=== PATIENT | female | born 1970 | race Caucasian/White ===

== ENCOUNTER 2016-07-28 08:27 | Emergency (ER) | payer OTHER ==
[2016-07-28 08:41] VITALS: BP 152/90; PULSE 92; TEMP 98.4; BMI 54.1
--- NOTE | 2016-07-28 09:49 | PDOC ---
History of Present Illness - General Chief Complaint: Rash Stated Complaint: RT WRIST INFECTION Time Seen by Provider: 07/28/16 09:31 History Source: Patient Exam Limitations: No Limitations - History of Present Illness Initial Comments: 07/28/16 09:49 46 yr female with c/o right inner wrist tatoo being infected. Pt states she had the tatoo placed and it started to become red, inflamed and pus drainage. Pt applied neosporin and it improved. Pt noted yesterday it felt warm to touch. no fever or chills. 07/28/16 10:04 Past History - Past Medical History Allergies/Adverse Reactions: Allergies Allergy/AdvReac Type Severity Reaction Status Date / Time Penicillins Allergy Severe Rash Verified 07/28/16 08:41 Home Medications: Ambulatory Orders Mupirocin Ointment [Bactroban] 1 applic TP BID #1 tube 07/28/16 Sulfamethoxazole/Trimethoprim [Bactrim Ds Tablet] 1 each PO BID #14 tablet 07/28 Asthma: Yes Cardiac Disorders: No Other medical history: obesity - Surgical History Abdominal Surgery: Yes (TUBAL LIGATION) Cholecystectomy: Yes Orthopedic Surgery: Yes (L. Knee & rt. knee, b/l carpal tunnel surgery ) - Family Disease History Family Disease History: Heart Disease: Mother - Immunization History Immunization Up to Date: Yes - Psycho/Social/Smoking Cessation Hx Anxiety: No Suicidal Ideation: No Smoking Status: Yes Smoking History: Current every day smoker Years of Tobacco Use: 10 Have you smoked in the past 12 months: Yes Number of Cigarettes Smoked Daily: 20 Information on smoking cessation initiated: No 'Breaking Loose' booklet given: 05/25/14 Hx Alcohol Use: No Drug/Substance Use Hx: No Substance Use Type: None Hx Substance Use Treatment: No Review of Systems - Review of Systems Able to Perform ROS?: Yes Is the patient limited [place] proficient: No Constitutional: No: Symptoms Reported HEENTM: No: Symptoms Reported Respiratory: No: Symptoms reported Cardiac (ROS): No: Symptoms Reported ABD/GI: No: Symptoms Reported : No: Symptoms Reported Musculoskeletal: No: Symptoms Reported Integumentary: Yes: See HPI *Physical Exam - Vital Signs Last Vital Signs Temp Pulse Resp BP Pulse Ox 98.4 F 92 H 18 152/90 95 07/28/16 08:37 07/28/16 08:37 07/28/16 08:37 07/28/16 08:37 07/28/16 08:37 - Physical Exam General Appearance: Yes: Nourished, Appropriately Dressed, Obese HEENT: positive: EOMI, AUGUST Integumentary: positive: Normal Color, Dry, Warm, Other (right inner wrist with multicolored tatoo with scabbed center, no drainage ) Neurologic: positive: Normal Response, Motor Strength 5/5 Medical Decision Making - Medical Decision Making 07/28/16 10:07 cc: tatoo to inner right wrist infected no streaking up arm, warm to touch dry scabbed area on the tatoo no active drainage will place on bactrim to cover for MRSA *DC/Admit/Observation/Transfer Diagnosis at time of Disposition: Wound infection - Discharge Dispostion Disposition: HOME Condition at time of disposition: Good - Prescriptions Prescriptions: Sulfamethoxazole/Trimethoprim [Bactrim Ds Tablet] 1 each PO BID #14 tablet Mupirocin Ointment [Bactroban] 1 applic TP BID #1 tube - Patient Instructions Additional Instructions: take bactrim as directed apply topical bactroban ointment twice a day for 10 days also apply A&D ointment in between applying the bactroban follow with your doctor if no improvement
== END 2016-07-28 10:12 | disposition home or self-care (01) ==
LOC: JERFT 08:27
DX: L08.89 Other specified local infections of the skin and subcutaneous tissue (principal); J45.909 Unspecified asthma, uncomplicated; F17.210 Nicotine dependence, cigarettes, uncomplicated; E66.01 Morbid (severe) obesity due to excess calories; Z68.43 Body mass index [BMI] 50.0-59.9, adult
CPT/HCPCS: 99281-25

== ENCOUNTER 2016-08-24 02:31 | Emergency (ER) | payer OTHER ==
[2016-08-24] MEDS ORDERED: ALBUTEROL SO4 2.5/IPRATROPIUM 0.5 INH SOL 3 ML VIAL.NEB. NEB ONE ×2 (02:54→02:55)
--- NOTE | 2016-08-24 02:54 | PDOC ---
History of Present Illness - General Stated Complaint: ASTHMA Time Seen by Provider: 08/24/16 02:53 History Source: Patient Exam Limitations: No Limitations - History of Present Illness Initial Comments: 08/24/16 03:46 46-year-old female with a history of asthma presents to the emergency department complaining of nonproductive cough and slight wheezing 2 days without chest pain, headache, dizziness, nausea/vomiting, fever/chills, back pains, abdominal discomfort. Patient states she took 1 albuterol treatment 5 hours ago with minimal relief. Patient says she is able to walk up and down a flight of stairs without being short of breath and can speak in full sentences without difficulties. No history of intubations. Timing/Duration: reports: this evening Severity: reports: mild Possible Cause: No: smoke exposure Associated Symptoms: reports: cough, wheezing. denies: chest pain/soreness Past History - Past Medical History Allergies/Adverse Reactions: Allergies Allergy/AdvReac Type Severity Reaction Status Date / Time Penicillins Allergy Severe Rash Verified 08/24/16 02:58 Home Medications: Ambulatory Orders NK [No Known Home Medication] 08/24/16 Asthma: Yes Cardiac Disorders: No - Surgical History Abdominal Surgery: Yes (TUBAL LIGATION) Cholecystectomy: Yes Orthopedic Surgery: Yes (L. Knee & rt. knee, b/l carpal tunnel surgery ) - Family Disease History Family Disease History: Heart Disease: Mother - Immunization History Immunization Up to Date: Yes - Psycho/Social/Smoking Cessation Hx Anxiety: No Suicidal Ideation: No Smoking Status: Yes Smoking History: Current every day smoker Years of Tobacco Use: 10 Have you smoked in the past 12 months: Yes Number of Cigarettes Smoked Daily: 20 'Breaking Loose' booklet given: 05/25/14 Hx Alcohol Use: No Drug/Substance Use Hx: No Substance Use Type: None Hx Substance Use Treatment: No Review of Systems - Review of Systems Able to Perform ROS?: Yes Comments:: 08/24/16 03:47 CONSTITUTIONAL: Absent: fever, chills, diaphoresis, generalized weakness, malaise, loss of appetite HEENT: Absent: rhinorrhea, nasal congestion, throat pain, throat swelling, difficulty swallowing, mouth swelling, ear pain, eye pain, visual Changes CARDIOVASCULAR: Absent: chest pain, loss of consciousness, palpitations, irregular heart rate, peripheral edema RESPIRATORY: + cough Absent:shortness of breath, dyspnea with exertion, orthopnea, wheezing, stridor , hemoptysis GASTROINTESTINAL: Absent: abdominal pain, abdominal distension, nausea, vomiting, diarrhea, constipation, melena, hematochezia GENITOURINARY: Absent: dysuria, frequency, urgency, hesitancy, hematuria, flank pain, genital pain MUSCULOSKELETAL: Absent: myalgia, arthralgia, joint swelling SKIN: Absent: rash, itching, pallor HEMATOLOGIC/IMMUNOLOGIC: Absent: easy bleeding, easy bruising, lymphadenopathy, frequent infections ENDOCRINE: Absent: unexplained weight gain, unexplained weight loss, heat intolerance, cold intolerance NEUROLOGIC: Absent: headache, focal weakness or paresthesias, dizziness, unsteady gait, seizure, mental status changes, bladder or bowel incontinence PSYCHIATRIC: Absent: anxiety, depression, suicidal or homicidal ideation, hallucinations. Is the patient limited [place] proficient: No *Physical Exam - Physical Exam Comments: 08/24/16 03:48 GENERAL: Well developed, well nourished. Awake and alert. No acute distress. HEENT: Normocephalic, atraumatic. PERRLA, EOMI. No conjunctival pallor. Sclera are non- icteric. Moist mucous membranes. Oropharynx is clear. NECK: Supple. Full ROM. No JVD. Carotid pulses 2+ and symmetric, without bruits. No thyromegaly. No lymphadenopathy. CARDIOVASCULAR: Regular rate and rhythm. No murmurs, rubs, or gallops. Distal pulses are 2+ and symmetric. PULMONARY: +scatted wheezes to lower b/l lungs No evidence of respiratory distress. No wheezing, rales or rhonchi. ABDOMINAL: Soft. Non-tender. Non-distended. No rebound or guarding. No organomegaly. Normoactive bowel sounds. MUSCULOSKELETAL Normal range of motion at all joints. No bony deformities or tenderness. No CVA tenderness. EXTREMITIES: No cyanosis. No clubbing. No edema. No calf tenderness. SKIN: Warm and dry. Normal capillary refill. No rashes. No jaundice. NEUROLOGICAL: Alert, awake, appropriate. Cranial nerves 2-12 intact. No deficits to light touch and temperature in face, upper extremities and lower extremities. No motor deficits in the in face, upper extremities and lower extremities. Normoreflexic in the upper and lower extremities. Normal speech. Toes are down- going bilaterally. Gait is normal without ataxia. PSYCHIATRIC: Cooperative. Good eye contact. Appropriate mood and affect. Progress Note - Progress Note Progress Note: 0355hrs: Pt says feels 100% better and wishes to be d/c *DC/Admit/Observation/Transfer Diagnosis at time of Disposition: Asthma Qualifiers: Asthma severity: mild intermittent Asthma complication type: uncomplicated Qualified Code(s): J45.20 - Mild intermittent asthma, uncomplicated - Discharge Dispostion Disposition: HOME Condition at time of disposition: Stable Admit: No - Referrals Referrals: Elton Hair MD [Primary Care Provider] - - Patient Instructions Printed Discharge Instructions: Asthma -- Adult Additional Instructions: Rest Follow up with your physician Return to the ER for severe/persistent/ worsening symptoms Take your steroids as prescribed
[2016-08-24] MEDS ORDERED: predniSONE 20 MG TABLET (UD) PO ONE (02:58)
[2016-08-24 03:01] VITALS: BP 153/90; PULSE 88; TEMP 98.3; BMI 51.5
[2016-08-24] MEDS ORDERED: predniSONE 20 MG TABLET (UD) ONE (03:07)
== END 2016-08-24 04:11 | disposition home or self-care (01) ==
LOC: JER 02:31
PROC: 3E0F7GC Introduction of Other Therapeutic Substance into Respiratory Tract, Via Natural or Artificial Opening (ICD-10-PCS; principal; 2016-08-24)
DX: J45.20 Mild intermittent asthma, uncomplicated (principal); F17.210 Nicotine dependence, cigarettes, uncomplicated
CPT/HCPCS: 94640; 99281-25

== ENCOUNTER 2016-08-28 19:20 | Inpatient (IN) | payer OTHER ==
[2016-08-28] MEDS ORDERED: ALBUTEROL SO4 2.5/IPRATROPIUM 0.5 INH SOL 3 ML VIAL.NEB. NEB ONE ×4 (19:28→20:31)
[2016-08-28] MEDS ORDERED: methylPREDNISolone NA SUCC 125 MG/2 ML VIAL IVPB ONE (20:10)
[2016-08-28] MEDS ORDERED: MAGNESIUM SULF 50% (8.12 MEQ/2 ML-1 GM VIAL) IVPB ONE (20:10)
[2016-08-28] MEDS ORDERED: methylPREDNISolone NA SUCC 125 MG/2 ML VIAL ONE (20:11)
[2016-08-28] MEDS ORDERED: MAGNESIUM SULF 50% (8.12 MEQ/2 ML-1 GM VIAL) ONE (20:12)
--- NOTE | 2016-08-28 20:13 | PDOC ---
History of Present Illness - General History Source: Patient Exam Limitations: No Limitations - History of Present Illness Initial Comments: 08/28/16 20:24 The patient is a 46 year old female with significant past medical history of asthma, no hospitalization or intubations, on albuterol nebulizer prn, does not have a MDI who presents to the ED for worsening asthma exacerbation. Patient was seen here in the ED on 08/24 for cold like symptoms, chest congestion, cough and SOB, where she was treated for asthma exacerbation and discharge with prednisone. However, there was an error in prescription that was sent with the prednisone for appropriate therapeutic dosage. She returns for worsening asthma exacerbation. States using her albuterol nebulizer treatment once today with no improvement and felt as if she needed more treatments. Patient does not have a rescue inhaler. Patient admits she has not been seen by her PMD in quite some time. The patient denies fever, chills, diaphoresis, chest pain, and palpitations. The patient denies abdominal pain, nausea, vomiting, and diarrhea. Allergies: penicillin Social History: Current smoker (recently cut down from ppd to half ppd). No alcohol or drug use reported. Past Surgical History: tubal ligation, cholecystectomy, L. Knee & rt. knee, b/ l carpal tunnel surgery PCP: Dr. Elton Hair <Vaishali Campbell - Last Filed: 08/29/16 01:46> <Rex Berger - Last Filed: 08/29/16 01:51> - General Chief Complaint: Asthma Stated Complaint: ASTHMA Past History <Vaishali Campbell - Last Filed: 08/29/16 01:46> - Past Medical History Asthma: Yes Cardiac Disorders: No - Surgical History Abdominal Surgery: Yes (TUBAL LIGATION) Cholecystectomy: Yes Orthopedic Surgery: Yes (L. Knee & rt. knee, b/l carpal tunnel surgery ) - Family Disease History Family Disease History: Heart Disease: Mother - Immunization History Immunization Up to Date: Yes - Psycho/Social/Smoking Cessation Hx Anxiety: No Suicidal Ideation: No Smoking Status: Yes Smoking History: Current every day smoker Years of Tobacco Use: 10 Have you smoked in the past 12 months: Yes Number of Cigarettes Smoked Daily: 20 Information on smoking cessation initiated: No 'Breaking Loose' booklet given: 05/25/14 Hx Alcohol Use: No Drug/Substance Use Hx: No Substance Use Type: None Hx Substance Use Treatment: No <Rex Berger - Last Filed: 08/29/16 01:51> - Past Medical History Allergies/Adverse Reactions: Allergies Allergy/AdvReac Type Severity Reaction Status Date / Time Penicillins Allergy Severe Rash Verified 08/28/16 19:26 Home Medications: Ambulatory Orders Albuterol Sulfate Inhaler - [Ventolin HFA Inhaler -] 2 inh PO Q6H #1 inh Review of Systems - Review of Systems Able to Perform ROS?: Yes Comments:: 08/28/16 20:24 GENERAL/CONSTITUTIONAL: No fever or chills. No weakness. HEAD, EYES, EARS, NOSE AND THROAT: No change in vision. No ear pain or discharge. No sore throat. CARDIOVASCULAR: +SOB No chest pain. RESPIRATORY: +cough, chest congestion No wheezing, or hemoptysis. GASTROINTESTINAL: No nausea, vomiting, diarrhea or constipation. GENITOURINARY: No dysuria, frequency, or change in urination. MUSCULOSKELETAL: No joint or muscle swelling or pain. No neck or back pain. SKIN: No rash NEUROLOGIC: No headache, vertigo, loss of consciousness, or change in strength/ sensation. ENDOCRINE: No increased thirst. No abnormal weight change. HEMATOLOGIC/LYMPHATIC: No anemia, easy bleeding, or history of blood clots. ALLERGIC/IMMUNOLOGIC: No hives or skin allergy. <Vaishali Campbell - Last Filed: 08/29/16 01:46> *Physical Exam - Vital Signs Last Vital Signs Temp Pulse Resp BP Pulse Ox 97.9 F 99 H 22 138/00 91 L 08/28/16 19:30 08/28/16 19:30 08/28/16 19:30 08/28/16 19:30 08/28/16 19:30 - Physical Exam Comments: 08/28/16 20:28 GENERAL: Awake, alert, and fully oriented, in no acute distress HEAD: No signs of trauma EYES: PERRLA, EOMI, sclera anicteric, conjunctiva clear ENT: Auricles normal inspection, hearing grossly normal, nares patent, oropharynx clear without exudates. Dry mucosa. Mild clinical dehydration. NECK: Normal ROM, supple, no lymphadenopathy, JVD, or masses LUNGS: Breath sounds equal. Diffuse wheezing with prolonged expiratory phase. No rales, rhonchi and no crackles HEART: Regular rate and rhythm, normal S1 and S2, no murmurs, rubs or gallops ABDOMEN: Obese body habitus. Soft, nontender, normoactive bowel sounds. No guarding, no rebound. No masses EXTREMITIES: Normal range of motion, no edema. No clubbing or cyanosis. No cords, erythema, or tenderness NEUROLOGICAL: Cranial nerves II through XII grossly intact. Normal speech, normal gait SKIN: Warm, Dry, normal turgor, no rashes or lesions noted. <Vaishali Campbell - Last Filed: 08/29/16 01:46> - Vital Signs Last Vital Signs Temp Pulse Resp BP Pulse Ox 97.9 F 99 H 22 138/00 91 L 08/28/16 19:30 08/28/16 19:30 08/28/16 19:30 08/28/16 19:30 08/28/16 19:30 <Rex Berger - Last Filed: 08/29/16 01:51> ED Treatment Course - LABORATORY CBC & Chemistry Diagram: 08/28/16 20:45 08/28/16 20:45 - Medications Given in the ED: ED Medications Discontinued Medications Generic Name Dose Route Start Last Admin Trade Name Freq PRN Reason Stop Dose Admin Albuterol/Ipratropium 2 amp 08/28/16 19:32 08/28/16 19:32 Duoneb - NEB 08/28/16 19:33 2 amp NOW ONE Administration <ShannanVaishali - Last Filed: 08/29/16 01:46> - LABORATORY CBC & Chemistry Diagram: 08/28/16 20:45 08/28/16 20:45 - Medications Given in the ED: ED Medications Discontinued Medications Generic Name Dose Route Start Last Admin Trade Name Freq PRN Reason Stop Dose Admin Albuterol/Ipratropium 2 amp 08/28/16 19:32 08/28/16 19:32 Duoneb - NEB 08/28/16 19:33 2 amp NOW ONE Administration <Rex Berger - Last Filed: 08/29/16 01:51> Medical Decision Making - Medical Decision Making 08/28/16 23:[address] Elton Hair (via answering service) at 23:45 Awaiting call back 08/29/16 00:11 Second call placed to Dr. Hair (via answering service) at 24:11 Awaiting call back 08/29/16 00:14 Patient's case discussed with Dr. Hair at 24:14 08/29/16 00:[address] Finn Giang covering for Dr. Jayla Rubi (via answering service) at 24:29 Awaiting call back 08/29/16 01:14 Second call placed to Dr. Giang (via answering service) at 1:14 Awaiting call back 08/29/16 01:46 Third call placed to Dr. Giang (via answering service) at 1:46 and patient's case was discussed. <Vaishali Campbell - Last Filed: 08/29/16 01:46> - Medical Decision Making 08/28/16 22:00 46yo F with ongoing asthma exacerbation. She has been undertreated with prednisone at subtherapeutic dose and has no MDI albuterol inhaler. She will be given albuterol/ipratropium, magnesium sulfate, solumedrol; Will likely observe. 08/29/16 01:50 She is not responding well to treatments; she is an excellent candidate for observation. Endorsed to Dr. Giang. <Rex Berger - Last Filed: 08/29/16 01:51> *DC/Admit/Observation/Transfer - Attestations Scribe Attestion: 08/28/16 20:25 Documentation prepared by Vaishali Campbell, acting as director global medical affairs for Rex Berger MD, MD <Vaishali Campbell - Last Filed: 08/29/16 01:46> - Discharge Dispostion Admit: No Decision to Admit order Date/Time: 08/29/16 01:49 I, Dr. Rex Berger MD, attest that this document has been prepared under my direction and personally reviewed by me in its entirety. I further attest, that it accurately reflects all work, treatment, procedures and medical decision -making performed by me. - Attestations Physician Attestion: 08/29/16 01:49 I, Dr. Rex Berger MD, attest that this document has been prepared under my direction and personally reviewed by me in its entirety. I further attest, that it accurately reflects all work, treatment, procedures and medical decision -making performed by me. <Rex Berger - Last Filed: 08/29/16 01:51> Diagnosis at time of Disposition: Asthma attack, Wheezing - Discharge Dispostion Condition at time of disposition: Guarded - Referrals Referrals: Elton Hair MD [Primary Care Provider] -
[2016-08-28] MEDS ORDERED: ALBUTEROL SO4 0.083% IH SOL 2.5 MG/3 ML VIAL.NEB. NEB ONE (20:31)
[2016-08-28 20:58] LABS: EOSINOPHIL 5.3 % (0-4.5); MCH 29.4 pg (25.7-33.7); MCHC 32.7 g/dl (32.0-36.0); MEAN CELL VOLUME 89.9 fl (80-96); MEAN PLT VOLUME 7.8 fl (7.5-11.1); NEUTROPHILS 66.3 % (42.8-82.8); PLATELET COUNT 316 K/MM3 (134-434); RDW 14.8 % (11.6-15.6); WHITE BLOOD COUNT 11.9 K/mm3 (4.0-10.0)
[2016-08-28 21:32] LABS: MAGNESIUM 2.1 mg/dL (1.8-2.4)
[2016-08-28 21:46] LABS: ALBUMIN 3.4 g/dl (3.4-5.0); ANION GAP 8 (8-16); BILIRUBIN,TOTAL 0.3 mg/dL (0.2-1.0); CALCIUM 8.6 mg/dL (8.5-10.1); CO2 26 mmol/L (21-32); COCKROFT - GAULT 220.3115; CREATININE 0.7 mg/dL (0.55-1.02); GLUCOSE,RANDOM 143 mg/dL (74-106); SGOT/AST 15 U/L (15-37); SGPT/ALT 27 U/L (12-78); TOT PROT 6.9 g/dl (6.4-8.2)
[2016-08-28 21:49] LABS: ALK PHOS 94 U/L (45-117); TROPONIN I < 0.02 ng/ml (0.00-0.05)
[2016-08-29] MEDS ORDERED: ALBUTEROL SO4 0.083% IH SOL 2.5 MG/3 ML VIAL.NEB. NEB ONE (00:11)
[2016-08-29 04:50] VITALS: BMI 53.8
[2016-08-29] MEDS ORDERED: ALBUTEROL SO4 2.5/IPRATROPIUM 0.5 INH SOL 3 ML VIAL.NEB. NEB ONE (05:16)
--- NOTE | 2016-08-29 05:27 | HOSP ---
Subjective - Review of Symptoms General: No: Chills, Fatigue HEENT: No: Head Aches, Visual Changes Pulmonary: Yes: Dyspnea, Cough (productive of thick sputum), Pleuritic Chest Pain Cardiovascular: Yes: Chest Pain. No: Palpitations, Light Headedness Gastrointestinal: No: Nausea, Vomiting, Abdominal Pain Genitourinary: No: Dysuria, Frequency Musculoskeletal: Yes: No Symptoms Neurological: No: Weakness, Change in speech Physical Examination Vital Signs: Vital Signs Temperature 98.3 F 08/29/16 02:42 Pulse Rate 90 08/29/16 02:42 Respiratory Rate 26 H 08/29/16 02:42 Blood Pressure 137/85 08/29/16 02:42 O2 Sat by Pulse Oximetry (%) 95 08/29/16 02:42 on 3lpm Constitutional: Yes: Well Nourished, No Distress, Calm Eyes: Yes: Conjunctiva Clear, EOM Intact, PERRL HENT: Yes: Atraumatic, Normocephalic. No: Thrush Neck: Yes: Supple, Trachea Midline Cardiovascular: Yes: Regular Rate and Rhythm, S1, S2. No: Murmur Respiratory: Yes: Regular, CTA Bilaterally, On Nasal O2. No: Accessory Muscle Use, Rales, Rhonchi Gastrointestinal: Yes: Normal Bowel Sounds, Abdomen, Obese Musculoskeletal: Yes: WNL Extremities: Yes: WNL Edema: No Peripheral Pulses WNL: Yes Integumentary: Yes: WNL Neurological: Yes: Alert, Oriented ...Motor Strength: WNL Psychiatric: Yes: Alert, Oriented Hospitalist Encounter Assessment: Called by nurses for c/o shortness of breath. Pt presented to ED with difficulty breathing since this afternoon after attending an outdoor sporting event all day. She did not have her rescue inhaler with her. Shortness of breath is worse with exertion and feels like her chest is tight and her throat is tightening as well while sitting. Also c/o mid-substernal radiating under left breast pressure-like chest pain and is worse with exertion, lasting about an hour. Had a previous episode of similar chest pain in the ED. EKG in the ED is NSR without acute ischemic changes, Trop <0.02. PE; chest pain is ttp in left upper/mid and lower chest under breast. Outcome: Duonebs ordered. Stat EKG, stat trop. heart score 2, low suspicion for ACS Naproxen for pain relief Primary Physician Notified: Jayla Rubi Recommendations/Interventions: Consider costochondritis in differential due to chest tenderness. Stat EKG is NSR, vent rate 91bpm, Qtc 469 without acute ischemic changes. f/o chest xray official read and troponin Visit type - Emergency Visit Emergency Visit: No - New Patient This patient is new to me today: Yes Date on this admission: 08/29/16 - Critical Care Critical Care patient: No
[2016-08-29] MEDS ORDERED: NAPROXEN 375 MG TABLET (FP) PO ONE (05:33)
--- NOTE | 2016-08-29 07:34 | HP ---
Admitting History and Physical - Primary Care Physician PCP: Elton Hair - Admission Chief Complaint: aae History Source: Medical Record - Smoking History Smoking history: Current every day smoker Have you smoked in the past 12 months: Yes Aproximately how many cigarettes per day: 20 - Alcohol/Substance Use Hx Alcohol Use: No Home Medications - Allergies Allergies/Adverse Reactions: Allergies Allergy/AdvReac Type Severity Reaction Status Date / Time Penicillins Allergy Severe Rash Verified 08/28/16 19:26 - Home Medications Home Medications: Ambulatory Orders Albuterol Sulfate Inhaler - [Ventolin HFA Inhaler -] 2 inh PO Q6H #1 inh Review of Systems - Review of Systems Constitutional: denies: Chills, Fever Cardiovascular: denies: Chest Pain Respiratory: reports: SOB Gastrointestinal: denies: Abdominal Pain Physical Examination Vital Signs: Vital Signs Temperature 98.2 F 08/29/16 04:45 Pulse Rate 91 H 08/29/16 04:45 Respiratory Rate 22 08/29/16 04:45 Blood Pressure 153/87 08/29/16 04:45 O2 Sat by Pulse Oximetry (%) 96 08/29/16 02:42 Constitutional: Yes: Calm HENT: Yes: WNL Neck: Yes: WNL Cardiovascular: Yes: WNL Respiratory: Yes: Wheezes Gastrointestinal: Yes: WNL Edema: No Imaging - Results Chest X-ray: Report Reviewed Problem List - Problems (1) Asthma attack Code(s): J45.901 - UNSPECIFIED ASTHMA WITH (ACUTE) EXACERBATION (2) Chest pain Code(s): R07.9 - CHEST PAIN, UNSPECIFIED Qualifiers: Chest pain type: precordial pain Qualified Code(s): R07.2 - Precordial pain (3) Leukocytosis Code(s): D72.829 - ELEVATED WHITE BLOOD CELL COUNT, UNSPECIFIED Assessment/Plan (1) Asthma attack Code(s): J45.901 - UNSPECIFIED ASTHMA WITH (ACUTE) EXACERBATION pulm iv steroids duoneb (2) Chest pain Code(s): R07.9 - CHEST PAIN, UNSPECIFIED appreciate resident note trop neg -> f/u cardio (3) Leukocytosis Code(s): D72.829 - ELEVATED WHITE BLOOD CELL COUNT, UNSPECIFIED no fever 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
--- NOTE | 2016-08-29 09:51 | CON.CARD ---
Consult Consult Specialty:: Cardiology Referred by:: Dr Rubi Reason for Consultation:: chest pain - History of Present Illness Chief Complaint: sob, wheezing, chest pain. History of Present Illness: 46 year old woman history of asthma, obesity, rotator cuff surgery, bilat knee arthroscopies, abnormal stress test 2012 with normal coronaries cath by patient report who was admitted after one day of SOB adn wheezing. Recent asthma exacerbation treated and released. She is also anxious about her 's surgery today. She had several episodes of chest pain, pressure like last night without ECG changes or associated symptoms. - History Source History Provided By: Patient, Medical Record Limitations to Obtaining History: No Limitations - Alcohol/Substance Use Hx Alcohol Use: No - Smoking History Smoking history: Current every day smoker Have you smoked in the past 12 months: Yes Aproximately how many cigarettes per day: 20 Home Medications - Allergies Allergies/Adverse Reactions: Allergies Allergy/AdvReac Type Severity Reaction Status Date / Time Penicillins Allergy Severe Rash Verified 08/28/16 19:26 - Home Medications Home Medications: Ambulatory Orders Albuterol Sulfate Inhaler - [Ventolin HFA Inhaler -] 2 inh PO Q6H #1 inh Family Disease History - Family Disease History Family History: Denies Review of Systems - Review of Systems Respiratory: reports: Cough, Wheezing Psychiatric: reports: Anxiety Vital Signs: Vital Signs Temperature 98.2 F 08/29/16 04:45 Pulse Rate 91 H 08/29/16 04:45 Respiratory Rate 22 08/29/16 04:45 Blood Pressure 153/87 08/29/16 04:45 O2 Sat by Pulse Oximetry (%) 96 08/29/16 02:42 Constitutional: Yes: No Distress, Obese Eyes: Yes: WNL HENT: Yes: WNL Neck: Yes: WNL Respiratory: Yes: Wheezes Gastrointestinal: Yes: WNL, Normal Bowel Sounds Cardiovascular: Yes: Regular Rate and Rhythm JVD: No Carotid Bruit: No PMI: Non-Displaced Heart Sounds: Yes: S1, S2 Extremities: Yes: WNL Edema: LLE: Trace, RLE: Trace Peripheral Pulses WNL: Yes - Other Data Labs, Other Data: Troponin, BNP 08/29/16 05:30 Troponin I < 0.02 Troponin, BNP 08/29/16 05:30 Troponin I < 0.02 Normal ECG x 2. Prior Cardiac Procedures: Cardiac Catheterization (normal cors 2012 [facility]) Ejection Fraction %: LVEF > or = 40 % Imaging - Results X-ray: Report Reviewed (MEENU) EKG: Report Reviewed (normal ECG) Problem List - Problems (1) Chest pain Assessment/Plan: No evidence of ACS. Given the paucity of risk factors, normal coronaries catheterization in the past and normal ECG would defer ischemia workup at this time. No need for inpatient cardiac testing. 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 Will see as needed. Code(s): R07.9 - CHEST PAIN, UNSPECIFIED Qualifiers: Chest pain type: precordial pain Qualified Code(s): R07.2 - Precordial pain
--- NOTE | 2016-08-29 09:53 | EKG ---
Test Reason : Blood Pressure : / mmHG Vent. Rate : 091 BPM Atrial Rate : 091 BPM P-R Int : 152 ms QRS Dur : 092 ms QT Int : 382 ms P-R-T Axes : 051 071 021 degrees QTc Int : 469 ms NORMAL SINUS RHYTHM NONSPECIFIC ST ABNORMALITY WHEN COMPARED WITH ECG OF 29-AUG-2016 03:16, NO SIGNIFICANT CHANGE WAS FOUND Confirmed by LOVE MENDES MD ([id number]) on 08/29/2016 9:53:06 AM Referred By: Confirmed By:LOVE MENDES MD
--- NOTE | 2016-08-29 09:55 | EKG ---
Test Reason : Blood Pressure : / mmHG Vent. Rate : 093 BPM Atrial Rate : 093 BPM P-R Int : 150 ms QRS Dur : 092 ms QT Int : 384 ms P-R-T Axes : 045 058 023 degrees QTc Int : 477 ms NORMAL SINUS RHYTHM NONSPECIFIC ST ABNORMALITY Confirmed by LOVE MENDES MD ([id number]) on 08/29/2016 9:54:38 AM Referred By: Confirmed By:LOVE MENDES MD
[2016-08-29] MEDS: HEPARIN NA (PORCINE) 5,000 UNITS/ML 1ML VIAL SQ SCH ×2 (10:09→22:48)
[2016-08-29] MEDS: methylPREDNISolone NA SUCC 125 MG/2 ML VIAL IVPB SCH ×3 (10:09→21:04)
[2016-08-29] MEDS: ALBUTEROL SO4 2.5/IPRATROPIUM 0.5 INH SOL 3 ML VIAL.NEB. NEB PRN ×3 (13:02→23:25)
--- NOTE | 2016-08-29 14:13 | PN ---
Progress Note (short form) - Note Progress Note: ID consult dictated 46 year old female with PMH asthma, multiple orthopaedic surgeries developed a cold last week, seen in ED 08/24 for asthma exacerbation- she smokes , no MDI at home, has a nebulizer machine no history of respiratory failure or intubations asthma has been "good " this past year +seasonal allergies was seen in ED on 08/24 and given prednisone, no MDI- prednisone was dosed incorrectly and she was given 5 10 mg tablets and she took one daily without improvement now feels better with nebs and steroids no fevers or chills cxray negative +uri symptoms penicillin allergy- hives and SOB suspect asthma exacerbation triggered by URI/allergies continue nebs steroids no need for antibiotics at this time pen allergy please call back if needed Problem List - Problems (1) Asthma exacerbation Code(s): J45.901 - UNSPECIFIED ASTHMA WITH (ACUTE) EXACERBATION Qualifiers: Asthma severity: mild intermittent Qualified Code(s): J45.21 - Mild intermittent asthma with (acute) exacerbation (2) Penicillin allergy Code(s): Z88.0 - ALLERGY STATUS TO PENICILLIN
--- NOTE | 2016-08-29 15:22 | PN ---
Progress Note (short form) - Note Progress Note: PULMONARY CONSULTATION DICTATED 07/29/16 IMP ACUTE ASTHMA EXACERBATION URI MORBID OBESITY SMOKER PLAN IV STEROIDS INHALED BRONCHODILATORS O2 MONITOR PEAK FLOW PFTS OUT PATIENT SMOKING CESSATION COUNSELED JHONNY WASSERMAN Problem List - Problems (1) Asthma attack Code(s): J45.901 - UNSPECIFIED ASTHMA WITH (ACUTE) EXACERBATION (2) Wheezing Code(s): R06.2 - WHEEZING (3) Asthma exacerbation Code(s): J45.901 - UNSPECIFIED ASTHMA WITH (ACUTE) EXACERBATION Qualifiers: Asthma severity: mild intermittent Qualified Code(s): J45.21 - Mild intermittent asthma with (acute) exacerbation (4) Morbid (severe) obesity due to excess calories Code(s): E66.01 - MORBID (SEVERE) OBESITY DUE TO EXCESS CALORIES (5) Smoker Code(s): F17.200 - NICOTINE DEPENDENCE, UNSPECIFIED, UNCOMPLICATED
--- NOTE | 2016-08-29 15:54 | CONS ---
DATE OF CONSULTATION: DATE OF DICTATION: 08/29/2016 INFECTIOUS DISEASE CONSULTATION REQUESTING PHYSICIAN: Jayla Rubi M.D. CONSULTING PHYSICIAN: Chaitanya Angel M.D. HISTORY OF PRESENT ILLNESS: This is a 46-year-old woman. She has a history of asthma which started about 15 to 20 years ago as an adult. She has no history of prior intubation or respiratory failure. She actually reports her asthma has been quite quiescent for the last year and she has been using her inhaler very intermittently; in fact, she currently does not have an inhaler. She does note she has seasonal allergies, and last week her daughter got sick, who is 14, with a cough syndrome, and she felt ill as well, and her asthma started acting up. She started wheezing. She came to the emergency room on the with URI symptoms and some cough, and she was treated for an asthma exacerbation. She was discharged on prednisone. Unfortunately, the prednisone prescription was written in error. She was only given 5 tablets of 10 mg, so she took 1 tablet daily. She was not given the minidose inhaler, but she had been using her nebulizer. She did not seek followup with her PMD since the ER admission, and she returned to the emergency room on the with continued complaints of wheezing and shortness of breath. She reports having a cough that was sometimes productive of yellow sputum. There is no blood. She has had no fevers or chills. She has no chest pain or palpitations. She had no abdominal pain, nausea, vomiting, diarrhea. She reports feeling much improved since her admission. She is allergic to PENICILLIN which causes her to have hives and become short of breath. PAST MEDICAL HISTORY: Notable for asthma. SURGICAL HISTORY: Notable for tubal ligation, cholecystectomy. She has had both bilateral total knee replacements, bilateral carpal tunnel syndrome, and she has had 2 rotator cuff repairs on her left shoulder and 1 on her right. FAMILY HISTORY: Notable for heart disease in her mother. SOCIAL HISTORY: She is . She has 3 children: 20, 16, and 14. She still smokes about 20 cigarettes a day but is interested in stopping. REVIEW OF SYSTEMS: She reports feeling much better with less chest cough. No sore throat. No nausea, vomiting, diarrhea, or dysuria. PHYSICAL EXAMINATION: General: She is awake and alert. A very pleasant lady in no acute distress. Vital signs: Temperature 98.6, pulse 92, blood pressure 158/80, respiratory rate 22, saturating 96% on room air, she weighs 313 pounds on our scale . HEENT: Normocephalic. Eyes are anicteric. She has no thrush. She has enlarged tonsils which she knows she has. But there are no exudates or erythema. Neck: Supple. Lungs: Very few scattered wheezes, otherwise clear. Heart: Regular rate and rhythm. Abdomen: Soft, nontender. Extremities: Without edema. She healed total knee replacement scars on both her knees . LABORATORY: White count is 11.9, hemoglobin 14.2, platelets 316. BUN and creatinine are 11 and 0.7. LFTs are normal. Chest x-ray reveals no infiltrate. SUMMARY: This is a 46-year-old woman with an asthma exacerbation, I suspect triggered by URI or allergies. I would continue the nebulizers and steroids and taper as appropriate. I see no need for antibiotics at this time. Please call back if needed. CHAITANYA ANGEL M.D. [id number]
[2016-08-29] MEDS: NICOTINE 14 MG/24 HOURS TOPICAL PATCH TD SCH (16:09)
[2016-08-29] MEDS: AZITHROMYCIN 250 MG TABLET (FP) PO SCH (16:10)
--- NOTE | 2016-08-29 16:21 | CONS ---
DATE OF CONSULTATION: 08/29/2016 PULMONARY CONSULTATION REFERRING PHYSICIAN: Elton Hair M.D. 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 History of tobacco use, currently still smoking. Admitted to [facility] with complaint of a few day history of increasing shortness of breath, cough, chest congestion. Patient apparently went to [facility] ER on August 24 for URI symptoms; at the time, she was treated with an asthma exacerbation and discharged home on prednisone. Initially he was doing better until , a couple days prior to this admission, when she started to have increasing shortness of breath, cough productive of yellowish sputum. Denied any hemoptysis, denied any complaints of nausea, vomiting, or diaphoresis. Denied any fevers or chills. Did complain of some mild chest discomfort. PAST MEDICAL HISTORY: The patient denies any history of DVT or PE in the past . There is no occupational exposures. Past medical history again includes chronic asthma. PAST SURGICAL HISTORY: Tubal ligation, cholecystectomy, right and left knee surgery, and bilateral carpal tunnel surgery. SOCIAL HISTORY: History of tobacco use. No occupational exposure. REVIEW OF SYSTEMS: Positive cough. Positive chest congestion. Positive sputum. No chest pain or chest tightness. No nausea. No vomiting. No diaphoresis. No fevers/chills. CURRENT MEDICATIONS: Include Solu-Medrol, heparin, DuoNeb. PHYSICAL EXAMINATION: General: The patient is an obese female, awake, alert, in no acute distress. Vital signs: She is currently afebrile. Blood pressure is 158/80, respiratory rate 22, and O2 saturation is 95% on 3 L. HEENT: Head is normocephalic, atraumatic. Neck: Supple. Heart: Regular. S1, S2. Chest: Bilateral wheezes throughout. Abdomen: Soft. Bowel sounds positive. Extremities: No cyanosis, edema. LABORATORY: WBC 11.9, hemoglobin 14.2, hematocrit 43.3, platelet count of 316, 000. Electrolytes essentially within normal limits. Chest x-ray, no infiltrates, no effusions. IMPRESSION: 1. Acute asthma exacerbation, may be upper respiratory infection. 2. Morbid obesity. PLAN: IV steroids, inhaled bronchodilators, antibiotic therapy, sputum for C&S , monitor peak flow, PFTs as outpatient. Also smoking cessation, will start Nicoderm patch. BRIA WASSERMAN M.D. [id number] MTDD
[2016-08-29] MEDS: BUDESONIDE/FORMETEROL FUMARATE 160/4.5 mcg INHALER IH SCH (22:48)
[2016-08-30] MEDS: methylPREDNISolone NA SUCC 125 MG/2 ML VIAL IVPB SCH ×4 (03:32→21:33)
[2016-08-30] MEDS: ALBUTEROL SO4 2.5/IPRATROPIUM 0.5 INH SOL 3 ML VIAL.NEB. NEB PRN ×2 (04:15→09:58)
[2016-08-30 07:37] LABS: BASOPHIL 0.2 % (0-2.0); MCH 30.3 pg (25.7-33.7); MCHC 33.2 g/dl (32.0-36.0); MEAN CELL VOLUME 91.2 fl (80-96); NEUTROPHILS 87.8 % (42.8-82.8); PLATELET COUNT 301 K/MM3 (134-434); WHITE BLOOD COUNT 18.7 K/mm3 (4.0-10.0)
[2016-08-30 08:03] LABS: ALBUMIN 3.6 g/dl (3.4-5.0); ANION GAP 10 (8-16); CALCIUM 8.8 mg/dL (8.5-10.1); CO2 25 mmol/L (21-32); GLUCOSE,RANDOM 206 mg/dL (74-106)
[2016-08-30 08:10] LABS: ALK PHOS 99 U/L (45-117); BILIRUBIN,TOTAL 0.2 mg/dL (0.2-1.0); COCKROFT - GAULT 230.3755; CREATININE 0.7 mg/dL (0.55-1.02); SGOT/AST 5 U/L (15-37); SGPT/ALT 22 U/L (12-78); TOT PROT 7.1 g/dl (6.4-8.2); TROPONIN I < 0.02 ng/ml (0.00-0.05)
[2016-08-30] MEDS: NICOTINE 14 MG/24 HOURS TOPICAL PATCH TD SCH (09:28)
[2016-08-30] MEDS: AZITHROMYCIN 250 MG TABLET (FP) PO SCH (09:29)
[2016-08-30] MEDS: HEPARIN NA (PORCINE) 5,000 UNITS/ML 1ML VIAL SQ SCH ×2 (09:29→21:33)
[2016-08-30] MEDS: BUDESONIDE/FORMETEROL FUMARATE 160/4.5 mcg INHALER IH SCH ×2 (09:30→21:33)
--- NOTE | 2016-08-30 10:35 | PN ---
Progress Note, Physician - Current Medication List Current Medications: Active Medications Albuterol/Ipratropium (Duoneb -) 1 amp NEB Q4H PRN PRN Reason: SHORTNESS OF BREATH Last Admin: 08/30/16 09:58 Dose: 1 amp Azithromycin (Zithromax -) 500 mg PO DAILY [facility] Last Admin: 08/30/16 09:29 Dose: 500 mg Budesonide/Formoterol Fumarate (Symbicort 160/4.5mcg -) 2 puff IH BID [facility] Last Admin: 08/30/16 09:30 Dose: 2 inh Heparin Sodium (Porcine) (Heparin -) 5,000 unit SQ BID [facility] Last Admin: 08/30/16 09:29 Dose: 5,000 unit Methylprednisolone Sodium Succinate (Solu-Medrol -) 60 mg IVPB Q6H-IV [facility] Last Admin: 08/30/16 09:29 Dose: 60 mg Nicotine (Nicoderm Patch -) 14 mg TD DAILY [facility] Last Admin: 08/30/16 09:28 Dose: 14 mg - Objective Vital Signs: Vital Signs Temperature 98.5 F 08/30/16 06:00 Pulse Rate 87 08/30/16 09:57 Respiratory Rate 20 08/30/16 06:00 Blood Pressure 121/63 08/30/16 06:00 O2 Sat by Pulse Oximetry (%) 95 08/30/16 09:57 Constitutional: Yes: Calm Neck: Yes: WNL Cardiovascular: Yes: WNL Respiratory: Yes: Wheezes Gastrointestinal: Yes: WNL Edema: No Labs: CBC, BMP 08/30/16 06:45 08/30/16 06:45 Problem List - Problems (1) Asthma attack Code(s): J45.901 - UNSPECIFIED ASTHMA WITH (ACUTE) EXACERBATION (2) Chest pain Code(s): R07.9 - CHEST PAIN, UNSPECIFIED Qualifiers: Chest pain type: precordial pain Qualified Code(s): R07.2 - Precordial pain (3) Leukocytosis Code(s): D72.829 - ELEVATED WHITE BLOOD CELL COUNT, UNSPECIFIED Assessment/Plan (1) Asthma attack Code(s): J45.901 - UNSPECIFIED ASTHMA WITH (ACUTE) EXACERBATION pulm on case iv steroids duoneb (2) Chest pain Code(s): R07.9 - CHEST PAIN, UNSPECIFIED appreciate resident note no acs cardio note appreciated (3) Leukocytosis Code(s): D72.829 - ELEVATED WHITE BLOOD CELL COUNT, UNSPECIFIED no fever id on case no 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
--- NOTE | 2016-08-30 11:41 | PN ---
Progress Note, Physician History of Present Illness: PULMONARY ALERT,FEELING BETTER,LESS CONGESTED,LESS DYSPNEIC - Current Medication List Current Medications: Active Medications Albuterol/Ipratropium (Duoneb -) 1 amp NEB Q4H PRN PRN Reason: SHORTNESS OF BREATH Last Admin: 08/30/16 09:58 Dose: 1 amp Azithromycin (Zithromax -) 500 mg PO DAILY [facility] Last Admin: 08/30/16 09:29 Dose: 500 mg Budesonide/Formoterol Fumarate (Symbicort 160/4.5mcg -) 2 puff IH BID [facility] Last Admin: 08/30/16 09:30 Dose: 2 inh Heparin Sodium (Porcine) (Heparin -) 5,000 unit SQ BID [facility] Last Admin: 08/30/16 09:29 Dose: 5,000 unit Methylprednisolone Sodium Succinate (Solu-Medrol -) 60 mg IVPB Q6H-IV [facility] Last Admin: 08/30/16 09:29 Dose: 60 mg Nicotine (Nicoderm Patch -) 14 mg TD DAILY [facility] Last Admin: 08/30/16 09:28 Dose: 14 mg - Objective Vital Signs: Vital Signs Temperature 98.5 F 08/30/16 06:00 Pulse Rate 87 08/30/16 09:57 Respiratory Rate 20 08/30/16 06:00 Blood Pressure 121/63 08/30/16 06:00 O2 Sat by Pulse Oximetry (%) 95 08/30/16 09:57 Constitutional: Yes: Calm, Obese Eyes: Yes: WNL HENT: Yes: WNL Neck: Yes: WNL Cardiovascular: Yes: Regular Rate and Rhythm, S1, S2 Respiratory: Yes: Wheezes (BILATERAL WHEEZES) Gastrointestinal: Yes: Normal Bowel Sounds, Soft Extremities: Yes: WNL Edema: No Labs: CBC, BMP 08/30/16 06:45 08/30/16 06:45 Problem List - Problems (1) Asthma attack Code(s): J45.901 - UNSPECIFIED ASTHMA WITH (ACUTE) EXACERBATION (2) Wheezing Code(s): R06.2 - WHEEZING (3) Asthma exacerbation Code(s): J45.901 - UNSPECIFIED ASTHMA WITH (ACUTE) EXACERBATION Qualifiers: Asthma severity: mild intermittent Qualified Code(s): J45.21 - Mild intermittent asthma with (acute) exacerbation (4) Morbid (severe) obesity due to excess calories Code(s): E66.01 - MORBID (SEVERE) OBESITY DUE TO EXCESS CALORIES (5) Smoker Code(s): F17.200 - NICOTINE DEPENDENCE, UNSPECIFIED, UNCOMPLICATED Assessment/Plan IMP ACUTE ASTHMA EXACERBATION URI MORBID OBESITY SMOKER PLAN IV STEROIDS SAME DOSE INHALED BRONCHODILATORS ADD SPIRIVA O2 MONITOR PEAK FLOW PFTS OUT PATIENT SMOKING CESSATION COUNSELED JHONNY WASSERMAN Problem List - Problems (1) Asthma attack Code(s): J45.901 - UNSPECIFIED ASTHMA WITH (ACUTE) EXACERBATION (2) Wheezing Code(s): R06.2 - WHEEZING (3) Asthma exacerbation Code(s): J45.901 - UNSPECIFIED ASTHMA WITH (ACUTE) EXACERBATION Qualifiers: Asthma severity: mild intermittent Qualified Code(s): J45.21 - Mild intermittent asthma with (acute) exacerbation (4) Morbid (severe) obesity due to excess calories Code(s): E66.01 - MORBID (SEVERE) OBESITY DUE TO EXCESS CALORIES (5) Smoker Code(s): F17.200 - NICOTINE DEPENDENCE, UNSPECIFIED, UNCOMPLICATED
[2016-08-30] MEDS: ALBUTEROL SO4 0.5 % INH SOLN 2.5 MG/0.5 ML VIAL.NEB. NEB PRN ×2 (14:17→19:35)
[2016-08-30] MEDS: IBUPROFEN 400 MG TABLET (FP) PO PRN ×2 (14:31→22:57)
[2016-08-30] MEDS: TIOTROPIUM BROMIDE 18 MCG/INH (DEVICE W/ 5 CAPSULES) IH SCH (14:33)
[2016-08-30] MEDS ORDERED: PT OWN MED DRAWER 7, Y5N ONE ×2 (14:48→21:27)
[2016-08-30] MEDS ORDERED: INFLUENZA VACCINE 45 MCG/0.5 ML (MDV 16-17) IM ONE (17:15)
[2016-08-30] MEDS: RANITIDINE HCL 150 MG/10 ML UNIT-DOSE CUP PO SCH (21:33)
[2016-08-31] MEDS: methylPREDNISolone NA SUCC 125 MG/2 ML VIAL IVPB SCH ×3 (03:52→18:56)
[2016-08-31] MEDS: ALBUTEROL SO4 0.5 % INH SOLN 2.5 MG/0.5 ML VIAL.NEB. NEB PRN ×4 (04:40→22:35)
[2016-08-31 08:07] LABS: MCH 30.6 pg (25.7-33.7); MCHC 33.3 g/dl (32.0-36.0); MEAN CELL VOLUME 91.7 fl (80-96); MEAN PLT VOLUME 8.3 fl (7.5-11.1); PLATELET COUNT 279 K/MM3 (134-434); RDW 14.9 % (11.6-15.6); WHITE BLOOD COUNT 16.9 K/mm3 (4.0-10.0)
[2016-08-31 08:34] LABS: ALBUMIN 3.3 g/dl (3.4-5.0); ALK PHOS 116 U/L (45-117); ANION GAP 12 (8-16); BILIRUBIN,TOTAL 0.4 mg/dL (0.2-1.0); CALCIUM 8.7 mg/dL (8.5-10.1); CO2 25 mmol/L (21-32); COCKROFT - GAULT 201.5775; CREATININE 0.8 mg/dL (0.55-1.02); GLUCOSE,RANDOM 264 mg/dL (74-106); SGOT/AST 8 U/L (15-37); SGPT/ALT 21 U/L (12-78); TOT PROT 6.8 g/dl (6.4-8.2)
[2016-08-31] MEDS ORDERED: PT OWN MED DRAWER 7, Y5N ONE ×5 (08:57→22:11)
[2016-08-31] MEDS: HEPARIN NA (PORCINE) 5,000 UNITS/ML 1ML VIAL SQ SCH ×2 (09:12→22:07)
[2016-08-31] MEDS: AZITHROMYCIN 250 MG TABLET (FP) PO SCH (09:12)
[2016-08-31] MEDS: RANITIDINE HCL 150 MG/10 ML UNIT-DOSE CUP PO SCH ×2 (09:12→22:07)
[2016-08-31] MEDS: TIOTROPIUM BROMIDE 18 MCG/INH (DEVICE W/ 5 CAPSULES) IH SCH (09:13)
[2016-08-31] MEDS: NICOTINE 14 MG/24 HOURS TOPICAL PATCH TD SCH (09:15)
[2016-08-31] MEDS: BUDESONIDE/FORMETEROL FUMARATE 160/4.5 mcg INHALER IH SCH ×2 (10:27→22:10)
--- NOTE | 2016-08-31 12:01 | PN ---
Progress Note, Physician History of Present Illness: PULMONARY ALERT,FEELING BETTER,LESS DYSPNEIC,LESS WHEEZING - Current Medication List Current Medications: Active Medications Albuterol Sulfate (Ventolin 0.5% -) 1 amp NEB Q4H PRN PRN Reason: SHORT OF BREATH/WHEEZING Last Admin: 08/31/16 09:25 Dose: 1 amp Azithromycin (Zithromax -) 500 mg PO DAILY [facility] Last Admin: 08/31/16 09:12 Dose: 500 mg Budesonide/Formoterol Fumarate (Symbicort 160/4.5mcg -) 2 puff IH BID [facility] Last Admin: 08/31/16 10:27 Dose: 1 inh Heparin Sodium (Porcine) (Heparin -) 5,000 unit SQ BID [facility] Last Admin: 08/31/16 09:12 Dose: 5,000 unit Ibuprofen (Motrin -) 400 mg PO Q6H PRN PRN Reason: PAIN Last Admin: 08/30/16 22:57 Dose: 400 mg Methylprednisolone Sodium Succinate (Solu-Medrol -) 60 mg IVPB Q6H-IV [facility] Last Admin: 08/31/16 09:11 Dose: 60 mg Nicotine (Nicoderm Patch -) 14 mg TD DAILY [facility] Last Admin: 08/31/16 09:15 Dose: 14 mg Ranitidine HCl (Zantac Oral Solution -) 150 mg PO BID [facility] Last Admin: 08/31/16 09:12 Dose: 150 mg Tiotropium [place] (Spiriva -) 1 puff IH DAILY [facility] Last Admin: 08/31/16 09:13 Dose: 1 cap - Objective Vital Signs: Vital Signs Temperature 98.1 F 08/31/16 10:10 Pulse Rate 79 08/31/16 09:06 Respiratory Rate 24 08/31/16 09:06 Blood Pressure 152/88 08/31/16 09:06 O2 Sat by Pulse Oximetry (%) 95 08/30/16 21:00 Constitutional: Yes: Calm, Obese Eyes: Yes: WNL HENT: Yes: WNL Neck: Yes: WNL Cardiovascular: Yes: Regular Rate and Rhythm, S1, S2 Respiratory: Yes: Wheezes (LESS WHEEZING BILATERALLY) Gastrointestinal: Yes: Normal Bowel Sounds, Soft Extremities: Yes: WNL Edema: No Labs: CBC, BMP 08/31/16 06:10 08/31/16 06:10 Problem List - Problems (1) Asthma attack Code(s): J45.901 - UNSPECIFIED ASTHMA WITH (ACUTE) EXACERBATION (2) Wheezing Code(s): R06.2 - WHEEZING (3) Asthma exacerbation Code(s): J45.901 - UNSPECIFIED ASTHMA WITH (ACUTE) EXACERBATION Qualifiers: Asthma severity: mild intermittent Qualified Code(s): J45.21 - Mild intermittent asthma with (acute) exacerbation (4) Morbid (severe) obesity due to excess calories Code(s): E66.01 - MORBID (SEVERE) OBESITY DUE TO EXCESS CALORIES (5) Smoker Code(s): F17.200 - NICOTINE DEPENDENCE, UNSPECIFIED, UNCOMPLICATED Assessment/Plan IMP ACUTE ASTHMA EXACERBATION URI MORBID OBESITY SMOKER PLAN STEROID TAPER INHALED BRONCHODILATORS ADD SPIRIVA O2 MONITOR PEAK FLOW PFTS OUT PATIENT SMOKING CESSATION COUNSELED JHONNY WASSERMAN Problem List - Problems (1) Asthma attack Code(s): J45.901 - UNSPECIFIED ASTHMA WITH (ACUTE) EXACERBATION (2) Wheezing Code(s): R06.2 - WHEEZING (3) Asthma exacerbation Code(s): J45.901 - UNSPECIFIED ASTHMA WITH (ACUTE) EXACERBATION Qualifiers: Asthma severity: mild intermittent Qualified Code(s): J45.21 - Mild intermittent asthma with (acute) exacerbation (4) Morbid (severe) obesity due to excess calories Code(s): E66.01 - MORBID (SEVERE) OBESITY DUE TO EXCESS CALORIES (5) Smoker Code(s): F17.200 - NICOTINE DEPENDENCE, UNSPECIFIED, UNCOMPLICATED
[2016-08-31] MEDS: IBUPROFEN 400 MG TABLET (FP) PO PRN (13:49)
--- NOTE | 2016-08-31 14:42 | PN ---
Progress Note, Physician Chief Complaint: HAD D/W FAMILY & PATIENT FEELS BETTER AMBULATING WITH NO DISTRESS JUST A LITTLE DYSPNEA - Current Medication List Current Medications: Active Medications Albuterol Sulfate (Ventolin 0.5% -) 1 amp NEB Q4H PRN PRN Reason: SHORT OF BREATH/WHEEZING Last Admin: 08/31/16 09:25 Dose: 1 amp Azithromycin (Zithromax -) 500 mg PO DAILY [facility] Last Admin: 08/31/16 09:12 Dose: 500 mg Budesonide/Formoterol Fumarate (Symbicort 160/4.5mcg -) 2 puff IH BID [facility] Last Admin: 08/31/16 10:27 Dose: 1 inh Heparin Sodium (Porcine) (Heparin -) 5,000 unit SQ BID [facility] Last Admin: 08/31/16 09:12 Dose: 5,000 unit Ibuprofen (Motrin -) 400 mg PO Q6H PRN PRN Reason: PAIN Last Admin: 08/31/16 13:49 Dose: 400 mg Methylprednisolone Sodium Succinate (Solu-Medrol -) 60 mg IVPB Q8H-IV [facility] Nicotine (Nicoderm Patch -) 14 mg TD DAILY [facility] Last Admin: 08/31/16 09:15 Dose: 14 mg Ranitidine HCl (Zantac Oral Solution -) 150 mg PO BID [facility] Last Admin: 08/31/16 09:12 Dose: 150 mg Tiotropium [place] (Spiriva -) 1 puff IH DAILY [facility] Last Admin: 08/31/16 09:13 Dose: 1 cap - Objective Vital Signs: Vital Signs Temperature 98.3 F 08/31/16 13:45 Pulse Rate 71 08/31/16 13:45 Respiratory Rate 24 08/31/16 13:45 Blood Pressure 147/103 08/31/16 13:45 O2 Sat by Pulse Oximetry (%) 94 L 08/31/16 11:00 Constitutional: Yes: Calm Neck: Yes: WNL Cardiovascular: Yes: WNL Respiratory: Yes: Rhonchi, Wheezes Gastrointestinal: Yes: WNL Edema: No Labs: CBC, BMP 08/31/16 06:10 08/31/16 06:10 Problem List - Problems (1) Asthma attack Code(s): J45.901 - UNSPECIFIED ASTHMA WITH (ACUTE) EXACERBATION (2) Chest pain Code(s): R07.9 - CHEST PAIN, UNSPECIFIED Qualifiers: Chest pain type: precordial pain Qualified Code(s): R07.2 - Precordial pain (3) Leukocytosis Code(s): D72.829 - ELEVATED WHITE BLOOD CELL COUNT, UNSPECIFIED Assessment/Plan (1) Asthma attack Code(s): J45.901 - UNSPECIFIED ASTHMA WITH (ACUTE) EXACERBATION pulm on case iv steroids -> tapering duoneb (2) Chest pain Code(s): R07.9 - CHEST PAIN, UNSPECIFIED appreciate resident note no acs cardio note appreciated (3) Leukocytosis Code(s): D72.829 - ELEVATED WHITE BLOOD CELL COUNT, UNSPECIFIED id on case 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
[2016-08-31] MEDS: amLODIPine BESYLATE 5 MG TABLET (FP) PO SCH (17:35)
[2016-09-01] MEDS: methylPREDNISolone NA SUCC 125 MG/2 ML VIAL IVPB SCH ×3 (01:29→17:01)
[2016-09-01] MEDS: ALBUTEROL SO4 0.5 % INH SOLN 2.5 MG/0.5 ML VIAL.NEB. NEB PRN ×3 (03:53→14:36)
[2016-09-01 07:44] LABS: MCH 29.9 pg (25.7-33.7); MCHC 32.6 g/dl (32.0-36.0); MEAN CELL VOLUME 91.9 fl (80-96); MEAN PLT VOLUME 8.2 fl (7.5-11.1); PLATELET COUNT 264 K/MM3 (134-434); RDW 14.9 % (11.6-15.6); WHITE BLOOD COUNT 14.3 K/mm3 (4.0-10.0)
[2016-09-01 08:21] LABS: ALBUMIN 3.4 g/dl (3.4-5.0); ALK PHOS 94 U/L (45-117); ANION GAP 12 (8-16); BILIRUBIN,TOTAL 0.5 mg/dL (0.2-1.0); CALCIUM 8.7 mg/dL (8.5-10.1); CO2 25 mmol/L (21-32); COCKROFT - GAULT 230.3755; CREATININE 0.7 mg/dL (0.55-1.02); GLUCOSE,RANDOM 146 mg/dL (74-106); SGOT/AST 39 U/L (15-37); SGPT/ALT 45 U/L (12-78); TOT PROT 6.6 g/dl (6.4-8.2)
[2016-09-01 09:01] LABS: THYROID STIMULATING HORMONE 0.18 uIU/ml (0.358-3.74)
[2016-09-01] MEDS: BUDESONIDE/FORMETEROL FUMARATE 160/4.5 mcg INHALER IH SCH ×2 (09:22→21:51)
[2016-09-01] MEDS: TIOTROPIUM BROMIDE 18 MCG/INH (DEVICE W/ 5 CAPSULES) IH SCH (09:22)
[2016-09-01] MEDS: HEPARIN NA (PORCINE) 5,000 UNITS/ML 1ML VIAL SQ SCH ×2 (09:23→21:51)
[2016-09-01] MEDS: amLODIPine BESYLATE 5 MG TABLET (FP) PO SCH (09:23)
[2016-09-01] MEDS: RANITIDINE HCL 150 MG/10 ML UNIT-DOSE CUP PO SCH ×2 (09:23→21:51)
[2016-09-01] MEDS: NICOTINE 14 MG/24 HOURS TOPICAL PATCH TD SCH (09:24)
[2016-09-01] MEDS: AZITHROMYCIN 250 MG TABLET (FP) PO SCH (09:32)
[2016-09-01 10:11] LABS: PLATELET ESTIMATE ADEQUATE (NORMAL)
--- NOTE | 2016-09-01 10:56 | PN ---
Progress Note, Physician Chief Complaint: complaing of SOB on exertion when she walks to bathroom on iv steroids - Current Medication List Current Medications: Active Medications Albuterol Sulfate (Ventolin 0.5% -) 1 amp NEB Q4H PRN PRN Reason: SHORT OF BREATH/WHEEZING Last Admin: 09/01/16 03:53 Dose: 1 amp Amlodipine Besylate (Norvasc -) 5 mg PO DAILY [facility] Last Admin: 09/01/16 09:23 Dose: 5 mg Azithromycin (Zithromax -) 500 mg PO DAILY [facility] Last Admin: 09/01/16 09:32 Dose: 500 mg Budesonide/Formoterol Fumarate (Symbicort 160/4.5mcg -) 2 puff IH BID [facility] Last Admin: 09/01/16 09:22 Dose: 2 inh Heparin Sodium (Porcine) (Heparin -) 5,000 unit SQ BID [facility] Last Admin: 09/01/16 09:23 Dose: 5,000 unit Ibuprofen (Motrin -) 400 mg PO Q6H PRN PRN Reason: PAIN Last Admin: 08/31/16 13:49 Dose: 400 mg Methylprednisolone Sodium Succinate (Solu-Medrol -) 60 mg IVPB Q8H-IV [facility] Last Admin: 09/01/16 09:25 Dose: 60 mg Nicotine (Nicoderm Patch -) 14 mg TD DAILY [facility] Last Admin: 09/01/16 09:24 Dose: 14 mg Ranitidine HCl (Zantac Oral Solution -) 150 mg PO BID [facility] Last Admin: 09/01/16 09:23 Dose: 150 mg Tiotropium [place] (Spiriva -) 1 puff IH DAILY [facility] Last Admin: 09/01/16 09:22 Dose: 1 cap - Objective Vital Signs: Vital Signs Temperature 97.9 F 09/01/16 10:00 Pulse Rate 81 09/01/16 10:00 Respiratory Rate 20 09/01/16 10:00 Blood Pressure 131/79 09/01/16 10:00 O2 Sat by Pulse Oximetry (%) 94 L 08/31/16 20:45 Constitutional: Yes: Obese Neck: Yes: Trachea Midline Cardiovascular: Yes: Regular Rate and Rhythm, S1, S2 Respiratory: Yes: CTA Bilaterally, Diminished (at bases no wheezing), On Nasal O2 Gastrointestinal: Yes: Soft, Abdomen, Obese Neurological: Yes: Alert, Oriented Labs: CBC, BMP 09/01/16 06:00 09/01/16 06:00 Problem List - Problems (1) Asthma attack Assessment/Plan: dyspnea on exertion iv steroids azithromax on oxygen so check pre and post oxygen as patient was not on oxguen at home Code(s): J45.901 - UNSPECIFIED ASTHMA WITH (ACUTE) EXACERBATION (2) Leukocytosis Assessment/Plan: sec to steroids Code(s): D72.829 - ELEVATED WHITE BLOOD CELL COUNT, UNSPECIFIED (3) Smoker Assessment/Plan: nicotine patch Code(s): F17.200 - NICOTINE DEPENDENCE, UNSPECIFIED, UNCOMPLICATED (4) Hyperglycemia Assessment/Plan: hga1c is 6.7 diabetes will need oral medication Code(s): R73.9 - HYPERGLYCEMIA, UNSPECIFIED
[2016-09-01] MEDS: IBUPROFEN 400 MG TABLET (FP) PO PRN (12:01)
--- NOTE | 2016-09-01 12:45 | PN ---
Progress Note (short form) - Note Progress Note: PULMONARY States breathing is about the same as yesterday. Still with wheezing, chest tightness, cough productive of thick white sputum. No fevers or chills. Last Vital Signs Temp Pulse Resp BP Pulse Ox 97.9 F 79 20 131/79 96 09/01/16 10:00 09/01/16 11:00 09/01/16 10:00 09/01/16 10:00 09/01/16 11:00 Gen: NAD at rest Heart: RRR Lung: distant breath sounds, scattered wheezes Abd: soft, nontender Ext: trace edema CBC, BMP 09/01/16 06:00 09/01/16 06:00 Active Medications Albuterol Sulfate (Ventolin 0.5% -) 1 amp NEB Q4H PRN PRN Reason: SHORT OF BREATH/WHEEZING Last Admin: 09/01/16 10:30 Dose: 1 amp Amlodipine Besylate (Norvasc -) 5 mg PO DAILY [facility] Last Admin: 09/01/16 09:23 Dose: 5 mg Azithromycin (Zithromax -) 500 mg PO DAILY [facility] Last Admin: 09/01/16 09:32 Dose: 500 mg Budesonide/Formoterol Fumarate (Symbicort 160/4.5mcg -) 2 puff IH BID [facility] Last Admin: 09/01/16 09:22 Dose: 2 inh Heparin Sodium (Porcine) (Heparin -) 5,000 unit SQ BID [facility] Last Admin: 09/01/16 09:23 Dose: 5,000 unit Ibuprofen (Motrin -) 400 mg PO Q6H PRN PRN Reason: PAIN Last Admin: 09/01/16 12:01 Dose: 400 mg Metformin HCl (Glucophage -) 500 mg PO BID@0700,1630 [facility] Methylprednisolone Sodium Succinate (Solu-Medrol -) 60 mg IVPB Q8H-IV [facility] Last Admin: 09/01/16 09:25 Dose: 60 mg Nicotine (Nicoderm Patch -) 14 mg TD DAILY [facility] Last Admin: 09/01/16 09:24 Dose: 14 mg Ranitidine HCl (Zantac Oral Solution -) 150 mg PO BID [facility] Last Admin: 09/01/16 09:23 Dose: 150 mg Tiotropium [place] (Spiriva -) 1 puff IH DAILY [facility] Last Admin: 09/01/16 09:22 Dose: 1 cap A/P Acute Asthma Exacerbation URI Morbid Obesity HTN DM Smoker - continue medrol at current dose - inhaled bronchodilators standing and PRN - daily peak flows, best PF 550 when well - glucose control while on systemic steroids - O2 as needed - DVT prophylaxis
[2016-09-01] MEDS: metFORMIN HCL 500 MG TABLET (FP) PO SCH (16:51)
[2016-09-01] MEDS: ALBUTEROL SO4 0.083% IH SOL 2.5 MG/3 ML VIAL.NEB. NEB SCH (18:00)
[2016-09-02] MEDS: ALBUTEROL SO4 0.083% IH SOL 2.5 MG/3 ML VIAL.NEB. NEB SCH ×4 (00:01→17:45)
[2016-09-02] MEDS: methylPREDNISolone NA SUCC 125 MG/2 ML VIAL IVPB SCH ×3 (01:49→17:32)
[2016-09-02] MEDS: metFORMIN HCL 500 MG TABLET (FP) PO SCH (06:53)
[2016-09-02 08:16] LABS: MCH 29.9 pg (25.7-33.7); MCHC 32.6 g/dl (32.0-36.0); MEAN CELL VOLUME 91.5 fl (80-96); MEAN PLT VOLUME 8.1 fl (7.5-11.1); PLATELET COUNT 273 K/MM3 (134-434); RDW 15.2 % (11.6-15.6); WHITE BLOOD COUNT 18.3 K/mm3 (4.0-10.0)
[2016-09-02] MEDS ORDERED: PT OWN MED DRAWER 7, Y5N ONE ×3 (09:31→23:51)
[2016-09-02] MEDS: NICOTINE 14 MG/24 HOURS TOPICAL PATCH TD SCH (09:36)
[2016-09-02] MEDS: HEPARIN NA (PORCINE) 5,000 UNITS/ML 1ML VIAL SQ SCH ×2 (09:36→23:00)
[2016-09-02] MEDS: amLODIPine BESYLATE 5 MG TABLET (FP) PO SCH (09:39)
[2016-09-02] MEDS: TIOTROPIUM BROMIDE 18 MCG/INH (DEVICE W/ 5 CAPSULES) IH SCH (09:40)
[2016-09-02] MEDS: BUDESONIDE/FORMETEROL FUMARATE 160/4.5 mcg INHALER IH SCH ×2 (09:40→22:00)
[2016-09-02] MEDS: AZITHROMYCIN 250 MG TABLET (FP) PO SCH (09:41)
[2016-09-02] MEDS: RANITIDINE HCL 150 MG/10 ML UNIT-DOSE CUP PO SCH ×2 (09:41→23:00)
--- NOTE | 2016-09-02 10:20 | PN ---
Progress Note, Physician Chief Complaint: breathing better less dyspenic on exertion today but nausea with metformin elevated BP started on norvasc - Current Medication List Current Medications: Active Medications Albuterol Sulfate (Ventolin 0.5% -) 1 amp NEB Q4H PRN PRN Reason: SHORT OF BREATH/WHEEZING Last Admin: 09/01/16 14:36 Dose: 1 amp Albuterol Sulfate (Ventolin 0.083% Nebulizer Soln -) 1 amp NEB QIDR [facility] Last Admin: 09/02/16 07:02 Dose: Not Given Amlodipine Besylate (Norvasc -) 5 mg PO DAILY [facility] Last Admin: 09/02/16 09:39 Dose: 5 mg Azithromycin (Zithromax -) 500 mg PO DAILY [facility] Last Admin: 09/02/16 09:41 Dose: 500 mg Budesonide/Formoterol Fumarate (Symbicort 160/4.5mcg -) 2 puff IH BID [facility] Last Admin: 09/02/16 09:40 Dose: 2 inh Heparin Sodium (Porcine) (Heparin -) 5,000 unit SQ BID [facility] Last Admin: 09/02/16 09:36 Dose: 5,000 unit Ibuprofen (Motrin -) 400 mg PO Q6H PRN PRN Reason: PAIN Last Admin: 09/01/16 12:01 Dose: 400 mg Metformin HCl (Glucophage -) 500 mg PO BID@0700,1630 [facility] Last Admin: 09/02/16 06:53 Dose: 500 mg Methylprednisolone Sodium Succinate (Solu-Medrol -) 60 mg IVPB Q8H-IV [facility] Last Admin: 09/02/16 09:39 Dose: 60 mg Nicotine (Nicoderm Patch -) 14 mg TD DAILY [facility] Last Admin: 09/02/16 09:36 Dose: 14 mg Ranitidine HCl (Zantac Oral Solution -) 150 mg PO BID [facility] Last Admin: 09/02/16 09:41 Dose: 150 mg Tiotropium [place] (Spiriva -) 1 puff IH DAILY [facility] Last Admin: 09/02/16 09:40 Dose: 1 cap - Objective Vital Signs: Vital Signs Temperature 98.2 F 09/02/16 09:53 Pulse Rate 72 09/02/16 09:53 Respiratory Rate 22 09/02/16 09:53 Blood Pressure 128/90 09/02/16 09:53 O2 Sat by Pulse Oximetry (%) 96 09/01/16 21:00 Constitutional: Yes: Obese Neck: Yes: Trachea Midline Cardiovascular: Yes: Regular Rate and Rhythm, S1, S2 Respiratory: Yes: CTA Bilaterally, Diminished (at bases no wheezing) Gastrointestinal: Yes: Normal Bowel Sounds, Soft, Abdomen, Obese Neurological: Yes: Alert, Oriented Labs: CBC, BMP 09/02/16 06:58 09/01/16 06:00 Problem List - Problems (1) Asthma attack Assessment/Plan: dyspnea on exertion improved has loose cough iv steroids will taper to bid today if ok with pulm azithromax on oxygen so check pre and post oxygen as patient was not on oxguen at home Code(s): J45.901 - UNSPECIFIED ASTHMA WITH (ACUTE) EXACERBATION (2) Leukocytosis Assessment/Plan: sec to steroids Code(s): D72.829 - ELEVATED WHITE BLOOD CELL COUNT, UNSPECIFIED (3) Smoker Assessment/Plan: nicotine patch Code(s): F17.200 - NICOTINE DEPENDENCE, UNSPECIFIED, UNCOMPLICATED (4) Hyperglycemia Assessment/Plan: hga1c is 6.7 diabetes will need oral medication- metfromin not suiting patient will change to amaryl Code(s): R73.9 - HYPERGLYCEMIA, UNSPECIFIED (5) HTN (hypertension) Assessment/Plan: norvas Code(s): I10 - ESSENTIAL (PRIMARY) HYPERTENSION
--- NOTE | 2016-09-02 11:53 | PN ---
Progress Note (short form) - Note Progress Note: PULMONARY States breathing is slightly better than yesterday. Still some wheezing, chest tightness, cough productive of thick white sputum. No fevers or chills. Peak flow this AM 400. Last Vital Signs Temp Pulse Resp BP Pulse Ox 98.2 F 72 22 128/90 96 09/02/16 09:53 09/02/16 09:53 09/02/16 09:53 09/02/16 09:53 09/01/16 21:00 Gen: NAD at rest Heart: RRR Lung: better air entry, no wheezes appreciated Abd: soft, nontender Ext: trace edema CBC, BMP 09/02/16 06:58 09/01/16 06:00 Active Medications Albuterol Sulfate (Ventolin 0.5% -) 1 amp NEB Q4H PRN PRN Reason: SHORT OF BREATH/WHEEZING Last Admin: 09/01/16 14:36 Dose: 1 amp Albuterol Sulfate (Ventolin 0.083% Nebulizer Soln -) 1 amp NEB QIDR [facility] Last Admin: 09/02/16 07:02 Dose: Not Given Amlodipine Besylate (Norvasc -) 5 mg PO DAILY [facility] Last Admin: 09/02/16 09:39 Dose: 5 mg Azithromycin (Zithromax -) 500 mg PO DAILY [facility] Last Admin: 09/02/16 09:41 Dose: 500 mg Budesonide/Formoterol Fumarate (Symbicort 160/4.5mcg -) 2 puff IH BID [facility] Last Admin: 09/02/16 09:40 Dose: 2 inh Glimepiride (Amaryl -) 1 mg PO DAILY@0700 [facility] Heparin Sodium (Porcine) (Heparin -) 5,000 unit SQ BID [facility] Last Admin: 09/02/16 09:36 Dose: 5,000 unit Ibuprofen (Motrin -) 400 mg PO Q6H PRN PRN Reason: PAIN Last Admin: 09/01/16 12:01 Dose: 400 mg Methylprednisolone Sodium Succinate (Solu-Medrol -) 60 mg IVPB Q8H-IV [facility] Last Admin: 09/02/16 09:39 Dose: 60 mg Nicotine (Nicoderm Patch -) 14 mg TD DAILY [facility] Last Admin: 09/02/16 09:36 Dose: 14 mg Ranitidine HCl (Zantac Oral Solution -) 150 mg PO BID [facility] Last Admin: 09/02/16 09:41 Dose: 150 mg Tiotropium [place] (Spiriva -) 1 puff IH DAILY [facility] Last Admin: 09/02/16 09:40 Dose: 1 cap A/P Acute Asthma Exacerbation URI Morbid Obesity HTN DM Smoker - will decrease medrol to 40mg q12h - inhaled bronchodilators standing and PRN - daily peak flows, best PF 550 when well - glucose control while on systemic steroids - O2 as needed - DVT prophylaxis
[2016-09-03] MEDS: methylPREDNISolone NA SUCC 125 MG/2 ML VIAL IVPB SCH (02:12)
[2016-09-03] MEDS ORDERED: PT OWN MED DRAWER 7, Y5N ONE ×3 (05:47→11:01)
[2016-09-03] MEDS ORDERED: GLIMEPIRIDE 1 MG TABLET (FP) PO SCH (07:00)
[2016-09-03] MEDS: ALBUTEROL SO4 0.083% IH SOL 2.5 MG/3 ML VIAL.NEB. NEB SCH ×5 (07:30→23:41)
--- NOTE | 2016-09-03 09:21 | PN ---
Progress Note, Physician History of Present Illness: FEELS BETTER STILL WITH SOB ON EXERTION - Current Medication List Current Medications: Active Medications Albuterol Sulfate (Ventolin 0.5% -) 1 amp NEB Q4H PRN PRN Reason: SHORT OF BREATH/WHEEZING Last Admin: 09/01/16 14:36 Dose: 1 amp Albuterol Sulfate (Ventolin 0.083% Nebulizer Soln -) 1 amp NEB QIDR [facility] Last Admin: 09/03/16 07:30 Dose: 1 amp Amlodipine Besylate (Norvasc -) 5 mg PO DAILY [facility] Last Admin: 09/02/16 09:39 Dose: 5 mg Azithromycin (Zithromax -) 500 mg PO DAILY [facility] Last Admin: 09/02/16 09:41 Dose: 500 mg Budesonide/Formoterol Fumarate (Symbicort 160/4.5mcg -) 2 puff IH BID [facility] Last Admin: 09/02/16 22:00 Dose: 1 inh Glimepiride (Amaryl -) 1 mg PO DAILY@0700 [facility] Heparin Sodium (Porcine) (Heparin -) 5,000 unit SQ BID [facility] Last Admin: 09/02/16 23:00 Dose: 5,000 unit Methylprednisolone Sodium Succinate (Solu-Medrol -) 40 mg IVPB BID [facility] Nicotine (Nicoderm Patch -) 14 mg TD DAILY [facility] Last Admin: 09/02/16 09:36 Dose: 14 mg Ranitidine HCl (Zantac Oral Solution -) 150 mg PO BID [facility] Last Admin: 09/02/16 23:00 Dose: 150 mg Tiotropium [place] (Spiriva -) 1 puff IH DAILY [facility] Last Admin: 09/02/16 09:40 Dose: 1 cap - Objective Vital Signs: Vital Signs Temperature 98.5 F 09/03/16 06:00 Pulse Rate 69 09/03/16 06:00 Respiratory Rate 20 09/03/16 06:00 Blood Pressure 157/94 09/03/16 06:00 O2 Sat by Pulse Oximetry (%) 97 09/02/16 21:00 Cardiovascular: Yes: Murmur, S1, S2 Respiratory: Yes: Diminished, Rhonchi Gastrointestinal: Yes: Normal Bowel Sounds, Soft Edema: No Labs: CBC, BMP 09/02/16 06:58 09/01/16 06:00 Problem List - Problems (1) Asthma exacerbation Assessment/Plan: IV STEROIDS--TAPER NEBS IV ABX PULM ON CASE Code(s): J45.901 - UNSPECIFIED ASTHMA WITH (ACUTE) EXACERBATION Qualifiers: Asthma severity: mild intermittent Qualified Code(s): J45.21 - Mild intermittent asthma with (acute) exacerbation (2) HTN (hypertension) Assessment/Plan: ECHO SAME MEDS Code(s): I10 - ESSENTIAL (PRIMARY) HYPERTENSION (3) Morbid (severe) obesity due to excess calories Code(s): E66.01 - MORBID (SEVERE) OBESITY DUE TO EXCESS CALORIES (4) Diabetes Assessment/Plan: A1C 6.7 MONITOR Code(s): E11.9 - TYPE 2 DIABETES MELLITUS WITHOUT COMPLICATIONS
[2016-09-03] MEDS: HEPARIN NA (PORCINE) 5,000 UNITS/ML 1ML VIAL SQ SCH ×2 (09:32→21:28)
[2016-09-03] MEDS: GLIMEPIRIDE 1 MG TABLET (FP) PO SCH (09:32)
[2016-09-03] MEDS: BUDESONIDE/FORMETEROL FUMARATE 160/4.5 mcg INHALER IH SCH ×2 (09:33→21:28)
[2016-09-03] MEDS: amLODIPine BESYLATE 5 MG TABLET (FP) PO SCH (09:33)
[2016-09-03] MEDS: TIOTROPIUM BROMIDE 18 MCG/INH (DEVICE W/ 5 CAPSULES) IH SCH (09:33)
[2016-09-03] MEDS: NICOTINE 14 MG/24 HOURS TOPICAL PATCH TD SCH (09:33)
[2016-09-03] MEDS: RANITIDINE HCL 150 MG/10 ML UNIT-DOSE CUP PO SCH ×2 (09:34→21:28)
[2016-09-03] MEDS: AZITHROMYCIN 250 MG TABLET (FP) PO SCH (09:34)
[2016-09-03] MEDS: ALBUTEROL SO4 0.5 % INH SOLN 2.5 MG/0.5 ML VIAL.NEB. NEB PRN (09:57)
[2016-09-03] MEDS: methylPREDNISolone NA SUCC 40 MG/1 ML VIAL IVPB SCH ×2 (10:00→21:28)
--- NOTE | 2016-09-03 15:29 | PN ---
Progress Note, Physician History of Present Illness: pulmonary alert,+castillo,less wheezing - Current Medication List Current Medications: Active Medications Albuterol Sulfate (Ventolin 0.5% -) 1 amp NEB Q4H PRN PRN Reason: SHORT OF BREATH/WHEEZING Last Admin: 09/03/16 09:57 Dose: 1 amp Albuterol Sulfate (Ventolin 0.083% Nebulizer Soln -) 1 amp NEB QIDR [facility] Last Admin: 09/03/16 13:00 Dose: Not Given Amlodipine Besylate (Norvasc -) 5 mg PO DAILY [facility] Last Admin: 09/03/16 09:33 Dose: 5 mg Azithromycin (Zithromax -) 500 mg PO DAILY [facility] Last Admin: 09/03/16 09:34 Dose: 500 mg Budesonide/Formoterol Fumarate (Symbicort 160/4.5mcg -) 2 puff IH BID [facility] Last Admin: 09/03/16 09:33 Dose: 2 inh Glimepiride (Amaryl -) 1 mg PO DAILY@0700 [facility] Last Admin: 09/03/16 09:32 Dose: 1 mg Heparin Sodium (Porcine) (Heparin -) 5,000 unit SQ BID [facility] Last Admin: 09/03/16 09:32 Dose: 5,000 unit Methylprednisolone Sodium Succinate (Solu-Medrol -) 40 mg IVPB BID [facility] Nicotine (Nicoderm Patch -) 14 mg TD DAILY [facility] Last Admin: 09/03/16 09:33 Dose: 14 mg Ranitidine HCl (Zantac Oral Solution -) 150 mg PO BID [facility] Last Admin: 09/03/16 09:34 Dose: 150 mg Tiotropium [place] (Spiriva -) 1 puff IH DAILY [facility] Last Admin: 09/03/16 09:33 Dose: 1 cap - Objective Vital Signs: Vital Signs Temperature 98.4 F 09/03/16 10:00 Pulse Rate 77 09/03/16 10:00 Respiratory Rate 20 09/03/16 10:00 Blood Pressure 122/80 09/03/16 10:00 O2 Sat by Pulse Oximetry (%) 90 L 09/03/16 09:50 Constitutional: Yes: Well Nourished, Calm, Obese Eyes: Yes: Occular Prosthesis HENT: Yes: WNL Neck: Yes: WNL Cardiovascular: Yes: Regular Rate and Rhythm, S1, S2 Respiratory: Yes: Wheezes (few wheezes) Gastrointestinal: Yes: Normal Bowel Sounds, Soft Extremities: Yes: WNL Edema: No Labs: CBC, BMP 09/02/16 06:58 09/01/16 06:00 Problem List - Problems (1) Asthma attack Code(s): J45.901 - UNSPECIFIED ASTHMA WITH (ACUTE) EXACERBATION (2) Wheezing Code(s): R06.2 - WHEEZING (3) Asthma exacerbation Code(s): J45.901 - UNSPECIFIED ASTHMA WITH (ACUTE) EXACERBATION Qualifiers: Asthma severity: mild intermittent Qualified Code(s): J45.21 - Mild intermittent asthma with (acute) exacerbation (4) Morbid (severe) obesity due to excess calories Code(s): E66.01 - MORBID (SEVERE) OBESITY DUE TO EXCESS CALORIES (5) Smoker Code(s): F17.200 - NICOTINE DEPENDENCE, UNSPECIFIED, UNCOMPLICATED Assessment/Plan IMP ACUTE ASTHMA EXACERBATION improving URI MORBID OBESITY SMOKER PLAN CONTINUESTEROID TAPER INHALED BRONCHODILATORS SPIRIVA O2 MONITOR PEAK FLOW PFTS OUT PATIENT GLYCEMIC CONTROL SMOKING CESSATION COUNSELED JHONNY WASSERMAN Problem List - Problems (1) Asthma attack Code(s): J45.901 - UNSPECIFIED ASTHMA WITH (ACUTE) EXACERBATION (2) Wheezing Code(s): R06.2 - WHEEZING (3) Asthma exacerbation Code(s): J45.901 - UNSPECIFIED ASTHMA WITH (ACUTE) EXACERBATION Qualifiers: Asthma severity: mild intermittent Qualified Code(s): J45.21 - Mild intermittent asthma with (acute) exacerbation (4) Morbid (severe) obesity due to excess calories Code(s): E66.01 - MORBID (SEVERE) OBESITY DUE TO EXCESS CALORIES (5) Smoker Code(s): F17.200 - NICOTINE DEPENDENCE, UNSPECIFIED, UNCOMPLICATED
--- NOTE | 2016-09-04 01:37 | CONSULT ---
Consult Consult Specialty:: endocrine Referred by:: Reason for Consultation:: abnormal thyroid function - History of Present Illness Chief Complaint: dyspnea,heat intolerant and juan c gain History of Present Illness: 46 year old female with significant past medical history of asthma, no hospitalization or intubations, on albuterol nebulizer prn, does not have a MDI who presents to the ED for worsening asthma exacerbation. Patient was seen here in the ED on 08/24 for cold like symptoms, chest congestion, cough and SOB, where she was treated for asthma exacerbation and discharge with prednisone. has felt weakness,cough,congestion and urti symptoms worsening has tremors at times,heat intolerant and weight gain - History Source History Provided By: Patient - Alcohol/Substance Use Hx Alcohol Use: No - Smoking History Smoking history: Current every day smoker Have you smoked in the past 12 months: Yes Aproximately how many cigarettes per day: 20 Home Medications - Allergies Allergies/Adverse Reactions: Allergies Allergy/AdvReac Type Severity Reaction Status Date / Time Penicillins Allergy Severe Rash Verified 08/28/16 19:26 - Home Medications Home Medications: Ambulatory Orders Albuterol Sulfate Inhaler - [Ventolin HFA Inhaler -] 2 inh PO Q6H #1 inh Review of Systems - Review of Systems Constitutional: reports: Malaise, Night Sweats, Weakness HENT: reports: No Symptoms Neck: reports: No Symptoms Cardiovascular: reports: Shortness of Breath Respiratory: reports: SOB, SOB on Exertion Gastrointestinal: reports: No Symptoms Genitourinary: reports: No Symptoms Breasts: reports: No Symptoms Reported Musculoskeletal: reports: No Symptoms, Muscle Weakness Integumentary: reports: No Symptoms Neurological: reports: No Symptoms Endocrine: reports: Unexplained Weight Gain Physical Exam Vital Signs: Vital Signs Temperature 97.6 F 09/03/16 22:00 Pulse Rate 77 09/03/16 22:00 Respiratory Rate 20 09/03/16 22:00 Blood Pressure 123/80 09/03/16 22:00 O2 Sat by Pulse Oximetry (%) 97 09/03/16 21:00 Constitutional: Yes: Anxious Eyes: Yes: EOM Intact HENT: Yes: Normocephalic Neck: Yes: Trachea Midline Cardiovascular: Yes: Regular Rate and Rhythm Respiratory: Yes: Rhonchi, SOB, Tachypnea, Wheezes Gastrointestinal: Yes: Normal Bowel Sounds ...Rectal Exam: Yes: Deferred Renal/: Yes: WNL Breast(s): Yes: WNL Musculoskeletal: Yes: WNL, Muscle Weakness Extremities: Yes: WNL Integumentary: Yes: WNL Neurological: Yes: Alert, Oriented Labs: CBC, BMP 09/02/16 06:58 09/01/16 06:00 Problem List - Problems (1) Diabetes Code(s): E11.9 - TYPE 2 DIABETES MELLITUS WITHOUT COMPLICATIONS (2) HTN (hypertension) Code(s): I10 - ESSENTIAL (PRIMARY) HYPERTENSION (3) Hyperglycemia Code(s): R73.9 - HYPERGLYCEMIA, UNSPECIFIED (4) Morbid (severe) obesity due to excess calories Code(s): E66.01 - MORBID (SEVERE) OBESITY DUE TO EXCESS CALORIES (5) Thyroiditis, autoimmune Code(s): E06.3 - AUTOIMMUNE THYROIDITIS Assessment/Plan Current Active Problems Asthma attack (Acute) Chest pain (Acute) Diabetes (Acute) HTN (hypertension) (Acute) Hyperglycemia (Acute) Leukocytosis (Acute) Morbid (severe) obesity due to excess calories (Acute) Penicillin allergy (Acute) Smoker (Acute) Wheezing (Acute) thyroiditis carol Laboratory Results - last 24 hr 09/03/16 09/03/16 12:12 17:25 POC Glucometer 148 226 Laboratory Tests 09/01/16 09/01/16 06:00 06:00 Sodium 137 Potassium 4.6 Chloride 100 Carbon Dioxide 25 Anion Gap 12 BUN 16 Creatinine 0.7 Creat Clearance w eGFR > 60 Hemoglobin A1c % 6.7 H TSH 0.18 L plan: diet consult for nutrition diabetic diet chk tsh free t4 t3toal outpatient thyroid sonogram needed metformin xr 500mg daily
[2016-09-04] MEDS ORDERED: PT OWN MED DRAWER 7, Y5N ONE ×3 (06:25→21:25)
[2016-09-04] MEDS: ALBUTEROL SO4 0.083% IH SOL 2.5 MG/3 ML VIAL.NEB. NEB SCH ×4 (06:41→23:35)
[2016-09-04] MEDS: GLIMEPIRIDE 1 MG TABLET (FP) PO SCH (06:57)
[2016-09-04 07:55] LABS: THYROID STIMULATING HORMONE 0.48 uIU/ml (0.358-3.74)
--- NOTE | 2016-09-04 07:57 | PN ---
Progress Note, Physician History of Present Illness: C/O CHEST PAIN THIS AM - Current Medication List Current Medications: Active Medications Albuterol Sulfate (Ventolin 0.5% -) 1 amp NEB Q4H PRN PRN Reason: SHORT OF BREATH/WHEEZING Last Admin: 09/03/16 09:57 Dose: 1 amp Albuterol Sulfate (Ventolin 0.083% Nebulizer Soln -) 1 amp NEB QIDR [facility] Last Admin: 09/04/16 06:41 Dose: 1 amp Amlodipine Besylate (Norvasc -) 5 mg PO DAILY [facility] Last Admin: 09/03/16 09:33 Dose: 5 mg Azithromycin (Zithromax -) 500 mg PO DAILY [facility] Last Admin: 09/03/16 09:34 Dose: 500 mg Budesonide/Formoterol Fumarate (Symbicort 160/4.5mcg -) 2 puff IH BID [facility] Last Admin: 09/03/16 21:28 Dose: 1 inh Glimepiride (Amaryl -) 1 mg PO DAILY@0700 [facility] Last Admin: 09/04/16 06:57 Dose: 1 mg Heparin Sodium (Porcine) (Heparin -) 5,000 unit SQ BID [facility] Last Admin: 09/03/16 21:28 Dose: 5,000 unit Metformin HCl (Glucophage Xr -) 500 mg PO DAILY@0700 [facility] Last Admin: 09/04/16 06:57 Dose: Not Given Methylprednisolone Sodium Succinate (Solu-Medrol -) 40 mg IVPB BID [facility] Last Admin: 09/03/16 21:28 Dose: 40 mg Nicotine (Nicoderm Patch -) 14 mg TD DAILY [facility] Last Admin: 09/03/16 09:33 Dose: 14 mg Ranitidine HCl (Zantac Oral Solution -) 150 mg PO BID [facility] Last Admin: 09/03/16 21:28 Dose: 150 mg Tiotropium [place] (Spiriva -) 1 puff IH DAILY [facility] Last Admin: 09/03/16 09:33 Dose: 1 cap - Objective Vital Signs: Vital Signs Temperature 98.5 F 09/04/16 06:00 Pulse Rate 65 09/04/16 06:00 Respiratory Rate 20 09/04/16 06:00 Blood Pressure 136/74 09/04/16 06:00 O2 Sat by Pulse Oximetry (%) 97 09/03/16 21:00 Cardiovascular: Yes: Regular Rate and Rhythm Respiratory: Yes: Regular, CTA Bilaterally Gastrointestinal: Yes: Normal Bowel Sounds, Soft, Distention, Tenderness Labs: CBC, BMP 09/02/16 06:58 09/01/16 06:00 Problem List - Problems (1) Asthma exacerbation Assessment/Plan: IV STEROIDS--TAPER NEBS IV ABX PULM ON CASE Code(s): J45.901 - UNSPECIFIED ASTHMA WITH (ACUTE) EXACERBATION Qualifiers: Asthma severity: mild intermittent Qualified Code(s): J45.21 - Mild intermittent asthma with (acute) exacerbation (2) HTN (hypertension) Assessment/Plan: ECHO SAME MEDS Code(s): I10 - ESSENTIAL (PRIMARY) HYPERTENSION (3) Morbid (severe) obesity due to excess calories Code(s): E66.01 - MORBID (SEVERE) OBESITY DUE TO EXCESS CALORIES (4) Diabetes Assessment/Plan: A1C 6.7 MONITOR Code(s): E11.9 - TYPE 2 DIABETES MELLITUS WITHOUT COMPLICATIONS (5) Chest pain Assessment/Plan: CE AND EKG STAT CARDIOLOGY FOLLOW UP PPI Code(s): R07.9 - CHEST PAIN, UNSPECIFIED Qualifiers: Chest pain type: intercostal pain Qualified Code(s): R07.82 - Intercostal pain (6) Abdominal pain Assessment/Plan: CT SCAN GI NPO IVF PPI Code(s): R10.9 - UNSPECIFIED ABDOMINAL PAIN Qualifiers: Abdominal location: generalized Qualified Code(s): R10.84 - Generalized abdominal pain
[2016-09-04 08:33] LABS: MCH 29.9 pg (25.7-33.7); MCHC 32.7 g/dl (32.0-36.0); MEAN CELL VOLUME 91.5 fl (80-96); MEAN PLT VOLUME 8.2 fl (7.5-11.1); PLATELET COUNT 285 K/MM3 (134-434); RDW 15.2 % (11.6-15.6); WHITE BLOOD COUNT 20.8 K/mm3 (4.0-10.0)
[2016-09-04 08:39] LABS: TROPONIN I < 0.02 ng/ml (0.00-0.05)
[2016-09-04] MEDS ORDERED: MAG HYDROX/AL HYDROX/SIMETH 30 ML UNIT-DOSE CUP PO ONE (08:45)
[2016-09-04 08:47] LABS: TROPONIN I < 0.02 ng/ml (0.00-0.05)
--- NOTE | 2016-09-04 08:55 | CONSULT ---
Consult Consult Specialty:: Cardiology Referred by:: Dr. Rubi Reason for Consultation:: Seen in [place] for chest pain - History of Present Illness History of Present Illness: Askd to see in followup. Patient had several bouts of severe chest pain described as burning sternal pain which improved with burping. She has history of reflux and a gastric ulcer on NSAIDs in the past and her symptoms are similar. Also some reproducible chest pain in same location. Currently comfortable. She had prior cardiac cath reportedly negative. and a negative stress test in the past. - History Source History Provided By: Patient Limitations to Obtaining History: No Limitations - Past Medical History Pulmonary: Yes: Asthma - Alcohol/Substance Use Hx Alcohol Use: No - Smoking History Smoking history: Current every day smoker Have you smoked in the past 12 months: Yes Aproximately how many cigarettes per day: 20 Home Medications - Allergies Allergies/Adverse Reactions: Allergies Allergy/AdvReac Type Severity Reaction Status Date / Time Penicillins Allergy Severe Rash Verified 08/28/16 19:26 - Home Medications Home Medications: Ambulatory Orders Albuterol Sulfate Inhaler - [Ventolin HFA Inhaler -] 2 inh PO Q6H #1 inh Physical Exam Vital Signs: Vital Signs Temperature 98.5 F 09/04/16 06:00 Pulse Rate 65 09/04/16 06:00 Respiratory Rate 20 09/04/16 06:00 Blood Pressure 136/74 09/04/16 06:00 O2 Sat by Pulse Oximetry (%) 97 09/03/16 21:00
--- NOTE | 2016-09-04 09:03 | PN ---
Progress Note, Physician Chief Complaint: chest pain earlier today and last night History of Present Illness: Asked to see in followup. Patient had several bouts of severe chest pain described as burning sternal pain which improved with burping. She has history of reflux and a gastric ulcer on NSAIDs in the past and her symptoms are similar. Also some reproducible chest pain in same location. Currently comfortable. She had prior cardiac cath reportedly negative. and a negative stress test in the past. She is admitted with asthma exacerbation. - Current Medication List Current Medications: Active Medications Albuterol Sulfate (Ventolin 0.5% -) 1 amp NEB Q4H PRN PRN Reason: SHORT OF BREATH/WHEEZING Last Admin: 09/03/16 09:57 Dose: 1 amp Albuterol Sulfate (Ventolin 0.083% Nebulizer Soln -) 1 amp NEB QIDR [facility] Last Admin: 09/04/16 06:41 Dose: 1 amp Amlodipine Besylate (Norvasc -) 5 mg PO DAILY [facility] Last Admin: 09/03/16 09:33 Dose: 5 mg Azithromycin (Zithromax -) 500 mg PO DAILY [facility] Last Admin: 09/03/16 09:34 Dose: 500 mg Budesonide/Formoterol Fumarate (Symbicort 160/4.5mcg -) 2 puff IH BID [facility] Last Admin: 09/03/16 21:28 Dose: 1 inh Glimepiride (Amaryl -) 1 mg PO DAILY@0700 [facility] Last Admin: 09/04/16 06:57 Dose: 1 mg Heparin Sodium (Porcine) (Heparin -) 5,000 unit SQ BID [facility] Last Admin: 09/03/16 21:28 Dose: 5,000 unit Pantoprazole Sodium (Protonix 40mg Ivpb (Pre-Docked)) 100 mls @ 200 mls/hr IVPB BID [facility] Potassium Chloride/Dextrose/Sod Cl (D5-1/2ns+20 Meq Kcl -) 1,000 mls @ 42 mls/ hr IV ASDIR [facility] Metformin HCl (Glucophage Xr -) 500 mg PO DAILY@0700 [facility] Last Admin: 09/04/16 06:57 Dose: Not Given Methylprednisolone Sodium Succinate (Solu-Medrol -) 40 mg IVPB BID [facility] Last Admin: 09/03/16 21:28 Dose: 40 mg Nicotine (Nicoderm Patch -) 14 mg TD DAILY [facility] Last Admin: 09/03/16 09:33 Dose: 14 mg Ranitidine HCl (Zantac Oral Solution -) 150 mg PO BID [facility] Last Admin: 09/03/16 21:28 Dose: 150 mg Tiotropium [place] (Spiriva -) 1 puff IH DAILY [facility] Last Admin: 09/03/16 09:33 Dose: 1 cap - Objective Vital Signs: Vital Signs Temperature 98.5 F 09/04/16 06:00 Pulse Rate 65 09/04/16 06:00 Respiratory Rate 20 09/04/16 06:00 Blood Pressure 136/74 09/04/16 06:00 O2 Sat by Pulse Oximetry (%) 97 09/03/16 21:00 Constitutional: Yes: Well Nourished, Obese. No: No Distress, Calm, Anxious, Ashen, Cachectic, Diaphoresis, Mild Distress, Moderate Distress, Severe Distress , Pallor, Poor Hygeine, Thin, Other HENT: Yes: WNL Neck: Yes: WNL Cardiovascular: Yes: WNL, Regular Rate and Rhythm, Other (Reproducible chest pain) Respiratory: Yes: Regular, CTA Bilaterally Gastrointestinal: Yes: Normal Bowel Sounds Edema: No Peripheral Pulses WNL: Yes Labs: CBC, BMP 09/04/16 06:40 - ....Imaging EKG: Image Reviewed (09/[address] changes) Problem List - Problems (1) Chest pain Assessment/Plan: Atypical and non-cardiac chest pain. Has long history of similar symptoms and ho gastric ulcer in the past. Her ECG and cardiac enzymes are normal. Continue PPI therapy. Also can use analgesic therapy for reproducible pain. Code(s): R07.9 - CHEST PAIN, UNSPECIFIED Qualifiers: Chest pain type: intercostal pain Qualified Code(s): R07.82 - Intercostal pain
[2016-09-04 09:05] LABS: ALBUMIN 3.2 g/dl (3.4-5.0); ALK PHOS 91 U/L (45-117); AMYLASE 30 U/L (25-115); ANION GAP 13 (8-16); BILIRUBIN,TOTAL 0.4 mg/dL (0.2-1.0); CALCIUM 9.1 mg/dL (8.5-10.1); CO2 31 mmol/L (21-32); COCKROFT - GAULT 230.3755; CREATININE 0.7 mg/dL (0.55-1.02); GLUCOSE,RANDOM 107 mg/dL (74-106); SGOT/AST 95 U/L (15-37); SGPT/ALT 161 U/L (12-78); TOT PROT 6.8 g/dl (6.4-8.2)
[2016-09-04] MEDS: TIOTROPIUM BROMIDE 18 MCG/INH (DEVICE W/ 5 CAPSULES) IH SCH ×2 (10:47→12:43)
[2016-09-04] MEDS: D5-1/2NS+20 MEQ KCL - 1,000 ML IV SCH (10:47)
[2016-09-04] MEDS: HEPARIN NA (PORCINE) 5,000 UNITS/ML 1ML VIAL SQ SCH ×2 (11:00→21:46)
[2016-09-04] MEDS: methylPREDNISolone NA SUCC 40 MG/1 ML VIAL IVPB SCH ×2 (11:01→21:46)
[2016-09-04] MEDS: NICOTINE 14 MG/24 HOURS TOPICAL PATCH TD SCH (11:03)
[2016-09-04] MEDS: AZITHROMYCIN 250 MG TABLET (FP) PO SCH (11:04)
[2016-09-04] MEDS: amLODIPine BESYLATE 5 MG TABLET (FP) PO SCH (11:04)
[2016-09-04] MEDS: RANITIDINE HCL 150 MG/10 ML UNIT-DOSE CUP PO SCH ×2 (11:06→21:45)
[2016-09-04] MEDS: BUDESONIDE/FORMETEROL FUMARATE 160/4.5 mcg INHALER IH SCH ×2 (11:18→21:45)
--- NOTE | 2016-09-04 11:52 | PN ---
Progress Note (short form) - Note Progress Note: PULMONARY Breathing continues to improve, close to baseline. Last Vital Signs Temp Pulse Resp BP Pulse Ox 98.2 F 81 20 144/91 97 09/04/16 07:15 09/04/16 11:27 09/04/16 10:59 09/04/16 10:59 09/04/16 11:27 Gen: NAD at rest Heart: RRR Lung: better air entry, no wheezes appreciated Abd: soft, nontender Ext: trace edema CBC, BMP 09/04/16 06:40 09/04/16 08:10 Active Medications Albuterol Sulfate (Ventolin 0.083% Nebulizer Soln -) 1 amp NEB QIDR [facility] Last Admin: 09/04/16 11:10 Dose: 1 amp Amlodipine Besylate (Norvasc -) 5 mg PO DAILY [facility] Last Admin: 09/04/16 11:04 Dose: 5 mg Azithromycin (Zithromax -) 500 mg PO DAILY [facility] Last Admin: 09/04/16 11:04 Dose: 500 mg Budesonide/Formoterol Fumarate (Symbicort 160/4.5mcg -) 2 puff IH BID [facility] Last Admin: 09/04/16 11:18 Dose: 2 inh Glimepiride (Amaryl -) 1 mg PO DAILY@0700 [facility] Last Admin: 09/04/16 06:57 Dose: 1 mg Heparin Sodium (Porcine) (Heparin -) 5,000 unit SQ BID [facility] Last Admin: 09/04/16 11:00 Dose: 5,000 unit Pantoprazole Sodium (Protonix 40mg Ivpb (Pre-Docked)) 100 mls @ 200 mls/hr IVPB BID [facility] Potassium Chloride/Dextrose/Sod Cl (D5-1/2ns+20 Meq Kcl -) 1,000 mls @ 42 mls/ hr IV ASDIR [facility] Last Admin: 09/04/16 10:47 Dose: 42 mls/hr Metformin HCl (Glucophage Xr -) 500 mg PO DAILY@0700 [facility] Last Admin: 09/04/16 06:57 Dose: Not Given Methylprednisolone Sodium Succinate (Solu-Medrol -) 40 mg IVPB BID [facility] Last Admin: 09/04/16 11:01 Dose: 40 mg Nicotine (Nicoderm Patch -) 14 mg TD DAILY [facility] Last Admin: 09/04/16 11:03 Dose: 14 mg Ranitidine HCl (Zantac Oral Solution -) 150 mg PO BID [facility] Last Admin: 09/04/16 11:06 Dose: Not Given Tiotropium [place] (Spiriva -) 1 puff IH DAILY [facility] Last Admin: 09/03/16 09:33 Dose: 1 cap A/P Acute Asthma Exacerbation URI Morbid Obesity HTN DM Smoker - can change steroids to PO in AM - inhaled bronchodilators standing and PRN - daily peak flows, best PF 550 when well - glucose control while on systemic steroids - O2 as needed - DVT prophylaxis
[2016-09-04] MEDS: PANTOPRAZOLE SODIUM 100 ML IVPB SCH ×2 (12:44→21:46)
--- NOTE | 2016-09-04 13:23 | EKG ---
Test Reason : Blood Pressure : / mmHG Vent. Rate : 060 BPM Atrial Rate : 060 BPM P-R Int : 120 ms QRS Dur : 096 ms QT Int : 418 ms P-R-T Axes : 049 066 048 degrees QTc Int : 418 ms NORMAL SINUS RHYTHM NORMAL ECG WHEN COMPARED WITH ECG OF 29-AUG-2016 05:39, VENT. RATE HAS DECREASED BY 31 BPM QT HAS SHORTENED Confirmed by DOM LUO, ELIESER ([id number]) on 09/04/2016 1:23:19 PM Referred By: KIMBERLEY APDILLA Confirmed By:ELIESER FERNANDES MD
[2016-09-04 14:09] LABS: TROPONIN I < 0.02 ng/ml (0.00-0.05)
[2016-09-04 14:24] LABS: METAMYELOCYTE 1 % (0-2); PLATELET ESTIMATE ADEQUATE (NORMAL)
--- NOTE | 2016-09-04 20:59 | CON.GI ---
Consult Consult Specialty:: GI Referred by:: Dr Rubi Reason for Consultation:: Abdominal pain - History of Present Illness Chief Complaint: Abdominal pain History of Present Illness: 46 F with h/o asthma, morbid obesity, Normal cath in 2013, admitted with asthma exacerbation with intermittent chest pressure. ACS ruled out and asthma has responded to treatment including steroids. Earlier today she c/o abdominal pain and was put on clear liquids and started on a PPI. She tells me this evening that the pain resolved shortly after starting the protonix and she feels well now. She is requesting food. - History Source History Provided By: Patient, Medical Record Limitations to Obtaining History: No Limitations - Past Medical History Pulmonary: Yes: Asthma - Alcohol/Substance Use Hx Alcohol Use: No - Smoking History Smoking history: Current every day smoker Have you smoked in the past 12 months: Yes Aproximately how many cigarettes per day: 20 Home Medications - Allergies Allergies/Adverse Reactions: Allergies Allergy/AdvReac Type Severity Reaction Status Date / Time Penicillins Allergy Severe Rash Verified 08/28/16 19:26 - Home Medications Home Medications: Ambulatory Orders Albuterol Sulfate Inhaler - [Ventolin HFA Inhaler -] 2 inh PO Q6H #1 inh Physical Exam-GI Vital Signs: Vital Signs Temperature 98.5 F 09/04/16 20:22 Pulse Rate 80 09/04/16 20:22 Respiratory Rate 22 09/04/16 20:22 Blood Pressure 134/86 09/04/16 20:22 O2 Sat by Pulse Oximetry (%) 97 09/04/16 11:27 Constitutional: Yes: Obese HENT: Yes: Normocephalic Neck: Yes: Supple Cardiovascular: Yes: Regular Rate and Rhythm Respiratory: Yes: CTA Bilaterally Gastrointestinal Inspection: Yes: Other (obese. Multiple ecchymoses noted on the lower abdominal wall secondary to heparin injections with some swelling of the tissue, but no evidence of infection.) ...Auscultate: Yes: Normoactive Bowel Sounds ...Palpate: Yes: Soft. No: Tenderness Labs: CBC, BMP 09/04/16 06:40 09/04/16 08:10 Hepatic Panel Total Bilirubin 0.4 mg/dL (0.2-1.0) 09/04/16 08:10 AST 95 U/L (15-37) H D 09/04/16 08:10 ALT 161 U/L (12-78) H D 09/04/16 08:10 Alkaline Phosphatase 91 U/L (45-117) 09/04/16 08:10 Albumin 3.2 g/dl (3.4-5.0) L 09/04/16 08:10 Imaging - Results Cat Scan: Report Reviewed (No acute pathology) Assessment/Plan Abdominal pain likely secondary to IV steroids, with NSAID-induced gastritis. Pain resolved and steroids being tapered. Rec: May resume po Continue IV protonix for now. Can switch to po tomorrow, and should be continued until she has a chance to see her GI (Gerber) as an opt. CT finding of thickened area of skin with inflammation coincides with the area where she is receiving heparin injections. Of no clinical concern
[2016-09-05] MEDS ORDERED: PT OWN MED DRAWER 7, Y5N ONE (06:04)
[2016-09-05] MEDS: GLIMEPIRIDE 1 MG TABLET (FP) PO SCH (06:39)
[2016-09-05] MEDS: ALBUTEROL SO4 0.083% IH SOL 2.5 MG/3 ML VIAL.NEB. NEB SCH ×2 (06:50→11:41)
[2016-09-05] MEDS: amLODIPine BESYLATE 5 MG TABLET (FP) PO SCH (09:09)
[2016-09-05] MEDS: methylPREDNISolone NA SUCC 40 MG/1 ML VIAL IVPB SCH (09:10)
[2016-09-05] MEDS: HEPARIN NA (PORCINE) 5,000 UNITS/ML 1ML VIAL SQ SCH (09:10)
[2016-09-05] MEDS: TIOTROPIUM BROMIDE 18 MCG/INH (DEVICE W/ 5 CAPSULES) IH SCH (09:11)
[2016-09-05] MEDS: BUDESONIDE/FORMETEROL FUMARATE 160/4.5 mcg INHALER IH SCH (09:11)
[2016-09-05] MEDS: AZITHROMYCIN 250 MG TABLET (FP) PO SCH (09:12)
[2016-09-05] MEDS: NICOTINE 14 MG/24 HOURS TOPICAL PATCH TD SCH (09:15)
[2016-09-05] MEDS: D5-1/2NS+20 MEQ KCL - 1,000 ML IV SCH (09:17)
[2016-09-05] MEDS: RANITIDINE HCL 150 MG/10 ML UNIT-DOSE CUP PO SCH (09:26)
[2016-09-05 09:29] VITALS: BP 137/77; PULSE 94; TEMP 98.4
[2016-09-05] MEDS: PANTOPRAZOLE SODIUM 100 ML IVPB SCH (10:05)
--- NOTE | 2016-09-05 10:20 | DS ---
Physical Examination Vital Signs: Vital Signs Temperature 98.4 F 09/05/16 09:29 Pulse Rate 94 H 09/05/16 09:29 Respiratory Rate 18 09/05/16 09:29 Blood Pressure 137/77 09/05/16 09:29 O2 Sat by Pulse Oximetry (%) 96 09/04/16 21:00 Constitutional: Yes: Calm, Obese Neck: Yes: Trachea Midline Cardiovascular: Yes: Regular Rate and Rhythm Respiratory: Yes: Diminished Gastrointestinal: Yes: Soft, Abdomen, Obese Neurological: Yes: Alert, Oriented Labs: CBC, BMP 09/04/16 06:40 09/04/16 08:10 Discharge Summary Reason For Visit: ASTHMA ATTACK WHEEZING Current Active Problems Asthma attack (Acute) Chest pain (Acute) Diabetes (Acute) HTN (hypertension) (Acute) Hyperglycemia (Acute) Leukocytosis (Acute) Morbid (severe) obesity due to excess calories (Acute) Penicillin allergy (Acute) Smoker (Acute) Thyroiditis, autoimmune (Acute) Wheezing (Acute) Hospital Course: The patient is a 46 year old female with significant past medical history of asthma, no hospitalization or intubations, on albuterol nebulizer prn, does not have a MDI who presents to the ED for worsening asthma exacerbation. Patient was seen here in the ED on 08/24 for cold like symptoms, chest congestion, cough and SOB, where she was treated for asthma exacerbation and discharge with prednisone. However, there was an error in prescription that was sent with the prednisone for appropriate therapeutic dosage. She returns for worsening asthma exacerbation. States using her albuterol nebulizer treatment once today with no improvement and felt as if she needed more treatments. Patient does not have a rescue inhaler. Patient admits she has not been seen by her PMD in quite some time. The patient denies fever, chills, diaphoresis, chest pain, and palpitations. The patient denies abdominal pain, nausea, vomiting, and diarrhea. Allergies: penicillin Social History: Current smoker (recently cut down from ppd to half ppd). No alcohol or drug use reported. Past Surgical History: tubal ligation, cholecystectomy, L. Knee & rt. knee, b/ l carpal tunnel surgery PCP: Dr. Elton ZAMUDIO on abx now completed course asthma exacerbation on iv steroids now change to po prednsione taper and sprivia and symbicort htn on norvasc abdominal pain sec to NSAID gastritis iv protonix now po protonix [id number] 6.5 on metformin and amaryl carol thyroiditis: get thyroid ultrasound as an outpatient nicotine [facility] cessation Condition: Guarded - Instructions Diet, Activity, Other Instructions: schedule thyroid ultrasound FU with Dr harrison in 2 weeks prednisone taper: prednisone 60mg po daily for 2 days prednisone 40mg for 2 days prednisone 20mg for 2 days prednsione 10mg for 2 days then stop protonix 40mg po bid for [address] medina in 3 weeks Referrals: Elton Hair MD [Primary Care Provider] - 1 Week Doc Medina MD [Staff Physician] - 3 Weeks Dennis Harrison MD [Staff Physician] - 2 Weeks Disposition: HOME - Home Medications Comprehensive Discharge Medication List: Ambulatory Orders Albuterol Sulfate Inhaler - [Ventolin HFA Inhaler -] 2 inh PO Q6H #1 inh
--- NOTE | 2016-09-05 12:44 | PN ---
Progress Note, Physician History of Present Illness: PULMONARY ALERT,DOING WELL -SOB,-COUGH - Current Medication List Current Medications: Active Medications Albuterol Sulfate (Ventolin 0.083% Nebulizer Soln -) 1 amp NEB QIDR [facility] Last Admin: 09/05/16 11:41 Dose: Not Given Amlodipine Besylate (Norvasc -) 5 mg PO DAILY [facility] Last Admin: 09/05/16 09:09 Dose: 5 mg Budesonide/Formoterol Fumarate (Symbicort 160/4.5mcg -) 2 puff IH BID [facility] Last Admin: 09/05/16 09:11 Dose: 2 inh Glimepiride (Amaryl -) 1 mg PO DAILY@0700 [facility] Last Admin: 09/05/16 06:39 Dose: 1 mg Nicotine (Nicoderm Patch -) 14 mg TD DAILY [facility] Last Admin: 09/05/16 09:15 Dose: 14 mg Pantoprazole Sodium (Protonix -) 40 mg PO BID [facility] Prednisone (Deltasone -) 60 mg PO DAILY [facility] Ranitidine HCl (Zantac Oral Solution -) 150 mg PO BID [facility] Last Admin: 09/05/16 09:26 Dose: Not Given Tiotropium [place] (Spiriva -) 1 puff IH DAILY [facility] Last Admin: 09/05/16 09:11 Dose: 1 puff - Objective Vital Signs: Vital Signs Temperature 98.4 F 09/05/16 09:29 Pulse Rate 94 H 09/05/16 09:29 Respiratory Rate 18 09/05/16 09:29 Blood Pressure 137/77 09/05/16 09:29 O2 Sat by Pulse Oximetry (%) 96 09/04/16 21:00 Constitutional: Yes: Well Nourished, Calm Eyes: Yes: WNL HENT: Yes: WNL Cardiovascular: Yes: Regular Rate and Rhythm, S1, S2 Respiratory: Yes: CTA Bilaterally Extremities: Yes: WNL Edema: No Labs: CBC, BMP Problem List - Problems (1) Asthma attack Code(s): J45.901 - UNSPECIFIED ASTHMA WITH (ACUTE) EXACERBATION (2) Wheezing Code(s): R06.2 - WHEEZING (3) Asthma exacerbation Code(s): J45.901 - UNSPECIFIED ASTHMA WITH (ACUTE) EXACERBATION Qualifiers: Asthma severity: mild intermittent Qualified Code(s): J45.21 - Mild intermittent asthma with (acute) exacerbation (4) Morbid (severe) obesity due to excess calories Code(s): E66.01 - MORBID (SEVERE) OBESITY DUE TO EXCESS CALORIES (5) Smoker Code(s): F17.200 - NICOTINE DEPENDENCE, UNSPECIFIED, UNCOMPLICATED Assessment/Plan IMP ACUTE ASTHMA EXACERBATION improved URI MORBID OBESITY SMOKER PLAN PREDNISONE INHALED BRONCHODILATORS SPIRIVA O2 MONITOR PEAK FLOW PFTS OUT PATIENT NICODERM PATCH NO OBJECTION TO DISCHARGE DR WASSERMAN Problem List - Problems (1) Asthma attack Code(s): J45.901 - UNSPECIFIED ASTHMA WITH (ACUTE) EXACERBATION (2) Wheezing Code(s): R06.2 - WHEEZING (3) Asthma exacerbation Code(s): J45.901 - UNSPECIFIED ASTHMA WITH (ACUTE) EXACERBATION Qualifiers: Asthma severity: mild intermittent Qualified Code(s): J45.21 - Mild intermittent asthma with (acute) exacerbation (4) Morbid (severe) obesity due to excess calories Code(s): E66.01 - MORBID (SEVERE) OBESITY DUE TO EXCESS CALORIES (5) Smoker Code(s): F17.200 - NICOTINE DEPENDENCE, UNSPECIFIED, UNCOMPLICATED
[2016-09-05] MEDS ORDERED: PANTOPRAZOLE 40 MG TABLET (FP) PO SCH (22:00)
[2016-09-06] MEDS ORDERED: predniSONE 20 MG TABLET (UD) PO SCH (10:00)
== END 2016-09-05 14:52 | disposition home or self-care (01) | DRG 141 ==
LOC: JER 19:20 → JERBED 08-29 02:00 → J5S 08-29 03:47 → OBSVTOIN 08-29 11:00
PROVIDERS: ADMIT Family Medicine; ATTEND Family Medicine
DX: J45.901 Unspecified asthma with (acute) exacerbation (principal); R07.9 Chest pain, unspecified; D72.829 Elevated white blood cell count, unspecified; J06.9 Acute upper respiratory infection, unspecified; E66.01 Morbid (severe) obesity due to excess calories; Z68.43 Body mass index [BMI] 50.0-59.9, adult; F17.210 Nicotine dependence, cigarettes, uncomplicated; E11.9 Type 2 diabetes mellitus without complications; Z88.0 Allergy status to penicillin; I10 Essential (primary) hypertension; R10.9 Unspecified abdominal pain
CPT/HCPCS: 36415; 71020-TC; 74177-TC; 80053; 82150; 82550; 83036; 83690; 83735; 83880; 84439; 84443; 84481; 84484; 85025; 93005; 93010; 93306-TC; 94150; 94640; 97116-GP; 97161-GP; 99283-25; G0008; G0378; J1644; Q2037

== ENCOUNTER 2016-10-13 14:54 | Emergency (ER) | payer OTHER ==
[2016-10-13 15:22] VITALS: BP 131/76; PULSE 69; TEMP 98.6; BMI 51.5
[2016-10-13] MEDS ORDERED: KETOROLAC TROMETHAMINE 60 MG/2 ML VIAL IM ONE (15:55)
--- NOTE | 2016-10-13 16:00 | PDOC ---
History of Present Illness - General Chief Complaint: Injury Stated Complaint: RT HAND PAIN Time Seen by Provider: 10/13/16 15:27 History Source: Patient Exam Limitations: No Limitations - History of Present Illness Initial Comments: 10/13/16 15:56 c/o pain and immobility to left hand x 1 month. Was seen by same hand surgeon, 3 weeks ago and received a steroid injection to that joint, same physician who performed a couple tunnel release 3 years ago . States received no relief of pain or immobility from that injection. Patient has been using creams, was given a prescription for a hand splint to be fashioned but lost the prescription.Denies any recent trauma, no reinjury, is currently on disability for right shoulder surgery. 10/13/16 19:12 Occurred: reports: other ([address] [place] [address] ) Pain Location: reports: upper extremity (hand) Associated Symptoms (Fall): denies symptoms Past History - Travel Traveled outside of the country in the last 30 days: No Close contact w/someone who was outside of country & ill: No - Past Medical History Allergies/Adverse Reactions: Allergies Allergy/AdvReac Type Severity Reaction Status Date / Time Penicillins Allergy Severe Rash Verified 10/13/16 15:19 Home Medications: Ambulatory Orders Albuterol Sulfate Inhaler - [Ventolin HFA Inhaler -] 2 inh PO Q6H #1 inh Oxycodone HCl/Acetaminophen [Percocet 5-325 mg Tablet -] 1 - 2 tab PO Q4H PRN # 7 tablet MDD 4 10/13/16 Anemia: No Asthma: Yes Cancer: No Cardiac Disorders: No CVA: No CHF: No Diabetes: No Seizures: No - Surgical History Abdominal Surgery: Yes (TUBAL LIGATION) Cholecystectomy: Yes Orthopedic Surgery: Yes (L. Knee & rt. knee, b/l carpal tunnel surgery ) - Family Disease History Family Disease History: Heart Disease: Mother - Immunization History Immunization Up to Date: Yes - Psycho/Social/Smoking Cessation Hx Anxiety: No Suicidal Ideation: No Smoking Status: Yes Smoking History: Former smoker Years of Tobacco Use: 10 Have you smoked in the past 12 months: Yes Number of Cigarettes Smoked Daily: 20 If you are a former smoker, when did you quit?: 08/28/16 Information on smoking cessation initiated: No 'Breaking Loose' booklet given: 05/25/14 Hx Alcohol Use: No Drug/Substance Use Hx: No Substance Use Type: None Hx Substance Use Treatment: No Trauma Specific PMHX - Complaint Specific PMHX Back Injury: No Neck Injury: No Review of Systems - Review of Systems Able to Perform ROS?: Yes Is the patient limited Danish proficient: Yes Constitutional: Yes: Symptoms Reported, See HPI. No: Fever, Malaise HEENTM: No: Symptoms Reported Musculoskeletal: Yes: Symptoms Reported, Joint Pain, Joint Swelling Neurological: Yes: Symptoms reported All Other Systems: Reviewed and Negative *Physical Exam - Vital Signs Last Vital Signs Temp Pulse Resp BP Pulse Ox 98.6 F 69 18 131/76 98 10/13/16 15:20 10/13/16 15:20 10/13/16 15:20 10/13/16 15:20 10/13/16 15:20 - Physical Exam General Appearance: Yes: Nourished, Appropriately Dressed, Apparent Distress, Mild Distress HEENT: positive: AUGUST, Normal ENT Inspection, TMs Normal, Pharynx Normal Neck: positive: Supple. negative: Tender Musculoskeletal: positive: Normal Inspection, Decreased Range of Motion (due to pain and swelling ) Extremity: positive: Normal Capillary Refill, Normal Inspection, Normal Range of Motion Integumentary: positive: Normal Color, Dry, Swelling. negative: Erythema Neurologic: positive: enrollment management manager II-XII NML intact, Fully Oriented, Normal Mood/Affect , Normal Response. negative: Motor Strength 5/5 ED Treatment Course - RADIOLOGY Radiology Studies Ordered: Category Date Time Status HAND- LEFT [RAD] Stat Radiology 10/13/16 15:52 Ordered Neg for fracturee or dx 10/13/16 19:13 Progress Note - Progress Note Progress Note: carpal tunnel tendinitis re-exacerbation. We'll treat with NSAIDs, encouraged to return to hand surgery for occupational/physical therapy and splinting., *DC/Admit/Observation/Transfer Diagnosis at time of Disposition: Tendonitis - Discharge Dispostion Disposition: HOME Condition at time of disposition: Stable Admit: No - Prescriptions Prescriptions: Oxycodone HCl/Acetaminophen [Percocet 5-325 mg Tablet -] 1 - 2 tab PO Q4H PRN # 7 tablet MDD 4 PRN Reason: Pain - Referrals Referrals: Elton Hair MD [Primary Care Provider] - - Patient Instructions Printed Discharge Instructions: DI for Tendinitis Additional Instructions: Rest, ice to area on and off for 15 minutes 4-6 times a day Avoid heavy lifting or exercise until pain and swelling is resolved or until further directed Keep area highly elevated to reduce swelling Use splints/Sam wrap as directed Followup with orthopedist in one to 2 days if not improving, if significantly improved may wait one week for followup with orthopedist May use ibuprofen 2-200 mg tablets every 6 hours as needed for pain
[2016-10-13] MEDS ORDERED: KETOROLAC TROMETHAMINE 60 MG/2 ML VIAL ONE (16:08)
== END 2016-10-13 17:29 | disposition home or self-care (01) ==
LOC: JERFT 14:54
PROC: 3E0233Z Introduction of Anti-inflammatory into Muscle, Percutaneous Approach (ICD-10-PCS; principal; 2016-10-13)
DX: M79.641 Pain in right hand (principal); G56.01 Carpal tunnel syndrome, right upper limb
CPT/HCPCS: 73130-TC-LT; 96372; 99281-25

== ENCOUNTER 2017-01-03 12:43 | Inpatient (IN) | payer OTHER ==
[2017-01-03 12:48] VITALS: BMI 54.1
--- NOTE | 2017-01-03 13:17 | PDOC ---
History of Present Illness - General Chief Complaint: Back Pain Stated Complaint: BACK PAIN-PASSED OUT Time Seen by Provider: 01/03/17 12:57 History Source: Patient Exam Limitations: No Limitations - History of Present Illness Initial Comments: 46 yo F history asthma, B/L knee replacements, recent R rotator cuff injury, low back pain presents with abrupt onset severe low back pain. She states that she was walking down a set of stairs, suddenly felt a pop in her low back, and since then has had severe low back pain bilaterally that radiates to the R thigh. Denies weakness, numbness, incontinence. She states the pain is sever, worse with attempting to ambulate. She took tramadol prior to arrival without relief (she has it for the rotator cuff injury). Past History - Past Medical History Allergies/Adverse Reactions: Allergies Allergy/AdvReac Type Severity Reaction Status Date / Time Penicillins Allergy Severe Rash Verified 01/03/17 13:14 Home Medications: Ambulatory Orders NK [No Known Home Medication] 01/03/17 Anemia: No Asthma: Yes Cancer: No Cardiac Disorders: No CVA: No CHF: No Diabetes: No Seizures: No - Surgical History Abdominal Surgery: Yes (TUBAL LIGATION) Cholecystectomy: Yes Orthopedic Surgery: Yes (L. Knee & rt. knee, b/l carpal tunnel surgery ) - Family Disease History Family Disease History: Heart Disease: Mother - Immunization History Immunization Up to Date: Yes - Psycho/Social/Smoking Cessation Hx Anxiety: No Suicidal Ideation: No Smoking Status: Yes Smoking History: Current some day smoker Years of Tobacco Use: 10 Have you smoked in the past 12 months: Yes Number of Cigarettes Smoked Daily: 10 If you are a former smoker, when did you quit?: 08/28/16 Information on smoking cessation initiated: No 'Breaking Loose' booklet given: 05/25/14 Hx Alcohol Use: Yes (SOCIAL) Drug/Substance Use Hx: No Substance Use Type: None Hx Substance Use Treatment: No Review of Systems - Review of Systems Able to Perform ROS?: Yes Comments:: GENERAL/CONSTITUTIONAL: No fever or chills. No weakness. HEAD, EYES, EARS, NOSE AND THROAT: No change in vision. No ear pain or discharge. No sore throat. CARDIOVASCULAR: No chest pain or shortness of breath. RESPIRATORY: No cough, wheezing, or hemoptysis. GASTROINTESTINAL: No nausea, vomiting, diarrhea or constipation. GENITOURINARY: No dysuria, frequency, or change in urination. MUSCULOSKELETAL: No joint or muscle swelling or pain. No neck pain. +Low back pain. SKIN: No rash NEUROLOGIC: No headache, vertigo, loss of consciousness, or change in strength/ sensation. ENDOCRINE: No increased thirst. No abnormal weight change. HEMATOLOGIC/LYMPHATIC: No anemia, easy bleeding, or history of blood clots. ALLERGIC/IMMUNOLOGIC: No hives or skin allergy. *Physical Exam - Vital Signs Last Vital Signs Temp Pulse Resp BP Pulse Ox 98.6 F 84 20 147/99 99 01/03/17 12:44 01/03/17 12:44 01/03/17 12:44 01/03/17 12:44 01/03/17 12:44 - Physical Exam Comments: GENERAL: Awake, alert, and fully oriented, in no acute distress. Appears uncomfortable. HEAD: No signs of trauma EYES: PERRLA, EOMI, sclera anicteric, conjunctiva clear ENT: Auricles normal inspection, hearing grossly normal, nares patent, oropharynx clear without exudates. Moist mucosa NECK: Normal ROM, supple, no lymphadenopathy, JVD, or masses LUNGS: Breath sounds equal, clear to auscultation bilaterally. No wheezes, and no crackles HEART: Regular rate and rhythm, normal S1 and S2, no murmurs, rubs or gallops ABDOMEN: Soft, nontender, normoactive bowel sounds. No guarding, no rebound. No masses. No CVAT. EXTREMITIES: B/L well-healed anterior knee scars. Normal range of motion, no edema. No clubbing or cyanosis. No cords, erythema, or tenderness NEUROLOGICAL: Cranial nerves II through XII grossly intact. Normal speech, normal gait SKIN: Warm, Dry, normal turgor, no rashes or lesions noted. SPINE: +Midline tenderness to L5/S1 region, +B/L lumbar paraspinal soft tissue tenderness. ED Treatment Course - LABORATORY CBC & Chemistry Diagram: 01/04/17 06:00 01/04/17 06:00 Medical Decision Making - Medical Decision Making 01/03/17 19:[address] Gramajo at shift change. Awaiting CT L-spine and reassessment s/ p dilaudid. *DC/Admit/Observation/Transfer Diagnosis at time of Disposition: Herniated disc Low back strain Qualifiers: Encounter type: initial encounter Qualified Code(s): S39.012A - Strain of muscle, fascia and tendon of lower back, initial encounter - Discharge Dispostion Condition at time of disposition: Stable Admit: No - Referrals - Patient Instructions
[2017-01-03] MEDS ORDERED: METHOCARBAMOL 500 MG TABLET PO ONE (13:18)
[2017-01-03 13:37] LABS: URINE APPEARANCE SLCLOUDY; URINE BILIRUBIN NEGATIVE (NEGATIVE); URINE BLOOD NEGATIVE (NEGATIVE); URINE COLOR YELLOW; URINE GLUCOSE (UA) NEGATIVE (NEGATIVE); URINE KETONE NEGATIVE (NEGATIVE); URINE LEUK ESTERASE NEGATIVE (NEGATIVE); URINE NITRITE NEGATIVE (NEGATIVE); URINE PROTEIN NEGATIVE (NEGATIVE); URINE UROBILINOGEN 4.0 E.U/dl mg/dL (0.2-1.0)
[2017-01-03] MEDS ORDERED: METHOCARBAMOL 500 MG TABLET ONE (13:47)
[2017-01-03] MEDS ORDERED: morphine CARPU-JECT 4 MG/1 ML DISP.SYRIN IVPUSH ONE (15:58)
[2017-01-03] MEDS ORDERED: morphine CARPU-JECT 2 MG/1 ML DISP.SYRIN ONE (16:24)
[2017-01-03 16:40] LABS: BASOPHIL 1.2 % (0-2.0); EOSINOPHIL 1.7 % (0-4.5); MCH 31.2 pg (25.7-33.7); MCHC 34.1 g/dl (32.0-36.0); MEAN CELL VOLUME 91.5 fl (80-96); MEAN PLT VOLUME 8.4 fl (7.5-11.1); NEUTROPHILS 68.1 % (42.8-82.8); PLATELET COUNT 348 K/MM3 (134-434); RDW 14.1 % (11.6-15.6); WHITE BLOOD COUNT 12.4 K/mm3 (4.0-10.0)
[2017-01-03 17:33] LABS: ALBUMIN 3.5 g/dl (3.4-5.0); ANION GAP 9 (8-16); CALCIUM 8.8 mg/dL (8.5-10.1); CO2 24 mmol/L (21-32); CREATININE 0.9 mg/dL (0.55-1.02); GLUCOSE,RANDOM 188 mg/dL (74-106); SGPT/ALT 29 U/L (12-78)
[2017-01-03 17:34] LABS: ALK PHOS 104 U/L (45-117); BILIRUBIN,TOTAL 0.3 mg/dL (0.2-1.0); TOT PROT 7.3 g/dl (6.4-8.2)
[2017-01-03 17:39] LABS: SGOT/AST 18 U/L (15-37)
[2017-01-03] MEDS ORDERED: HYDROmorphone HCL CARPU-JECT 1 MG/1 ML DISP.SYRIN ONE ×2 (17:45→20:54)
[2017-01-03] MEDS ORDERED: HYDROmorphone HCL CARPU-JECT 1 MG/1 ML DISP.SYRIN IVPUSH ONE (17:45)
[2017-01-03] MEDS ORDERED: HYDROmorphone HCL CARPU-JECT 1 MG/1 ML DISP.SYRIN IVPB ONE (20:00)
[2017-01-03] MEDS ORDERED: methylPREDNISolone NA SUCC 125 MG/2 ML VIAL IVPB ONE (20:23)
[2017-01-03] MEDS ORDERED: PANTOPRAZOLE SODIUM 40 MG in SODIUM CHLORIDE 100 ML IVPB ONE (20:23)
--- NOTE | 2017-01-03 20:25 | PDOC ---
*Physical Exam - Vital Signs Last Vital Signs Temp Pulse Resp BP Pulse Ox 98.6 F 69 18 150/88 99 01/03/17 12:44 01/03/17 17:53 01/03/17 17:53 01/03/17 17:53 01/03/17 17:53 <Marguerite Ferguson - Last Filed: 01/03/17 20:27> - Vital Signs Last Vital Signs Temp Pulse Resp BP Pulse Ox 98.6 F 69 18 150/88 99 01/03/17 12:44 01/03/17 17:53 01/03/17 17:53 01/03/17 17:53 01/03/17 17:53 <Ron Gramajo - Last Filed: 01/03/17 20:41> ED Treatment Course - LABORATORY CBC & Chemistry Diagram: 01/03/17 16:09 01/03/17 16:09 - ADDITIONAL ORDERS Additional order review: Laboratory Results 01/03/17 01/03/17 16:09 13:00 Sodium 137 Potassium 4.2 Chloride 104 D Carbon Dioxide 24 D Anion Gap 9 BUN 12 D Creatinine 0.9 D Creat Clearance w eGFR > 60 Random Glucose 188 H D Calcium 8.8 Total Bilirubin 0.3 D AST 18 D ALT 29 D Alkaline Phosphatase 104 Total Protein 7.3 Albumin 3.5 Urine Color Yellow Urine Appearance Slcloudy Urine pH 6.0 Ur Specific [place] 1.025 Urine Protein Negative Urine Glucose (UA) Negative Urine Ketones Negative Urine Blood Negative Urine Nitrite Negative Urine Bilirubin Negative Urine Urobilinogen 4.0 e.u/dl H Ur Leukocyte Esterase Negative Urine HCG, Qual Negative 01/03/17 16:09 RBC 4.54 MCV 91.5 MCHC 34.1 RDW 14.1 MPV 8.4 Neutrophils % 68.1 Lymphocytes % 24.0 D Monocytes % 5.0 Eosinophils % 1.7 D Basophils % 1.2 D - Medications Given in the ED: ED Medications Discontinued Medications Generic Name Dose Route Start Last Admin Trade Name Freq PRN Reason Stop Dose Admin Hydromorphone HCl 0.5 mg 01/03/17 17:45 01/03/17 17:51 Dilaudid Injection - IVPUSH 01/03/17 17:46 0.5 mg ONCE ONE Administration Methocarbamol 1,000 mg 01/03/17 13:18 01/03/17 13:52 Robaxin - PO 01/03/17 13:19 1,000 mg ONCE ONE Administration Morphine Sulfate 4 mg 01/03/17 15:58 01/03/17 16:34 Morphine Injection - IVPUSH 01/03/17 15:59 4 mg ONCE ONE Administration Oxycodone/Acetaminophen 2 combo 01/03/17 13:17 01/03/17 13:51 Percocet 5/325 - PO 01/03/17 13:18 2 combo ONCE ONE Administration <Marguerite Ferguson - Last Filed: 01/03/17 20:27> - LABORATORY CBC & Chemistry Diagram: 01/03/17 16:09 01/03/17 16:09 - ADDITIONAL ORDERS Additional order review: Laboratory Results 01/03/17 01/03/17 16:09 13:00 Sodium 137 Potassium 4.2 Chloride 104 D Carbon Dioxide 24 D Anion Gap 9 BUN 12 D Creatinine 0.9 D Creat Clearance w eGFR > 60 Random Glucose 188 H D Calcium 8.8 Total Bilirubin 0.3 D AST 18 D ALT 29 D Alkaline Phosphatase 104 Total Protein 7.3 Albumin 3.5 Urine Color Yellow Urine Appearance Slcloudy Urine pH 6.0 Ur Specific [place] 1.025 Urine Protein Negative Urine Glucose (UA) Negative Urine Ketones Negative Urine Blood Negative Urine Nitrite Negative Urine Bilirubin Negative Urine Urobilinogen 4.0 e.u/dl H Ur Leukocyte Esterase Negative Urine HCG, Qual Negative 01/03/17 16:09 RBC 4.54 MCV 91.5 MCHC 34.1 RDW 14.1 MPV 8.4 Neutrophils % 68.1 Lymphocytes % 24.0 D Monocytes % 5.0 Eosinophils % 1.7 D Basophils % 1.2 D - Medications Given in the ED: ED Medications Discontinued Medications Generic Name Dose Route Start Last Admin Trade Name Freq PRN Reason Stop Dose Admin Hydromorphone HCl 0.5 mg 01/03/17 17:45 01/03/17 17:51 Dilaudid Injection - IVPUSH 01/03/17 17:46 0.5 mg ONCE ONE Administration Methocarbamol 1,000 mg 01/03/17 13:18 01/03/17 13:52 Robaxin - PO 01/03/17 13:19 1,000 mg ONCE ONE Administration Morphine Sulfate 4 mg 01/03/17 15:58 01/03/17 16:34 Morphine Injection - IVPUSH 01/03/17 15:59 4 mg ONCE ONE Administration Oxycodone/Acetaminophen 2 combo 01/03/17 13:17 01/03/17 13:51 Percocet 5/325 - PO 01/03/17 13:18 2 combo ONCE ONE Administration <Ron Gramajo - Last Filed: 01/03/17 20:41> Medical Decision Making - Medical Decision Making 01/03/17 20:[address] Allen, who admits for patient's PCP, Dr. Hair. Dr. Allen agrees to admission and requests Dr. David Lemus of Neurosurgery. Case discussed with Dr. Lemus who agreed to see patient. <Marguerite Ferguson - Last Filed: 01/03/17 20:27> - Medical Decision Making 01/03/17 20:38 Sign-out received from outgoing Emergency Physician Dr. Fu Pt interviewed and examined Ancillary studies reviewed Case discussed in detail with oncoming Emergency Physician including history, physical exam and ancillary studies. CBC, BMP 01/03/17 16:09 01/03/17 16:09 CMP Sodium 137 mmol/L (136-145) 01/03/17 16:09 Potassium 4.2 mmol/L (3.5-5.1) 01/03/17 16:09 Chloride 104 mmol/L (98-107) D 01/03/17 16:09 Carbon Dioxide 24 mmol/L (21-32) D 01/03/17 16:09 Anion Gap 9 (8-16) 01/03/17 16:09 BUN 12 mg/dL (7-18) D 01/03/17 16:09 Creatinine 0.9 mg/dL (0.55-1.02) D 01/03/17 16:09 Creat Clearance w eGFR > 60 (>60) 01/03/17 16:09 Random Glucose 188 mg/dL (74-106) H D 01/03/17 16:09 Calcium 8.8 mg/dL (8.5-10.1) 01/03/17 16:09 Total Bilirubin 0.3 mg/dL (0.2-1.0) D 01/03/17 16:09 AST 18 U/L (15-37) D 01/03/17 16:09 ALT 29 U/L (12-78) D 01/03/17 16:09 Alkaline Phosphatase 104 U/L (45-117) 01/03/17 16:09 Total Protein 7.3 g/dl (6.4-8.2) 01/03/17 16:09 Albumin 3.5 g/dl (3.4-5.0) 01/03/17 16:09 CAT scan demonstrates L5 disc herniation. He should believes that this is new and does not recall history of disc herniation. Case was discussed with Dr. Danilo Allen who requests that we initiate IV Solu-Medrol and Protonix and to consult Neurosurgeon Dr. David Lemus. Case was discussed with DR. Lemus who will see patient as a data power consultant. Dr. Allen accepts patient to med/surg observation. Case discussed in detail with admitting physician including history, physical exam and ancillary studies. Admitting physician has assumed care for the patient, will follow all pending diagnostics and will complete the evaluation and treatment. <Ron Gramajo - Last Filed: 01/03/17 20:41> *DC/Admit/Observation/Transfer <Marguerite Ferguson - Last Filed: 01/03/17 20:27> - Discharge Dispostion Admit: Yes <Ron Gramajo - Last Filed: 01/03/17 20:41> Diagnosis at time of Disposition: Low back strain Qualifiers: Encounter type: initial encounter Qualified Code(s): S39.012A - Strain of muscle, fascia and tendon of lower back, initial encounter Herniation of intervertebral disc Qualifiers: Spinal region: lumbar Qualified Code(s): M51.26 - Other intervertebral disc displacement, lumbar region - Discharge Dispostion Condition at time of disposition: Stable - Referrals Referrals: Elton Hair MD [Primary Care Provider] - - Patient Instructions Printed Discharge Instructions: DI for Low Back Pain - Post Discharge Activity
[2017-01-03] MEDS ORDERED: methylPREDNISolone NA SUCC 125 MG/2 ML VIAL ONE (20:54)
[2017-01-03] MEDS ORDERED: PANTOPRAZOLE SODIUM 100 ML IVPB ONE (20:54)
[2017-01-03] MEDS: DEXAMETHASONE SOD PHOSPHATE 4 MG/1 ML VIAL IVPB SCH (23:58)
[2017-01-04] MEDS: HYDROmorphone HCL CARPU-JECT 1 MG/1 ML DISP.SYRIN IVPB PRN ×5 (01:52→20:36)
[2017-01-04] MEDS: DEXAMETHASONE SOD PHOSPHATE 4 MG/1 ML VIAL IVPB SCH ×4 (03:07→20:36)
[2017-01-04 08:05] LABS: MCH 30.4 pg (25.7-33.7); MCHC 32.9 g/dl (32.0-36.0); MEAN CELL VOLUME 92.3 fl (80-96); MEAN PLT VOLUME 8.3 fl (7.5-11.1); PLATELET COUNT 310 K/MM3 (134-434); RDW 13.9 % (11.6-15.6); WHITE BLOOD COUNT 12.6 K/mm3 (4.0-10.0)
[2017-01-04 08:55] LABS: ALBUMIN 3.5 g/dl (3.4-5.0); ALK PHOS 97 U/L (45-117); ANION GAP 8 (8-16); BILIRUBIN,TOTAL 0.2 mg/dL (0.2-1.0); CALCIUM 9.5 mg/dL (8.5-10.1); CO2 24 mmol/L (21-32); CREATININE 0.7 mg/dL (0.55-1.02); GLUCOSE,RANDOM 170 mg/dL (74-106); SGOT/AST 14 U/L (15-37); SGPT/ALT 30 U/L (12-78); TOT PROT 7.2 g/dl (6.4-8.2)
--- NOTE | 2017-01-04 09:01 | PN ---
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; no B/B dysfunction Given iv steroid PE: AF, VSS HEENT- NC/AT; Neck- supple; Cor- RR; Lungs- CTA B; Abd- benign; Ext- no sign of DVT; healed B knee scars CN- intact; Motor- 5/5 B LE; Sensation- intact LT/vibration/PP exception B lat knee regions; DTR- 2+ except patellar B; Back- tenderness LS junction; + SLR on R at 35 degrees ESR 25; WBC 12.[address] (2014)- mild L5-D1 DDD with mild broad based disc bulge LS spine CT ()- vacuum disc phenomenon with further DDD; central and L>R paracentral disc bulge; no severe canal compromise; no fx or dislocation; mild facet arthrosis Trial of Neurontin ON steroids Modalities tx for low back Curtail shoulder PT exercises which exacerbated low back condition Weight reduction if possible to reduce load on LS spine and joints Outpatient [facility] for pain (under care of Dr Voss) Pros and cons of tx approaches discussed
[2017-01-04 09:14] LABS: C-REACTIVE PROTEIN 2.5 MG/DL (0.00-0.3)
[2017-01-04] MEDS ORDERED: diazePAM CARPU-JECT 10 MG/2 ML DISP.SYRIN IVPUSH ONE (09:15)
[2017-01-04 09:40] LABS: ERYTHROCYTE SEDIMENTATION RATE 25 mm/hr (0-20)
[2017-01-04] MEDS: PANTOPRAZOLE 40 MG TABLET (FP) PO SCH (10:05)
--- NOTE | 2017-01-04 10:48 | HP ---
Admitting History and Physical - Primary Care Physician PCP: Danilo Allen - Admission Chief Complaint: SEVEERE BACK PAIN History of Present Illness: 46 Y/O FEMALE OBESE WITH SUDDEN ONSET OF SEVERE BACK PAIN. PATIENT DESCRIBES A "POP" IN HER BACK AND SUDDENLY COULD NOT WALK OR MOVE, THEN SHE WAS ABLE TO REGAIN MOVEMENT AND CAME TO EMERGENCY ROOM. CT SCAN SHOWS DISC BULGE. History Source: Patient Limitations to Obtaining History: No Limitations - Past Medical History Pulmonary: Yes: Asthma - Smoking History Smoking history: Current some day smoker Have you smoked in the past 12 months: Yes Aproximately how many cigarettes per day: 10 If you are a former smoker, when did you quit?: 08/28/16 - Alcohol/Substance Use Hx Alcohol Use: Yes (SOCIAL) Home Medications - Allergies Allergies/Adverse Reactions: Allergies Allergy/AdvReac Type Severity Reaction Status Date / Time Penicillins Allergy Severe Rash Verified 01/03/17 13:14 - Home Medications Home Medications: Ambulatory Orders NK [No Known Home Medication] 01/03/17 Review of Systems - Review of Systems Constitutional: reports: Other Eyes: reports: No Symptoms HENT: reports: No Symptoms Neck: reports: No Symptoms Cardiovascular: reports: No Symptoms Respiratory: reports: No Symptoms Gastrointestinal: reports: No Symptoms Genitourinary: reports: No Symptoms Musculoskeletal: reports: Back Pain, Decreased ROM, Joint Pain, Muscle Pain, Muscle Weakness Integumentary: reports: No Symptoms Neurological: reports: Weakness Endocrine: reports: No Symptoms Hematology/Lymphatic: reports: No Symptoms Psychiatric: reports: No Symptoms Physical Examination Vital Signs: Vital Signs Temperature 97.8 F 01/04/17 06:00 Pulse Rate 77 01/04/17 06:00 Respiratory Rate 18 01/04/17 06:51 Blood Pressure 159/76 01/04/17 06:00 O2 Sat by Pulse Oximetry (%) 100 01/04/17 01:00 Constitutional: Yes: Moderate Distress Eyes: Yes: WNL HENT: Yes: WNL Neck: Yes: WNL Cardiovascular: Yes: WNL Respiratory: Yes: WNL Gastrointestinal: Yes: WNL Renal/: Yes: WNL Musculoskeletal: Yes: Back Pain, Muscle Pain, Muscle Weakness Extremities: Yes: Other Edema: No Peripheral Pulses WNL: Yes Integumentary: Yes: WNL Wound/Incision: Yes: Clean/Dry Neurological: Yes: Paresthesia, Weakness ...Motor Strength: LLE, RLE Psychiatric: Yes: WNL Labs: CBC, BMP 01/04/17 06:00 01/04/17 06:00 Imaging - Results Cat Scan: Report Reviewed Problem List - Problems (1) Herniated disc Code(s): [id number] - Qualifiers: Spinal region: lumbar Qualified Code(s): M51.26 - Other intervertebral disc displacement, lumbar region (2) Low back strain Code(s): S39.012A - STRAIN OF MUSCLE, FASCIA AND TENDON OF LOWER BACK, INIT Qualifiers: Encounter type: initial encounter Qualified Code(s): S39.012A - Strain of muscle, fascia and tendon of lower back, initial encounter Assessment/Plan IV DECADRON PAIN CONTROL MUSCLE RELAXERS PT EVAL
--- NOTE | 2017-01-04 12:57 | CONSULT ---
Consult - text type - Consultation Consultation Note: Neurology History of Present Illness: 46 Y/O FEMALE who presented to [facility] with severe low back pain. She compelted CT L spine which showed L5 disc herniation. She has seen pain mgmt doctors previously and is extreme pain now. NSGY consulted, does not look surgical, spinal canal appears patent. Cannot get out of bed, likely can't tolerate MRI. On Dilaudid and Decadron with limited relief thus far. Home Medication List Medication Instructions Recorded Confirmed Type NK [No Known Home Medication] 01/03/17 01/03/17 History Active Medications Generic Name Dose Route Start Last Admin Trade Name Freq PRN Reason Stop Dose Admin Dexamethasone Sodium Phosphate 4 mg 01/03/17 23:15 01/04/17 08:53 Decadron Injection - IVPB 4 mg Q6H-IV RAZIA Administration Diazepam 5 mg 01/04/17 10:48 Valium Injection - IVPUSH Q8H PRN BACK PAIN Docusate Sodium 300 mg 01/04/17 22:00 Colace - PO HS RAZIA Hydromorphone HCl 0.5 mg 01/03/17 23:08 01/04/17 07:58 Dilaudid Injection - IVPB 0.5 mg Q4H PRN Administration PAIN Ondansetron HCl 4 mg 01/03/17 23:11 Zofran Injection IVPB Q6H PRN NAUSEA Pantoprazole Sodium 40 mg 01/04/17 10:00 01/04/17 10:05 Protonix - PO 40 mg DAILY RAZIA Administration *Physical Exam Last Vital Signs Temp Pulse Resp BP Pulse Ox 98.6 F 69 18 150/88 99 01/03/17 12:44 01/03/17 17:53 01/03/17 17:53 01/03/17 17:53 01/03/17 17:53 CN intact Limited exam due to pain Moves extremities grossly, 5-/5 in LE 2/2 pain Sensory intact RRR, no murmur Lungs clear Abd soft, obese Ambulation deferred 2/2 pain Laboratory Results 01/03/17 01/03/17 16:09 13:00 Sodium 137 Potassium 4.2 Chloride 104 D Carbon Dioxide 24 D Anion Gap 9 BUN 12 D Creatinine 0.9 D Creat Clearance w eGFR > 60 Random Glucose 188 H D Calcium 8.8 Total Bilirubin 0.3 D AST 18 D ALT 29 D Alkaline Phosphatase 104 Total Protein 7.3 Albumin 3.5 Urine Color Yellow Urine Appearance Slcloudy Urine pH 6.0 Ur Specific [place] 1.025 Urine Protein Negative Urine Glucose (UA) Negative Urine Ketones Negative Urine Blood Negative Urine Nitrite Negative Urine Bilirubin Negative Urine Urobilinogen 4.0 e.u/dl H Ur Leukocyte Esterase Negative Urine HCG, Qual Negative 01/03/17 16:09 RBC 4.54 MCV 91.5 MCHC 34.1 RDW 14.1 MPV 8.4 Neutrophils % 68.1 Lymphocytes % 24.0 D Monocytes % 5.0 Eosinophils % 1.7 D Basophils % 1.[address] L spine reviewed Medical Decision Making 46 Y/O FEMALE who presented to [facility] with severe low back pain. She compelted CT L spine which showed L5 disc herniation. She has seen pain mgmt doctors previously and is extreme pain now. NSGY consulted, does not look surgical, spinal canal appears patent. Cannot get out of bed, likely can't tolerate MRI. On Dilaudid and Decadron with limited relief thus far. Recommend pain mgmt consult, may need injection. Avoid significant movements. MRI likely as outpatient as too much pain to have it completed now. Physical therapy when able, hold off for now.
[2017-01-04] MEDS: INSULIN SLIDING SCALE (NOVOLOG) 1 VIAL SQ SCH (17:41)
--- NOTE | 2017-01-04 18:17 | CONS ---
DATE OF CONSULTATION: 01/04/2017 CHIEF COMPLAINT: Lower back pain, right lower extremity radiculopathy. HISTORY OF PRESENT ILLNESS: The patient is a 46-year-old right-handed female with history of obesity, bilateral shoulder surgeries, and bilateral knee replacement , as well as lower back pain, who was undergoing physical therapy for her right shoulder recently. The day prior to admission, she was doing band pulling exercises for her right shoulder in a physical therapy facility, when she felt a pop in the lower back. The pain subsequently radiated down to the right buttock, thigh, calf, down to the ankle and foot. She also has lower back pain with muscle spasm. She has minimal left lower extremity symptoms. She has had similar symptoms in the past in her lower back and had undergone physical therapy for the back previously as well. She has no bowel or bladder dysfunction. She did undergo epidural steroid injection under the care of Dr. Sanchez as an outpatient, which was helpful previously. She has no fever or chill or recent infection. Past medical history is significant for asthma, bilateral knee replacement, bilateral shoulder surgery x2. Current medications include Decadron, Valium, Colace, Dilaudid p.r.n., and Protonix. Allergies to PENICILLIN. In terms of social history, he smokes about half a pack of cigarettes a day. She drinks alcohol socially. She does not work presently. Review of systems is otherwise negative for other major constitutional, head and neck, cardiovascular, pulmonary, gastrointestinal, genitourinary, endocrinological, neurological, gynecological, or psychological problem except for the above. PHYSICAL EXAMINATION: Vital Signs: Temperature is 98, blood pressure 115/58, with pulse rate 81, O2 saturation is 100% on room air. HEENT: Normocephalic, atraumatic. Anicteric. Neck: Supple, with minimal paracervical paraspinal muscle spasm. Coronary: Regular rhythm. Lungs: Clear bilaterally. Abdomen: Benign but obese. Extremities: Healed bilateral knee scars. There is trace ankle edema but there are no other signs of DVT. She has negative Homans sign. Neurologic: She is awake and alert, oriented x4. Cranial nerves examination is intact, 2-12. Motor examination shows 5/5 strength in bilateral upper and lower extremity without fasciculation or atrophy. Sensory examination shows numbness lateral to bilateral anterior knee scars. Distal vibratory sensation as well as pinprick sensation are intact. Deep tendon reflexes are 2+ throughout except diminished bilateral knee reflexes. There is no pathological long tract sign. Examination of the lower back shows tenderness to lumbosacral junction, right greater than left. She has a positive straight-leg raise on the right side at about 35 degrees. Laboratory examination shows the white blood cell count to be 12.6, hemoglobin 4.3, ESR 25, serum sodium 135, potassium 4.6, BUN 13, creatinine 0.7 respectively, hemoglobin A1c 6.8. Urinalysis shows high uro-bilirubin. CT scan of the lumbar spine was compared to a prior CT scan from 2015. On the prior CT scan, there is relatively well-maintained lumbar lordosis. There is mild broad-based disk bulge at L5-S1 as well as mild facet arthrosis. There is no canal compromise. CT scan of the lumbar spine done yesterday demonstrated broad- based disk bulge at L5-S1, slight extension toward the left, with minimal thecal sac impingement. There is no severe canal compromise at any level. There is vacuum disk phenomenon at L5-S1 this time around. IMPRESSION: 1. Progressive L5-S1 degenerative disk disease with broad-based disk bulge and right lower extremity radiculopathy. 2. Morbid obesity. 3. Asthma. 4. Multiple orthopedic conditions, status post bilateral shoulder surgeries and bilateral knee replacements. RECOMMENDATIONS: The patient presents with exacerbation of her lower back pain and right-sided sciatica. She had experienced these symptoms previously. On my examination today, she has no focal neurological deficit referable to the lumbar spine at this time. She has mostly mechanical lower back pain, muscles spasm, and right-sided sciatica. She has medication for the above including IV steroids. I took the liberty of starting her on Neurontin 300 mg p.o. t.i.d. for her radiculopathy. If her pain persists, further physical therapy for the lumbar spine should be considered. She should continue to focus also on losing weight and to quit smoking as well. Epidural steroid injection could be considered at L5-S1 level for her ongoing radiculopathy if the pain persists. She has a pain management physician working with her for her LS spine in the past. The CT scan findings were reviewed with the patient at bedside. The pros and cons of various treatment approaches were discussed as well. All questions were answered. AME FRAIRE M.D. KELLY/[id number] JABARI
[2017-01-04] MEDS: diazePAM CARPU-JECT 10 MG/2 ML DISP.SYRIN IVPUSH PRN (20:36)
[2017-01-04] MEDS: GABAPENTIN 300 MG CAPSULE (FP) PO SCH (21:23)
[2017-01-04] MEDS: DOCUSATE SODIUM 100 MG CAPSULE (FP) PO SCH (21:23)
[2017-01-05] MEDS: DEXAMETHASONE SOD PHOSPHATE 4 MG/1 ML VIAL IVPB SCH ×4 (03:20→21:27)
[2017-01-05] MEDS: HYDROmorphone HCL CARPU-JECT 1 MG/1 ML DISP.SYRIN IVPB PRN (04:43)
[2017-01-05] MEDS: diazePAM CARPU-JECT 10 MG/2 ML DISP.SYRIN IVPUSH PRN (05:03)
[2017-01-05] MEDS: GABAPENTIN 300 MG CAPSULE (FP) PO SCH ×3 (05:41→21:27)
[2017-01-05] MEDS: INSULIN SLIDING SCALE (NOVOLOG) 1 VIAL SQ SCH ×3 (06:09→17:57)
--- NOTE | 2017-01-05 08:25 | PN ---
Progress Note (short form) - Note Progress Note: NEUROSURGERY LBP and R sciatica Sitting up at bedside eating breakfast Pt mentioned that she d/w Dr Francois about getting an MRI PE: AF, VSS HEENT- NC/AT; Neck- supple; Cor- RR; Lungs- CTA B; Abd- benign; Ext- no sign of DVT; healed B knee scars CN- intact; Motor- 5/5 B LE; Sensation- intact LT/vibration/PP exception B lat knee regions; DTR- 2+ except decreased patellar B; Back- tenderness LS junction ; + SLR on R at [address] (2014)- mild L5-D1 DDD with mild broad based disc bulge LS spine CT ()- vacuum disc phenomenon with further DDD; central and L>R paracentral disc bulge; no severe canal compromise; no fx or dislocation; mild facet arthrosis Trial of Neurontin started PT/Modalities tx for low back Curtail shoulder PT exercises which exacerbated low back condition this time Weight reduction if possible to reduce load on LS spine and joints Outpatient [facility] for pain (pt has been under care of Dr Voss and received facet blocks and rhizotomy from him) May shower
[2017-01-05] MEDS ORDERED: oxyCODONE HCL 5 MG TABLET PO PRN (08:36)
[2017-01-05] MEDS: PANTOPRAZOLE 40 MG TABLET (FP) PO SCH (09:08)
--- NOTE | 2017-01-05 10:51 | PN ---
Progress Note, Physician Chief Complaint: patient crying in bed because of back pain she is filling out the form for MRI says she will have it done while she is in hospital rather than comming back as outpatient complaining of pain in right side of back and radiating down the right leg and right thigh - Current Medication List Current Medications: Active Medications Dexamethasone Sodium Phosphate (Decadron Injection -) 4 mg IVPB Q6H-IV [facility] Last Admin: 01/05/17 08:42 Dose: 4 mg Docusate Sodium (Colace -) 300 mg PO HS [facility] Last Admin: 01/04/17 21:23 Dose: Not Given Gabapentin (Neurontin -) 300 mg PO TID [facility] Last Admin: 01/05/17 05:41 Dose: 300 mg Insulin Aspart (Novolog Vial Sliding Scale -) 1 vial SQ TIDAC [facility] PRN Reason: Protocol Last Admin: 01/05/17 06:09 Dose: Not Given Ondansetron HCl (Zofran Injection) 4 mg IVPB Q6H PRN PRN Reason: NAUSEA Oxycodone HCl (Roxicodone -) 10 mg PO Q6H PRN PRN Reason: PAIN Pantoprazole Sodium (Protonix -) 40 mg PO DAILY [facility] Last Admin: 01/05/17 09:08 Dose: 40 mg - Objective Vital Signs: Vital Signs Temperature 97.8 F 01/05/17 08:50 Pulse Rate 72 01/05/17 08:50 Respiratory Rate 20 01/05/17 08:50 Blood Pressure 144/72 01/05/17 08:50 O2 Sat by Pulse Oximetry (%) 100 01/04/17 01:00 Constitutional: Yes: Mild Distress Cardiovascular: Yes: Regular Rate and Rhythm, S1, S2 Respiratory: Yes: CTA Bilaterally Gastrointestinal: Yes: Normal Bowel Sounds, Soft Musculoskeletal: Yes: Back Pain (right lumbar tenderness) Neurological: Yes: Alert, Oriented Labs: CBC, BMP 01/04/17 06:00 01/04/17 06:00 Problem List - Problems (1) Herniated disc Assessment/Plan: progressive l5-s1 degenerative disc disease with broad base disc bulge l5-s1 foramin stenosis noted CARLEEN and neurology note appreicated MRI pending- patient filling out questionaire neurontin,roxicodone valium po as needed on iv steroids as well PT eval Code(s): WIA2336 - Qualifiers: Spinal region: lumbar Qualified Code(s): M51.26 - Other intervertebral disc displacement, lumbar region (2) Low back strain Assessment/Plan: see above Code(s): S39.012A - STRAIN OF MUSCLE, FASCIA AND TENDON OF LOWER BACK, INIT Qualifiers: Encounter type: initial encounter Qualified Code(s): S39.012A - Strain of muscle, fascia and tendon of lower back, initial encounter (3) Diabetes Assessment/Plan: hga1c 6.8 needs oral medication diet control and weight loss Code(s): E11.9 - TYPE 2 DIABETES MELLITUS WITHOUT COMPLICATIONS Qualifiers: Diabetes mellitus type: type 2
[2017-01-05] MEDS: oxyCODONE HCL 5 MG TABLET PO PRN ×2 (11:14→20:14)
[2017-01-05] MEDS: diazePAM 5 MG TABLET PO PRN ×2 (13:19→22:02)
[2017-01-05] MEDS: ONDANSETRON 4 MG/2 ML VIAL IVPB PRN ×2 (16:20→21:27)
--- NOTE | 2017-01-05 19:03 | EKG ---
Test Reason : Blood Pressure : / mmHG Vent. Rate : 077 BPM Atrial Rate : 077 BPM P-R Int : 148 ms QRS Dur : 098 ms QT Int : 402 ms P-R-T Axes : 043 053 032 degrees QTc Int : 454 ms NORMAL SINUS RHYTHM NORMAL ECG WHEN COMPARED WITH ECG OF 04-SEP-2016 08:14, T WAVE VARIATION Confirmed by CLIF KELLY MD ([id number]) on 01/05/2017 7:02:49 PM Referred By: Confirmed By:CLIF KELLY MD
[2017-01-05] MEDS: DOCUSATE SODIUM 100 MG CAPSULE (FP) PO SCH (21:27)
[2017-01-06] MEDS: DEXAMETHASONE SOD PHOSPHATE 4 MG/1 ML VIAL IVPB SCH ×3 (03:30→17:13)
[2017-01-06] MEDS: oxyCODONE HCL 5 MG TABLET PO PRN ×2 (04:41→11:10)
[2017-01-06] MEDS: GLIMEPIRIDE 2 MG TABLET (FP) PO SCH (06:36)
[2017-01-06] MEDS: INSULIN SLIDING SCALE (NOVOLOG) 1 VIAL SQ SCH ×3 (06:36→17:14)
[2017-01-06] MEDS: GABAPENTIN 300 MG CAPSULE (FP) PO SCH ×3 (06:36→21:16)
[2017-01-06 08:30] LABS: BASOPHIL 0.2 % (0-2.0); MCH 30.7 pg (25.7-33.7); MCHC 33.2 g/dl (32.0-36.0); MEAN CELL VOLUME 92.4 fl (80-96); MEAN PLT VOLUME 8.5 fl (7.5-11.1); PLATELET COUNT 285 K/MM3 (134-434); RDW 13.7 % (11.6-15.6); WHITE BLOOD COUNT 13.3 K/mm3 (4.0-10.0)
[2017-01-06] MEDS ORDERED: PT OWN MED DRAWER 7, Y5N ONE ×4 (09:10→20:55)
[2017-01-06] MEDS: PANTOPRAZOLE 40 MG TABLET (FP) PO SCH (09:12)
[2017-01-06 09:47] LABS: ALBUMIN 3.4 g/dl (3.4-5.0); ALK PHOS 91 U/L (45-117); ANION GAP 10 (8-16); BILIRUBIN,TOTAL 0.2 mg/dL (0.2-1.0); CALCIUM 9.1 mg/dL (8.5-10.1); CHOLESTEROL 159 mg/dL (50-200); CO2 25 mmol/L (21-32); CREATININE 0.7 mg/dL (0.55-1.02); GLUCOSE,RANDOM 129 mg/dL (74-106); LDL CHOLESTEROL (ONLY SJRH) 91 mg/dL (5-100); SGOT/AST 11 U/L (15-37); SGPT/ALT 30 U/L (12-78); TOT PROT 6.8 g/dl (6.4-8.2)
--- NOTE | 2017-01-06 10:35 | PN ---
Progress Note (short form) - Note Progress Note: Neurology History of Present Illness: 46 Y/O FEMALE who presented to [facility] with severe low back pain after exercises completed for her shoulder as an outpatient. She compelted CT L spine which showed L5 disc herniation. She has seen pain mgmt doctors previously and is extreme pain now. NSGY consulted, does not look surgical, spinal canal appears patent. Cannot get out of bed. On Dilaudid and Decadron with limited relief thus far. MRI attempted but she was not able to fit in machine. Spoke to her today and she mentioned Robaxin was helpful for her. Spoke to PCP who will order medication for her. Still uncomfortable appearing in bed and not fully ambulating. Active Medications Dexamethasone Sodium Phosphate (Decadron Injection -) 4 mg IVPB Q6H-IV [facility] Last Admin: 01/06/17 09:12 Dose: 4 mg Diazepam (Valium -) 5 mg PO TID PRN PRN Reason: BACK PAIN Last Admin: 01/05/17 22:02 Dose: 5 mg Docusate Sodium (Colace -) 300 mg PO HS [facility] Last Admin: 01/05/17 21:27 Dose: Not Given Gabapentin (Neurontin -) 300 mg PO TID [facility] Last Admin: 01/06/17 06:36 Dose: 300 mg Glimepiride (Amaryl -) 2 mg PO DAILY@0700 [facility] Last Admin: 01/06/17 06:36 Dose: 2 mg Insulin Aspart (Novolog Vial Sliding Scale -) 1 vial SQ TIDAC [facility] PRN Reason: Protocol Last Admin: 01/06/17 06:36 Dose: Not Given Methocarbamol (Robaxin -) 750 mg PO BID [facility] Ondansetron HCl (Zofran Injection) 4 mg IVPB Q6H PRN PRN Reason: NAUSEA Last Admin: 01/05/17 21:27 Dose: 4 mg Oxycodone HCl (Roxicodone -) 10 mg PO Q6H PRN PRN Reason: PAIN Last Admin: 01/06/17 04:41 Dose: 10 mg Pantoprazole Sodium (Protonix -) 40 mg PO DAILY [facility] Last Admin: 01/06/17 09:12 Dose: 40 mg *Physical Exam Vital Signs Temperature 98.3 F 01/06/17 10:00 Pulse Rate 58 L 01/06/17 10:00 Respiratory Rate 20 01/06/17 10:00 Blood Pressure 158/92 01/06/17 10:00 O2 Sat by Pulse Oximetry (%) 99 01/06/17 10:00 CN intact Limited exam due to pain Moves extremities grossly, 5-/5 in LE 2/2 pain Sensory intact RRR, no murmur Lungs clear Abd soft, obese Ambulation deferred 2/2 pain CBCD WBC 13.3 K/mm3 (4.0-10.0) H 01/06/17 07:45 RBC 4.31 M/mm3 (3.60-5.2) 01/06/17 07:45 Hgb 13.2 GM/dL (10.7-15.3) 01/06/17 07:45 Hct 39.8 % (32.4-45.2) 01/06/17 07:45 MCV 92.4 fl (80-96) 01/06/17 07:45 MCHC 33.2 g/dl (32.0-36.0) 01/06/17 07:45 RDW 13.7 % (11.6-15.6) 01/06/17 07:45 Plt Count 285 K/MM3 (134-434) 01/06/17 07:45 MPV 8.5 fl (7.5-11.1) 01/06/17 07:45 CMP Sodium 137 mmol/L (136-145) 01/06/17 07:45 Potassium 4.4 mmol/L (3.5-5.1) 01/06/17 07:45 Chloride 102 mmol/L (98-107) 01/06/17 07:45 Carbon Dioxide 25 mmol/L (21-32) 01/06/17 07:45 Anion Gap 10 (8-16) 01/06/17 07:45 BUN 16 mg/dL (7-18) D 01/06/17 07:45 Creatinine 0.7 mg/dL (0.55-1.02) 01/06/17 07:45 Creat Clearance w eGFR > 60 (>60) 01/06/17 07:45 Calcium 9.1 mg/dL (8.5-10.1) 01/06/17 07:45 Total Bilirubin 0.2 mg/dL (0.2-1.0) 01/06/17 07:45 AST 11 U/L (15-37) L D 01/06/17 07:45 ALT 30 U/L (12-78) 01/06/17 07:45 Alkaline Phosphatase 91 U/L (45-117) 01/06/17 07:45 Total Protein 6.8 g/dl (6.4-8.2) 01/06/17 07:45 Albumin 3.4 g/dl (3.4-5.0) 01/06/17 07:45 CT L spine reviewed Medical Decision Making 46 Y/O FEMALE who presented to [facility] with severe low back pain. She compelted CT L spine which showed L5 disc herniation. She has seen pain mgmt doctors previously and is extreme pain now. NSGY consulted, does not look surgical, spinal canal appears patent. Cannot get out of bed, likely can't tolerate MRI. On Dilaudid and Decadron with limited relief thus far. Recommend pain mgmt consult, may need injection. Avoid significant movements. MRI likely as outpatient as not able to fit in machine. Physical therapy when able, hold off for now. Robaxin ordered.
[2017-01-06] MEDS: diazePAM 5 MG TABLET PO PRN (11:10)
--- NOTE | 2017-01-06 11:37 | PN ---
Progress Note, Physician Chief Complaint: patient in severe pain not able to ambulate much, says she vomits when she has such severe pain on decadron and oxycodone and zofran started on robaxin to see pain managment to see if injection will help not able to get MRI done as cannot fit in machine - Current Medication List Current Medications: Active Medications Dexamethasone Sodium Phosphate (Decadron Injection -) 4 mg IVPB Q6H-IV [facility] Last Admin: 01/06/17 09:12 Dose: 4 mg Docusate Sodium (Colace -) 300 mg PO HS [facility] Last Admin: 01/05/17 21:27 Dose: Not Given Gabapentin (Neurontin -) 300 mg PO TID [facility] Last Admin: 01/06/17 06:36 Dose: 300 mg Glimepiride (Amaryl -) 2 mg PO DAILY@0700 [facility] Last Admin: 01/06/17 06:36 Dose: 2 mg Insulin Aspart (Novolog Vial Sliding Scale -) 1 vial SQ TIDAC [facility] PRN Reason: Protocol Last Admin: 01/06/17 06:36 Dose: Not Given Methocarbamol (Robaxin -) 750 mg PO BID [facility] Ondansetron HCl (Zofran Injection) 4 mg IVPB Q6H PRN PRN Reason: NAUSEA Last Admin: 01/05/17 21:27 Dose: 4 mg Oxycodone HCl (Roxicodone -) 10 mg PO Q6H PRN PRN Reason: PAIN Last Admin: 01/06/17 11:10 Dose: 10 mg Pantoprazole Sodium (Protonix -) 40 mg PO DAILY [facility] Last Admin: 01/06/17 09:12 Dose: 40 mg - Objective Vital Signs: Vital Signs Temperature 98.3 F 01/06/17 10:00 Pulse Rate 58 L 01/06/17 10:00 Respiratory Rate 20 01/06/17 10:00 Blood Pressure 158/92 01/06/17 10:00 O2 Sat by Pulse Oximetry (%) 99 01/06/17 10:00 Constitutional: Yes: Mild Distress Cardiovascular: Yes: Regular Rate and Rhythm, S1, S2 Respiratory: Yes: CTA Bilaterally Gastrointestinal: Yes: Normal Bowel Sounds, Soft, Abdomen, Obese Musculoskeletal: Yes: Back Pain Edema: No Neurological: Yes: Alert, Oriented Labs: CBC, BMP 01/06/17 07:45 01/06/17 07:45 Problem List - Problems (1) Herniated disc Assessment/Plan: progressive l5-s1 degenerative disc disease with broad base disc bulge l5-s1 foramin stenosis noted CARLEEN and neurology note appreicated- started on robaxin today pain managment consult pending- possible injection MRI not able to do bc does not fit in machine PT on hold sec to severe pain on neurontin, decadron,oxycodone and robaxin amita start taper iv steroids, not much improvement in symptoms elevated BP sec to pain- pain manamgement pending Code(s): [id number] - Qualifiers: Spinal region: lumbar Qualified Code(s): M51.26 - Other intervertebral disc displacement, lumbar region (2) Low back strain Assessment/Plan: see above Code(s): S39.012A - STRAIN OF MUSCLE, FASCIA AND TENDON OF LOWER BACK, INIT Qualifiers: Encounter type: initial encounter Qualified Code(s): S39.012A - Strain of muscle, fascia and tendon of lower back, initial encounter (3) Diabetes Assessment/Plan: hga1c 6.8 started on amaryl, metformin doesnot suit patient she has tried it in past causes severe nausea diet control and weight loss Code(s): E11.9 - TYPE 2 DIABETES MELLITUS WITHOUT COMPLICATIONS Qualifiers: Diabetes mellitus type: type 2
[2017-01-06] MEDS ORDERED: METHOCARBAMOL 750 MG TABLET PO SCH ×2 (12:00→21:07)
[2017-01-06] MEDS ORDERED: METHOCARBAMOL 500 MG TABLET PO SCH (12:30)
[2017-01-06] MEDS: ONDANSETRON 4 MG/2 ML VIAL IVPB PRN (17:13)
[2017-01-06] MEDS: HYDROmorphone HCL CARPU-JECT 2 MG/1 ML DISP.SYRIN IVPB PRN (17:13)
[2017-01-06] MEDS: DOCUSATE SODIUM 100 MG CAPSULE (FP) PO SCH (21:15)
[2017-01-06] MEDS: morphine SO4 SUSTAINED ACTING 15 MG TABLET.SA PO SCH (21:15)
[2017-01-06] MEDS: METHOCARBAMOL 500 MG TABLET PO SCH (21:16)
[2017-01-07] MEDS: DEXAMETHASONE SOD PHOSPHATE 4 MG/1 ML VIAL IVPB SCH ×3 (02:38→17:31)
[2017-01-07] MEDS: morphine SO4 SUSTAINED ACTING 15 MG TABLET.SA PO SCH ×3 (06:07→21:01)
[2017-01-07] MEDS: GABAPENTIN 300 MG CAPSULE (FP) PO SCH ×4 (06:07→22:08)
[2017-01-07] MEDS: INSULIN SLIDING SCALE (NOVOLOG) 1 VIAL SQ SCH ×3 (06:38→16:58)
[2017-01-07] MEDS: GLIMEPIRIDE 2 MG TABLET (FP) PO SCH (06:38)
[2017-01-07] MEDS ORDERED: PT OWN MED DRAWER 7, Y5N ONE ×2 (09:44→20:43)
[2017-01-07] MEDS: PANTOPRAZOLE 40 MG TABLET (FP) PO SCH (10:03)
[2017-01-07] MEDS: METHOCARBAMOL 500 MG TABLET PO SCH ×2 (10:03→21:01)
--- NOTE | 2017-01-07 10:33 | PN ---
Progress Note (short form) - Note Progress Note: Neurology History of Present Illness: 46 Y/O FEMALE who presented to [facility] with severe low back pain after exercises completed for her shoulder as an outpatient. She compelted CT L spine which showed L5 disc herniation. She has seen pain mgmt doctors previously and is extreme pain now. NSGY consulted, does not look surgical, spinal canal appears patent. Cannot get out of bed. On Dilaudid and Decadron with limited relief thus far. MRI attempted but she was not able to fit in machine. Spoke to her today and she mentioned Robaxin was helpful for her. Was seen by Dr. Marcos, pain mgmt, given PO morphine with some relief. States she's 7 out of 10 on pain scale. She was sitting up in chair, more comfortable appearing today. Active Medications Dexamethasone Sodium Phosphate (Decadron Injection -) 4 mg IVPB Q8H-IV [facility] Last Admin: 01/07/17 10:02 Dose: 4 mg Docusate Sodium (Colace -) 300 mg PO HS [facility] Last Admin: 01/06/17 21:15 Dose: 300 mg Gabapentin (Neurontin -) 300 mg PO TID [facility] Last Admin: 01/07/17 06:07 Dose: 300 mg Glimepiride (Amaryl -) 2 mg PO DAILY@0700 [facility] Last Admin: 01/07/17 06:38 Dose: 2 mg Hydromorphone HCl (Dilaudid Injection -) 2 mg IVPB Q4H PRN PRN Reason: PAIN Last Admin: 01/06/17 17:13 Dose: 2 mg Insulin Aspart (Novolog Vial Sliding Scale -) 1 vial SQ TIDAC [facility] PRN Reason: Protocol Last Admin: 01/07/17 06:38 Dose: Not Given Methocarbamol (Robaxin -) 750 mg PO BID [facility] Last Admin: 01/07/17 10:03 Dose: 750 mg Morphine Sulfate (Ms Contin -) 15 mg PO TID [facility] Last Admin: 01/07/17 06:07 Dose: 15 mg Ondansetron HCl (Zofran Injection) 4 mg IVPB Q6H PRN PRN Reason: NAUSEA Last Admin: 01/06/17 17:13 Dose: 4 mg Oxycodone HCl (Roxicodone -) 10 mg PO Q6H PRN PRN Reason: PAIN Last Admin: 01/06/17 11:10 Dose: 10 mg Pantoprazole Sodium (Protonix -) 40 mg PO DAILY [facility] Last Admin: 01/07/17 10:03 Dose: 40 mg *Physical Exam Last Vital Signs Temp Pulse Resp BP Pulse Ox 98.3 F 55 L 20 144/74 99 01/07/17 06:40 01/07/17 06:40 01/07/17 06:40 01/07/17 06:40 01/07/17 02:00 CN intact Limited exam due to pain Moves extremities grossly, 5-/5 in LE 2/2 pain Sensory intact RRR, no murmur Lungs clear Abd soft, obese Ambulation deferred 2/2 pain CBCD WBC 13.3 K/mm3 (4.0-10.0) H 01/06/17 07:45 RBC 4.31 M/mm3 (3.60-5.2) 01/06/17 07:45 Hgb 13.2 GM/dL (10.7-15.3) 01/06/17 07:45 Hct 39.8 % (32.4-45.2) 01/06/17 07:45 MCV 92.4 fl (80-96) 01/06/17 07:45 MCHC 33.2 g/dl (32.0-36.0) 01/06/17 07:45 RDW 13.7 % (11.6-15.6) 01/06/17 07:45 Plt Count 285 K/MM3 (134-434) 01/06/17 07:45 MPV 8.5 fl (7.5-11.1) 01/06/17 07:45 CMP Sodium 137 mmol/L (136-145) 01/06/17 07:45 Potassium 4.4 mmol/L (3.5-5.1) 01/06/17 07:45 Chloride 102 mmol/L (98-107) 01/06/17 07:45 Carbon Dioxide 25 mmol/L (21-32) 01/06/17 07:45 Anion Gap 10 (8-16) 01/06/17 07:45 BUN 16 mg/dL (7-18) D 01/06/17 07:45 Creatinine 0.7 mg/dL (0.55-1.02) 01/06/17 07:45 Creat Clearance w eGFR > 60 (>60) 01/06/17 07:45 Calcium 9.1 mg/dL (8.5-10.1) 01/06/17 07:45 Total Bilirubin 0.2 mg/dL (0.2-1.0) 01/06/17 07:45 AST 11 U/L (15-37) L D 01/06/17 07:45 ALT 30 U/L (12-78) 01/06/17 07:45 Alkaline Phosphatase 91 U/L (45-117) 01/06/17 07:45 Total Protein 6.8 g/dl (6.4-8.2) 01/06/17 07:45 Albumin 3.4 g/dl (3.4-5.0) 01/06/17 07:45 CT L spine reviewed Medical Decision Making 46 Y/O FEMALE who presented to [facility] with severe low back pain. She compelted CT L spine which showed L5 disc herniation. She has seen pain mgmt doctors previously and is extreme pain now. NSGY consulted, does not look surgical, spinal canal appears patent. Was not able to fit MRI machine. Seen by Dr. Marcos, pain mgmt and medication adjustments made. Appears more comfortable and moving in bed more. Avoid significant movements. MRI likely as outpatient as not able to fit in machine. Physical therapy when able, hold off for now. Some improvement.
--- NOTE | 2017-01-07 17:15 | PN ---
Progress Note, Physician Chief Complaint: back pain, History of Present Illness: In mild distress right now, sitting at the edge of the bed eating dinner. Pain scale 7/10. Methocarbamol helped. Only taking oxycodone, methocarbamol, gabapentin and decadron for pain management. Pain worsens on movement Unable to do MRI due to obesity. CT lumbar spine showed L5 foraminal stenosis. Seen by Neurology and neurosurgery. - Current Medication List Current Medications: Active Medications Dexamethasone Sodium Phosphate (Decadron Injection -) 4 mg IVPB Q8H-IV [facility] Last Admin: 01/07/17 10:02 Dose: 4 mg Docusate Sodium (Colace -) 300 mg PO HS [facility] Last Admin: 01/06/17 21:15 Dose: 300 mg Gabapentin (Neurontin -) 300 mg PO TID [facility] Last Admin: 01/07/17 13:54 Dose: 300 mg Glimepiride (Amaryl -) 2 mg PO DAILY@0700 [facility] Last Admin: 01/07/17 06:38 Dose: 2 mg Hydromorphone HCl (Dilaudid Injection -) 2 mg IVPB Q4H PRN PRN Reason: PAIN Last Admin: 01/06/17 17:13 Dose: 2 mg Insulin Aspart (Novolog Vial Sliding Scale -) 1 vial SQ TIDAC [facility] PRN Reason: Protocol Last Admin: 01/07/17 16:58 Dose: Not Given Methocarbamol (Robaxin -) 750 mg PO BID [facility] Last Admin: 01/07/17 10:03 Dose: 750 mg Morphine Sulfate (Ms Contin -) 15 mg PO TID [facility] Last Admin: 01/07/17 13:53 Dose: 15 mg Ondansetron HCl (Zofran Injection) 4 mg IVPB Q6H PRN PRN Reason: NAUSEA Last Admin: 01/06/17 17:13 Dose: 4 mg Oxycodone HCl (Roxicodone -) 10 mg PO Q6H PRN PRN Reason: PAIN Last Admin: 01/06/17 11:10 Dose: 10 mg Pantoprazole Sodium (Protonix -) 40 mg PO DAILY [facility] Last Admin: 01/07/17 10:03 Dose: 40 mg - Objective Vital Signs: Vital Signs Temperature 98 F 01/07/17 17:07 Pulse Rate 51 L 01/07/17 17:07 Respiratory Rate 21 01/07/17 17:07 Blood Pressure 139/78 01/07/17 17:07 O2 Sat by Pulse Oximetry (%) 98 01/07/17 10:00 Constitutional: Yes: Well Nourished, No Distress, Calm Cardiovascular: Yes: Regular Rate and Rhythm Respiratory: Yes: Regular Musculoskeletal: Yes: Back Pain Extremities: Yes: WNL Edema: No Neurological: Yes: Alert, Oriented Psychiatric: Yes: Alert, Oriented Problem List - Problems (1) Herniated disc Assessment/Plan: -seen by neurology and neurosurgery -pain management -would discharge in AM with po dexamethasone -MRI outpatient Code(s): [id number] - Qualifiers: Spinal region: lumbar Qualified Code(s): M51.26 - Other intervertebral disc displacement, lumbar region (2) Morbid (severe) obesity due to excess calories Code(s): E66.01 - MORBID (SEVERE) OBESITY DUE TO EXCESS CALORIES (3) Diabetes Assessment/Plan: -on oral hypoglycemic -insulin sq tid -will recommend following endocrinology outpatient Code(s): E11.9 - TYPE 2 DIABETES MELLITUS WITHOUT COMPLICATIONS Qualifiers: Diabetes mellitus type: type 2 Assessment/Plan see problem list
--- NOTE | 2017-01-07 19:48 | FALL ---
Fall Exam - Event Witnessed fall: No Location of Fall: Patient Room Fall from: While ambulating - Pre-Fall Fall Risk: High Risk Mental Status: Alert, Oriented, Cooperative Current Medications: Current Medications Generic Name Dose Route Start Last Admin Trade Name Freq PRN Reason Stop Dose Admin Dexamethasone Sodium Phosphate 4 mg 01/06/17 18:00 01/07/17 17:31 Decadron Injection - IVPB 4 mg Q8H-IV [facility] Administration Docusate Sodium 300 mg 01/04/17 22:00 01/06/17 21:15 Colace - PO 300 mg HS [facility] Administration Gabapentin 300 mg 01/04/17 22:00 01/07/17 13:54 Neurontin - PO 300 mg TID [facility] Administration Glimepiride 2 mg 01/06/17 07:00 01/07/17 06:38 Amaryl - PO 2 mg DAILY@0700 [facility] Administration Hydromorphone HCl 2 mg 01/06/17 16:57 01/06/17 17:13 Dilaudid Injection - IVPB 2 mg Q4H PRN Administration PAIN Insulin Aspart 1 vial 01/04/17 17:45 01/07/17 16:58 Novolog Vial Sliding Scale - SQ Not Given TIDAC [facility] Protocol Methocarbamol 750 mg 01/06/17 21:09 01/07/17 10:03 Robaxin - PO 750 mg BID [facility] Administration Morphine Sulfate 15 mg 01/06/17 22:00 01/07/17 13:53 Ms Contin - PO 15 mg TID [facility] Administration Ondansetron HCl 4 mg 01/03/17 23:11 01/06/17 17:13 Zofran Injection IVPB 4 mg Q6H PRN Administration NAUSEA Oxycodone HCl 10 mg 01/05/17 10:43 01/06/17 11:10 Roxicodone - PO 10 mg Q6H PRN Administration PAIN Pantoprazole Sodium 40 mg 01/04/17 10:00 01/07/17 10:03 Protonix - PO 40 mg DAILY [facility] Administration - Post-Fall Patient Outcome: Pain Only Exam Findings: Patient awake, alert, oriented x3. In mild distress. Heart: s1s2 RRR. Lungs: CTAB. Integumentary: Patient's site of injury reveals no lacerations, bruises, or any pain upon palpation. Neurological: Unchanged from previous examinations. 4/5 strength in RLE, 5/5 strength in LLE. Treatment: None (RN and patient state patient did not hit head. No indication for CT head at this time. Patient's examination is unchanged. Will defer imaging right now. If pain worsens or patient's mental status becomes altered, will reassess and consider imaging at that time.) Vital Signs: Vital Signs Temperature 98 F 01/07/17 17:07 Pulse Rate 51 L 01/07/17 17:07 Respiratory Rate 21 01/07/17 17:07 Blood Pressure 139/78 01/07/17 17:07 O2 Sat by Pulse Oximetry (%) 98 01/07/17 10:00 LOC Post-Fall: Unchanged Identify factors for HIGH RISK for Head Injury: None of the above
[2017-01-07] MEDS: DOCUSATE SODIUM 100 MG CAPSULE (FP) PO SCH (21:00)
[2017-01-07] MEDS: HYDROmorphone HCL CARPU-JECT 2 MG/1 ML DISP.SYRIN IVPB PRN (21:40)
[2017-01-07] MEDS ORDERED: METHOCARBAMOL 500 MG TABLET PO SCH (22:00)
[2017-01-08] MEDS: DEXAMETHASONE SOD PHOSPHATE 4 MG/1 ML VIAL IVPB SCH ×3 (02:38→17:48)
[2017-01-08] MEDS: morphine SO4 SUSTAINED ACTING 15 MG TABLET.SA PO SCH ×2 (05:29→13:49)
[2017-01-08] MEDS: METHOCARBAMOL 500 MG TABLET PO SCH ×2 (05:30→13:50)
[2017-01-08] MEDS: GLIMEPIRIDE 2 MG TABLET (FP) PO SCH (06:24)
[2017-01-08] MEDS: INSULIN SLIDING SCALE (NOVOLOG) 1 VIAL SQ SCH ×3 (06:24→17:21)
[2017-01-08] MEDS: HYDROmorphone HCL CARPU-JECT 2 MG/1 ML DISP.SYRIN IVPB PRN (06:28)
[2017-01-08] MEDS: PANTOPRAZOLE 40 MG TABLET (FP) PO SCH (09:47)
[2017-01-08] MEDS: GABAPENTIN 300 MG CAPSULE (FP) PO SCH ×3 (09:47→17:48)
--- NOTE | 2017-01-08 10:29 | PN ---
Progress Note (short form) - Note Progress Note: Neurology History of Present Illness: 46 Y/O FEMALE who presented to [facility] with severe low back pain after exercises completed for her shoulder as an outpatient. She compelted CT L spine which showed L5 disc herniation. She has seen pain mgmt doctors previously and is extreme pain now. NSGY consulted, does not look surgical, spinal canal appears patent. Cannot get out of bed. On Dilaudid and Decadron with limited relief thus far. MRI attempted but she was not able to fit in machine. Spoke to her today and she mentioned Robaxin was helpful for her. Was seen by Dr. Marcos, pain mgmt, given PO morphine with relief. States she's 5 out of 10 on pain scale. She was sitting up in chair, more comfortable appearing today. Likely for conversion of medication to PO and discharge. Active Medications Dexamethasone Sodium Phosphate (Decadron Injection -) 4 mg IVPB Q8H-IV [facility] Last Admin: 01/08/17 09:46 Dose: 4 mg Docusate Sodium (Colace -) 300 mg PO HS [facility] Last Admin: 01/07/17 21:00 Dose: 300 mg Gabapentin (Neurontin -) 300 mg PO QID [facility] Last Admin: 01/08/17 09:47 Dose: 300 mg Glimepiride (Amaryl -) 2 mg PO DAILY@0700 [facility] Last Admin: 01/08/17 06:24 Dose: 2 mg Hydromorphone HCl (Dilaudid Injection -) 2 mg IVPB Q4H PRN PRN Reason: PAIN Last Admin: 01/08/17 06:28 Dose: 2 mg Insulin Aspart (Novolog Vial Sliding Scale -) 1 vial SQ TIDAC [facility] PRN Reason: Protocol Last Admin: 01/08/17 06:24 Dose: Not Given Methocarbamol (Robaxin -) 1,000 mg PO TID [facility] Last Admin: 01/08/17 05:30 Dose: 1,000 mg Morphine Sulfate (Ms Contin -) 15 mg PO TID [facility] Last Admin: 01/08/17 05:29 Dose: 15 mg Ondansetron HCl (Zofran Injection) 4 mg IVPB Q6H PRN PRN Reason: NAUSEA Last Admin: 01/06/17 17:13 Dose: 4 mg Oxycodone HCl (Roxicodone -) 10 mg PO Q6H PRN PRN Reason: PAIN Last Admin: 01/06/17 11:10 Dose: 10 mg Pantoprazole Sodium (Protonix -) 40 mg PO DAILY [facility] Last Admin: 01/08/17 09:47 Dose: 40 mg *Physical Exam Vital Signs Temperature 98.2 F 01/08/17 09:23 Pulse Rate 57 L 01/08/17 09:23 Respiratory Rate 20 01/08/17 09:23 Blood Pressure 137/75 01/08/17 09:23 O2 Sat by Pulse Oximetry (%) 98 01/07/17 20:25 CN intact Limited exam due to pain Moves extremities grossly, 5-/5 in LE 2/2 pain Sensory intact RRR, no murmur Lungs clear Abd soft, obese Ambulation deferred 2/2 pain CBCD WBC 13.3 K/mm3 (4.0-10.0) H 01/06/17 07:45 RBC 4.31 M/mm3 (3.60-5.2) 01/06/17 07:45 Hgb 13.2 GM/dL (10.7-15.3) 01/06/17 07:45 Hct 39.8 % (32.4-45.2) 01/06/17 07:45 MCV 92.4 fl (80-96) 01/06/17 07:45 MCHC 33.2 g/dl (32.0-36.0) 01/06/17 07:45 RDW 13.7 % (11.6-15.6) 01/06/17 07:45 Plt Count 285 K/MM3 (134-434) 01/06/17 07:45 MPV 8.5 fl (7.5-11.1) 01/06/17 07:45 CMP Sodium 137 mmol/L (136-145) 01/06/17 07:45 Potassium 4.4 mmol/L (3.5-5.1) 01/06/17 07:45 Chloride 102 mmol/L (98-107) 01/06/17 07:45 Carbon Dioxide 25 mmol/L (21-32) 01/06/17 07:45 Anion Gap 10 (8-16) 01/06/17 07:45 BUN 16 mg/dL (7-18) D 01/06/17 07:45 Creatinine 0.7 mg/dL (0.55-1.02) 01/06/17 07:45 Creat Clearance w eGFR > 60 (>60) 01/06/17 07:45 Calcium 9.1 mg/dL (8.5-10.1) 01/06/17 07:45 Total Bilirubin 0.2 mg/dL (0.2-1.0) 01/06/17 07:45 AST 11 U/L (15-37) L D 01/06/17 07:45 ALT 30 U/L (12-78) 01/06/17 07:45 Alkaline Phosphatase 91 U/L (45-117) 01/06/17 07:45 Total Protein 6.8 g/dl (6.4-8.2) 01/06/17 07:45 Albumin 3.4 g/dl (3.4-5.0) 01/06/17 07:45 CT L spine reviewed Medical Decision Making 46 Y/O FEMALE who presented to [facility] with severe low back pain. She compelted CT L spine which showed L5 disc herniation. She has seen pain mgmt doctors previously and is extreme pain now. NSGY consulted, does not look surgical, spinal canal appears patent. Was not able to fit MRI machine. Seen by Dr. Marcos, pain mgmt and medication adjustments made. Appears more comfortable and moving in bed more. Avoid significant movements. MRI likely as outpatient as not able to fit in machine. Has improved and medication to be converted to PO and for discharge today.
[2017-01-08] MEDS ORDERED: SODIUM PHOSPHATE/NA BIPHOS 133 ML ENEMA PR ONE (11:07)
--- NOTE | 2017-01-08 11:11 | DS ---
Physical Examination Vital Signs: Vital Signs Temperature 98.2 F 01/08/17 09:23 Pulse Rate 57 L 01/08/17 09:23 Respiratory Rate 20 01/08/17 09:23 Blood Pressure 137/75 01/08/17 09:23 O2 Sat by Pulse Oximetry (%) 98 01/07/17 20:25 Findings/Remarks: standing near closet in room then walked to her bed and sat down pain better controlled wants a stool softner Constitutional: Yes: Calm, Obese, Other Cardiovascular: Yes: Regular Rate and Rhythm, S1, S2 Respiratory: Yes: CTA Bilaterally Gastrointestinal: Yes: Normal Bowel Sounds, Soft, Abdomen, Obese Edema: No Neurological: Yes: Alert, Oriented Discharge Summary Reason For Visit: HERNIATION OF INTERVERTEBRAL DISC Current Active Problems Asthma attack (Acute) Chest pain (Acute) Diabetes (Acute) HTN (hypertension) (Acute) Herniated disc (Acute) Hyperglycemia (Acute) Leukocytosis (Acute) Low back strain (Acute) Morbid (severe) obesity due to excess calories (Acute) Penicillin allergy (Acute) Smoker (Acute) Thyroiditis, autoimmune (Acute) Wheezing (Acute) Hospital Course: PCP: Danilo Allen - Admission Chief Complaint: SEVEERE BACK PAIN History of Present Illness: 46 Y/O FEMALE OBESE WITH SUDDEN ONSET OF SEVERE BACK PAIN. PATIENT DESCRIBES A "POP" IN HER BACK AND SUDDENLY COULD NOT WALK OR MOVE, THEN SHE WAS ABLE TO REGAIN MOVEMENT AND CAME TO EMERGENCY ROOM. CT SCAN SHOWS DISC BULGE. History Source: Patient Limitations to Obtaining History: No Limitations - Past Medical History Pulmonary: Yes: Asthma - Smoking History Smoking history: Current some day smoker Have you smoked in the past 12 months: Yes Aproximately how many cigarettes per day: 10 If you are a former smoker, when did you quit?: 08/28/[address] LS spine shows L% disc herniation iv steroids,change to powith taper robaxin started dose increased morphine started by pain managment patient is not ambulating and want to go home she comes to PT for shoulder exewrcise and will discuss with therapist regarding back she will follow up with neurologist for outpatient open MRI and dr marcos for morphine i will send in a few tablets of morphine and miralax and colace as well Condition: Stable - Instructions Referrals: Elton Hair MD [Primary Care Provider] - Shane Francois MD [Staff Physician] - 1 Week (for open mRI referral) Chaz Marcos MD [Staff Physician] - 1 Week (for pain managmeent) Disposition: HOME - Home Medications Comprehensive Discharge Medication List: Ambulatory Orders NK [No Known Home Medication] 01/03/17
[2017-01-08] MEDS ORDERED: POLYETHYLENE GLYCOL 3350 119 GM BTL PO ONE (11:15)
[2017-01-08 14:13] VITALS: PULSE 57; TEMP 97.6
[2017-01-08] MEDS: oxyCODONE HCL 5 MG TABLET PO PRN (17:56)
[2017-01-08 18:13] VITALS: BP 130/64
== END 2017-01-08 20:11 | disposition home or self-care (01) | DRG 347 ==
LOC: JER 12:43 → JERBED 20:41 → J6S 23:39 → OBSVTOIN 01-06 18:55
PROVIDERS: ADMIT Family Medicine; ATTEND Family Medicine
DX: M51.26 Other intervertebral disc displacement, lumbar region (principal); S39.012A Strain of muscle, fascia and tendon of lower back, initial encounter; E66.01 Morbid (severe) obesity due to excess calories; Z68.43 Body mass index [BMI] 50.0-59.9, adult; M54.31 Sciatica, right side; Z96.653 Presence of artificial knee joint, bilateral; X50.0XXA Overexertion from strenuous movement or load, initial encounter; Y93.89 Activity, other specified; F17.210 Nicotine dependence, cigarettes, uncomplicated; Y92.89 Other specified places as the place of occurrence of the external cause; Y99.8 Other external cause status; E11.9 Type 2 diabetes mellitus without complications; Z79.84 Long term (current) use of oral hypoglycemic drugs; M48.06 Spinal stenosis, lumbar region; J45.909 Unspecified asthma, uncomplicated
CPT/HCPCS: 36415; 72100-TC; 72131-TC; 80053; 80061; 81003; 83036; 83721; 84703; 85025; 85027; 85651; 86140; 93005; 93010; 97116-GP; 97161-GP; 99283-25; G0378

== ENCOUNTER 2017-02-03 18:00 | Inpatient (IN) | payer OTHER ==
[2017-02-03 18:25] VITALS: BMI 54.2
--- NOTE | 2017-02-03 20:20 | PDOC ---
History of Present Illness - General Chief Complaint: Back Pain Stated Complaint: BACK PAIN Time Seen by Provider: 02/03/17 19:48 History Source: Patient Exam Limitations: No Limitations - History of Present Illness Initial Comments: 02/03/17 20:33 46-year-old female over-nourished female with a history of asthma and a recent dx of R sided lumbar HNP presents to the emergency department complaining of chronic right sided low back pain. Patient was seen in the emergency department on 01/03/2017. She had a CAT scan without contrast to her lumbar sacral area which shows a herniation. Patient states due to her body habitus, they were unable to perform an MRI. Patient was able to locate an MRI center today and had images done but no results as of yet. Pain is described as 8/10 sharp nonradiating intermittent right-sided low back pain. Pain is exacerbated on movements and alleviated minimally at rest. Patient was seen by her neurologist yesterday and was prescribed Robaxin. Her first PT session was at approximately 1530 hrs. yesterday. Miss Dee states after her PT session, she felt excruciating pain. Neg bladder/bowel dysfunction. Occurred: reports: yesterday Pain Location: reports: none Past History - Past Medical History Allergies/Adverse Reactions: Allergies Allergy/AdvReac Type Severity Reaction Status Date / Time Penicillins Allergy Severe Rash Verified 02/03/17 18:21 Home Medications: Ambulatory Orders Dexamethasone [Decadron -] 4 mg PO BID #7 tablet MDD 2 01/08/17 Docusate Sodium [Colace -] 300 mg PO HS #30 tab MDD 3 01/08/17 Gabapentin [Neurontin -] 300 mg PO QID #30 tab MDD 4 01/08/17 Glimepiride [Amaryl -] 2 mg PO DAILY@0700 #30 tablet MDD 1 01/08/17 Methocarbamol [Robaxin -] 1,000 mg PO TID #30 tablet MDD 3 01/08/17 Morphine *Sr* [Ms Contin -] 15 mg PO TID #14 tab MDD 3 01/08/17 Pantoprazole Sodium [Protonix -] 40 mg PO DAILY #10 tab MDD 1 01/08/17 Anemia: No Asthma: Yes Cancer: No Cardiac Disorders: No CVA: No CHF: No Diabetes: No Seizures: No - Surgical History Abdominal Surgery: Yes (TUBAL LIGATION) Cholecystectomy: Yes Orthopedic Surgery: Yes (L. Knee & rt. knee, b/l carpal tunnel surgery ) - Family Disease History Family Disease History: Heart Disease: Mother - Immunization History Immunization Up to Date: Yes - Suicide/Smoking/Psychosocial Hx Smoking Status: Yes Smoking History: Current some day smoker Years of Tobacco Use: 10 Have you smoked in the past 12 months: Yes Number of Cigarettes Smoked Daily: 10 If you are a former smoker, when did you quit?: 08/28/16 Information on smoking cessation initiated: No 'Breaking Loose' booklet given: 05/25/14 Hx Alcohol Use: No Drug/Substance Use Hx: No Substance Use Type: None Hx Substance Use Treatment: No Trauma Specific PMHX - Complaint Specific PMHX Back Injury: No Neck Injury: No Review of Systems - Review of Systems Able to Perform ROS?: Yes Comments:: 02/03/17 20:36 CONSTITUTIONAL: Absent: fever, chills, diaphoresis, generalized weakness, malaise, loss of appetite HEENT: Absent: rhinorrhea, nasal congestion, throat pain, throat swelling, difficulty swallowing, mouth swelling, ear pain, eye pain, visual Changes CARDIOVASCULAR: Absent: chest pain, loss of consciousness, palpitations, irregular heart rate, peripheral edema RESPIRATORY: Absent: cough, shortness of breath, dyspnea with exertion, orthopnea, wheezing, stridor, hemoptysis GASTROINTESTINAL: Absent: abdominal pain, abdominal distension, nausea, vomiting, diarrhea, constipation, melena, hematochezia GENITOURINARY: Absent: dysuria, frequency, urgency, hesitancy, hematuria, flank pain, genital pain MUSCULOSKELETAL: + right LBP Absent: myalgia, arthralgia, joint swelling SKIN: Absent: rash, itching, pallor HEMATOLOGIC/IMMUNOLOGIC: Absent: easy bleeding, easy bruising, lymphadenopathy, frequent infections ENDOCRINE: Absent: unexplained weight gain, unexplained weight loss, heat intolerance, cold intolerance NEUROLOGIC: Absent: headache, focal weakness or paresthesias, dizziness, unsteady gait, seizure, mental status changes, bladder or bowel incontinence PSYCHIATRIC: Absent: anxiety, depression, suicidal or homicidal ideation, hallucinations. Is the patient limited Icelandic proficient: No *Physical Exam - Vital Signs Last Vital Signs Temp Pulse Resp BP Pulse Ox 98.5 F 91 H 16 158/98 98 02/03/17 18:21 02/03/17 18:21 02/03/17 18:21 02/03/17 18:21 02/03/17 18:21 - Physical Exam Comments: 02/03/17 20:36 GENERAL: Well developed, well nourished. Awake and alert. No acute distress. HEENT: Normocephalic, atraumatic. PERRLA, EOMI. No conjunctival pallor. Sclera are non- icteric. Moist mucous membranes. Oropharynx is clear. NECK: Supple. Full ROM. No JVD. Carotid pulses 2+ and symmetric, without bruits. No thyromegaly. No lymphadenopathy. CARDIOVASCULAR: Regular rate and rhythm. No murmurs, rubs, or gallops. Distal pulses are 2+ and symmetric. PULMONARY: No evidence of respiratory distress. Lungs clear to auscultation bilaterally. No wheezing, rales or rhonchi. ABDOMINAL: Soft. Non-tender. Non-distended. No rebound or guarding. No organomegaly. Normoactive bowel sounds. MUSCULOSKELETAL Normal range of motion at all joints. No bony deformities or tenderness. No CVA tenderness. EXTREMITIES: No cyanosis. No clubbing. No edema. No calf tenderness. SKIN: Warm and dry. Normal capillary refill. No rashes. No jaundice. NEUROLOGICAL: Alert, awake, appropriate. Cranial nerves 2-12 intact. No deficits to light touch and temperature in face, upper extremities and lower extremities. No motor deficits in the in face, upper extremities and lower extremities. Normoreflexic in the upper and lower extremities. Normal speech. Toes are down- going bilaterally. Gait is normal without ataxia. PSYCHIATRIC: Cooperative. Good eye contact. Appropriate mood and affect. Progress Note - Progress Note Progress Note: 2020hrs: Called Dr. Francois/neurology [phone] 2036hrs: Spoke to Dr. Francois/will consult pt in the am when she is admitted 2220hrs: Spoke to Dr. Hair/ admit to dr. Allen *DC/Admit/Observation/Transfer Diagnosis at time of Disposition: HNP (herniated nucleus pulposus) - Discharge Dispostion Condition at time of disposition: Stable Admit: Yes - Referrals Referrals: Elton Hair MD [Primary Care Provider] -
[2017-02-03] MEDS ORDERED: KETOROLAC TROMETHAMINE 60 MG/2 ML VIAL IM ONE (21:10)
[2017-02-03] MEDS ORDERED: KETOROLAC TROMETHAMINE 60 MG/2 ML VIAL ONE ×2 (21:20→22:04)
[2017-02-03] MEDS ORDERED: HYDROmorphone HCL CARPU-JECT 1 MG/1 ML DISP.SYRIN IVPUSH ONE (21:44)
[2017-02-03] MEDS ORDERED: DEXAMETHASONE SOD PHOSPHATE 10 MG/1 ML VIAL IVPB ONE (21:44)
[2017-02-03] MEDS ORDERED: ONDANSETRON 4 MG/2 ML VIAL IVPUSH ONE (21:44)
[2017-02-03] MEDS ORDERED: HYDROmorphone HCL CARPU-JECT 1 MG/1 ML DISP.SYRIN ONE (22:28)
[2017-02-03] MEDS ORDERED: ONDANSETRON 4 MG/2 ML VIAL ONE (22:29)
[2017-02-04] MEDS: HYDROmorphone HCL CARPU-JECT 2 MG/1 ML DISP.SYRIN IVPUSH PRN ×4 (02:02→15:27)
[2017-02-04] MEDS: morphine SO4 SUSTAINED ACTING 15 MG TABLET.SA PO SCH ×3 (06:33→21:58)
[2017-02-04] MEDS: HEPARIN NA (PORCINE) 5,000 UNITS/ML 1ML VIAL SQ SCH ×3 (06:34→21:58)
[2017-02-04] MEDS: INSULIN SLIDING SCALE (NOVOLOG) 1 VIAL SQ SCH ×4 (06:43→22:21)
[2017-02-04] MEDS: GLIMEPIRIDE 2 MG TABLET (FP) PO SCH (06:44)
[2017-02-04 08:46] LABS: BASOPHIL 0.2 % (0-2.0); EOSINOPHIL 0.1 % (0-4.5); MCH 30.6 pg (25.7-33.7); MCHC 33.5 g/dl (32.0-36.0); MEAN CELL VOLUME 91.4 fl (80-96); NEUTROPHILS 82.8 % (42.8-82.8); PLATELET COUNT 354 K/MM3 (134-434); WHITE BLOOD COUNT 9.2 K/mm3 (4.0-10.0)
[2017-02-04 09:14] LABS: ALBUMIN 3.6 g/dl (3.4-5.0); ANION GAP 10 (8-16); BILIRUBIN,TOTAL 0.2 mg/dL (0.2-1.0); CALCIUM 9.2 mg/dL (8.5-10.1); CO2 23 mmol/L (21-32); CREATININE 0.7 mg/dL (0.55-1.02); GLUCOSE,RANDOM 191 mg/dL (74-106); SGOT/AST 13 U/L (15-37); SGPT/ALT 31 U/L (12-78); TOT PROT 7.3 g/dl (6.4-8.2)
[2017-02-04 09:20] LABS: ALK PHOS 94 U/L (45-117)
--- NOTE | 2017-02-04 09:51 | CONSULT ---
Consult - text type - Consultation Consultation Note: Neurology History of Present Illness 46-year-old female over-nourished female with a history of asthma and a recent dx of R sided lumbar HNP presents to the emergency department complaining of chronic right sided low back pain. Patient was seen in the emergency department on 01/03/2017. She had a CAT scan without contrast to her lumbar sacral area which shows a herniation. She completed MRI at [facility] and I did receive a report to my office which demonstrated L5/S1 spondylolisthesis along with broad based disc herniation with neural foramina stenosis bilaterally. Pain is described as 8/10 sharp right-sided low back pain with pain into her legs. Pain is exacerbated on movements and alleviated minimally at rest. Patient had gone to PT yesterday states after her PT session, she felt excruciating pain. Neg bladder/bowel dysfunction. Past History - Past Medical History Allergies/Adverse Reactions: Allergies Allergy/AdvReac Type Severity Reaction Status Date / Time Penicillins Allergy Severe Rash Verified 02/03/17 18:21 Home Medications: Ambulatory Orders Dexamethasone [Decadron -] 4 mg PO BID #7 tablet MDD 2 01/08/17 Docusate Sodium [Colace -] 300 mg PO HS #30 tab MDD 3 01/08/17 Gabapentin [Neurontin -] 300 mg PO QID #30 tab MDD 4 01/08/17 Glimepiride [Amaryl -] 2 mg PO DAILY@0700 #30 tablet MDD 1 01/08/17 Methocarbamol [Robaxin -] 1,000 mg PO TID #30 tablet MDD 3 01/08/17 Morphine *Sr* [Ms Contin -] 15 mg PO TID #14 tab MDD 3 01/08/17 Pantoprazole Sodium [Protonix -] 40 mg PO DAILY #10 tab MDD 1 01/08/17 Anemia: No Asthma: Yes Cancer: No Cardiac Disorders: No CVA: No CHF: No Diabetes: No Seizures: No - Surgical History Abdominal Surgery: Yes (TUBAL LIGATION) Cholecystectomy: Yes Orthopedic Surgery: Yes (L. Knee & rt. knee, b/l carpal tunnel surgery ) - Family Disease History Family Disease History: Heart Disease: Mother - Immunization History Immunization Up to Date: Yes - Suicide/Smoking/Psychosocial Hx Smoking Status: Yes Smoking History: Current some day smoker Years of Tobacco Use: 10 Have you smoked in the past 12 months: Yes Number of Cigarettes Smoked Daily: 10 If you are a former smoker, when did you quit?: 08/28/16 Information on smoking cessation initiated: No 'Breaking Loose' booklet given: 05/25/14 Hx Alcohol Use: No Drug/Substance Use Hx: No Substance Use Type: None Hx Substance Use Treatment: No Trauma Specific PMHX - Complaint Specific PMHX Back Injury: No Neck Injury: No Review of Systems CONSTITUTIONAL: Absent: fever, chills, diaphoresis, generalized weakness, malaise, loss of appetite HEENT: Absent: rhinorrhea, nasal congestion, throat pain, throat swelling, difficulty swallowing, mouth swelling, ear pain, eye pain, visual Changes CARDIOVASCULAR: Absent: chest pain, loss of consciousness, palpitations, irregular heart rate, peripheral edema RESPIRATORY: Absent: cough, shortness of breath, dyspnea with exertion, orthopnea, wheezing, stridor, hemoptysis GASTROINTESTINAL: Absent: abdominal pain, abdominal distension, nausea, vomiting, diarrhea, constipation, melena, hematochezia GENITOURINARY: Absent: dysuria, frequency, urgency, hesitancy, hematuria, flank pain, genital pain MUSCULOSKELETAL: + right LBP Absent: myalgia, arthralgia, joint swelling SKIN: Absent: rash, itching, pallor HEMATOLOGIC/IMMUNOLOGIC: Absent: easy bleeding, easy bruising, lymphadenopathy, frequent infections ENDOCRINE: Absent: unexplained weight gain, unexplained weight loss, heat intolerance, cold intolerance NEUROLOGIC: Absent: headache, focal weakness or paresthesias, dizziness, unsteady gait, seizure, mental status changes, bladder or bowel incontinence PSYCHIATRIC: Absent: anxiety, depression, suicidal or homicidal ideation, hallucinations. Is the patient limited Arabic proficient: No *Physical Exam Vital Signs Temperature 98.4 F 02/04/17 04:33 Pulse Rate 86 02/04/17 04:33 Respiratory Rate 20 02/04/17 04:33 Blood Pressure 152/90 02/04/17 04:33 O2 Sat by Pulse Oximetry (%) 98 02/03/17 18:21 Well developed, well nourished. Awake and alert. No acute distress. HEENT: Normocephalic, atraumatic. PERRLA, EOMI. No conjunctival pallor. Sclera are non- icteric. Moist mucous membranes. Oropharynx is clear. NECK: Supple. Full ROM. No JVD. Carotid pulses 2+ and symmetric, without bruits. No thyromegaly. No lymphadenopathy. CARDIOVASCULAR: Regular rate and rhythm. No murmurs, rubs, or gallops. Distal pulses are 2+ and symmetric. PULMONARY: No evidence of respiratory distress. Lungs clear to auscultation bilaterally. No wheezing, rales or rhonchi. ABDOMINAL: Soft. Non-tender. Non-distended. No rebound or guarding. No organomegaly. Normoactive bowel sounds. MUSCULOSKELETAL Normal range of motion at all joints. No bony deformities or tenderness. No CVA tenderness. EXTREMITIES: No cyanosis. No clubbing. No edema. No calf tenderness. SKIN: Warm and dry. Normal capillary refill. No rashes. No jaundice. NEUROLOGICAL: Alert, awake, appropriate. Cranial nerves 2-12 intact. No deficits to light touch and temperature in face, upper extremities and lower extremities. No motor deficits in the in face, upper extremities and lower extremities. Normoreflexic in the upper and lower extremities. Normal speech. Toes are down- going bilaterally. Gait deferred PSYCHIATRIC: Cooperative. Good eye contact. Appropriate mood and affect. CBCD WBC 9.2 K/mm3 (4.0-10.0) D 02/04/17 07:10 RBC 4.78 M/mm3 (3.60-5.2) 02/04/17 07:10 Hgb 14.6 GM/dL (10.7-15.3) D 02/04/17 07:10 Hct 43.7 % (32.4-45.2) 02/04/17 07:10 MCV 91.4 fl (80-96) 02/04/17 07:10 MCHC 33.5 g/dl (32.0-36.0) 02/04/17 07:10 RDW 14.0 % (11.6-15.6) 02/04/17 07:10 Plt Count 354 K/MM3 (134-434) D 02/04/17 07:10 MPV 8.0 fl (7.5-11.1) 02/04/17 07:10 CMP Sodium 135 mmol/L (136-145) L 02/04/17 07:10 Potassium 4.6 mmol/L (3.5-5.1) 02/04/17 07:10 Chloride 102 mmol/L (98-107) 02/04/17 07:10 Carbon Dioxide 23 mmol/L (21-32) 02/04/17 07:10 Anion Gap 10 (8-16) 02/04/17 07:10 BUN 11 mg/dL (7-18) D 02/04/17 07:10 Creatinine 0.7 mg/dL (0.55-1.02) 02/04/17 07:10 Creat Clearance w eGFR > 60 (>60) 02/04/17 07:10 Calcium 9.2 mg/dL (8.5-10.1) 02/04/17 07:10 Total Bilirubin 0.2 mg/dL (0.2-1.0) 02/04/17 07:10 AST 13 U/L (15-37) L 02/04/17 07:10 ALT 31 U/L (12-78) 02/04/17 07:10 Alkaline Phosphatase 94 U/L (45-117) 02/04/17 07:10 Total Protein 7.3 g/dl (6.4-8.2) 02/04/17 07:10 Albumin 3.6 g/dl (3.4-5.0) 02/04/17 07:10 MRI L spine reviewed Plan 46-year-old female over-nourished female with a history of asthma and a recent dx of R sided lumbar HNP presents to the emergency department complaining of chronic right sided low back pain. Patient was seen in the emergency department on 01/03/2017. She had a CAT scan without contrast to her lumbar sacral area which shows a herniation. She completed MRI at [facility] and I did receive a report to my office which demonstrated L5/S1 spondylolisthesis along with broad based disc herniation with neural foramina stenosis bilaterally. Pain is described as 8/10 sharp right-sided low back pain with pain into her legs. Pain is exacerbated on movements and alleviated minimally at rest. Patient had gone to PT yesterday states after her PT session, she felt excruciating pain. Neg bladder/bowel dysfunction. -Pain management, consider consult with Dr. Marcos -Patient not interested in surgical intervention -Bedrest discussed -Compelted MRI L spine and therefore would not require imagine -Fall precautions -Rolling walker at bedside to be used -DVT ppx
[2017-02-04] MEDS ORDERED: FLU VACCINE QUAD 60 MCG/0.5 ML (MDV 17-18) IM ONE (10:00)
--- NOTE | 2017-02-04 10:04 | HP ---
Admitting History and Physical - Primary Care Physician PCP: Danilo Allen - Admission Chief Complaint: BACK PAIN History of Present Illness: 46 YEAR OLD SEVERE BACK LUMBAR PAIN. STARTED PT OUTPATIENT AND DEVELOPED SEVERE BACK PAIN INTRACTABLE WITH INABILITY TO WALK OR VOID URINE History Source: Patient, Medical Record - Past Medical History Pulmonary: Yes: Asthma - Smoking History Smoking history: Current some day smoker Have you smoked in the past 12 months: Yes Aproximately how many cigarettes per day: 10 If you are a former smoker, when did you quit?: 08/28/16 - Alcohol/Substance Use Hx Alcohol Use: No Home Medications - Allergies Allergies/Adverse Reactions: Allergies Allergy/AdvReac Type Severity Reaction Status Date / Time Penicillins Allergy Severe Rash Verified 02/03/17 18:21 - Home Medications Home Medications: Ambulatory Orders Dexamethasone [Decadron -] 4 mg PO BID #7 tablet MDD 2 01/08/17 Docusate Sodium [Colace -] 300 mg PO HS #30 tab MDD 3 01/08/17 Gabapentin [Neurontin -] 300 mg PO QID #30 tab MDD 4 01/08/17 Glimepiride [Amaryl -] 2 mg PO DAILY@0700 #30 tablet MDD 1 01/08/17 Methocarbamol [Robaxin -] 1,000 mg PO TID #30 tablet MDD 3 01/08/17 Morphine *Sr* [Ms Contin -] 15 mg PO TID #14 tab MDD 3 01/08/17 Pantoprazole Sodium [Protonix -] 40 mg PO DAILY #10 tab MDD 1 01/08/17 Review of Systems - Review of Systems Constitutional: reports: Other Eyes: reports: No Symptoms HENT: reports: No Symptoms Neck: reports: No Symptoms Cardiovascular: reports: No Symptoms Respiratory: reports: No Symptoms Gastrointestinal: reports: No Symptoms Genitourinary: reports: Other Musculoskeletal: reports: Back Pain, Decreased ROM, Extremity Pain, Joint Pain, Muscle Pain, Muscle Cramps Integumentary: reports: No Symptoms Neurological: reports: Numbness, Pre-Existing Deficit, Unsteady Gait, Weakness Endocrine: reports: No Symptoms Hematology/Lymphatic: reports: No Symptoms Psychiatric: reports: No Symptoms Physical Examination Vital Signs: Vital Signs Temperature 98.4 F 02/04/17 04:33 Pulse Rate 86 02/04/17 04:33 Respiratory Rate 20 02/04/17 04:33 Blood Pressure 152/90 02/04/17 04:33 O2 Sat by Pulse Oximetry (%) 98 02/03/17 18:21 Constitutional: Yes: Severe Distress Eyes: Yes: WNL HENT: Yes: WNL Neck: Yes: WNL Cardiovascular: Yes: WNL Respiratory: Yes: WNL Gastrointestinal: Yes: WNL Renal/: Yes: WNL Musculoskeletal: Yes: Back Pain, Muscle Weakness Extremities: Yes: WNL Edema: No Peripheral Pulses WNL: Yes Integumentary: Yes: Other Wound/Incision: Yes: Clean/Dry Neurological: Yes: Numbness, Pre-Existing Deficit, Unsteady Gait, Weakness ...Motor Strength: LLE, RLE Psychiatric: Yes: WNL Labs: CBC, BMP 02/04/17 07:10 02/04/17 07:10 Problem List - Problems (1) HNP (herniated nucleus pulposus) Code(s): M51.9 - UNSP THORACIC, THORACOLUM AND LUMBOSACR INTVRT DISC DISORDER (2) Herniated disc Code(s): WLW7439 - (3) Low back strain Code(s): S39.012A - STRAIN OF MUSCLE, FASCIA AND TENDON OF LOWER BACK, INIT (4) Morbid (severe) obesity due to excess calories Code(s): E66.01 - MORBID (SEVERE) OBESITY DUE TO EXCESS CALORIES (5) Low back pain Code(s): M54.5 - LOW BACK PAIN Qualifiers: Chronicity: acute Assessment/Plan PAIN CONTROL NEUROLOGY AND NEUROSURGERY EVAL DVT PROPHYLAXIS
[2017-02-04] MEDS: PANTOPRAZOLE 40 MG TABLET (FP) PO SCH (10:38)
[2017-02-04] MEDS: GABAPENTIN 300 MG CAPSULE (FP) PO SCH ×4 (10:38→21:58)
--- NOTE | 2017-02-04 13:44 | EKG ---
Test Reason : Blood Pressure : / mmHG Vent. Rate : 076 BPM Atrial Rate : 076 BPM P-R Int : 140 ms QRS Dur : 100 ms QT Int : 400 ms P-R-T Axes : 052 074 034 degrees QTc Int : 450 ms NORMAL SINUS RHYTHM NORMAL ECG WHEN COMPARED WITH ECG OF 03-FEB-2017 23:46, NO SIGNIFICANT CHANGE WAS FOUND Confirmed by LILLY GONZALEZ MD ([id number]) on 02/04/2017 1:44:36 PM Referred By: Elizabeth MCCARTHY Confirmed By:LILLY GONZALEZ MD
--- NOTE | 2017-02-04 17:30 | CONSULT ---
Consult - text type - Consultation Consultation Note: Patient is a 46 year old female with a history of back and leg pains which has not responded to conservative management. Patient has had difficulty obtaining MRI and CT demonstrates L5 pars fractures with associated foraminal narrowing and facet arthropathy resulting in lateral recess stenosis. There is a broad central disc protrusion as well. CT reports suggest that there has been progression from May 2014 to December 2016. The patient recently had deterioration of her symptoms and was imaged with a large bore MRI. This confirms the degenerative changes at L5S1. There is no acute Neurosurgical intervention which is mandated, however, if she does not respond to a course of conservative care, L5-S1 decompression and fusion may represent a treatment option. Barring fixed motor deficit, cauda equina syndrome or intractable pain, there is no urgency for surgical intervention. I agree with consideration for pain management with Dr. Marcos at the current time as a next step in her care.
--- NOTE | 2017-02-04 18:03 | CONSULT ---
Consult Consult Specialty:: Pain Management Reason for Consultation:: LBP - History of Present Illness Chief Complaint: LBP with rt leg pain History of Present Illness: 46 yr old female with Chronic LBP had acute onset of LBP with rt leg radiation after PT. She is gewtting better. She had MRI done . Now pain 6-11/17 . - History Source History Provided By: Patient Limitations to Obtaining History: No Limitations - Past Medical History Pulmonary: Yes: Asthma - Alcohol/Substance Use Hx Alcohol Use: No - Smoking History Smoking history: Current some day smoker Have you smoked in the past 12 months: Yes Aproximately how many cigarettes per day: 10 If you are a former smoker, when did you quit?: 08/28/16 - Social History ADL: Independent Home Medications - Allergies Allergies/Adverse Reactions: Allergies Allergy/AdvReac Type Severity Reaction Status Date / Time Penicillins Allergy Severe Rash Verified 02/03/17 18:21 - Home Medications Home Medications: Ambulatory Orders Dexamethasone [Decadron -] 4 mg PO BID #7 tablet MDD 2 01/08/17 Docusate Sodium [Colace -] 300 mg PO HS #30 tab MDD 3 01/08/17 Gabapentin [Neurontin -] 300 mg PO QID #30 tab MDD 4 01/08/17 Glimepiride [Amaryl -] 2 mg PO DAILY@0700 #30 tablet MDD 1 01/08/17 Methocarbamol [Robaxin -] 1,000 mg PO TID #30 tablet MDD 3 01/08/17 Morphine *Sr* [Ms Contin -] 15 mg PO TID #14 tab MDD 3 01/08/17 Pantoprazole Sodium [Protonix -] 40 mg PO DAILY #10 tab MDD 1 01/08/17 Review of Systems - Review of Systems Constitutional: reports: No Symptoms Eyes: reports: No Symptoms HENT: reports: No Symptoms Neck: reports: No Symptoms Cardiovascular: reports: No Symptoms Respiratory: reports: No Symptoms Gastrointestinal: reports: No Symptoms Genitourinary: reports: No Symptoms Musculoskeletal: reports: Back Pain Integumentary: reports: No Symptoms Neurological: reports: No Symptoms Psychiatric: reports: No Symptoms Pain Intensity: 6 Physical Exam Vital Signs: Vital Signs Temperature 97.8 F 02/04/17 14:57 Pulse Rate 75 02/04/17 14:57 Respiratory Rate 22 02/04/17 14:57 Blood Pressure 153/93 02/04/17 14:57 O2 Sat by Pulse Oximetry (%) 94 L 02/04/17 09:00 Constitutional: Yes: Well Nourished, Obese, Other Eyes: Yes: WNL HENT: Yes: WNL Neck: Yes: WNL Musculoskeletal: Yes: Back Pain, Joint Stiffness, Muscle Pain, Other (Limited ROM , Paraspinal muscle spasm and tender) Extremities: Yes: WNL Edema: No Neurological: Yes: WNL ...Motor Strength: WNL Labs: CBC, BMP 02/04/17 07:10 02/04/17 07:10 Current Medications Generic Name Dose Route Start Last Admin Trade Name Freq PRN Reason Stop Dose Admin Gabapentin 300 mg 02/04/17 10:00 02/04/17 17:31 Neurontin - PO 300 mg QID RAZIA Administration Glimepiride 2 mg 02/04/17 07:00 02/04/17 06:44 Amaryl - PO 2 mg DAILY@0700 RAZIA Administration Heparin Sodium (Porcine) 5,000 unit 02/04/17 06:00 02/04/17 14:58 Heparin - SQ 5,000 unit TID RAZIA Administration Hydromorphone HCl 2 mg 02/03/17 22:32 02/04/17 15:27 Dilaudid Injection - IVPUSH 2 mg Q4H PRN Administration PAIN Insulin Aspart 1 vial 02/04/17 07:00 02/04/17 16:39 Novolog Vial Sliding Scale - SQ Not Given ACHS [facility] Protocol Morphine Sulfate 15 mg 02/04/17 06:00 02/04/17 14:58 Ms Contin - PO 15 mg TID RAZIA Administration Pantoprazole Sodium 40 mg 02/04/17 10:00 02/04/17 10:38 Protonix - PO 40 mg DAILY RAZIA Administration Imaging - Results MRI: Pending Problem List - Problems (1) Acute right lumbar radiculopathy Code(s): M54.16 - RADICULOPATHY, LUMBAR REGION Assessment/Plan Discussed in detail and answered all question. 1. continue current care 2. D/C MS contin 3. Dilaudid 2 mg PO q4 PRN . 4. Weight reduction discussed 5. May benefit with Lumbar epidural , we will review MRI 6. Discussed with Dr. Hall about possible epidural or stem cell therapy for fusion of Pars Intraarticularis Fx and Spondylolisthesis Thanks for your kind referral Chaz Marcos MD Please call [phone] if pain persists
[2017-02-04] MEDS ORDERED: HYDROmorphone HCL 2 MG TABLET PO PRN (18:10)
[2017-02-04] MEDS: HYDROmorphone HCL CARPU-JECT 2 MG/1 ML DISP.SYRIN IVPB PRN (20:10)
[2017-02-04] MEDS ORDERED: ONDANSETRON 4 MG/2 ML VIAL ONE (20:23)
[2017-02-04] MEDS ORDERED: ONDANSETRON 4 MG/2 ML VIAL IVPB PRN (20:33)
[2017-02-05] MEDS: HEPARIN NA (PORCINE) 5,000 UNITS/ML 1ML VIAL SQ SCH ×3 (05:50→22:53)
[2017-02-05] MEDS: morphine SO4 SUSTAINED ACTING 15 MG TABLET.SA PO SCH ×3 (05:50→22:54)
[2017-02-05] MEDS: HYDROmorphone HCL CARPU-JECT 2 MG/1 ML DISP.SYRIN IVPB PRN ×4 (05:50→20:23)
[2017-02-05] MEDS: GLIMEPIRIDE 2 MG TABLET (FP) PO SCH (06:14)
[2017-02-05] MEDS: INSULIN SLIDING SCALE (NOVOLOG) 1 VIAL SQ SCH ×4 (06:14→23:01)
--- NOTE | 2017-02-05 09:30 | PN ---
Progress Note (short form) - Note Progress Note: Neurology History of Present Illness 46-year-old female over-nourished female with a history of asthma and a recent dx of R sided lumbar HNP presents to the emergency department complaining of chronic right sided low back pain. Patient was seen in the emergency department on 01/03/2017. She had a CAT scan without contrast to her lumbar sacral area which shows a herniation. She completed MRI at [facility] and I did receive a report to my office which demonstrated L5/S1 spondylolisthesis along with broad based disc herniation with neural foramina stenosis bilaterally. Pain was described as 8/10 sharp right-sided low back pain with pain into her legs. Pain was exacerbated on movements and alleviated minimally at rest. Patient had gone to PT and stated after her PT session, she felt excruciating pain. Overnight required IV Dilaudid and some relief this morning but not fully ambulatory, and inquiring about walker as well. Patient seen by Dr. Chaz Marcos, note reviewed, may be a candidate for epidural steroid injections. NSGY also on case and patient would like to defer for now and try injections first. Active Medications Gabapentin (Neurontin -) 300 mg PO QID [facility] Last Admin: 02/04/17 21:58 Dose: 300 mg Glimepiride (Amaryl -) 2 mg PO DAILY@0700 [facility] Last Admin: 02/05/17 06:14 Dose: 2 mg Heparin Sodium (Porcine) (Heparin -) 5,000 unit SQ TID [facility] Last Admin: 02/05/17 05:50 Dose: 5,000 unit Hydromorphone HCl (Dilaudid -) 2 mg PO Q4H PRN PRN Reason: PAIN Hydromorphone HCl (Dilaudid Injection -) 2 mg IVPB Q4H PRN PRN Reason: PAIN Last Admin: 02/05/17 05:50 Dose: 2 mg Insulin Aspart (Novolog Vial Sliding Scale -) 1 vial SQ ACHS [facility] PRN Reason: Protocol Last Admin: 02/05/17 06:14 Dose: Not Given Morphine Sulfate (Ms Contin -) 15 mg PO TID [facility] Last Admin: 02/05/17 05:50 Dose: 15 mg Ondansetron HCl (Zofran Injection) 4 mg IVPB Q6H PRN PRN Reason: NAUSEA AND/OR VOMITING Last Admin: 02/04/17 20:45 Dose: 4 mg Pantoprazole Sodium (Protonix -) 40 mg PO DAILY [facility] Last Admin: 02/04/17 10:38 Dose: 40 mg *Physical Exam Vital Signs Temperature 97.9 F 02/05/17 06:00 Pulse Rate 71 02/05/17 06:00 Respiratory Rate 20 02/05/17 06:00 Blood Pressure 112/58 02/05/17 06:00 O2 Sat by Pulse Oximetry (%) 94 L 02/04/17 21:00 Well developed, well nourished. Awake and alert. No acute distress. HEENT: Normocephalic, atraumatic. PERRLA, EOMI. No conjunctival pallor. Sclera are non- icteric. Moist mucous membranes. Oropharynx is clear. NECK: Supple. Full ROM. No JVD. Carotid pulses 2+ and symmetric, without bruits. No thyromegaly. No lymphadenopathy. CARDIOVASCULAR: Regular rate and rhythm. No murmurs, rubs, or gallops. Distal pulses are 2+ and symmetric. PULMONARY: No evidence of respiratory distress. Lungs clear to auscultation bilaterally. No wheezing, rales or rhonchi. ABDOMINAL: Soft. Non-tender. Non-distended. No rebound or guarding. No organomegaly. Normoactive bowel sounds. MUSCULOSKELETAL Normal range of motion at all joints. No bony deformities or tenderness. No CVA tenderness. EXTREMITIES: No cyanosis. No clubbing. No edema. No calf tenderness. SKIN: Warm and dry. Normal capillary refill. No rashes. No jaundice. NEUROLOGICAL: Alert, awake, appropriate. Cranial nerves 2-12 intact. No deficits to light touch and temperature in face, upper extremities and lower extremities. No motor deficits in the in face, upper extremities and lower extremities. Normoreflexic in the upper and lower extremities. Normal speech. Toes are down- going bilaterally. Gait deferred PSYCHIATRIC: Cooperative. Good eye contact. Appropriate mood and affect. CBCD WBC 9.2 K/mm3 (4.0-10.0) D 02/04/17 07:10 RBC 4.78 M/mm3 (3.60-5.2) 02/04/17 07:10 Hgb 14.6 GM/dL (10.7-15.3) D 02/04/17 07:10 Hct 43.7 % (32.4-45.2) 02/04/17 07:10 MCV 91.4 fl (80-96) 02/04/17 07:10 MCHC 33.5 g/dl (32.0-36.0) 02/04/17 07:10 RDW 14.0 % (11.6-15.6) 02/04/17 07:10 Plt Count 354 K/MM3 (134-434) D 02/04/17 07:10 MPV 8.0 fl (7.5-11.1) 02/04/17 07:10 CMP Sodium 135 mmol/L (136-145) L 02/04/17 07:10 Potassium 4.6 mmol/L (3.5-5.1) 02/04/17 07:10 Chloride 102 mmol/L (98-107) 02/04/17 07:10 Carbon Dioxide 23 mmol/L (21-32) 02/04/17 07:10 Anion Gap 10 (8-16) 02/04/17 07:10 BUN 11 mg/dL (7-18) D 02/04/17 07:10 Creatinine 0.7 mg/dL (0.55-1.02) 02/04/17 07:10 Creat Clearance w eGFR > 60 (>60) 02/04/17 07:10 Calcium 9.2 mg/dL (8.5-10.1) 02/04/17 07:10 Total Bilirubin 0.2 mg/dL (0.2-1.0) 02/04/17 07:10 AST 13 U/L (15-37) L 02/04/17 07:10 ALT 31 U/L (12-78) 02/04/17 07:10 Alkaline Phosphatase 94 U/L (45-117) 02/04/17 07:10 Total Protein 7.3 g/dl (6.4-8.2) 02/04/17 07:10 Albumin 3.6 g/dl (3.4-5.0) 02/04/17 07:10 MRI L spine reviewed from office Plan 46-year-old female over-nourished female with a history of asthma and a recent dx of R sided lumbar HNP presents to the emergency department complaining of chronic right sided low back pain. Patient was seen in the emergency department on 01/03/2017. She had a CAT scan without contrast to her lumbar sacral area which shows a herniation. She completed MRI at [facility] and I did receive a report to my office which demonstrated L5/S1 spondylolisthesis along with broad based disc herniation with neural foramina stenosis bilaterally. Pain is described as 8/10 sharp right-sided low back pain with pain into her legs. Pain is exacerbated on movements and alleviated minimally at rest. Patient had gone to PT yesterday states after her PT session, she felt excruciating pain. Neg bladder/bowel dysfunction. -Pain management consulted, Dr. Marcos note reviewed -NSGY consulted, Dr. Linton note reviewed -Patient not interested in surgical intervention -Will pursue outpatient epidurals -Compelted MRI L spine and therefore would not require imaging again -Fall precautions -Rolling walker at bedside to be used -Remains on IV dilaudid, likely for discharge tomorrow, not full ambulatory yet -DVT ppx
[2017-02-05] MEDS: PANTOPRAZOLE 40 MG TABLET (FP) PO SCH (10:52)
[2017-02-05] MEDS: GABAPENTIN 300 MG CAPSULE (FP) PO SCH ×4 (10:52→22:53)
--- NOTE | 2017-02-05 11:27 | PN ---
Progress Note, Physician Chief Complaint: AWAKE IN MODERATE DISTRESS - Current Medication List Current Medications: Active Medications Dexamethasone Sodium Phosphate (Decadron Injection -) 10 mg IVPB Q8H-IV RAZIA Gabapentin (Neurontin -) 300 mg PO QID [facility] Last Admin: 02/05/17 10:52 Dose: 300 mg Glimepiride (Amaryl -) 2 mg PO DAILY@0700 [facility] Last Admin: 02/05/17 06:14 Dose: 2 mg Heparin Sodium (Porcine) (Heparin -) 5,000 unit SQ TID [facility] Last Admin: 02/05/17 05:50 Dose: 5,000 unit Hydromorphone HCl (Dilaudid Injection -) 2 mg IVPB Q4H PRN PRN Reason: PAIN Last Admin: 02/05/17 10:44 Dose: 2 mg Insulin Aspart (Novolog Vial Sliding Scale -) 1 vial SQ ACHS [facility] PRN Reason: Protocol Last Admin: 02/05/17 06:14 Dose: Not Given Metoclopramide HCl (Reglan -) 10 mg PO TIDAC [facility] Morphine Sulfate (Ms Contin -) 15 mg PO TID [facility] Last Admin: 02/05/17 05:50 Dose: 15 mg Ondansetron HCl (Zofran Injection) 4 mg IVPB Q6H PRN PRN Reason: NAUSEA AND/OR VOMITING Last Admin: 02/04/17 20:45 Dose: 4 mg Pantoprazole Sodium (Protonix -) 40 mg PO DAILY [facility] Last Admin: 02/05/17 10:52 Dose: 40 mg - Objective Vital Signs: Vital Signs Temperature 97.3 F L 02/05/17 09:56 Pulse Rate 60 02/05/17 09:56 Respiratory Rate 18 02/05/17 09:56 Blood Pressure 104/52 02/05/17 09:56 O2 Sat by Pulse Oximetry (%) 94 L 02/04/17 21:00 Constitutional: Yes: Moderate Distress Eyes: Yes: WNL HENT: Yes: WNL Neck: Yes: WNL Cardiovascular: Yes: WNL Respiratory: Yes: WNL Gastrointestinal: Yes: WNL Genitourinary: Yes: Incontinence Musculoskeletal: Yes: Back Pain, Muscle Weakness Extremities: Yes: WNL Edema: Yes Edema: LLE: 1+, RLE: 1+ Peripheral Pulses WNL: Yes Integumentary: Yes: Tattoos Wound/Incision: Yes: Clean/Dry Neurological: Yes: Loss of Sensation, Numbness, Pre-Existing Deficit, Tingling, Unsteady Gait ...Motor Strength: LLE, RLE Psychiatric: Yes: Other Labs: CBC, BMP 02/04/17 07:10 02/04/17 07:10 Problem List - Problems (1) HNP (herniated nucleus pulposus) Code(s): M51.9 - UNSP THORACIC, THORACOLUM AND LUMBOSACR INTVRT DISC DISORDER (2) Herniated disc Code(s): [id number] - (3) Low back strain Code(s): S39.012A - STRAIN OF MUSCLE, FASCIA AND TENDON OF LOWER BACK, INIT (4) Morbid (severe) obesity due to excess calories Code(s): E66.01 - MORBID (SEVERE) OBESITY DUE TO EXCESS CALORIES (5) Low back pain Code(s): M54.5 - LOW BACK PAIN Qualifiers: Chronicity: acute Assessment/Plan PAIN CONTROL NEUROLOGY AND NEUROSURGERY EVAL DVT PROPHYLAXIS DECADRON IV REGLAN AND ZOFRAN FOR NAUSEA AND VOMITING
[2017-02-05] MEDS ORDERED: diazePAM 2 MG TABLET PO PRN (11:30)
[2017-02-05] MEDS ORDERED: MAG HYDROX/AL HYDROX/SIMETH 30 ML UNIT-DOSE CUP PO PRN (12:58)
[2017-02-05] MEDS: METOCLOPRAMIDE HCL 10 MG TABLET (FP) PO SCH ×2 (13:34→17:49)
[2017-02-05] MEDS: DEXAMETHASONE SOD PHOSPHATE 4 MG/1 ML VIAL IVPB SCH ×2 (13:34→18:59)
[2017-02-05] MEDS ORDERED: INSULIN (NOVOLOG) ASPART 100 UNITS/ML 10ML VIAL ONE ×2 (19:32→22:48)
[2017-02-06] MEDS: DEXAMETHASONE SOD PHOSPHATE 4 MG/1 ML VIAL IVPB SCH ×2 (02:27→10:20)
[2017-02-06] MEDS ORDERED: PT OWN MED DRAWER 7, Y5N ONE (05:57)
[2017-02-06] MEDS: HEPARIN NA (PORCINE) 5,000 UNITS/ML 1ML VIAL SQ SCH (06:33)
[2017-02-06] MEDS: morphine SO4 SUSTAINED ACTING 15 MG TABLET.SA PO SCH (06:34)
[2017-02-06] MEDS: METOCLOPRAMIDE HCL 10 MG TABLET (FP) PO SCH ×2 (06:34→10:21)
[2017-02-06] MEDS: GLIMEPIRIDE 2 MG TABLET (FP) PO SCH (06:34)
[2017-02-06] MEDS: INSULIN SLIDING SCALE (NOVOLOG) 1 VIAL SQ SCH ×2 (06:35→11:43)
[2017-02-06] MEDS ORDERED: INSULIN (NOVOLOG) ASPART 100 UNITS/ML 10ML VIAL ONE ×2 (07:18→11:35)
[2017-02-06 08:27] VITALS: BP 126/60; PULSE 54; TEMP 97.5
[2017-02-06] MEDS: HYDROmorphone HCL CARPU-JECT 2 MG/1 ML DISP.SYRIN IVPB PRN (08:46)
--- NOTE | 2017-02-06 09:59 | PN ---
Progress Note (short form) - Note Progress Note: Neurology History of Present Illness 46-year-old female over-nourished female with a history of asthma and a recent dx of R sided lumbar HNP presents to the emergency department complaining of chronic right sided low back pain. Patient was seen in the emergency department on 01/03/2017. She had a CAT scan without contrast to her lumbar sacral area which shows a herniation. She completed MRI at [facility] and I did receive a report to my office which demonstrated L5/S1 spondylolisthesis along with broad based disc herniation with neural foramina stenosis bilaterally. Pain was described as 8/10 sharp right-sided low back pain with pain into her legs. Pain was exacerbated on movements and alleviated minimally at rest. Patient had gone to PT and stated after her PT session, she felt excruciating pain. Patient seen by Dr. Chaz Macros, note reviewed, may be a candidate for epidural steroid injections. NSGY also on case and patient would like to defer for now and try injections first. Doing better with IV Dilaudid and plan is for discharge today. May need walker for home. Active Medications Al Hydroxide/Mg Hydroxide (Mylanta Oral Suspension -) 30 ml PO Q8H PRN PRN Reason: INDIGESTION Last Admin: 02/05/17 13:34 Dose: 30 ml Dexamethasone Sodium Phosphate (Decadron Injection -) 10 mg IVPB Q8H-IV [facility] Last Admin: 02/06/17 02:27 Dose: 10 mg Diazepam (Valium -) 2 mg PO Q6H PRN Gabapentin (Neurontin -) 300 mg PO QID [facility] Last Admin: 02/05/17 22:53 Dose: 300 mg Glimepiride (Amaryl -) 2 mg PO DAILY@0700 [facility] Last Admin: 02/06/17 06:34 Dose: 2 mg Heparin Sodium (Porcine) (Heparin -) 5,000 unit SQ TID [facility] Last Admin: 02/06/17 06:33 Dose: 5,000 unit Hydromorphone HCl (Dilaudid Injection -) 2 mg IVPB Q4H PRN PRN Reason: PAIN Last Admin: 02/06/17 08:46 Dose: 2 mg Insulin Aspart (Novolog Vial Sliding Scale -) 1 vial SQ ACHS [facility] PRN Reason: Protocol Last Admin: 02/06/17 06:35 Dose: Not Given Metoclopramide HCl (Reglan -) 10 mg PO TIDAC [facility] Last Admin: 02/06/17 06:34 Dose: 10 mg Morphine Sulfate (Ms Contin -) 15 mg PO TID [facility] Last Admin: 02/06/17 06:34 Dose: 15 mg Ondansetron HCl (Zofran Injection) 4 mg IVPB Q6H PRN PRN Reason: NAUSEA AND/OR VOMITING Last Admin: 02/04/17 20:45 Dose: 4 mg Pantoprazole Sodium (Protonix -) 40 mg PO DAILY [facility] Last Admin: 02/05/17 10:52 Dose: 40 mg *Physical Exam Vital Signs Period Temp Pulse Resp BP Sys/Ortiz Pulse Ox Last 24 Hr 97.5 F-98.6 F 54-70 2-20 122-142/60-89 98 Well developed, well nourished. Awake and alert. No acute distress. HEENT: Normocephalic, atraumatic. PERRLA, EOMI. No conjunctival pallor. Sclera are non- icteric. Moist mucous membranes. Oropharynx is clear. NECK: Supple. Full ROM. No JVD. Carotid pulses 2+ and symmetric, without bruits. No thyromegaly. No lymphadenopathy. CARDIOVASCULAR: Regular rate and rhythm. No murmurs, rubs, or gallops. Distal pulses are 2+ and symmetric. PULMONARY: No evidence of respiratory distress. Lungs clear to auscultation bilaterally. No wheezing, rales or rhonchi. ABDOMINAL: Soft. Non-tender. Non-distended. No rebound or guarding. No organomegaly. Normoactive bowel sounds. MUSCULOSKELETAL Normal range of motion at all joints. No bony deformities or tenderness. No CVA tenderness. EXTREMITIES: No cyanosis. No clubbing. No edema. No calf tenderness. SKIN: Warm and dry. Normal capillary refill. No rashes. No jaundice. NEUROLOGICAL: Alert, awake, appropriate. Cranial nerves 2-12 intact. No deficits to light touch and temperature in face, upper extremities and lower extremities. No motor deficits in the in face, upper extremities and lower extremities. Normoreflexic in the upper and lower extremities. Normal speech. Toes are down- going bilaterally. Gait deferred PSYCHIATRIC: Cooperative. Good eye contact. Appropriate mood and affect. CBCD WBC 9.2 K/mm3 (4.0-10.0) D 02/04/17 07:10 RBC 4.78 M/mm3 (3.60-5.2) 02/04/17 07:10 Hgb 14.6 GM/dL (10.7-15.3) D 02/04/17 07:10 Hct 43.7 % (32.4-45.2) 02/04/17 07:10 MCV 91.4 fl (80-96) 02/04/17 07:10 MCHC 33.5 g/dl (32.0-36.0) 02/04/17 07:10 RDW 14.0 % (11.6-15.6) 02/04/17 07:10 Plt Count 354 K/MM3 (134-434) D 02/04/17 07:10 MPV 8.0 fl (7.5-11.1) 02/04/17 07:10 CMP Sodium 135 mmol/L (136-145) L 02/04/17 07:10 Potassium 4.6 mmol/L (3.5-5.1) 02/04/17 07:10 Chloride 102 mmol/L (98-107) 02/04/17 07:10 Carbon Dioxide 23 mmol/L (21-32) 02/04/17 07:10 Anion Gap 10 (8-16) 02/04/17 07:10 BUN 11 mg/dL (7-18) D 02/04/17 07:10 Creatinine 0.7 mg/dL (0.55-1.02) 02/04/17 07:10 Creat Clearance w eGFR > 60 (>60) 02/04/17 07:10 Calcium 9.2 mg/dL (8.5-10.1) 02/04/17 07:10 Total Bilirubin 0.2 mg/dL (0.2-1.0) 02/04/17 07:10 AST 13 U/L (15-37) L 02/04/17 07:10 ALT 31 U/L (12-78) 02/04/17 07:10 Alkaline Phosphatase 94 U/L (45-117) 02/04/17 07:10 Total Protein 7.3 g/dl (6.4-8.2) 02/04/17 07:10 Albumin 3.6 g/dl (3.4-5.0) 02/04/17 07:10 MRI L spine reviewed from office Plan 46-year-old female over-nourished female with a history of asthma and a recent dx of R sided lumbar HNP presents to the emergency department complaining of chronic right sided low back pain. Patient was seen in the emergency department on 01/03/2017. She had a CAT scan without contrast to her lumbar sacral area which shows a herniation. She completed MRI at [facility] and I did receive a report to my office which demonstrated L5/S1 spondylolisthesis along with broad based disc herniation with neural foramina stenosis bilaterally. Pain is described as 8/10 sharp right-sided low back pain with pain into her legs. Pain is exacerbated on movements and alleviated minimally at rest. Patient had gone to PT yesterday states after her PT session, she felt excruciating pain. Neg bladder/bowel dysfunction. -Pain management consulted, Dr. Marcos note reviewed -NSGY consulted, Dr. Linton note reviewed -Patient not interested in surgical intervention -Will pursue outpatient epidurals -Compelted MRI L spine and therefore would not require imaging again -Fall precautions -Rolling walker at bedside to be used -FOr discharge today
[2017-02-06] MEDS: PANTOPRAZOLE 40 MG TABLET (FP) PO SCH (10:21)
[2017-02-06] MEDS: GABAPENTIN 300 MG CAPSULE (FP) PO SCH (10:21)
[2017-02-06] MEDS ORDERED: POLYETHYLENE GLYCOL 3350 119 GM BTL PO ONE (12:03)
--- NOTE | 2017-02-06 12:09 | DS ---
Physical Examination Vital Signs: Vital Signs Temperature 97.5 F L 02/06/17 06:00 Pulse Rate 54 L 02/06/17 06:00 Respiratory Rate 20 02/06/17 06:00 Blood Pressure 126/60 02/06/17 06:00 O2 Sat by Pulse Oximetry (%) 98 02/05/17 21:00 Findings/Remarks: has back pain Constitutional: Yes: Calm, Obese Cardiovascular: Yes: Regular Rate and Rhythm, S1, S2 Respiratory: Yes: CTA Bilaterally Gastrointestinal: Yes: Normal Bowel Sounds, Soft Neurological: Yes: Alert, Oriented Labs: CBC, BMP 02/04/17 07:10 02/04/17 07:10 Discharge Summary Reason For Visit: HERNIATION OF NUCLEAR PULPOSUS Current Active Problems Acute right lumbar radiculopathy (Acute) Asthma attack (Acute) Chest pain (Acute) Diabetes (Acute) HNP (herniated nucleus pulposus) (Acute) HTN (hypertension) (Acute) Herniated disc (Acute) Hyperglycemia (Acute) Leukocytosis (Acute) Low back strain (Acute) Morbid (severe) obesity due to excess calories (Acute) Penicillin allergy (Acute) Smoker (Acute) Thyroiditis, autoimmune (Acute) Wheezing (Acute) Hospital Course: PCP: Danilo Allen - Admission Chief Complaint: BACK PAIN History of Present Illness: 46 YEAR OLD SEVERE BACK LUMBAR PAIN. STARTED PT OUTPATIENT AND DEVELOPED SEVERE BACK PAIN INTRACTABLE WITH INABILITY TO WALK OR VOID URINE History Source: Patient, Medical Record - Past Medical History Pulmonary: Yes: Asthma - Smoking History Smoking history: Current some day smoker Have you smoked in the past 12 months: Yes Aproximately how many cigarettes per day: 10 If you are a former smoker, when did you quit?: 08/28/16 46-year-old female over-nourished female with a history of asthma and a recent dx of R sided lumbar HNP presents to the emergency department complaining of chronic right sided low back pain. Patient was seen in the emergency department on 01/03/2017. She had a CAT scan without contrast to her lumbar sacral area which shows a herniation. She completed MRI at [facility] and the report : which demonstrated L5/S1 spondylolisthesis along with broad based disc herniation with neural foramina stenosis bilaterally. Pain was described as 8/ 10 sharp right-sided low back pain with pain into her legs. Pain was exacerbated on movements and alleviated minimally at rest. Patient had gone to PT and stated after her PT session, she felt excruciating pain. Patient seen by Dr. Chaz Marcos, note reviewed, may be a candidate for epidural steroid injections. NSGY also on case and patient would like to defer for now and try injections first. Doing better with IV Dilaudid and plan is for discharge today. May need walker for home. plan to go home on po diluadid 2mg po q4hr prn and then go to dr lucy rodriguez for epidural injections Condition: Stable - Instructions Referrals: Elton Hair MD [Primary Care Provider] - Disposition: HOME - Home Medications Comprehensive Discharge Medication List: Ambulatory Orders Dexamethasone [Decadron -] 4 mg PO BID #7 tablet MDD 2 01/08/17 Docusate Sodium [Colace -] 300 mg PO HS #30 tab MDD 3 01/08/17 Gabapentin [Neurontin -] 300 mg PO QID #30 tab MDD 4 01/08/17 Glimepiride [Amaryl -] 2 mg PO DAILY@0700 #30 tablet MDD 1 01/08/17 Methocarbamol [Robaxin -] 1,000 mg PO TID #30 tablet MDD 3 01/08/17 Morphine *Sr* [Ms Contin -] 15 mg PO TID #14 tab MDD 3 01/08/17 Pantoprazole Sodium [Protonix -] 40 mg PO DAILY #10 tab MDD 1 01/08/17
--- NOTE | 2017-02-10 19:47 | EKG ---
Test Reason : Blood Pressure : / mmHG Vent. Rate : 077 BPM Atrial Rate : 077 BPM P-R Int : 140 ms QRS Dur : 094 ms QT Int : 402 ms P-R-T Axes : 056 076 043 degrees QTc Int : 454 ms NORMAL SINUS RHYTHM NORMAL ECG WHEN COMPARED WITH ECG OF 03-JAN-2017 16:40, NO SIGNIFICANT CHANGE WAS FOUND REPEAT EKG IF CLINICALLY INDICATED Confirmed by JULIANNE CALDERON MD ([id number]) on 02/10/2017 7:46:30 PM Referred By: Confirmed By:JULIANNE CALDERON MD
== END 2017-02-06 13:23 | disposition home or self-care (01) | DRG 347 ==
LOC: JER 18:00 → JERBED 23:20 → UNDOADMIN 23:20 → JERBED 23:31 → J5S 02-04 00:05
PROVIDERS: ADMIT Family Medicine; ATTEND Family Medicine
DX: M51.26 Other intervertebral disc displacement, lumbar region (principal); M43.17 Spondylolisthesis, lumbosacral region; J45.909 Unspecified asthma, uncomplicated; F17.210 Nicotine dependence, cigarettes, uncomplicated; E66.01 Morbid (severe) obesity due to excess calories; Z68.43 Body mass index [BMI] 50.0-59.9, adult; R11.2 Nausea with vomiting, unspecified
CPT/HCPCS: 36415; 80053; 85025; 90688; 93005; 93010; 97116-GP; 99281-25; G0008; J1644

== ENCOUNTER 2017-02-24 07:27 | Observation (INO) | payer OTHER ==
[2017-02-24 07:36] VITALS: BMI 54.1
[2017-02-24] MEDS ORDERED: ALBUTEROL SO4 2.5/IPRATROPIUM 0.5 INH SOL 3 ML VIAL.NEB. NEB ONE ×4 (08:05→16:07)
[2017-02-24] MEDS ORDERED: methylPREDNISolone NA SUCC 125 MG/2 ML VIAL ONE ×3 (08:43→16:07)
[2017-02-24] MEDS ORDERED: methylPREDNISolone NA SUCC 125 MG/2 ML VIAL IVPB ONE (08:46)
[2017-02-24 08:51] LABS: BASOPHIL 0.3 % (0-2.0); EOSINOPHIL 1.8 % (0-4.5); MCH 30.5 pg (25.7-33.7); MCHC 33.5 g/dl (32.0-36.0); MEAN CELL VOLUME 90.9 fl (80-96); MEAN PLT VOLUME 7.5 fl (7.5-11.1); PLATELET COUNT 244 K/MM3 (134-434); RDW 15.2 % (11.6-15.6); WHITE BLOOD COUNT 12.1 K/mm3 (4.0-10.0)
[2017-02-24 09:20] LABS: ALBUMIN 3.3 g/dl (3.4-5.0); ANION GAP 9 (8-16); BILIRUBIN,TOTAL 0.7 mg/dL (0.2-1.0); CALCIUM 8.3 mg/dL (8.5-10.1); CO2 25 mmol/L (21-32); CREATININE 0.7 mg/dL (0.55-1.02); GLUCOSE,RANDOM 154 mg/dL (74-106); MAGNESIUM 1.8 mg/dL (1.8-2.4); SGOT/AST 11 U/L (15-37); SGPT/ALT 34 U/L (12-78); TOT PROT 6.9 g/dl (6.4-8.2)
[2017-02-24 09:22] LABS: ALK PHOS 87 U/L (45-117); CPK 51 IU/L (26-192); TROPONIN I < 0.02 ng/ml (0.00-0.05)
--- NOTE | 2017-02-24 09:41 | PDOC ---
History of Present Illness - General Chief Complaint: Shortness of Breath Stated Complaint: ASTHMA Time Seen by Provider: 02/24/17 08:04 History Source: Patient Exam Limitations: No Limitations - History of Present Illness Initial Comments: 02/24/17 08:33 The patient is a 46F with a PMH of asthma who presents to the ED with worsening SOB. The patient states that 3 days ago she started developing cold-like symptoms which acutely worsened into an asthma attack at 0430 this morning. The patient states that she tried her nebulizer treatment with no help and decided to come to the ER. She takes no medications besides meds for chronic BP. The patient also endorses chest pain, which is sharp, pleuritic, and worse with coughing. She states she had a cardiac cath 3 years ago which was normal. Past History - Past Medical History Allergies/Adverse Reactions: Allergies Allergy/AdvReac Type Severity Reaction Status Date / Time Penicillins Allergy Mild Rash Verified 02/24/17 07:31 Home Medications: Ambulatory Orders Methocarbamol [Robaxin -] 500 mg PO BID MDD 3 02/24/17 Oxycodone HCl/Acetaminophen [Percocet 10-325 mg Tablet] 2 each PO BID 02/24/17 Anemia: No Asthma: Yes Cancer: No Cardiac Disorders: No CVA: No CHF: No Diabetes: No Seizures: No - Surgical History Abdominal Surgery: Yes (TUBAL LIGATION) Cholecystectomy: Yes Orthopedic Surgery: Yes (L. Knee & rt. knee, b/l carpal tunnel surgery ) - Family Disease History Family Disease History: Heart Disease: Mother - Immunization History Immunization Up to Date: Yes - Suicide/Smoking/Psychosocial Hx Smoking Status: Yes Smoking History: Current every day smoker Years of Tobacco Use: 10 Have you smoked in the past 12 months: Yes Number of Cigarettes Smoked Daily: 10 If you are a former smoker, when did you quit?: 08/28/16 Information on smoking cessation initiated: No 'Breaking Loose' booklet given: 05/25/14 Hx Alcohol Use: Yes (rarely.) Drug/Substance Use Hx: No Substance Use Type: Alcohol Hx Substance Use Treatment: No Review of Systems - Review of Systems Constitutional: Yes: Chills. No: Fever HEENTM: Yes: Throat Pain ("from coughing"). No: Eye Pain, Nose Pain Respiratory: Yes: Cough, Shortness of Breath, Wheezing, Productive cough (white phlegm) Cardiac (ROS): Yes: Chest Pain (pressure) ABD/GI: No: Nausea, Vomiting : No: Burning, Dysuria Musculoskeletal: Yes: Back Pain (chronic) Integumentary: No: Bruising, Lesions, Lumps, Rash Neurological: No: Headache, Numbness, Tingling, Weakness Psychiatric: No: Stressors, Mood Swings Endocrine: No: Flushing, Intolerance to Heat *Physical Exam - Vital Signs Last Vital Signs Temp Pulse Resp BP Pulse Ox 98.6 F 100 H 24 144/69 96 02/24/17 07:31 02/24/17 07:31 02/24/17 07:31 02/24/17 07:31 02/24/17 07:31 - Physical Exam General Appearance: Yes: Nourished, Appropriately Dressed, Mild Distress, Obese HEENT: positive: Normal Voice (Speaking in full sentences), Hearing Grossly Normal. negative: Tonsillar Exudate, Tonsillar Erythema Respiratory/Chest: positive: Respiratory Distress, Rapid RR, Wheezing (diffuse expiratory). negative: Chest Tender, Lungs Clear, Normal Breath Sounds, Accessory Muscle Use, Decreased Breath Sounds Cardiovascular: positive: Regular Rhythm, S1, S2, Tachycardia. negative: Diastolic Murmur, Systolic Murmur Gastrointestinal/Abdominal: positive: Flat, Soft. negative: Tender Musculoskeletal: negative: CVA Tenderness, CVA Tenderness (R), CVA Tenderness (L ) Extremity: positive: Normal Inspection. negative: Tender, Coldness, Cyanosis Integumentary: positive: Dry, Warm. negative: Clammy, Diaphoresis Neurologic: positive: Fully Oriented, Alert, Normal Mood/Affect, Normal Response , Motor Strength 5/5 Heart Score/ECG Review - History History: Slightly suspicious - Electrocardiogram EKG: Normal - Age Age: </= 45 - Risk Factors Risk Factors Heart Score: No Hx Hypercholesterolemia, No Hx Hypertension, No Hx Diabetes, No Smoking History Based on the list above the patient has:: No risk factors known - Troponin Troponin: </= normal limit - Score Heart Score - Total: 0 - ECG Intrepretation Rhythm: Regular Rhythm - [place] Concord: Normal - ECG Impressions Normal ECG: Yes ED Treatment Course - LABORATORY CBC & Chemistry Diagram: 02/24/17 08:38 02/24/17 08:38 - RADIOLOGY Radiology Studies Ordered: Category Date Time Status CHEST PA & LAT [RAD] Stat Radiology 02/24/17 08:23 Ordered - Medications Given in the ED: ED Medications Discontinued Medications Generic Name Dose Route Start Last Admin Trade Name Blane PRN Reason Stop Dose Admin Albuterol/Ipratropium 1 amp 02/24/17 08:05 02/24/17 08:13 Duoneb - NEB 02/24/17 08:06 1 amp ONCE ONE Administration Medical Decision Making - Medical Decision Making 02/24/17 09:45 The patient is a 46F with a PMH of asthma, no intubations but has been hospitalized for 8 days. She was tachypneic and tachycardic on presentation with diffuse expiratory wheezes. I have low suspicion for ACS but will r/o with cardiac profile and EKG. Asthma exacerbation likely 2/2 cold/ allergies. Will reassess when patient labs/imaging return. Duoneb and solumedrol given. *DC/Admit/Observation/Transfer Diagnosis at time of Disposition: Asthma exacerbation - Discharge Dispostion Condition at time of disposition: Fair
--- NOTE | 2017-02-24 09:53 | PDOC ---
Attending Attestation - Resident Resident Name: Dimas Fraser - ED Attending Attestation I have performed the following: I have examined & evaluated the patient, The case was reviewed & discussed with the resident, I agree w/resident's findings & plan, Exceptions are as noted - HPI HPI: 02/24/17 09:48 46y/o F h/o asthma (admitted but never intubated) and bouts of pneumonia, active 1/2 ppd smoker p/w URI sxs for 3 days and now increased wheezing/cough/ chest congestion typical of her asthma. no f/c/night sweats. no other myalgias or travel. no known cardiac history, had normal cath in 2013. no PE risk factors. - Physicial Exam PE: 02/24/17 09:50 slight tachy at triage, O2 100% on 2L diffuse expiratory wheeze without accessory muscle use, no focally decreased breath sounds heart regular no edema - Medical Decision Making 02/24/17 09:51 46y/o F with likely asthma exacerbation in the setting of URI for 3 days. No signs or symptoms suggestive of primary cardiac process, rule out pneumonia. Labs, EKG, chest x-ray Labs, steroids Reassess and dispo accordingly 02/24/17 10:36 wbc 12.1 with normal diff, chem wnl including trop, cxr clear. improved after nebs but still feels congestion and was SOB walking to bathroom. Will needs persistent treatment and more monitoring. Will place on observation, give additional nebs/magnesium now. Dr. Mckeon, patient's group fitness manager, consulted. 02/24/17 10:48 D/W Dr. Hair, admitting to Dr. Allen, who was called. Discharge Disposition - Diagnosis Asthma exacerbation Qualifiers: Asthma severity: moderate Asthma persistence: persistent Qualified Code(s): J45.41 - Moderate persistent asthma with (acute) exacerbation - Discharge Dispostion Condition at time of disposition: Fair - Referrals Referrals: Elton Hair MD [Primary Care Provider] - Heart Score/ECG Review #1 General ECG Interpretation: Sinus Rhythm, Normal Rate, Normal Intervals, No acute ischemic changes
[2017-02-24] MEDS: ALBUTEROL SO4 0.083% IH SOL 2.5 MG/3 ML VIAL.NEB. NEB SCH ×3 (11:00→12:45)
[2017-02-24] MEDS: MAGNESIUM SULF 50% (8.12 MEQ/2 ML-1 GM VIAL) IVPB ONE ×2 (11:00→12:45)
--- NOTE | 2017-02-24 11:56 | CON.PULM ---
Consult Consult Specialty:: PULMONARY Referred by:: Dr. Fu Reason for Consultation:: asthma exacerbation - History of Present Illness Chief Complaint: shortness of breath History of Present Illness: 46yo female with h/o asthma, HTN, morbid obesity who presents with worsening shortness of breath x 3 days. She states she took her nebulizer treatment without relief. She has never been intubated but has been hospitalized multiple times more recently. Last on prednisone in January when she was last hospitalized. Reports that her daughter is just getting over a cold. She did receive her flu shot. Best peak flow 550. Was taken off her maintenance inhalers recently as she states her asthma has been controlled. +cough productive of yellow sputum. No fevers but with subjective chills. - History Source History Provided By: Patient, Medical Record Limitations to Obtaining History: No Limitations - Past Medical History Pulmonary: Yes: Asthma - Alcohol/Substance Use Hx Alcohol Use: Yes (rarely.) - Smoking History Smoking history: Current every day smoker Have you smoked in the past 12 months: Yes Aproximately how many cigarettes per day: 10 If you are a former smoker, when did you quit?: 08/28/16 - Social History ADL: Independent Home Medications - Allergies Allergies/Adverse Reactions: Allergies Allergy/AdvReac Type Severity Reaction Status Date / Time Penicillins Allergy Mild Rash Verified 02/24/17 07:31 - Home Medications Home Medications: Ambulatory Orders Methocarbamol [Robaxin -] 500 mg PO BID MDD 3 02/24/17 Oxycodone HCl/Acetaminophen [Percocet 10-325 mg Tablet] 2 each PO BID 02/24/17 Review of Systems - Review of Systems Constitutional: reports: Chills. denies: Fever Eyes: denies: Recent Change in Vision HENT: reports: Nasal Congestion. denies: Throat Pain Neck: denies: Stiffness, Tenderness Cardiovascular: reports: Chest Pain, Shortness of Breath. denies: Edema, Palpitations Respiratory: reports: Cough, Exercise Intolerance, SOB on Exertion, Wheezing. denies: Hemoptysis Gastrointestinal: denies: Abdominal Pain, Nausea, Vomiting Genitourinary: denies: Dysuria, Hematuria Endocrine: denies: Unexplained Weight Gain, Unexplained Weight Loss Physical Exam Vital Sings: Vital Signs Temperature 98.2 F 02/24/17 08:00 Pulse Rate 92 H 02/24/17 08:00 Respiratory Rate 20 02/24/17 08:00 Blood Pressure 158/108 02/24/17 08:00 O2 Sat by Pulse Oximetry (%) 100 02/24/17 08:00 Constitutional: Yes: Calm Eyes: Yes: Conjunctiva Clear, EOM Intact HENT: Yes: Atraumatic, Normocephalic Neck: Yes: Supple, Trachea Midline Cardiovascular: Yes: Regular Rate and Rhythm Respiratory: Yes: Diminished (distant breath sounds). No: Wheezes ...Clubbing: No Gastrointestinal: Yes: Normal Bowel Sounds, Soft, Abdomen, Obese. No: Tenderness Edema: No Imaging - Results Chest X-ray: Report Reviewed, Image Reviewed (no infiltrates) Problem List - Problems (1) Asthma exacerbation Code(s): J45.901 - UNSPECIFIED ASTHMA WITH (ACUTE) EXACERBATION Qualifiers: Asthma severity: moderate Asthma persistence: persistent Qualified Code(s): J45.41 - Moderate persistent asthma with (acute) exacerbation; J45.41 - Moderate persistent asthma with (acute) exacerbation; J45.41 - Moderate persistent asthma with (acute) exacerbation (2) HTN (hypertension) Code(s): I10 - ESSENTIAL (PRIMARY) HYPERTENSION (3) Morbid obesity Code(s): E66.01 - MORBID (SEVERE) OBESITY DUE TO EXCESS CALORIES Assessment/Plan Acute Asthma Exacerbation URI HTN Morbid Obesity - IV medrol - inhaled bronchodilators standing and PRN - O2 as needed - can defer antibiotics at this time - monitor peak flow - singulair - DVT prophylaxis - outpt PFTs and f/u - should be maintained on LABA/ICS as outpt Thank you for this consult Kane Caldwell MD
[2017-02-24] MEDS ORDERED: MAGNESIUM SULF 50% (8.12 MEQ/2 ML-1 GM VIAL) ONE ×2 (12:06→12:13)
[2017-02-24] MEDS ORDERED: ALBUTEROL SO4 0.083% IH SOL 2.5 MG/3 ML VIAL.NEB. NEB ONE ×3 (12:46→19:52)
[2017-02-24] MEDS: ALBUTEROL SO4 2.5/IPRATROPIUM 0.5 INH SOL 3 ML VIAL.NEB. NEB SCH ×3 (13:52→23:01)
[2017-02-24] MEDS ORDERED: METHOCARBAMOL 500 MG TABLET PO ONE (14:03)
[2017-02-24] MEDS ORDERED: METHOCARBAMOL 500 MG TABLET ONE (14:07)
[2017-02-24] MEDS ORDERED: guaiFENesin 200 MG/10 ML 10 ML UNIT-DOSE CUPS PO PRN (15:15)
--- NOTE | 2017-02-24 15:20 | HP ---
Admitting History and Physical - Primary Care Physician PCP: Danilo Allen - Admission Chief Complaint: SOB/COUGH History of Present Illness: 46 Y/O FEMALE HISTORY [place] PRESENTS WITH PERSISTANT ASTHMA THAT WORSENED PAST 2 DAYS WITH COUGH, CHEST PAIN, SOB History Source: Patient Limitations to Obtaining History: No Limitations - Past Medical History Pulmonary: Yes: Asthma - Smoking History Smoking history: Current every day smoker Have you smoked in the past 12 months: Yes Aproximately how many cigarettes per day: 10 If you are a former smoker, when did you quit?: 08/28/16 - Alcohol/Substance Use Hx Alcohol Use: Yes (rarely.) - Social History ADL: Independent Home Medications - Allergies Allergies/Adverse Reactions: Allergies Allergy/AdvReac Type Severity Reaction Status Date / Time Penicillins Allergy Mild Rash Verified 02/24/17 07:31 - Home Medications Home Medications: Ambulatory Orders Methocarbamol [Robaxin -] 500 mg PO BID MDD 3 02/24/17 Oxycodone HCl/Acetaminophen [Percocet 10-325 mg Tablet] 2 each PO BID 02/24/17 Review of Systems - Review of Systems Constitutional: reports: Other Eyes: reports: No Symptoms HENT: reports: No Symptoms Neck: reports: No Symptoms Cardiovascular: reports: Chest Pain, Shortness of Breath Respiratory: reports: Cough, SOB, Wheezing Gastrointestinal: reports: No Symptoms Genitourinary: reports: No Symptoms Musculoskeletal: reports: No Symptoms Integumentary: reports: No Symptoms Neurological: reports: No Symptoms Endocrine: reports: No Symptoms Hematology/Lymphatic: reports: No Symptoms Psychiatric: reports: No Symptoms Physical Examination Vital Signs: Vital Signs Temperature 98.2 F 02/24/17 08:00 Pulse Rate 92 H 02/24/17 08:00 Respiratory Rate 20 02/24/17 08:00 Blood Pressure 158/108 02/24/17 08:00 O2 Sat by Pulse Oximetry (%) 100 02/24/17 08:00 Constitutional: Yes: Mild Distress Eyes: Yes: WNL HENT: Yes: WNL Neck: Yes: WNL Cardiovascular: Yes: WNL Respiratory: Yes: Cough, On Nasal O2, Rhonchi, SOB Gastrointestinal: Yes: WNL Musculoskeletal: Yes: Back Pain Extremities: Yes: WNL Peripheral Pulses WNL: Yes Integumentary: Yes: WNL Wound/Incision: Yes: Clean/Dry Neurological: Yes: WNL ...Motor Strength: WNL Psychiatric: Yes: WNL Problem List - Problems (1) Asthma exacerbation Code(s): J45.901 - UNSPECIFIED ASTHMA WITH (ACUTE) EXACERBATION Qualifiers: Asthma severity: moderate Asthma persistence: persistent Qualified Code(s): J45.41 - Moderate persistent asthma with (acute) exacerbation; J45.41 - Moderate persistent asthma with (acute) exacerbation; J45.41 - Moderate persistent asthma with (acute) exacerbation (2) Chest pain Code(s): R07.9 - CHEST PAIN, UNSPECIFIED Qualifiers: Chest pain type: intercostal pain Qualified Code(s): R07.82 - Intercostal pain; R07.82 - Intercostal pain (3) Diabetes Code(s): E11.9 - TYPE 2 DIABETES MELLITUS WITHOUT COMPLICATIONS Qualifiers: Diabetes mellitus type: type 2 (4) HTN (hypertension) Code(s): I10 - ESSENTIAL (PRIMARY) HYPERTENSION (5) Herniated disc Code(s): [id number] - Assessment/Plan IV STEROIDS NEBS COUGH SYRUP 02 SUPPORT PULMONARY FOLLOW UP
[2017-02-24] MEDS: ALBUTEROL SO4 0.083% IH SOL 2.5 MG/3 ML VIAL.NEB. NEB PRN ×2 (16:12→19:55)
[2017-02-24] MEDS: oxyCODONE HCL 5 MG TABLET PO PRN ×2 (16:12→23:07)
[2017-02-24] MEDS: methylPREDNISolone NA SUCC 40 MG/1 ML VIAL IVPB SCH (17:11)
--- NOTE | 2017-02-24 22:17 | EKG ---
Test Reason : Blood Pressure : / mmHG Vent. Rate : 088 BPM Atrial Rate : 088 BPM P-R Int : 128 ms QRS Dur : 098 ms QT Int : 380 ms P-R-T Axes : 052 069 033 degrees QTc Int : 459 ms NORMAL SINUS RHYTHM ATRIAL ABNORMALITY WHEN COMPARED WITH ECG OF 04-FEB-2017 08:57, NO SIGNIFICANT CHANGE WAS FOUND CLINICAL CORRELATION IS RECOMMENDED Confirmed by JULIANNE CALDERON MD ([id number]) on 02/24/2017 10:17:44 PM Referred By: Confirmed By:JULIANNE CALDERON MD
[2017-02-24] MEDS: MONTELUKAST NA 10 MG TABLET PO SCH (22:58)
[2017-02-24] MEDS: DOCUSATE SODIUM 100 MG CAPSULE (FP) PO SCH (22:58)
[2017-02-24] MEDS: METHOCARBAMOL 500 MG TABLET PO SCH (22:58)
[2017-02-24] MEDS: HEPARIN NA (PORCINE) 5,000 UNITS/ML 1ML VIAL SQ SCH (22:58)
[2017-02-24] MEDS: ACETAMINOPHEN 325 MG TABLET (FP) PO PRN (23:07)
[2017-02-24] MEDS ORDERED: INSULIN (NOVOLOG) ASPART 100 UNITS/ML 10ML VIAL SQ ONE (23:45)
[2017-02-25] MEDS: methylPREDNISolone NA SUCC 40 MG/1 ML VIAL IVPB SCH ×2 (02:11→09:50)
[2017-02-25] MEDS: ALBUTEROL SO4 2.5/IPRATROPIUM 0.5 INH SOL 3 ML VIAL.NEB. NEB SCH ×3 (05:55→17:15)
[2017-02-25] MEDS: ACETAMINOPHEN 325 MG TABLET (FP) PO PRN ×3 (06:41→23:06)
[2017-02-25] MEDS: oxyCODONE HCL 5 MG TABLET PO PRN ×3 (06:41→23:05)
[2017-02-25] MEDS: INSULIN SLIDING SCALE (NOVOLOG) 1 VIAL SQ SCH ×4 (06:44→23:32)
[2017-02-25] MEDS ORDERED: PT OWN MED DRAWER 7, Y5N ONE (09:40)
[2017-02-25] MEDS: METHOCARBAMOL 500 MG TABLET PO SCH ×2 (09:51→22:58)
[2017-02-25] MEDS: HEPARIN NA (PORCINE) 5,000 UNITS/ML 1ML VIAL SQ SCH ×2 (09:51→22:58)
[2017-02-25] MEDS: PANTOPRAZOLE 40 MG TABLET (FP) PO SCH (09:51)
[2017-02-25] MEDS ORDERED: INSULIN (NOVOLOG) ASPART 100 UNITS/ML 10ML VIAL ONE (11:48)
--- NOTE | 2017-02-25 15:48 | PN ---
Progress Note, Physician Chief Complaint: AWAKE ALERT FEELING BETTER - Current Medication List Current Medications: Active Medications Acetaminophen (Tylenol -) 650 mg PO Q6H PRN PRN Reason: FEVER OR PAIN Last Admin: 02/25/17 15:11 Dose: 650 mg Albuterol Sulfate (Ventolin 0.083% Nebulizer Soln -) 1 amp NEB Q4H PRN PRN Reason: SHORT OF BREATH/WHEEZING Last Admin: 02/24/17 19:55 Dose: 1 amp Albuterol/Ipratropium (Duoneb -) 1 amp NEB QIDR [facility] Last Admin: 02/25/17 05:55 Dose: 1 amp Docusate Sodium (Colace -) 300 mg PO HS [facility] Last Admin: 02/24/17 22:58 Dose: Not Given Guaifenesin (Robitussin -) 10 ml PO Q6H PRN PRN Reason: COUGH Heparin Sodium (Porcine) (Heparin -) 5,000 unit SQ BID [facility] Last Admin: 02/25/17 09:51 Dose: 5,000 unit Insulin Aspart (Novolog Vial Sliding Scale -) 1 vial SQ ACHS [facility] PRN Reason: Protocol Last Admin: 02/25/17 11:55 Dose: 10 units Methocarbamol (Robaxin -) 500 mg PO BID [facility] Last Admin: 02/25/17 09:51 Dose: 500 mg Methylprednisolone Sodium Succinate (Solu-Medrol -) 60 mg IVPB Q8H-IV [facility] Last Admin: 02/25/17 09:50 Dose: 60 mg Montelukast Sodium (Singulair -) 10 mg PO HS [facility] Last Admin: 02/24/17 22:58 Dose: 10 mg Oxycodone HCl (Roxicodone -) 10 mg PO Q6H PRN PRN Reason: PAIN Last Admin: 02/25/17 15:11 Dose: 10 mg Pantoprazole Sodium (Protonix -) 40 mg PO DAILY [facility] Last Admin: 02/25/17 09:51 Dose: 40 mg - Objective Vital Signs: Vital Signs Temperature 98.2 F 02/25/17 14:06 Pulse Rate 99 H 02/25/17 14:06 Respiratory Rate 20 02/25/17 10:00 Blood Pressure 132/81 02/25/17 14:10 O2 Sat by Pulse Oximetry (%) 97 02/24/17 21:00 Constitutional: Yes: Mild Distress Eyes: Yes: WNL HENT: Yes: WNL Neck: Yes: WNL Cardiovascular: Yes: WNL Respiratory: Yes: Cough, On Nasal O2, Rhonchi, SOB, Wheezes Gastrointestinal: Yes: WNL Genitourinary: Yes: WNL Musculoskeletal: Yes: Back Pain, Muscle Weakness Extremities: Yes: WNL Edema: Yes Peripheral Pulses WNL: Yes Integumentary: Yes: WNL Wound/Incision: Yes: Clean/Dry Neurological: Yes: Pre-Existing Deficit ...Motor Strength: LLE, RLE Problem List - Problems (1) Asthma exacerbation Code(s): J45.901 - UNSPECIFIED ASTHMA WITH (ACUTE) EXACERBATION Qualifiers: Asthma severity: moderate Asthma persistence: persistent Qualified Code(s): J45.41 - Moderate persistent asthma with (acute) exacerbation; J45.41 - Moderate persistent asthma with (acute) exacerbation; J45.41 - Moderate persistent asthma with (acute) exacerbation (2) Chest pain Code(s): R07.9 - CHEST PAIN, UNSPECIFIED Qualifiers: Chest pain type: intercostal pain Qualified Code(s): R07.82 - Intercostal pain; R07.82 - Intercostal pain (3) Diabetes Code(s): E11.9 - TYPE 2 DIABETES MELLITUS WITHOUT COMPLICATIONS Qualifiers: Diabetes mellitus type: type 2 (4) HTN (hypertension) Code(s): I10 - ESSENTIAL (PRIMARY) HYPERTENSION (5) Herniated disc Code(s): [id number] - Assessment/Plan CONTINUE MEDROL IV NEBS OOB TO CHAIR DVT PROPHYLAXIS
--- NOTE | 2017-02-25 16:05 | PN ---
Progress Note (short form) - Note Progress Note: PULMONARY VSS/AFEBRILE ANICTERIC DISTANT BREATH SOUNDS/MILD SCATTERED WHEEZES S1S2 OBESE DEPENDANT EDEMA LABS/MEDS/NOTES/IMAGING REVIEWED PEAK FLOW 440L/M POST BD TREATMENT Acute Asthma Exacerbation URI HTN Morbid Obesity - IV medrol reduced - inhaled bronchodilators standing and PRN - O2 as needed - monitor peak flow - singulair - DVT prophylaxis - outpt PFTs and f/u to r/o osas - will need ics/laba/iris upon discharge with tapering dose schedule of oral steroids Ananda CHILEL MD
[2017-02-25] MEDS: methylPREDNISolone NA SUCC 40 MG/1 ML VIAL IVPUSH SCH (18:52)
[2017-02-25] MEDS: MONTELUKAST NA 10 MG TABLET PO SCH (22:57)
[2017-02-25] MEDS: DOCUSATE SODIUM 100 MG CAPSULE (FP) PO SCH (23:02)
[2017-02-26] MEDS: ALBUTEROL SO4 2.5/IPRATROPIUM 0.5 INH SOL 3 ML VIAL.NEB. NEB SCH ×5 (00:05→23:28)
[2017-02-26] MEDS: ALBUTEROL SO4 0.083% IH SOL 2.5 MG/3 ML VIAL.NEB. NEB PRN ×2 (01:34→10:26)
[2017-02-26] MEDS: methylPREDNISolone NA SUCC 40 MG/1 ML VIAL IVPUSH SCH ×2 (01:56→11:11)
[2017-02-26] MEDS: ACETAMINOPHEN 325 MG TABLET (FP) PO PRN ×2 (05:26→11:30)
[2017-02-26] MEDS: oxyCODONE HCL 5 MG TABLET PO PRN ×3 (05:26→20:12)
[2017-02-26] MEDS: INSULIN SLIDING SCALE (NOVOLOG) 1 VIAL SQ SCH ×4 (06:13→22:20)
[2017-02-26] MEDS: PANTOPRAZOLE 40 MG TABLET (FP) PO SCH (11:02)
[2017-02-26] MEDS: METHOCARBAMOL 500 MG TABLET PO SCH ×2 (11:02→22:14)
[2017-02-26] MEDS: HEPARIN NA (PORCINE) 5,000 UNITS/ML 1ML VIAL SQ SCH ×2 (11:02→22:13)
--- NOTE | 2017-02-26 11:30 | PN ---
Progress Note (short form) - Note Progress Note: PULMONARY Breathing continues to improve. PF 370 this AM. Upset about her hyperglycemia. Last Vital Signs Temp Pulse Resp BP Pulse Ox 98.1 F 96 H 20 180/98 96 02/26/17 09:40 02/26/17 09:50 02/26/17 09:50 02/26/17 09:50 02/25/17 21:00 Gen: NAD at rest Heart: RRR Lung: better air entry, no wheezes appreciated Abd: soft, nontender Ext: no edema CBC, BMP 02/24/17 08:38 02/25/17 22:00 Active Medications Acetaminophen (Tylenol -) 650 mg PO Q6H PRN PRN Reason: FEVER OR PAIN Last Admin: 02/26/17 05:26 Dose: 650 mg Albuterol Sulfate (Ventolin 0.083% Nebulizer Soln -) 1 amp NEB Q4H PRN PRN Reason: SHORT OF BREATH/WHEEZING Last Admin: 02/26/17 10:26 Dose: 1 amp Albuterol/Ipratropium (Duoneb -) 1 amp NEB QIDR [facility] Last Admin: 02/26/17 06:10 Dose: 1 amp Amlodipine Besylate (Norvasc -) 10 mg PO DAILY [facility] Docusate Sodium (Colace -) 300 mg PO HS [facility] Last Admin: 02/25/17 23:02 Dose: Not Given Guaifenesin (Robitussin -) 10 ml PO Q6H PRN PRN Reason: COUGH Heparin Sodium (Porcine) (Heparin -) 5,000 unit SQ BID [facility] Last Admin: 02/26/17 11:02 Dose: 5,000 unit Insulin Aspart (Novolog Vial Sliding Scale -) 1 vial SQ ACHS [facility] PRN Reason: Protocol Last Admin: 02/26/17 06:13 Dose: 2 units Insulin Aspart (Novolog Mix 70/30 Vial) 20 units SQ BIDAC [facility] Methocarbamol (Robaxin -) 500 mg PO BID [facility] Last Admin: 02/26/17 11:02 Dose: 500 mg Montelukast Sodium (Singulair -) 10 mg PO HS [facility] Last Admin: 02/25/17 22:57 Dose: 10 mg Oxycodone HCl (Roxicodone -) 10 mg PO Q6H PRN PRN Reason: PAIN Last Admin: 02/26/17 05:26 Dose: 10 mg Pantoprazole Sodium (Protonix -) 40 mg PO DAILY [facility] Last Admin: 02/26/17 11:02 Dose: 40 mg Prednisone (Deltasone -) 30 mg PO DAILY [facility] A/P Acute Asthma Exacerbation URI HTN Morbid Obesity - agree with changing steroids to PO - inhaled bronchodilators standing and PRN - O2 as needed - monitor peak flow - singulair - DVT prophylaxis - outpt PFTs and f/u - should be maintained on LABA/ICS as outpt Problem List - Problems (1) Asthma exacerbation Code(s): J45.901 - UNSPECIFIED ASTHMA WITH (ACUTE) EXACERBATION Qualifiers: Asthma severity: moderate Asthma persistence: persistent Qualified Code(s): J45.41 - Moderate persistent asthma with (acute) exacerbation; J45.41 - Moderate persistent asthma with (acute) exacerbation; J45.41 - Moderate persistent asthma with (acute) exacerbation (2) HTN (hypertension) Code(s): I10 - ESSENTIAL (PRIMARY) HYPERTENSION (3) Morbid obesity Code(s): E66.01 - MORBID (SEVERE) OBESITY DUE TO EXCESS CALORIES
[2017-02-26] MEDS: amLODIPine BESYLATE 10 MG TABLET (FP) PO SCH (13:05)
[2017-02-26] MEDS: INSULIN (NOVOLOG MIX 70/30) 100 UNITS/ML MDV SQ SCH (17:25)
[2017-02-26] MEDS: RAMIPRIL 5 MG CAPSULE (FP) PO SCH (17:26)
[2017-02-26] MEDS ORDERED: PT OWN MED DRAWER 7, Y5N ONE (22:12)
[2017-02-26] MEDS: DOCUSATE SODIUM 100 MG CAPSULE (FP) PO SCH (22:14)
[2017-02-26] MEDS: MONTELUKAST NA 10 MG TABLET PO SCH (22:14)
[2017-02-27] MEDS: oxyCODONE HCL 5 MG TABLET PO PRN (02:27)
[2017-02-27] MEDS: ACETAMINOPHEN 325 MG TABLET (FP) PO PRN (02:28)
[2017-02-27] MEDS ORDERED: INSULIN (NOVOLOG MIX 70/30) 100 UNITS/ML MDV SQ ONE ×2 (06:03→06:41)
[2017-02-27] MEDS: ALBUTEROL SO4 2.5/IPRATROPIUM 0.5 INH SOL 3 ML VIAL.NEB. NEB SCH ×2 (06:05→11:43)
[2017-02-27] MEDS: INSULIN (NOVOLOG MIX 70/30) 100 UNITS/ML MDV SQ SCH (06:06)
[2017-02-27] MEDS ORDERED: INSULIN (NOVOLOG) ASPART 100 UNITS/ML 10ML VIAL ONE (06:41)
[2017-02-27] MEDS: INSULIN SLIDING SCALE (NOVOLOG) 1 VIAL SQ SCH ×2 (06:44→12:27)
[2017-02-27 08:02] VITALS: TEMP 98.3
[2017-02-27] MEDS ORDERED: PT OWN MED DRAWER 7, Y5N ONE (09:50)
[2017-02-27] MEDS: RAMIPRIL 5 MG CAPSULE (FP) PO SCH (09:56)
[2017-02-27] MEDS: amLODIPine BESYLATE 10 MG TABLET (FP) PO SCH (09:56)
[2017-02-27] MEDS: HEPARIN NA (PORCINE) 5,000 UNITS/ML 1ML VIAL SQ SCH (09:57)
[2017-02-27] MEDS: PANTOPRAZOLE 40 MG TABLET (FP) PO SCH (09:57)
[2017-02-27] MEDS: METHOCARBAMOL 500 MG TABLET PO SCH (09:57)
[2017-02-27] MEDS ORDERED: predniSONE 10 MG TABLET (UD) PO SCH (10:00)
--- NOTE | 2017-02-27 12:30 | DS ---
Physical Examination Vital Signs: Vital Signs Temperature 98.3 F 02/27/17 06:00 Pulse Rate 77 02/27/17 06:00 Respiratory Rate 18 02/27/17 06:00 Blood Pressure 132/63 02/27/17 06:00 O2 Sat by Pulse Oximetry (%) 97 02/26/17 20:29 Constitutional: Yes: No Distress Eyes: Yes: WNL HENT: Yes: WNL Neck: Yes: WNL Cardiovascular: Yes: WNL Respiratory: Yes: WNL Gastrointestinal: Yes: WNL Renal/: Yes: WNL Musculoskeletal: Yes: Back Pain Extremities: Yes: WNL Edema: Yes Peripheral Pulses WNL: Yes Integumentary: Yes: WNL Wound/Incision: Yes: Clean/Dry Neurological: Yes: WNL ...Motor Strength: WNL Psychiatric: Yes: WNL Labs: CBC, BMP 02/25/17 22:00 Discharge Summary Reason For Visit: EXACERBATION OF ASTHMA Current Active Problems Asthma attack (Acute) Asthma exacerbation (Acute) Chest pain (Acute) Diabetes (Acute) HTN (hypertension) (Acute) Herniated disc (Acute) Hyperglycemia (Acute) Leukocytosis (Acute) Low back strain (Acute) Morbid (severe) obesity due to excess calories (Acute) Morbid obesity (Acute) Penicillin allergy (Acute) Smoker (Acute) Thyroiditis, autoimmune (Acute) Wheezing (Acute) Procedures: Principal: CXR Hospital Course: ADMITTED FOR ACUTE ASTHMA EXACERBATION, TREATED IV STEROIDS, INSULIN SLIDING SCALE, 02 SUPPORT, DC HOME NOW RESOLVED Condition: Fair - Instructions Diet, Activity, Other Instructions: SEE DR URBAN IN 3 DAYS ADA/LOW SODIUM DIET Referrals: Elton Urban MD [Primary Care Provider] - Disposition: HOME - Home Medications Comprehensive Discharge Medication List: Ambulatory Orders Albuterol 0.083% Nebulizer Kellie [Ventolin 0.083% Nebulizer Soln -] 1 amp NEB Q4H PRN #120 amp 02/27/17 Albuterol 2.5/Ipratropium 0.5 [Duoneb -] 1 amp NEB QIDR amp 02/27/17 Amlodipine Besylate [Norvasc -] 10 mg PO DAILY #30 tablet 02/27/17 Docusate Sodium [Colace -] 300 mg PO HS #30 cap 02/27/17 Guaifenesin [Robitussin -] 10 ml PO Q6H PRN #500 syr 02/27/17 Insulin (Novolog) [Novolog Flexpen] 5 units SQ ACHS #4 pen 02/27/17 Insulin Aspart [Novolog Flexpen] 100 unit SQ ACHS #4 insuln.pen 02/27/17 Methocarbamol [Robaxin -] 500 mg PO BID #0 tab MDD 3 02/27/17 Methocarbamol [Robaxin -] 500 mg PO BID #60 tablet 02/27/17 Montelukast Na [Singulair -] 10 mg PO HS #30 tablet 02/27/17 Oxycodone HCl/Acetaminophen [Percocet 10-325 mg Tablet] 2 each PO BID #0 tab MDD 4 02/27/17 Pantoprazole Sodium [Protonix -] 40 mg PO DAILY #30 tab 02/27/17 Prednisone [Deltasone -] 30 mg PO DAILY #30 tablet 02/27/17 Ramipril [Altace] 5 mg PO DAILY #30 cap 02/27/17
[2017-02-27 12:38] VITALS: BP 154/90; PULSE 91
--- NOTE | 2017-02-27 13:13 | PN ---
Progress Note (short form) - Note Progress Note: PULMONARY VSS/AFEBRILE ANICTERIC DISTANT BREATH SOUNDS/ S1S2 OBESE DEPENDANT EDEMA LABS/MEDS/NOTES/IMAGING REVIEWED PEAK FLOW 440L/M POST BD TREATMENT Acute Asthma Exacerbation resolved URI HTN Morbid Obesity - outpatient tapering of prednisone - inhaled bronchodilators standing and PRN - monitor peak flow as outpatient - singulair - outpt PFTs and f/u to r/o [facility] - will need ics/laba/iris upon discharge with tapering dose schedule of oral steroids Ananda CHILEL MD
== END 2017-02-27 14:16 | disposition home or self-care (01) ==
LOC: JER 07:27 → JERBED 10:38 → UNDOADMOB 10:38 → INTOOBSV 15:14 → OBSVTOIN 15:14 → J5S 21:04 → JERBED 21:04 → J5S 02-25 16:40
PROVIDERS: ADMIT Family Medicine; ATTEND Family Medicine
PROC: 3E033NZ Introduction of Analgesics, Hypnotics, Sedatives into Peripheral Vein, Percutaneous Approach (ICD-10-PCS; principal; 2017-02-25)
PROC: 3E013VG Introduction of Insulin into Subcutaneous Tissue, Percutaneous Approach (ICD-10-PCS; 2017-02-25)
PROC: 3E0F7GC Introduction of Other Therapeutic Substance into Respiratory Tract, Via Natural or Artificial Opening (ICD-10-PCS; 2017-02-25)
PROC: 3E0F7GC Introduction of Other Therapeutic Substance into Respiratory Tract, Via Natural or Artificial Opening (ICD-10-PCS; 2017-02-25)
PROC: 3E0F7GC Introduction of Other Therapeutic Substance into Respiratory Tract, Via Natural or Artificial Opening (ICD-10-PCS; 2017-02-25)
DX: J45.41 Moderate persistent asthma with (acute) exacerbation (principal); J06.9 Acute upper respiratory infection, unspecified; R07.82 Intercostal pain; I10 Essential (primary) hypertension; F17.210 Nicotine dependence, cigarettes, uncomplicated; Z88.0 Allergy status to penicillin; E11.65 Type 2 diabetes mellitus with hyperglycemia; D72.829 Elevated white blood cell count, unspecified; E66.01 Morbid (severe) obesity due to excess calories; Z68.43 Body mass index [BMI] 50.0-59.9, adult; Z79.4 Long term (current) use of insulin
CPT/HCPCS: 36415; 71020-TC; 80053; 82550; 82947; 83735; 84484; 84703; 85025; 93005; 93010; 94150; 94640; 96372; 96374; 96376; 99284-25; G0378; J1644

== ENCOUNTER 2017-05-17 23:26 | Emergency (ER) | payer OTHER ==
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
[2017-05-17 23:38] VITALS: BP 133/86; PULSE 95; TEMP 98.2; BMI 56.1
[2017-05-17] MEDS ORDERED: METHOCARBAMOL 500 MG TABLET ONE (23:39)
[2017-05-17] MEDS ORDERED: METHOCARBAMOL 500 MG TABLET PO ONE (23:39)
== END 2017-05-18 00:03 | disposition home or self-care (01) ==
LOC: FER 23:26
DX: M54.16 Radiculopathy, lumbar region (principal); E66.01 Morbid (severe) obesity due to excess calories; Z68.26 Body mass index [BMI] 26.0-26.9, adult; F17.210 Nicotine dependence, cigarettes, uncomplicated; J45.909 Unspecified asthma, uncomplicated; S39.012A Strain of muscle, fascia and tendon of lower back, initial encounter; M51.26 Other intervertebral disc displacement, lumbar region; X58.XXXA Exposure to other specified factors, initial encounter; Y93.89 Activity, other specified; Y92.9 Unspecified place or not applicable; G89.29 Other chronic pain
CPT/HCPCS: 99281-25

== ENCOUNTER 2017-06-25 19:25 | Emergency (ER) | payer OTHER ==
[2017-06-25 19:49] VITALS: BP 155/104; PULSE 79; TEMP 98.7; BMI 53.1
--- NOTE | 2017-06-25 19:49 | PDOC ---
History of Present Illness - General History Source: Patient Exam Limitations: No Limitations - History of Present Illness Initial Comments: 06/25/17 19:54 The patient is a 46 year old female with history of obesity who presents to the ED complaining of right groin pain that began approximately 1 hour prior to evaluation s/p mechanical fall. She states she slipped and fell, sliding down stair steps. She landed on her right shoulder. While falling, she "split" her legs and felt a tearing sensation in her groin. Since then she has had persistent right groin pain. Pain is constant, worse with movement. No numbness or tingling. No loss of consciousness. PAST MEDICAL HISTORY: no significant history PAST SURGICAL HISTORY: no significant history FAMILY HISTORY: no pertinent history SOCIAL HISTORY: Pt lives with family and is employed. MEDICATIONS: reviewed ALLERGIES: As per nursing notes Adult ROS General: No fevers or chills, no weakness, no weight loss HEENT: No change in vision. No sore throat,. No ear pain CardioVascular: No chest pain or shortness of breath Respiratory:No cough, or wheezing. Gastrointestinal: no nausea, vomiting, diarrhea or constipation, No rectal bleeding Genitourinary: No dysuria, hematuria, or frequency Musculoskeletal: +Right groin pain. No joint or muscle pain or swelling Neurologic: No headache, vertigo, dizziness or loss of consciousness Psychiatric: nor depression Skin: No rashes or easy bruising Endocrine: no increased thirst or abnormal weight change Allergic: no skin or latex allergy All other systems reviewed and normal Adult Exam: General: Well-nourished well-developed individual. Morbidly obese. HEENT: Throat: Normal, tonsils normal, no erythema or exudate Neck: Supple, no meningeal signs, no lymphadenopathy Eyes::Pupils equal reactive and round, extraocular motion intact Chest: Nontender to palpation Cardiac: S1-S2 normal, regular rate and rhythm, no murmurs rubs or gallops Respiratory: Lungs clear to auscultation bilateral Abdomen: Soft, nondistended, normal bowel sounds, nontender to palpation diffusely Extremities: Right shoulder is nontender with no obvious contusion and no gross deformity. Pain in the medial right hip with no tenderness to palpation to the lateral right hip. Pain with bearing weight on RLE. Warm, dry, no cyanosis, clubbing, or edema Skin: No rashes Neuro: Alert and oriented x3, nonfocal exam, grossly intact, painful ambulation. Psych: Normal mood and affect Pelvic: Exam limited secondary to body habitus. No obvious contusion. 06/25/17 20:05 Documentation prepared by Marguerite Ferguson, acting as chief medical physicist for Dang Rincon MD. <Marguerite Ferguson - Last Filed: 06/25/17 20:49> - General History Source: Patient Exam Limitations: No Limitations - History of Present Illness Initial Comments: A portion of this note was documented by scribe services under my direction. I have reviewed the details of the note, within reason, and agree with the documentation. The case summary and management plan written by me. Assessment and plan: This is a 46-year-old female who fell while going down some stairs injuring her right groin area. Patient had x-rays of her pelvis that were negative for any acute fractures. Patient has an exam that is consistent with a muscle strain of the groin. Patient was given Percocet as she did not want to take any anti-inflammatories. Patient discharged home will follow-up with her primary care doctor 06/25/17 21:47 <Dang Rincon I - Last Filed: 06/25/17 21:48> - General Chief Complaint: Injury Stated Complaint: S/P FALL DOWN 7 STEPS INJURED RIGHT GROIN, [place] Time Seen by Provider: 06/25/17 19:29 Past History <Marguerite Ferguson - Last Filed: 06/25/17 20:49> - Past Medical History Anemia: No Asthma: Yes Cancer: No Cardiac Disorders: No CVA: No COPD: No CHF: No Diabetes: No HTN: No Hypercholesterolemia: No Seizures: No - Surgical History Abdominal Surgery: Yes (TUBAL LIGATION) Cholecystectomy: Yes Orthopedic Surgery: Yes (L. Knee & rt. knee, b/l carpal tunnel surgery ) - Family Disease History Family Disease History: Heart Disease: Mother - Immunization History Immunization Up to Date: Yes - Suicide/Smoking/Psychosocial Hx Smoking Status: Yes Smoking History: Current every day smoker Years of Tobacco Use: 10 Have you smoked in the past 12 months: Yes Number of Cigarettes Smoked Daily: 10 If you are a former smoker, when did you quit?: 08/28/16 'Breaking Loose' booklet given: 05/17/17 Hx Alcohol Use: Yes (rarely.) Drug/Substance Use Hx: No Substance Use Type: Alcohol Hx Substance Use Treatment: No <Dang Rincon I - Last Filed: 06/25/17 21:48> - Past Medical History Allergies/Adverse Reactions: Allergies Allergy/AdvReac Type Severity Reaction Status Date / Time Penicillins Allergy Mild Rash Verified 06/25/17 19:29 Home Medications: Ambulatory Orders Oxycodone HCl/Acetaminophen [Percocet 5-325 mg Tablet] 1 - 2 tab PO Q4H #20 tablet MDD 8 06/25/17 Trauma Specific PMHX - Complaint Specific PMHX Back Injury: No Neck Injury: No <Dang Rincon I - Last Filed: 06/25/17 21:48> *Physical Exam - Vital Signs Last Vital Signs Temp Pulse Resp BP Pulse Ox 98.7 F 79 16 155/104 96 06/25/17 19:28 06/25/17 19:28 06/25/17 19:28 06/25/17 19:28 06/25/17 19:28 <Marguerite Ferguson - Last Filed: 06/25/17 20:49> *DC/Admit/Observation/Transfer <Marguerite Ferguson - Last Filed: 06/25/17 20:49> - Discharge Dispostion Admit: No <Dang Rincon I - Last Filed: 06/25/17 21:48> Diagnosis at time of Disposition: Strain of right inguinal muscle Qualifiers: Encounter type: initial encounter Qualified Code(s): S39.013A - Strain of muscle, fascia and tendon of pelvis, initial encounter - Discharge Dispostion Disposition: HOME Condition at time of disposition: Stable - Prescriptions Prescriptions: Oxycodone HCl/Acetaminophen [Percocet 5-325 mg Tablet] 1 - 2 tab PO Q4H #20 tablet MDD 8 - Patient Instructions Additional Instructions: For the pain take ibuprofen 3 tablets 3 times a day with food don't take on an empty stomach if he needs something stronger For the pain take Percocet one or 2 tablets every 4-6 hours as needed the Percocet will make you drowsy so do not drive or try to do anything that requires concentration while taking it. Return to the emergency department immediately with ANY new, persistent or worsening symptoms. Continue any medications as previously prescribed by your physician. You should follow up with your primary doctor as soon as possible regarding today's emergency department visit. . Please make sure your doctor reviews the results of your emergency evaluation. Thank you for coming to the Emergency Department today for your care. It was a pleasure to see you today. Please note that your evaluation is INCOMPLETE until you follow-up with your doctor.
[2017-06-25] MEDS ORDERED: KETOROLAC TROMETHAMINE 60 MG/2 ML VIAL IM ONE (19:54)
[2017-06-25] MEDS ORDERED: KETOROLAC TROMETHAMINE 60 MG/2 ML VIAL ONE (20:06)
== END 2017-06-25 21:36 | disposition home or self-care (01) ==
LOC: FER 19:25
DX: S39.013A Strain of muscle, fascia and tendon of pelvis, initial encounter (principal); W18.30XA Fall on same level, unspecified, initial encounter; Y93.9 Activity, unspecified; Y92.9 Unspecified place or not applicable; E66.9 Obesity, unspecified; Z68.43 Body mass index [BMI] 50.0-59.9, adult; J45.909 Unspecified asthma, uncomplicated; F17.210 Nicotine dependence, cigarettes, uncomplicated
CPT/HCPCS: 72170-TC-FY; 99281-25

== ENCOUNTER 2017-07-09 21:51 | Emergency (ER) | payer OTHER ==
[2017-07-09 22:09] VITALS: BMI 53.1
[2017-07-09 23:08] LABS: URINE APPEARANCE CLEAR; URINE BILIRUBIN NEGATIVE (NEGATIVE); URINE BLOOD NEGATIVE (NEGATIVE); URINE COLOR YELLOW; URINE GLUCOSE (UA) NEGATIVE (NEGATIVE); URINE KETONE NEGATIVE (NEGATIVE); URINE LEUK ESTERASE TRACE (NEGATIVE); URINE NITRITE NEGATIVE (NEGATIVE); URINE PROTEIN NEGATIVE (NEGATIVE)
[2017-07-09 23:09] LABS: HCG,QUALITATIVE URINE NEGATIVE
[2017-07-09 23:10] LABS: EPI CELLS RARE /HPF (FEW); URINE HYALINE CAST 1 /lpf; URINE MUCUS RARE
[2017-07-09] MEDS ORDERED: METHOCARBAMOL 500 MG TABLET PO ONE (23:44)
[2017-07-09] MEDS ORDERED: METHOCARBAMOL 500 MG TABLET ONE (23:45)
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
[2017-07-10 01:47] VITALS: BP 124/80; PULSE 80; TEMP 98.3
== END 2017-07-10 01:50 | disposition home or self-care (01) ==
LOC: JER 21:51
DX: S39.012A Strain of muscle, fascia and tendon of lower back, initial encounter (principal); W01.0XXA Fall on same level from slipping, tripping and stumbling without subsequent striking against object, initial encounter; Y93.89 Activity, other specified; Y92.59 Other trade areas as the place of occurrence of the external cause; Y99.8 Other external cause status
CPT/HCPCS: 72131-TC; 81003; 81015; 84703; 87086; 99284-25

== ENCOUNTER 2017-09-05 19:51 | Emergency (ER) | payer OTHER ==
[2017-09-05 19:56] VITALS: BP 126/95; PULSE 102; TEMP 98.5; BMI 53.1
--- NOTE | 2017-09-05 20:39 | PDOC ---
History of Present Illness - General Chief Complaint: Injury Stated Complaint: FALL INJURY Time Seen by Provider: 09/05/17 20:36 History Source: Patient Exam Limitations: No Limitations - History of Present Illness Initial Comments: CHIEF COMPLAINT: 47 y/o female with recurrent rotator cuff injuries c/o right shoulder pain s/p slip and fall today. HISTORY OF PRESENT ILLNESS: The patient tripped while talking on the phone and fell onto her right arm. She states she heard her shoulder rip and thinks she re-tore her rotator cuff. She denies numbness/tingling in her right hand/ fingers. Vital signs on arrival are notable for pulse of 102. REVIEW OF SYSTEMS: GENERAL/CONSTITUTIONAL: No fever/chills. No weakness. No weight change. MUSCULOSKELETAL: +right shoulder pain. No neck or back pain. SKIN: No rash or easy bruising. NEUROLOGIC: No headache, vertigo, loss of consciousness, or loss of sensation. PHYSICAL EXAM: VITAL_SIGNS: within normal limits GENERAL_APPEARANCE: alert, cooperative, mild obvious discomfort. patient is holding her right arm to her chest. MENTAL_STATUS: speech clear, oriented X 3, responds appropriately to questions. NEURO: motor intact and sensory intact in injured extremity. EXTREMITIES: TTP of right AC joint and along right lateral scapular border. Patient is guarding and will not let me range her right arm. No shoulder deformities or dislocations. No clavicular TTP, crepitus, deformities or tenting. SKIN: warm, dry, good color. Past History - Past Medical History Allergies/Adverse Reactions: Allergies Allergy/AdvReac Type Severity Reaction Status Date / Time Penicillins Allergy Mild Rash Verified 09/05/17 19:53 Home Medications: Ambulatory Orders Oxycodone HCl/Acetaminophen [Percocet 5-325 mg Tablet] 1 - 2 tab PO Q4H #20 tablet MDD 8 06/25/17 Methocarbamol [Robaxin -] 500 mg PO TID #60 tablet 07/10/17 Oxycodone HCl/Acetaminophen [Percocet 5-325 mg Tablet] 1 - 2 tab PO Q4H #15 tablet MDD 6 09/05/17 Anemia: No Asthma: Yes Cancer: No Cardiac Disorders: No CVA: No COPD: No CHF: No Diabetes: No GI Disorders: Yes (ACID REFLUX) HTN: No Hypercholesterolemia: No Seizures: No - Surgical History Abdominal Surgery: Yes (TUBAL LIGATION) Cholecystectomy: Yes Orthopedic Surgery: Yes (L. Knee & rt. knee, b/l carpal tunnel surgery ) - Family Disease History Family Disease History: Heart Disease: Mother - Immunization History Immunization Up to Date: Yes - Suicide/Smoking/Psychosocial Hx Smoking Status: Yes Smoking History: Former smoker Years of Tobacco Use: 10 Have you smoked in the past 12 months: Yes Number of Cigarettes Smoked Daily: 10 If you are a former smoker, when did you quit?: 2017 Information on smoking cessation initiated: No 'Breaking Loose' booklet given: 05/17/17 Hx Alcohol Use: No Drug/Substance Use Hx: No Substance Use Type: Alcohol Hx Substance Use Treatment: No *Physical Exam - Vital Signs Last Vital Signs Temp Pulse Resp BP Pulse Ox 98.5 F 102 H 18 126/95 97 09/05/17 19:53 09/05/17 19:53 09/05/17 19:53 09/05/17 19:53 09/05/17 19:53 Medical Decision Making - Medical Decision Making A/P: 47 y/o female with possible right rotator cuff injury. Will provide sling and PO percocet for pain. Will send rx for percocet. The patient states her orthopedic doctor is at [facility] and she will call thursday. She does not need a referral. *DC/Admit/Observation/Transfer Diagnosis at time of Disposition: Shoulder injury Qualifiers: Encounter type: initial encounter Laterality: right Qualified Code(s): S49.91XA - Unspecified injury of right shoulder and upper arm, initial encounter Injury of right rotator cuff Qualifiers: Encounter type: initial encounter Qualified Code(s): S46.001A - Unspecified injury of muscle(s) and tendon(s) of the rotator cuff of right shoulder, initial encounter - Discharge Dispostion Disposition: HOME Condition at time of disposition: Good - Prescriptions Prescriptions: Oxycodone HCl/Acetaminophen [Percocet 5-325 mg Tablet] 1 - 2 tab PO Q4H #15 tablet MDD 6 - Referrals Referrals: Elton Hair MD [Primary Care Provider] - - Patient Instructions Printed Discharge Instructions: How to Use a Sling, DI for Rotator Cuff Injury , How To Perform RICE (Rest, Ice, Compress, Elevate) Additional Instructions: Discharge Instructions: -Please use the sling for comfort -A prescription for pain medication has been sent to your pharmacy; it may cause drowsiness -Please follow up with your Orthopedic doctor on Thursday -Return to the ER with any worsening or concerning symptoms - Post Discharge Activity
== END 2017-09-05 21:13 | disposition home or self-care (01) ==
LOC: JERFT 19:51
DX: S46.001A Unspecified injury of muscle(s) and tendon(s) of the rotator cuff of right shoulder, initial encounter (principal); W18.39XA Other fall on same level, initial encounter; Y93.89 Activity, other specified; Y92.89 Other specified places as the place of occurrence of the external cause; Y99.8 Other external cause status
CPT/HCPCS: 99281-25

== ENCOUNTER 2017-09-17 06:13 | Inpatient (IN) | payer OTHER ==
[2017-09-16 16:39] VITALS: BMI 52.7
[2017-09-17] MEDS ORDERED: fentaNYL CITRATE 250 MCG/5 ML VIAL ONE (07:10)
[2017-09-17] MEDS ORDERED: SUCCINYLCHOLINE CHLORIDE 200 MG/10 ML VIAL ONE (07:10)
[2017-09-17] MEDS ORDERED: ROCURONIUM BROMIDE 50 MG/5 ML VIAL ONE ×2 (07:10→09:11)
[2017-09-17] MEDS ORDERED: MIDAZOLAM HCL 2 MG/2 ML SINGLE DOSE VIAL ONE (07:10)
[2017-09-17] MEDS ORDERED: PROPOFOL 20 ML ONE (07:10)
[2017-09-17] MEDS ORDERED: DEXAMETHASONE SOD PHOSPHATE 4 MG/1 ML VIAL ONE (07:11)
[2017-09-17] MEDS ORDERED: LIDOCAINE HCL/PF 2% SDV 5ML VIAL ONE (07:11)
[2017-09-17] MEDS ORDERED: BUPIVACAINE HCL/PF 0.5% (5MG/ML) 10 ML VIAL ONE (07:25)
[2017-09-17] MEDS ORDERED: ALBUTEROL SO4 18 GM HFA INHALER IH ONE (08:00)
[2017-09-17] MEDS ORDERED: CLINDAMYCIN 900 MG PREMIX BAG IVPB ONE (08:15)
[2017-09-17] MEDS ORDERED: CLINDAMYCIN PHOSPHATE 600 MG/4 ML VIAL ONE (08:21)
[2017-09-17] MEDS ORDERED: NEOSTIGMINE METHYLSULFATE 0.5 MG/ML - 10 ML MDV ONE (09:14)
[2017-09-17] MEDS ORDERED: GLYCOPYRROLATE 0.2 MG/1 ML VIAL ONE (09:14)
[2017-09-17] MEDS ORDERED: BUPIVACAINE HCL/PF 0.5% (5MG/ML) 10 ML VIAL IJ ONE (09:20)
[2017-09-17] MEDS ORDERED: morphine CARPU-JECT 4 MG/1 ML DISP.SYRIN IVPUSH PRN (09:31)
--- NOTE | 2017-09-17 09:36 | HP ---
Admitting History and Physical - Admission Chief Complaint: Morbid obesity History of Present Illness: Present for vertical sleeve gastrectomy for morbid obesity History Source: Patient Limitations to Obtaining History: No Limitations - Past Medical History Pulmonary: Yes: Asthma ...LMP: 08/30/17 - Smoking History Smoking history: Former smoker Have you smoked in the past 12 months: No Aproximately how many cigarettes per day: 10 If you are a former smoker, when did you quit?: 2017 - Alcohol/Substance Use Hx Alcohol Use: No - Social History ADL: Independent Home Medications - Allergies Allergies/Adverse Reactions: Allergies Allergy/AdvReac Type Severity Reaction Status Date / Time Penicillins Allergy Mild Rash Verified 09/17/17 06:56 - Home Medications Home Medications: Ambulatory Orders Acetaminophen [Tylenol] 650 mg PO PRN 09/16/17 Ibuprofen [Motrin -] 800 mg PO PRN PRN 09/16/17 Family Disease History - Family Disease History Family History: Unremarkable Review of Systems - Review of Systems Constitutional: denies: Chills, Fever HENT: reports: No Symptoms Neck: reports: No Symptoms Cardiovascular: reports: No Symptoms Respiratory: reports: No Symptoms Gastrointestinal: reports: No Symptoms Neurological: reports: No Symptoms Pain Intensity: 0 Physical Examination Vital Signs: Vital Signs Temperature 98.4 F 09/17/17 06:52 Pulse Rate 90 09/17/17 06:52 Respiratory Rate 20 09/17/17 06:52 Blood Pressure 141/87 09/17/17 06:52 O2 Sat by Pulse Oximetry (%) 97 09/17/17 06:50 Constitutional: Yes: Calm HENT: Yes: WNL Neck: Yes: WNL Cardiovascular: Yes: WNL Respiratory: Yes: Regular Gastrointestinal: Yes: Soft, Abdomen, Obese Neurological: Yes: Alert, Oriented Problem List - Problems (1) Morbid obesity due to excess calories Code(s): E66.01 - MORBID (SEVERE) OBESITY DUE TO EXCESS CALORIES Assessment/Plan For laparoscopic possible open vertical sleeve gastrectomy, possible liver biopsy, EGD
--- NOTE | 2017-09-17 09:37 | OP ---
Operative Note - Note: Operative Date: 09/17/17 Pre-Operative Diagnosis: Morbid obesity Operation: Laparoscopic vertical sleeve gastrectomy. Wedge liver biopsy. EGD Post-Operative Diagnosis: Other (Morbid obesity, hepatomegaly) Surgeon: Marty Barrett Margin Analyst: Minh Mena Anesthesia: General Specimens Removed: Greater curvature of stomach. Liver biopsy Estimated Blood Loss (mls): 30 Drains & Tubes with Location: 36 Fr Bougie Operative Report Dictated: Yes
--- NOTE | 2017-09-17 09:41 | OP ---
Operative Note - Note: Operative Date: 09/17/17 Pre-Operative Diagnosis: Morbid obesity secondary to excesss calorie intake Operation: Laparoscopic vetical sleeve gastrectomy, intra-op egd, liver wedge biopsy Post-Operative Diagnosis: Same as Pre-op Surgeon: Marty Barrett General Car Supervisor Yard: Minh Mena Anesthesiologist/LEAD PRODUCER: Jv Calero Anesthesia: General Specimens Removed: liver biopsy, greater curvature of stomach Estimated Blood Loss (mls): 15 Fluid Volume Replaced (mls): 750 Operative Report Dictated: Yes
--- NOTE | 2017-09-17 09:44 | SURG ---
Surgery Machine Tool Mechanic Note Machine Tool Mechanic: Minh Mena PA-C Date of Service: 09/17/17 Diagnosis: MOrbid obesity secondary to excess caloric intake Procedure: Laparoscopic vetical sleeve gastrectomy, intra-op egd, liver wedge biopsy I was present for the entirety of the operative procedure. For further detail, please refer to operative report. Visit type - Case Type Case Type: Scheduled
[2017-09-17] MEDS: ONDANSETRON 4 MG/2 ML VIAL IVPUSH SCH ×4 (10:00→20:46)
[2017-09-17] MEDS: METOCLOPRAMIDE HCL INJECTION 10 MG/2 ML VIAL IVPUSH SCH ×3 (10:00→20:46)
[2017-09-17] MEDS: ACETAMINOPHEN 1000 MG/100 ML VIAL (NON FORMULARY) IVPB SCH ×3 (10:00→20:46)
[2017-09-17] MEDS: FAMOTIDINE 20 MG/50 ML IVPB 20 MG/50 ML MG IVPB SCH ×2 (10:00→21:32)
[2017-09-17] MEDS ORDERED: FAMOTIDINE 20 MG PREMIXED IVPB IVPB ONE (10:00)
[2017-09-17] MEDS: SODIUM CHLORIDE 1,000 ML IV SCH ×2 (10:16→14:40)
[2017-09-17 10:27] LABS: HEMATOCRIT 39.5 % (32.4-45.2); HEMOGLOBIN 13.2 GM/dL (10.7-15.3); MCH 30.1 pg (25.7-33.7); MCHC 33.5 g/dl (32.0-36.0); MEAN PLT VOLUME 7.6 fl (7.5-11.1); PLATELET COUNT 314 K/MM3 (134-434); RBC 4.38 M/mm3 (3.60-5.2); RDW 14.5 % (11.6-15.6); WHITE BLOOD COUNT 15.3 K/mm3 (4.0-10.0)
[2017-09-17 10:57] LABS: ALBUMIN 3.4 g/dl (3.4-5.0); ANION GAP 7 (8-16); BILIRUBIN,TOTAL 0.4 mg/dL (0.2-1.0); BLOOD UREA NITROGEN 11 mg/dL (7-18); CALCIUM 8.2 mg/dL (8.5-10.1); CHLORIDE 104 mmol/L (98-107); CO2 25 mmol/L (21-32); CREATININE 0.7 mg/dL (0.55-1.02); GLUCOSE,RANDOM 198 mg/dL (74-106); POTASSIUM 4.8 mmol/L (3.5-5.1); SGOT/AST 148 U/L (15-37); SGPT/ALT 107 U/L (12-78); SODIUM 136 mmol/L (136-145); TOT PROT 6.7 g/dl (6.4-8.2)
[2017-09-17 10:58] LABS: ALK PHOS 89 U/L (45-117)
--- NOTE | 2017-09-17 10:59 | SPEC ---
DATE OF OPERATION: 09/17/2017 SURGEON: Marty Barrett MD ADAPTED PHYSICAL EDUCATION SPECIALIST: MARKO Alonzo PREOPERATIVE DIAGNOSES: 1. Morbid obesity. 2. Body mass index 52.7. POSTOPERATIVE DIAGNOSES: 1. Morbid obesity. 2. Body mass index 52.7. 3. Hepatomegaly. PROCEDURES: 1. Laparoscopic vertical sleeve gastrectomy. 2. Laparoscopic wedge liver biopsy. 3. Esophagogastroduodenoscopy. SPECIMEN: 1. Greater curvature of the stomach. 2. Wedge liver biopsies. ESTIMATED BLOOD LOSS: 30 mL DRAINS: None. ANESTHESIA: GET. BOUGIE: Size 36-Tajik. REASON FOR PROCEDURE: This is a 47-year-old female who presents for weight loss options. After describing different options, she decided to proceed with a laparoscopic, possible open vertical sleeve gastrectomy, possible liver biopsy, and upper endoscopy. RISKS AND BENEFITS: After describing the different options for weight loss management, the patient decided to proceed with a laparoscopic, possible open vertical sleeve gastrectomy. The patient was seen by the respective subspecialties and cleared for surgery. The risks and benefits of the procedure were explained. These included bleeding, infection, hernia, CO, DVT, PE, injury to surrounding structures including the liver, colon, bowel, spleen, esophagus, vessel injury, nerve injury, weight regain, gastric leak, staple line leak, sleeve leak, obstruction, vitamin deficiency, hair loss and as some of the possible complications. The patient understood and signed informed consent. DESCRIPTION OF PROCEDURE: The patient was placed supine on the operating room table. The patient underwent general endotracheal intubation. A Huerta catheter was inserted. The arms were brought out at 90 degrees and secured. A footboard was placed and the legs were secured laterally with padding. The abdomen was prepped and draped in the usual sterile fashion. A timeout was performed. An incision was made in the left upper quadrant and a Veress needle inserted. Pneumoperitoneum was established. Subsequently, the Veress needle was removed and a 12-mm trocar was placed. The laparoscopic camera was then inserted and inspection of the abdominal cavity was performed. An incision was then made in the supraumbilical area and a 15-mm trocar was placed under direct visualization. A 5-mm trocar was then placed in the right upper quadrant and a 5-mm trocar was placed below the left subcostal margin. A stab wound was made in the subxiphoid area and a Lilibeth clamp inserted and removed to dilate the tract. A Layne liver retractor was inserted. The post was secured at the bedside by the nursing staff. The patient was placed in steep reverse Trendelenburg position and the Layne liver retractor was used to secure the liver towards the anterior abdominal wall. The pylorus was identified and 6 cm proximal to it, the lesser sac was entered using the LigaSure device. All lateral attachments to the greater curvature of the stomach, including the short gastric vessels, were ligated using the LigaSure device toward the gastrosplenic and gastrophrenic ligaments. Once this was done in its entirety, it was confirmed that all tubes within the nasal or oropharyngeal cavity, including a temperature probe, was removed by Anesthesia. The bougie was then inserted by Anesthesia. Transection of the stomach was then begun staying adjacent to the bougie but away from the angularis. Transection of the stomach was performed near the portion of the stomach where the lesser sac was entered. Two laparoscopic Endo-RADHA black luis armando were used at this location. Laparoscopic Endo RADHA purple staple loads were then used for the remainder of the transection until the greater curvature of the stomach was fully transected. This was done staying close to the bougie. Care was taken to stay away from the angle of His cephalad. The staple line was then inspected. Hemostasis was identified. A leak test was then performed. It was clamped distally to the staple line. Irrigation solution was placed in the left upper quadrant and air was insufflated by Anesthesia into the sleeve. No leaks were identified. No obstruction was identified. This was done through the entirety of the staple line. At this point, the irrigation solution was suctioned and again, hemostasis was noted. A wedge liver biopsy was then performed. The left lobe of the liver was identified and a portion of the edge was grasped. Using electrocautery, a wedge of the liver was excised. This was removed and sent off the field as specimen. Hemostasis at the site of the wedge liver biopsy was attained using electrocautery. The 15-mm supraumbilical trocar was then removed and the greater curvature specimen removed from the site using a sponge stick elias. The specimen was inspected and a Veress needle inserted. The specimen insufflated adequately and no leak was identified. The staple line was noted to be intact. A Ismael-Tracy device was then used to temporarily close the fascia with a 0 Vicryl suture at the site. The 15-mm trocar was then reinserted and the 12-mm trocar in the left upper quadrant was removed. The fascia at this site was then closed using the Ismael-Tracy device with a 0 Vicryl suture. Again, hemostasis was noted. The Layne liver retractor was then removed under direct visualization. Pneumoperitoneum was desufflated and the fascial sutures were secured. Hemostasis was noted at all incision sites and Marcaine was injected at all incision sites. All incision sites were closed using 4-0 Biosyn. Sterile dressings were applied. The patient tolerated the procedure well and was transferred to the recovery room in stable condition with the Huerta catheter intact. The patient was transferred to telemetry for further monitoring. Kavon [id number]
[2017-09-17] MEDS ORDERED: ONDANSETRON 4 MG/2 ML VIAL ONE (14:54)
[2017-09-17] MEDS: ENOXAPARIN NA (PORCINE) 40 MG/0.4 ML DISP.SYRIN SQ SCH (21:32)
[2017-09-18] MEDS: ONDANSETRON 4 MG/2 ML VIAL IVPUSH SCH ×5 (00:48→17:32)
[2017-09-18] MEDS: ACETAMINOPHEN 1000 MG/100 ML VIAL (NON FORMULARY) IVPB SCH (02:52)
[2017-09-18] MEDS: METOCLOPRAMIDE HCL INJECTION 10 MG/2 ML VIAL IVPUSH SCH ×3 (04:00→15:34)
[2017-09-18] MEDS ORDERED: NITROGLYCERIN 2% OINTMENT - 1GM PACKET TD ONE ×2 (04:58→05:05)
[2017-09-18 05:52] LABS: HEMATOCRIT 38.2 % (32.4-45.2); HEMOGLOBIN 12.9 GM/dL (10.7-15.3); MCH 30.2 pg (25.7-33.7); MCHC 33.8 g/dl (32.0-36.0); MEAN CELL VOLUME 89.5 fl (80-96); MEAN PLT VOLUME 7.9 fl (7.5-11.1); PLATELET COUNT 289 K/MM3 (134-434); RBC 4.26 M/mm3 (3.60-5.2); RDW 14.4 % (11.6-15.6); WHITE BLOOD COUNT 12.9 K/mm3 (4.0-10.0)
--- NOTE | 2017-09-18 06:07 | HOSP ---
Subjective - Review of Symptoms Events since last encounter: 47yo woman POD1 s/p gastric sleeve surgery for morbid obesity with complaint of non-radiating, substernal Chest pain. Patient rates severity 8 to 10/10. Patient 's vital signs are stable (BP 132/73, HR , pSa02 97% on 2NC O2). Physical exam is notable for reproducible chest pain with palpation to the anterior chest wall. Cardiovascular: Yes: Chest Pain Physical Examination Vital Signs: Vital Signs Temperature 98.7 F 09/18/17 02:00 Pulse Rate 85 09/18/17 02:00 Respiratory Rate 20 09/18/17 02:00 Blood Pressure 155/86 09/18/17 02:00 O2 Sat by Pulse Oximetry (%) 96 09/17/17 21:00 Constitutional: Yes: Mild Distress Cardiovascular: Yes: Regular Rate and Rhythm Respiratory: Yes: WNL Hospitalist Encounter Assessment: 47yo woman who is POD1 s/p gastric sleeve surgery for morbid obesity, now with non-radiating substernal chest. Stat EKG reveals new non-specific T wave changes compared to Mar 2017 EKG (TWI in V2 and T wave flattening in precordial leads). Low suspicion for cardiac etiology, but will 1 set of Troponin and give Nitro-paste TD for pain. Visit type - Emergency Visit Emergency Visit: No - New Patient This patient is new to me today: Yes Date on this admission: 09/18/17 - Critical Care Critical Care patient: No
[2017-09-18 06:14] LABS: ALBUMIN 3.4 g/dl (3.4-5.0); ALK PHOS 81 U/L (45-117); ANION GAP 4 (8-16); BILIRUBIN,TOTAL 0.6 mg/dL (0.2-1.0); BLOOD UREA NITROGEN 7 mg/dL (7-18); CHLORIDE 102 mmol/L (98-107); CO2 31 mmol/L (21-32); CREATININE 0.8 mg/dL (0.55-1.02); GLUCOSE,RANDOM 122 mg/dL (74-106); POTASSIUM 4.1 mmol/L (3.5-5.1); SGOT/AST 137 U/L (15-37); SGPT/ALT 136 U/L (12-78); SODIUM 137 mmol/L (136-145); TOT PROT 6.6 g/dl (6.4-8.2)
--- NOTE | 2017-09-18 07:39 | PN ---
Addendum entered and electronically signed by Minh Mena PA 09/18/17 09:25: UGI: negative leak/extravastion or outlet obstruction. Bariatric POD 1 protocol ordered. Original Note: Progress Note (short form) - Note Progress Note: POD #1 Alert. Supine in bed. C/o mild incisional tenderness. Per medicine residents note - patient c/o substernal CP 8/10 that was reproducible upon palpation. Currently, CP resolved. Bouts of intermittent nausea but no vomiting. She has been oob and ambulating unassisted. Voiding spontaneously. Cardiac enzymes sent but nothing reported yet Last Vital Signs Temp Pulse Resp BP Pulse Ox 98.4 F 88 20 140/76 96 09/18/17 06:00 09/18/17 06:00 09/18/17 06:00 09/18/17 06:00 09/17/17 21:00 CBC, BMP 09/18/17 05:21 09/18/17 05:21 GEN: alert. nad ABD: obese. all surgical ports intact. No hematoma LE: SDDs bilat. NT. <Minh Mena - Last Filed: 09/18/17 07:39> - Note Progress Note: Agree POD 1 Pain controlled UGI no leak Clears Discharge home <Marty Barrett - Last Filed: 09/18/17 18:13> Problem List - Problems (1) Morbid obesity due to excess calories Assessment/Plan: POD #1 s/p lap vertical sleeve gastrectomy , liver bx, egd. Pt c/o substernal cp last night...most likely due to subxiphoid port for liver retractor placement 1. going for UGI this morning if negative study, can start Bariatric POD 1 Protocol 2. OOB and ambulate 3. Incentive spirometer 4. f/u Cardiac enzymes 5. Above plan discussed with Dr. Barrett and agrees Code(s): E66.01 - MORBID (SEVERE) OBESITY DUE TO EXCESS CALORIES <Minh Mena - Last Filed: 09/18/17 07:39> - Problems (1) Morbid obesity due to excess calories Code(s): E66.01 - MORBID (SEVERE) OBESITY DUE TO EXCESS CALORIES <Marty Barrett - Last Filed: 09/18/17 18:13>
[2017-09-18] MEDS ORDERED: morphine SULFATE 4 MG/ML VIAL ONE (08:57)
[2017-09-18] MEDS: ENOXAPARIN NA (PORCINE) 40 MG/0.4 ML DISP.SYRIN SQ SCH (09:06)
[2017-09-18] MEDS: FAMOTIDINE 20 MG/50 ML IVPB 20 MG/50 ML MG IVPB SCH (09:07)
[2017-09-18] MEDS ORDERED: oxyCODONE HCL 5 MG TABLET PO PRN (09:26)
[2017-09-18] MEDS ORDERED: SODIUM CHLORIDE 1,000 ML IV SCH (09:30)
[2017-09-18] MEDS: SODIUM CHLORIDE 1,000 ML IV SCH (11:04)
[2017-09-18] MEDS ORDERED: ACETAMINOPHEN 500 MG TABLET (FP) PO PRN (12:24)
--- NOTE | 2017-09-18 12:30 | PN ---
Progress Note, Physician Chief Complaint: Patient s/p gastric sleeve under general anesthesia History of Present Illness: post op day one - Current Medication List Current Medications: Active Medications Acetaminophen (Tylenol -) 1,000 mg PO Q6H PRN PRN Reason: HEADACHE Enoxaparin Sodium (Lovenox -) 40 mg SQ BID [facility] Last Admin: 09/18/17 09:06 Dose: 40 mg Famotidine/Sodium Chloride (Pepcid 20 Mg Premixed Ivpb -) 20 mg in 50 mls @ 100 mls/hr IVPB BID [facility] Last Admin: 09/18/17 09:07 Dose: 100 mls/hr Sodium Chloride (Normal Saline -) 1,000 mls @ 150 mls/hr IV ASDIR [facility] Last Admin: 09/18/17 11:04 Dose: Not Given Sodium Chloride (Normal Saline -) 1,000 mls @ 75 mls/hr IV ASDIR [facility] Last Admin: 09/18/17 11:03 Dose: 75 mls/hr Metoclopramide HCl (Reglan Injection -) 10 mg IVPUSH Q6H [facility] Last Admin: 09/18/17 11:02 Dose: 10 mg Morphine Sulfate (Morphine Injection -) 4 mg IVPUSH Q4H PRN PRN Reason: PAIN LEVEL 6-10 Last Admin: 09/18/17 09:05 Dose: 4 mg Ondansetron HCl (Zofran Injection) 4 mg IVPUSH Q4H [facility] Last Admin: 09/18/17 09:07 Dose: 4 mg Oxycodone HCl (Roxicodone -) 5 mg PO Q4H PRN PRN Reason: PAIN LEVEL 1-5 - Objective Vital Signs: Vital Signs Temperature 98.4 F 09/18/17 06:00 Pulse Rate 92 H 09/18/17 11:34 Respiratory Rate 20 09/18/17 11:34 Blood Pressure 158/92 09/18/17 11:34 O2 Sat by Pulse Oximetry (%) 96 09/18/17 11:32 Constitutional: Yes: Well Nourished Cardiovascular: Yes: WNL Respiratory: Yes: WNL Gastrointestinal: Yes: WNL Labs: CBC, BMP 09/18/17 05:21 09/18/17 05:21 Assessment/Plan No adverse effect of anesthetic currently. complained of nausea overnight none currently. Pain controlled, complaining of a headache. Will order PO tylenol for the patient otherwise dept of anesthesia will sign off care
[2017-09-18 18:54] VITALS: BP 158/101; PULSE 86; TEMP 98.4
--- NOTE | 2017-09-19 15:36 | EKG ---
Test Reason : Blood Pressure : / mmHG Vent. Rate : 081 BPM Atrial Rate : 081 BPM P-R Int : 154 ms QRS Dur : 094 ms QT Int : 392 ms P-R-T Axes : 044 059 017 degrees QTc Int : 455 ms NORMAL SINUS RHYTHM NONSPECIFIC ST ABNORMALITY ABNORMAL ECG WHEN COMPARED WITH ECG OF 16-MAR-2017 10:53, T WAVE INVERSION NOW EVIDENT IN ANTERIOR LEADS Confirmed by LISA LUO, LILLY ([id number]) on 09/19/2017 3:35:59 PM Referred By: Confirmed By:LILLY GONZALEZ MD
--- NOTE | 2017-09-22 08:51 | PATH ---
Surgical Pathology Report Patient Name: DESHAWN SILVERMAN [facility]. Rec. #: [id number] /Age/Gender: 1970 (Age: 47) / F Account: [id number] Location: 4 W TELEMETRY U Taken: 09/17/2017 Received: 09/17/2017 Reported: 09/22/2017 Physicians: Marty Barrett M.D. Specimen(s) Received A: GREATER CURVATURE STOMACH B: LIVER BIOPSY Clinical History Morbid obesity Final Diagnosis A. STOMACH, GREATER CURVATURE, LAPAROSCOPIC VERTICAL SLEEVE GASTRECTOMY: PORTION OF STOMACH WITH MINIMAL CHRONIC INFLAMMATION. IMMUNOHISTOCHEMICAL STAIN FOR H. PYLORI IS NEGATIVE. B. LIVER, BIOPSY: LIVER PARENCHYMA WITH MODERATE STEATOSIS (~50%). FOCAL MILD CHOLESTASIS AND FOCAL MILD INCREASE IN IRON IN ON PERFORMED SPECIAL STAIN. NO INCREASE IN FIBROSIS ON TRICHROME SPECIAL STAIN. Electronically Signed Meggan Valdez M.D. Gross Description A. Received in formalin, labeled "greater curvature of stomach," is a 180 gram, 17.5 x 3.5 x 3.0 cm. portion of stomach with a stapled margin of resection. The serosa is pierre-robin with minimal attached fat. The mucosa is pierre-pink with normal folds. No mucosal masses are identified. Casino Cage Manager sections are submitted in one cassette. B. Received in formalin labeled "liver biopsy," a 3.4 x 1.5 x 1.5 cm pierre firm irregular portion of soft tissue, consistent with a liver biopsy. Casino Cage Manager sections are submitted in one cassette. /09/18/2017 saudi09/18/2017
== END 2017-09-18 19:52 | disposition home or self-care (01) | DRG 403 ==
LOC: JSAMEDAYSX 06:13 → J4W 14:52 → EDSTATUS 16:30
PROVIDERS: ADMIT Surgery; ATTEND Surgery
PROC: 0DJ08ZZ Inspection of Upper Intestinal Tract, Via Natural or Artificial Opening Endoscopic (ICD-10-PCS; 2017-09-17)
PROC: 0DB64Z3 Excision of Stomach, Percutaneous Endoscopic Approach, Vertical (ICD-10-PCS; principal; 2017-09-17 08:00)
PROC: 0FB24ZX Excision of Left Lobe Liver, Percutaneous Endoscopic Approach, Diagnostic (ICD-10-PCS; 2017-09-17 08:00)
DX: E66.01 Morbid (severe) obesity due to excess calories (principal); R16.0 Hepatomegaly, not elsewhere classified; Z68.43 Body mass index [BMI] 50.0-59.9, adult; Z87.891 Personal history of nicotine dependence; J45.909 Unspecified asthma, uncomplicated; R07.89 Other chest pain
CPT/HCPCS: 36415; 74241-TC-FY; 80053; 82550; 82553; 84484; 84703; 85027; 86850; 86900; 86901; 88307-TC; 93005; 93010; 94010; 94660; 94760; J0131; J7030

== ENCOUNTER 2017-09-25 23:15 | Observation (INO) | payer OTHER ==
--- NOTE | 2017-09-26 00:09 | PDOC ---
History of Present Illness - General History Source: Patient, Old Records Exam Limitations: No Limitations - History of Present Illness Initial Comments: 09/26/17 07:12 Patient is a 47 year old female with a significant past medical history of Asthma who presents john the ED with complaints of abdominal pain that began x2 days ago. Patient reports getting a gastric sleeve procedure done on September 17. She reports experiencing abdominal pain with associated itching that she states has gradually increased in intensity over time. Patient reports wound sites appear to be healing but state all 5 locations have become increasingly tender, stating the most painful being directly above the umbilical area Denies chest pain, sob. Denies fevers, chills. Denies contact with sick individuals, out of state travelling. Denies trauma to affected area. Denies any other symptoms. Allergies: Penicillins. Social history: Lives with son. Surgical history: No smoking. No alcohol. No illicit drugs. PMD: Dr. Hair Surgery: Dr. Barrett. <Darrick Miles - Last Filed: 09/26/17 07:12> <Sally Hernandez - Last Filed: 09/27/17 04:32> - General Stated Complaint: REDNESS TO AFFECTED AREA Time Seen by Provider: 09/25/17 23:47 Past History <Darrick Miles - Last Filed: 09/26/17 07:12> - Past Medical History Anemia: No Asthma: Yes (no recent attack) Cancer: No Cardiac Disorders: No CVA: No COPD: No CHF: No Diabetes: No GI Disorders: Yes (ACID REFLUX) Disorders: No HTN: No Hypercholesterolemia: No Liver Disease: No Seizures: No Thyroid Disease: No - Surgical History Abdominal Surgery: Yes (TUBAL LIGATION) Cholecystectomy: Yes Orthopedic Surgery: Yes (L. Knee & rt. knee replacement, booker carpal tunnel surgery) - Family Disease History Family Disease History: Heart Disease: Mother - Immunization History Immunization Up to Date: Yes - Suicide/Smoking/Psychosocial Hx Smoking Status: Yes Smoking History: Former smoker Years of Tobacco Use: 10 Have you smoked in the past 12 months: No Number of Cigarettes Smoked Daily: 10 If you are a former smoker, when did you quit?: 2017 'Breaking Loose' booklet given: 05/17/17 Hx Alcohol Use: No Drug/Substance Use Hx: No Substance Use Type: None Hx Substance Use Treatment: No <Sally Hernandez - Last Filed: 09/27/17 04:32> - Past Medical History Allergies/Adverse Reactions: Allergies Allergy/AdvReac Type Severity Reaction Status Date / Time Penicillins Allergy Mild Rash Verified 09/26/17 00:25 Home Medications: Ambulatory Orders Acetaminophen [Tylenol] 650 mg PO PRN 09/16/17 Ibuprofen [Motrin -] 800 mg PO PRN PRN 09/16/17 Famotidine [Pepcid] 20 mg PO BID #60 tablet 09/17/17 Oxycodone HCl/Acetaminophen [Percocet 5-325 mg Tablet] 1 - 2 tab PO Q6H #28 tab MDD 4 09/17/17 Review of Systems - Review of Systems Able to Perform ROS?: Yes Comments:: 09/26/17 07:12 GENERAL/CONSTITUTIONAL: No fever or chills. No weakness. HEAD, EYES, EARS, NOSE AND THROAT: No change in vision. No ear pain or discharge. No sore throat. CARDIOVASCULAR: No chest pain or shortness of breath. RESPIRATORY: No cough, wheezing, or hemoptysis. GASTROINTESTINAL: +Abdominal pain. +Abdominal itchiness. No nausea, vomiting, diarrhea or constipation. GENITOURINARY: No dysuria, frequency, or change in urination. MUSCULOSKELETAL: No joint or muscle swelling or pain. No neck or back pain. SKIN: No rash NEUROLOGIC: No headache, vertigo, loss of consciousness, or change in strength/ sensation. ENDOCRINE: No increased thirst. No abnormal weight change. HEMATOLOGIC/LYMPHATIC: No anemia, easy bleeding, or history of blood clots. ALLERGIC/IMMUNOLOGIC: No hives or skin allergy. <Darrick Miles - Last Filed: 09/26/17 07:12> *Physical Exam - Vital Signs Last Vital Signs Temp Pulse Resp BP Pulse Ox 98.2 F 66 20 131/72 95 09/26/17 06:55 09/26/17 06:55 09/26/17 06:55 09/26/17 06:55 09/26/17 05:31 - Physical Exam Comments: 09/26/17 07:12 GENERAL: Awake, alert, and fully oriented, in no acute distress HEAD: No signs of trauma EYES: PERRLA, EOMI, sclera anicteric, conjunctiva clear ENT: Auricles normal inspection, hearing grossly normal, nares patent, oropharynx clear without exudates. Moist mucosa NECK: Normal ROM, supple, no lymphadenopathy, JVD, or masses LUNGS: Breath sounds equal, clear to auscultation bilaterally. No wheezes, and no crackles HEART: Regular rate and rhythm, normal S1 and S2, no murmurs, rubs or gallops ABDOMEN: +1 super umbilical incision site. +1 subxiphoid incision site. +1 Right middle quadrant incision site. +2 Right middle quadrant incision site. + Erythematous. +Tender. +Warm to touch. No pus. No exudates. Soft normoactive bowel sounds. No guarding, no rebound. No masses EXTREMITIES: Normal range of motion, no edema. No clubbing or cyanosis. No cords, erythema, or tenderness NEUROLOGICAL: Cranial nerves II through XII grossly intact. Normal speech, normal gait SKIN: Warm, Dry, normal turgor, no rashes or lesions noted. <Darrick Miles - Last Filed: 09/26/17 07:12> ED Treatment Course - LABORATORY CBC & Chemistry Diagram: 09/26/17 02:00 09/26/17 02:00 - ADDITIONAL ORDERS Additional order review: Laboratory Results 09/26/17 09/26/17 09/26/17 02:24 02:13 02:00 PT with INR INR PTT (Actin FS) 32.7 Sodium 137 Potassium 3.9 Chloride 101 Carbon Dioxide 29 Anion Gap 7 L BUN 11 Creatinine 0.7 Creat Clearance w eGFR > 60 Random Glucose 84 Lactic Acid Calcium 8.9 Total Bilirubin 0.5 AST 16 ALT 37 Alkaline Phosphatase 91 Total Protein 7.5 Albumin 3.9 Serum , Qual Negative 09/26/17 09/26/17 02:00 01:40 PT with INR 13.60 H INR 1.20 H PTT (Actin FS) Sodium Potassium Chloride Carbon Dioxide Anion Gap BUN Creatinine Creat Clearance w eGFR Random Glucose Lactic Acid 1.2 Calcium Total Bilirubin AST ALT Alkaline Phosphatase Total Protein Albumin Serum , Qual 09/26/17 02:00 RBC 4.46 MCV 89.6 MCHC 33.3 RDW 14.4 MPV 7.9 Neutrophils % 56.5 Lymphocytes % 31.3 D Monocytes % 6.7 Eosinophils % 4.6 H D Basophils % 0.9 - Medications Given in the ED: ED Medications Discontinued Medications Generic Name Dose Route Start Last Admin Trade Name Blane PRN Reason Stop Dose Admin Diphenhydramine HCl 25 mg 09/26/17 05:27 09/26/17 05:55 Benadryl Oral Solution - PO 09/26/17 05:28 25 mg ONCE ONE Administration Doxycycline Hyclate 100 mg/ 150 mls @ 150 mls/120 min 09/26/17 03:37 04:54 Dextrose IVPB 09/26/17 05:36 150 mls/120 min ONCE ONE Administration <Darrick Miles - Last Filed: 09/26/17 07:12> - LABORATORY CBC & Chemistry Diagram: 09/26/17 02:00 09/26/17 02:00 <Sally Hernandez - Last Filed: 09/27/17 04:32> Medical Decision Making - Medical Decision Making 09/26/17 01:55 Patient Name: DESHAWN SILVERMAN THIS IS A PRELIMINARY REPORT FROM [facility] DATE OF SERVICE: 2017-09-26 00:51:40 IMAGES: 58 EXAM: Abdomen ultrasound, limited HISTORY:Status post gastric bypass surgery with supraumbilical pain. Rule out cyst or abscess. COMPARISON: None. FINDINGS: Evaluation limited to anterior abdominal wall around the umbilicus in the area of redness and swelling. There is generalized soft tissue edema. There is no evidence for abscess, cyst, or fluid collection. THIS DOCUMENT HAS BEEN ELECTRONICALLY SIGNED 09/27/17 04:32 Dr Barrett aware of the admission and pt will be admitted to the hospitalists. <Sally Hernandez - Last Filed: 09/27/17 04:32> *DC/Admit/Observation/Transfer - Attestations Scribe Attestion: 09/26/17 07:12 Documentation prepared by Darrick Miles, acting as medical administrative for Sally Hernandez MD. <Darrick Miles - Last Filed: 09/26/17 07:12> - Discharge Dispostion Decision to Admit order: Yes <Sally Hernandez - Last Filed: 09/27/17 04:32> Diagnosis at time of Disposition: Abdominal wall cellulitis, Wound infection - Discharge Dispostion Condition at time of disposition: Guarded
[2017-09-26 02:32] LABS: BASO % 0.9 % (0-2.0); EOS % 4.6 % (0-4.5); HEMATOCRIT 39.9 % (32.4-45.2); HEMOGLOBIN 13.3 GM/dL (10.7-15.3); LYMPH % 31.3 % (8-40); MCH 29.9 pg (25.7-33.7); MCHC 33.3 g/dl (32.0-36.0); MEAN CELL VOLUME 89.6 fl (80-96); MEAN PLT VOLUME 7.9 fl (7.5-11.1); MONO % 6.7 % (3.8-10.2); NEUT % 56.5 % (42.8-82.8); PLATELET COUNT 356 K/MM3 (134-434); RBC 4.46 M/mm3 (3.60-5.2); RDW 14.4 % (11.6-15.6); WHITE BLOOD COUNT 9.6 K/mm3 (4.0-10.0)
[2017-09-26 02:45] LABS: INR 1.2 (0.82-1.09); PROTHROMBIN TIME (PATIENT) 13.6 SEC (9.7-13.0)
[2017-09-26 02:58] LABS: ALBUMIN 3.9 g/dl (3.4-5.0); ALK PHOS 91 U/L (45-117); ANION GAP 7 (8-16); BILIRUBIN,TOTAL 0.5 mg/dL (0.2-1.0); BLOOD UREA NITROGEN 11 mg/dL (7-18); CALCIUM 8.9 mg/dL (8.5-10.1); CHLORIDE 101 mmol/L (98-107); CO2 29 mmol/L (21-32); CREATININE 0.7 mg/dL (0.55-1.02); GLUCOSE,RANDOM 84 mg/dL (74-106); POTASSIUM 3.9 mmol/L (3.5-5.1); SGOT/AST 16 U/L (15-37); SGPT/ALT 37 U/L (12-78); SODIUM 137 mmol/L (136-145); TOT PROT 7.5 g/dl (6.4-8.2)
[2017-09-26] MEDS ORDERED: VANCOMYCIN 1,000 MG in DEXTROSE 5%-WATER - 250 ML IVPB ONE (03:36)
[2017-09-26] MEDS ORDERED: DOXYCYCLINE INJECTION 100 MG in DEXTROSE 5%-WATER - 150 ML IVPB ONE (03:37)
[2017-09-26] MEDS ORDERED: VANCOMYCIN 1 GRAM (PRE-DOCKED) 1,000 MG/250 ML BAG IVPB ONE (04:02)
[2017-09-26] MEDS ORDERED: DOXYCYCLINE HYCLATE 100 MG VIAL ONE (04:02)
[2017-09-26] MEDS ORDERED: diphenhydrAMINE HCL 12.5 MG/5 ML UNIT-DOSE CUPS PO ONE (05:27)
--- NOTE | 2017-09-26 05:27 | HP ---
CHIEF COMPLAINT: redness and itching to surgical sites PCP: Kinsey Hair, Surgeon: Arnold HISTORY OF PRESENT ILLNESS: This is a 47 year old female with a past medical history of morbid obesity, asthma, GERD who is POD 9 s/p sleeve gastrectomy presented to the ED with redness and itching to her surgical sites x 2 day. She states that she put topical benadryl on it and feels the redness became worse. ER course was notable for: (1) WBC 9.6, down from 12.9 on 09/18 (2) BMP WNL (3) US abdomen with no fluid collection/abscess Recent Travel: pt denies PAST MEDICAL HISTORY: asthma, GERD, steroid induced hyperglycemia PAST SURGICAL HISTORY: tubal ligation cholecystectomy B/L TKR B/L shoulder rotator cuff repairs x 2 B/L carpal tunnel Social History: Smoking: Quit 05/10/17, previous 1ppd x 22y Alcohol: rarely Drugs: pt denies Family History: mother age 69, metastatic CA (unclear primary) father deased age 58, colon CA Allergies Penicillins Allergy (Mild, Verified 09/26/17 00:25) Rash HOME MEDICATIONS: 3 Medication Instructions Recorded Acetaminophen [Tylenol] 650 mg PO PRN 09/16/17 Ibuprofen [Motrin -] 800 mg PO PRN PRN 09/16/17 Famotidine [Pepcid] 20 mg PO BID #60 tablet 09/17/17 Oxycodone HCl/Acetaminophen 1 - 2 tab PO Q6H #28 tab MDD 4 09/17/17 [Percocet 5-325 mg Tablet] REVIEW OF SYSTEMS CONSTITUTIONAL: Absent: fever, chills, diaphoresis, generalized weakness, malaise, loss of appetite, weight change HEENT: Absent: rhinorrhea, nasal congestion, throat pain, throat swelling, difficulty swallowing, mouth swelling, ear pain, eye pain, visual changes CARDIOVASCULAR: Absent: chest pain, syncope, palpitations, irregular heart rate, lightheadedness , peripheral edema RESPIRATORY: Absent: cough, shortness of breath, dyspnea with exertion, orthopnea, wheezing, stridor, hemoptysis GASTROINTESTINAL: Absent: abdominal pain, abdominal distension, nausea, vomiting, diarrhea, constipation, melena, hematochezia GENITOURINARY: Absent: dysuria, frequency, urgency, hesitancy, hematuria, flank pain, genital pain MUSCULOSKELETAL: Absent: myalgia, arthralgia, joint swelling, back pain, neck pain SKIN: Present: redness and itching to surgical sites Absent: rash, pallor HEMATOLOGIC/IMMUNOLOGIC: Absent: easy bleeding, easy bruising, lymphadenopathy, frequent infections ENDOCRINE: Absent: unexplained weight gain, unexplained weight loss, heat intolerance, cold intolerance NEUROLOGIC: Absent: headache, focal weakness or paresthesias, dizziness, unsteady gait, seizure, mental status changes, bladder or bowel incontinence PSYCHIATRIC: Absent: anxiety, depression, suicidal or homicidal ideation, hallucinations. PHYSICAL EXAMINATION Vital Signs - 24 hr 3 09/25/17 23:20 Temperature 97.6 F Pulse Rate 65 Respiratory 18 Rate Blood Pressure 121/65 O2 Sat by Pulse 95 Oximetry (%) GENERAL: Awake, alert, and fully oriented, in no acute distress. HEAD: Normal with no signs of trauma. EYES: Pupils equal, round and reactive to light, extraocular movements intact, sclera anicteric, conjunctiva clear. No lid lag. EARS, NOSE, THROAT: Ears normal, nares patent, oropharynx clear without exudates. Moist mucous membranes. NECK: Normal range of motion, supple without lymphadenopathy, JVD, or masses. LUNGS: Breath sounds equal, clear to auscultation bilaterally. No wheezes, and no crackles. No accessory muscle use. HEART: Regular rate and rhythm, normal S1 and S2 without murmur, rub or gallop. ABDOMEN: Soft, tender to deep palpation, not distended, normoactive bowel sounds , no guarding, no rebound, no masses. 5 surgical sites all noted with mild erythema and mild warmth surrounding incision, supraumbilical incision with largest area erythema, no fluctuance or palpable fluid collection, no specific tenderness to sites. pen lines drawn around areas erythema MUSCULOSKELETAL: Normal range of motion at all joints. No bony deformities or tenderness. No CVA tenderness. UPPER EXTREMITIES: 2+ pulses, warm, well-perfused. No cyanosis. No clubbing. No peripheral edema. LOWER EXTREMITIES: 2+ pulses, warm, well-perfused. No calf tenderness. No peripheral edema. NEUROLOGICAL: Cranial nerves II-XII intact. Normal speech. Normal gait. PSYCHIATRIC: Cooperative. Good eye contact. Appropriate mood and affect. SKIN: Warm, dry, normal turgor, no rashes or lesions noted, normal capillary refill. Laboratory Results - last 24 hr 3 09/26/17 09/26/17 09/26/17 01:40 02:00 02:00 WBC 9.6 RBC 4.46 Hgb 13.3 Hct 39.9 MCV 89.6 MCH 29.9 MCHC 33.3 RDW 14.4 Plt Count 356 D MPV 7.9 Neutrophils % 56.5 Lymphocytes % 31.3 D Monocytes % 6.7 Eosinophils % 4.6 H D Basophils % 0.9 PT with INR 13.60 H INR 1.20 H PTT (Actin FS) Sodium Potassium Chloride Carbon Dioxide Anion Gap BUN Creatinine Creat Clearance w eGFR Random Glucose Lactic Acid 1.2 Calcium Total Bilirubin AST ALT Alkaline Phosphatase Total Protein Albumin Serum , Qual 3 09/26/17 09/26/17 09/26/17 02:00 02:13 02:24 WBC RBC Hgb Hct MCV MCH MCHC RDW Plt Count MPV Neutrophils % Lymphocytes % Monocytes % Eosinophils % Basophils % PT with INR INR PTT (Actin FS) 32.7 Sodium 137 Potassium 3.9 Chloride 101 Carbon Dioxide 29 Anion Gap 7 L BUN 11 Creatinine 0.7 Creat Clearance w eGFR > 60 Random Glucose 84 Lactic Acid Calcium 8.9 Total Bilirubin 0.5 AST 16 ALT 37 Alkaline Phosphatase 91 Total Protein 7.5 Albumin 3.9 Serum , Qual Negative Radiology Reports Abdomen ultrasound, limited THIS IS A PRELIMINARY REPORT FROM [facility] FINDINGS: Evaluation limited to anterior abdominal wall around the umbilicus in the area of redness and swelling. There is generalized soft tissue edema. There is no evidence for abscess, cyst, or fluid collection. THIS DOCUMENT HAS BEEN ELECTRONICALLY SIGNED Zaheer Mahoney MD 09/26/2017 01:35 EST ASSESSMENT/PLAN: 47yF with PMH GERD, asthma presented to the ED with redness and itching to surgical sites. Cellulitis (mild) to surgical sites - given vancomycin and doxycycline in ED - ID consult - repeat CBC tomorrow if still present - Surgical consult - benadryl po for itching GERD - zantac liquid BID asthma - asymptomatic, monitor for s/s acute exac and tx promptly DVT PPX - deferred, expected LOS <48h FEN - tolerating po - BMP in am tomorrow if still here - bariatric stage 2 diet unless surgeon objects Dispo: Pt requires further observation for management of her emergent condition. Visit type - Emergency Visit Emergency Visit: Yes ED Registration Date: 09/26/17 Care time: The patient presented to the Emergency Department on the above date and was hospitalized for further evaluation of their emergent condition. - New Patient This patient is new to me today: Yes Date on this admission: 09/26/17 - Critical Care Critical Care patient: No Hospitalist Screening - Colonoscopy Questionnaire Colonoscopy Questionnaire: Colonoscopy Questionnaire - Patient: 50 - 75 years old and never had a screening colonoscopy: No History of colon or rectal polyps, or CA: No History of IBD, Crohn's disease or UC: No History of abdominal radiation therapy as a child: No - Relative: 1 with colon or rectal CA, or polyps at age 60 or younger: Yes Colon or rectal CA diagnosed at age 45 or younger: No Multiple relatives with colon or rectal CA: No - Outcome: Screening Result: Positive Screen
[2017-09-26] MEDS ORDERED: ACETAMINOPHEN 650 MG/20.3 ML ORAL SOLUTION (CUPS) PO PRN (05:43)
[2017-09-26] MEDS ORDERED: diphenhydrAMINE HCL 12.5 MG/5 ML BULK BOTTLE ONE (05:43)
[2017-09-26] MEDS ORDERED: PATIENT'S OWN MEDICATION (NON-FORMULARY) (Famotidine [Pepcid] 20 MG) PO SCH (10:00)
[2017-09-26] MEDS ORDERED: diphenhydrAMINE HCL 25 MG CAPSULE (FP) PO PRN (10:31)
[2017-09-26] MEDS ORDERED: PT OWN MED DRAWER 7, Y5N ONE ×2 (10:37→21:58)
--- NOTE | 2017-09-26 10:42 | PN ---
Progress Note (short form) - Note Progress Note: ID Consult dictated Cellulitis, surgical wound sites S/P gastric sleeve PCN allergy Await c/s Empiric vancomycin
[2017-09-26] MEDS: VANCOMYCIN 1,500 MG in DEXTROSE 5%-WATER - 500 ML IVPB SCH ×2 (10:51→22:00)
[2017-09-26 11:35] VITALS: BMI 51.7
--- NOTE | 2017-09-26 11:39 | CONS ---
DATE OF CONSULTATION: DATE OF DICTATION: 09/26/2017 REASON FOR CONSULTATION: Patient evaluated for abdominal wall cellulitis. HISTORY OF PRESENT ILLNESS: The patient is a 47-year-old morbidly obese female who underwent a gastric sleeve procedure at [facility] on September 17, 2017. Her immediate postoperative course was uncomplicated. She began to develop intense pruritus at the surgical incision sites associated with abdominal discomfort. She presented to the hospital where she was found to have cellulitis at the surgical incision sites. Blood cultures were obtained. She was empirically treated with vancomycin. She complains of intense pruritus and erythema at the incision sites. No reports of any purulent drainage. She denies any high-grade fever or shaking chills. PAST MEDICAL HISTORY: Positive for morbid obesity, bronchial asthma, gastroesophageal reflux. PAST SURGICAL HISTORY: Status post bilateral total knee replacements, tubal ligation, cholecystectomy, bilateral carpal tunnel surgery. ALLERGIES: PENICILLIN, reports developing hives. No history of anaphylaxis. MEDICATIONS: Include Tylenol. Benadryl, Zantac, vancomycin, doxycycline. SOCIAL HISTORY: She is a former smoker. SYSTEMS REVIEW: Neurologic: No loss of consciousness, seizure activity or focal weakness. Cardiac: Negative chest pain or palpitations.Respiratory: Negative cough or sputum production. Gastrointestinal: Negative vomiting or diarrhea. Genitourinary: Negative for urinary tract infection. LABORATORY DATA: White count 9.6, hematocrit 39.9, platelet count 356. BUN 11, creatinine 0.7. Blood cultures pending. PHYSICAL EXAMINATION:General: She is awake and alert. She is ambulatory. She is not acutely toxic appearing. Vital Signs: Temperature 98.2, blood pressure 131/72, pulse 66, regular, respirations 20 per minute. HEENT: Sclerae are anicteric. Cardiac: Heart sounds S1, S2. Lungs: Clear. Abdomen: Obese. On examination of the abdominal wall there are 5 incisional wounds present in the abdomen. There is surrounding erythema of the surgical wounds, the largest of which are in the mid abdomen and approximately 5 x 10 cm with confluent erythema, slightly warm to touch. No purulent drainage noted at the surgical incision sites. IMPRESSION: 1. Cellulitis, surgical wound sites. 2. Status post gastric sleeve. 3. PENICILLIN allergy. RECOMMENDATIONS: Await culture results. Empiric antibiotic coverage with vancomycin. Local wound care. Will follow. Thank you for the kind referral. LOVE TRENT M.D. [id number]
[2017-09-26] MEDS: diphenhydrAMINE HCL 12.5 MG/5 ML UNIT-DOSE CUPS PO PRN ×2 (12:15→23:09)
[2017-09-26] MEDS: RANITIDINE HCL 150 MG/10 ML UNIT-DOSE PO SCH ×2 (12:15→22:00)
--- NOTE | 2017-09-26 12:44 | PN ---
Progress Note, Physician - Current Medication List Current Medications: Active Medications Acetaminophen (Tylenol Oral Solution -) 650 mg PO Q6H PRN PRN Reason: PAIN LEVEL 6-10 Diphenhydramine HCl (Benadryl Oral Solution -) 25 mg PO Q6H PRN PRN Reason: ITCHING Last Admin: 09/26/17 12:15 Dose: 25 mg Vancomycin HCl 1,500 mg/ (Dextrose) 500 mls @ 250 mls/hr IVPB Q12H RAZIA PRN Reason: Protocol Last Admin: 09/26/17 10:51 Dose: Not Given Ranitidine HCl (Zantac Oral Solution -) 150 mg PO BID RAZIA Last Admin: 09/26/17 12:15 Dose: 150 mg - Objective Vital Signs: Vital Signs Temperature 98.4 F 09/26/17 08:30 Pulse Rate 60 09/26/17 08:30 Respiratory Rate 18 09/26/17 08:30 Blood Pressure 129/79 09/26/17 08:30 O2 Sat by Pulse Oximetry (%) 97 09/26/17 08:30 Cardiovascular: Yes: Regular Rate and Rhythm Respiratory: Yes: Regular, CTA Bilaterally Gastrointestinal: Yes: Normal Bowel Sounds, Soft Integumentary: Yes: Erythema Labs: CBC, BMP 09/26/17 02:00 09/26/17 02:00 INR, PTT INR 1.20 (0.82-1.09) H 09/26/17 02:00 Problem List - Problems (1) Abdominal wall cellulitis Assessment/Plan: -IV ABX -ID CONSULT -SURGICAL CONSULT Code(s): L03.311 - CELLULITIS OF ABDOMINAL WALL (2) History of sleeve gastrectomy Assessment/Plan: -SURGICAL CONSULT Code(s): Z90.3 - ACQUIRED ABSENCE OF STOMACH [PART OF] (3) Morbid obesity Code(s): E66.01 - MORBID (SEVERE) OBESITY DUE TO EXCESS CALORIES
--- NOTE | 2017-09-26 19:51 | CONSULT ---
Consult Consult Specialty:: Bariatric Surgery Reason for Consultation:: Abdominal wall erythema - History of Present Illness Chief Complaint: Redness at laparoscopic incisions and along abdominal wall x 3- 4 days. No fevers. No nausea/vomiting. Tolerated Bariatric Stage 2 diet. S/ P laparoscopic vertical sleeve gastrectomy - History Source History Provided By: Patient Limitations to Obtaining History: No Limitations - Past Medical History Pulmonary: Yes: Asthma ...LMP: 08/30/17 - Alcohol/Substance Use Hx Alcohol Use: No - Smoking History Smoking history: Former smoker Have you smoked in the past 12 months: No Aproximately how many cigarettes per day: 10 If you are a former smoker, when did you quit?: 2017 - Social History ADL: Independent Home Medications - Allergies Allergies/Adverse Reactions: Allergies Allergy/AdvReac Type Severity Reaction Status Date / Time Penicillins Allergy Mild Rash Verified 09/26/17 00:25 - Home Medications Home Medications: Ambulatory Orders Acetaminophen [Tylenol] 650 mg PO PRN 09/16/17 Ibuprofen [Motrin -] 800 mg PO PRN PRN 09/16/17 Famotidine [Pepcid] 20 mg PO BID #60 tablet 09/17/17 Oxycodone HCl/Acetaminophen [Percocet 5-325 mg Tablet] 1 - 2 tab PO Q6H #28 tab MDD 4 09/17/17 Family Disease History - Family Disease History Family History: Unremarkable Review of Systems - Review of Systems Constitutional: denies: Chills, Fever HENT: reports: No Symptoms Neck: reports: No Symptoms Cardiovascular: reports: No Symptoms Respiratory: reports: No Symptoms Gastrointestinal: denies: Abdominal Pain Integumentary: reports: Erythema, Pruritis Neurological: reports: No Symptoms Pain Intensity: 1 Physical Exam Vital Signs: Vital Signs Temperature 97.9 F 09/26/17 14:00 Pulse Rate 56 L 09/26/17 14:00 Respiratory Rate 17 09/26/17 14:00 Blood Pressure 107/57 09/26/17 14:00 O2 Sat by Pulse Oximetry (%) 97 09/26/17 16:30 Constitutional: Yes: Calm Neck: Yes: WNL Cardiovascular: Yes: Regular Rate and Rhythm Respiratory: Yes: Regular Gastrointestinal: Yes: Soft, Abdomen, Obese, Other (Wounds c/d/i. Erythema extending from each incision. no discharge. Nontender. Improved as per patient.) Neurological: Yes: Alert, Oriented Labs: CBC, BMP 09/26/17 02:00 09/26/17 02:00 Assessment/Plan Antibiotics per ID Possible reaction to surgical glue, surgical prep or cellulitis Improving Discharge home on PO antibiotics per ID
[2017-09-27 07:45] LABS: BASO % 1.3 % (0-2.0); HEMATOCRIT 37.2 % (32.4-45.2); HEMOGLOBIN 12.5 GM/dL (10.7-15.3); LYMPH % 28.9 % (8-40); MCH 30.2 pg (25.7-33.7); MCHC 33.6 g/dl (32.0-36.0); MEAN CELL VOLUME 89.8 fl (80-96); MEAN PLT VOLUME 7.7 fl (7.5-11.1); MONO % 8.5 % (3.8-10.2); NEUT % 55.3 % (42.8-82.8); PLATELET COUNT 320 K/MM3 (134-434); RBC 4.15 M/mm3 (3.60-5.2); RDW 14.6 % (11.6-15.6)
[2017-09-27 08:30] LABS: ANION GAP 6 (8-16); BLOOD UREA NITROGEN 5 mg/dL (7-18); CALCIUM 8.2 mg/dL (8.5-10.1); CHLORIDE 106 mmol/L (98-107); CO2 28 mmol/L (21-32); CREATININE 0.6 mg/dL (0.55-1.02); GLUCOSE,RANDOM 91 mg/dL (74-106); MAGNESIUM 2.4 mg/dL (1.8-2.4); PHOSPHOROUS 3.4 mg/dL (2.5-4.9); POTASSIUM 3.8 mmol/L (3.5-5.1); SODIUM 140 mmol/L (136-145)
--- NOTE | 2017-09-27 10:05 | PN ---
Progress Note, Physician Chief Complaint: ID Afebrile NO complaints - Current Medication List Current Medications: Active Medications Acetaminophen (Tylenol Oral Solution -) 650 mg PO Q6H PRN PRN Reason: PAIN LEVEL 6-10 Diphenhydramine HCl (Benadryl Oral Solution -) 25 mg PO Q6H PRN PRN Reason: ITCHING Last Admin: 09/26/17 23:09 Dose: 25 mg Vancomycin HCl 1,500 mg/ (Dextrose) 500 mls @ 250 mls/hr IVPB Q12H RAZIA PRN Reason: Protocol Last Admin: 09/26/17 22:00 Dose: 250 mls/hr Ranitidine HCl (Zantac Oral Solution -) 150 mg PO BID [facility] Last Admin: 09/26/17 22:00 Dose: 150 mg - Objective Vital Signs: Vital Signs Temperature 98.6 F 09/27/17 05:53 Pulse Rate 54 L 09/27/17 05:53 Respiratory Rate 20 09/27/17 05:53 Blood Pressure 121/65 09/27/17 05:53 O2 Sat by Pulse Oximetry (%) 97 09/27/17 00:00 Constitutional: Yes: Well Nourished, No Distress Gastrointestinal: Yes: WNL, Normal Bowel Sounds, Soft, Tenderness, Other ( Multiple discreet wounds with surrounding erythema and tenderness). No: Tenderness, Epigastrium Labs: CBC, BMP 09/27/17 07:20 09/27/17 07:20 INR, PTT INR 1.20 (0.82-1.09) H 09/26/17 02:00 Problem List - Problems (1) Abdominal wall cellulitis Code(s): L03.311 - CELLULITIS OF ABDOMINAL WALL Assessment/Plan Microbiology 09/26/17 05:30 Blood - Peripheral Venous Blood Culture - Preliminary Pending Organism 09/26/17 05:20 Blood - Peripheral Venous Blood Culture - Preliminary NO GROWTH OBTAINED AFTER 24 HOURS, INCUBATION TO CONTINUE FOR 4 DAYS. Laboratory Tests 09/27/17 09/27/17 07:20 07:20 WBC 7.0 Hct 37.2 Plt Count 320 BUN 5 L Creatinine 0.6 Assessment Suspect cellultiis of the wounds Not toxic febrile normal WBC Aware of blood culture but I think this a contaminant as suspicion for bacteremia low or absent Plan She is PCN allergic severe rash so give Clindaymcin 450mg qid for 7 days Surgical follow up this week She was told to contact me or her PMD for any progression of erythema fever chills She understands Lynn LUO
[2017-09-27] MEDS: diphenhydrAMINE HCL 12.5 MG/5 ML UNIT-DOSE CUPS PO PRN (10:19)
[2017-09-27] MEDS: RANITIDINE HCL 150 MG/10 ML UNIT-DOSE PO SCH ×2 (10:19→21:11)
--- NOTE | 2017-09-27 10:51 | PN ---
Progress Note, Physician - Current Medication List Current Medications: Active Medications Acetaminophen (Tylenol Oral Solution -) 650 mg PO Q6H PRN PRN Reason: PAIN LEVEL 6-10 Diphenhydramine HCl (Benadryl Oral Solution -) 25 mg PO Q6H PRN PRN Reason: ITCHING Last Admin: 09/27/17 10:19 Dose: 25 mg Vancomycin HCl 1,500 mg/ (Dextrose) 500 mls @ 250 mls/hr IVPB Q12H RAZIA PRN Reason: Protocol Last Admin: 09/26/17 22:00 Dose: 250 mls/hr Ranitidine HCl (Zantac Oral Solution -) 150 mg PO BID RAZIA Last Admin: 09/27/17 10:19 Dose: 150 mg - Objective Vital Signs: Vital Signs Temperature 98.5 F 09/27/17 09:00 Pulse Rate 68 09/27/17 09:00 Respiratory Rate 17 09/27/17 09:00 Blood Pressure 130/55 09/27/17 09:00 O2 Sat by Pulse Oximetry (%) 97 09/27/17 00:00 Cardiovascular: Yes: S1, S2 Respiratory: Yes: Regular, CTA Bilaterally Gastrointestinal: Yes: Normal Bowel Sounds, Soft Labs: CBC, BMP 09/27/17 07:20 09/27/17 07:20 INR, PTT INR 1.20 (0.82-1.09) H 09/26/17 02:00 Problem List - Problems (1) Abdominal wall cellulitis Assessment/Plan: -IV ABX -ID CONSULT Noted -SURGICAL CONSULT Noted Code(s): L03.311 - CELLULITIS OF ABDOMINAL WALL (2) History of sleeve gastrectomy Assessment/Plan: -SURGICAL CONSULT Code(s): Z90.3 - ACQUIRED ABSENCE OF STOMACH [PART OF] (3) Morbid obesity Code(s): E66.01 - MORBID (SEVERE) OBESITY DUE TO EXCESS CALORIES
[2017-09-27] MEDS: VANCOMYCIN 1,500 MG in DEXTROSE 5%-WATER - 500 ML IVPB SCH ×2 (11:37→22:58)
[2017-09-27] MEDS: PRAMOXINE HCL/CALAMINE 177 ML LOTION TP SCH ×2 (13:00→21:11)
[2017-09-28] MEDS ORDERED: VANCOMYCIN 1,500 MG in DEXTROSE 5%-WATER - 500 ML IVPB ONE (08:00)
[2017-09-28] MEDS ORDERED: PT OWN MED DRAWER 7, Y5N ONE ×3 (08:05→20:38)
[2017-09-28] MEDS: RANITIDINE HCL 150 MG/10 ML UNIT-DOSE PO SCH ×2 (09:10→21:26)
[2017-09-28] MEDS ORDERED: oxyCODONE HCL 5 MG TABLET PO PRN (10:11)
--- NOTE | 2017-09-28 10:24 | DS ---
Physical Examination Vital Signs: Vital Signs Temperature 98.6 F 09/28/17 08:38 Pulse Rate 77 09/28/17 08:38 Respiratory Rate 20 09/28/17 08:38 Blood Pressure 144/89 09/28/17 08:38 O2 Sat by Pulse Oximetry (%) 98 09/28/17 00:00 Constitutional: Yes: Well Nourished, No Distress, Calm Cardiovascular: Yes: Regular Rate and Rhythm Respiratory: Yes: Regular Gastrointestinal: Yes: Normal Bowel Sounds, Soft, Abdomen, Obese, Tenderness ( incisional) Musculoskeletal: Yes: WNL Extremities: Yes: WNL Edema: No Peripheral Pulses WNL: Yes Wound/Incision: Yes: Clean/Dry, Open to air, Reddened (improved as per patient) Neurological: Yes: Alert, Oriented Psychiatric: Yes: Alert, Oriented Labs: CBC, BMP 09/27/17 07:20 09/27/17 07:20 Discharge Summary Reason For Visit: CELLULITIS OF ABDOMINAL WALL Current Active Problems Abdominal wall cellulitis (Acute) History of sleeve gastrectomy (Acute) Wound infection (Acute) Condition: Stable - Instructions Referrals: Marty Barrett MD [Staff Physician] - Elton Hair MD [Primary Care Provider] - Disposition: HOME - Home Medications Comprehensive Discharge Medication List: Ambulatory Orders Acetaminophen [Tylenol] 650 mg PO PRN 09/16/17 Ibuprofen [Motrin -] 800 mg PO PRN PRN 09/16/17 Famotidine [Pepcid] 20 mg PO BID #60 tablet 09/17/17 Oxycodone HCl/Acetaminophen [Percocet 5-325 mg Tablet] 1 - 2 tab PO Q6H #28 tab MDD 4 09/17/17 Clindamycin [Cleocin -] 450 mg PO Q6H #84 capsule 09/28/17 Diphenhydramine [Benadryl 12.5 MG/5 ML Oral Solution -] 25 mg PO Q6H PRN #200 ml 09/28/17 Pramoxine HCl/Calamine [Caladryl -] 1 applic TP BID #1 bottle 09/28/17 Ranitidine Oral Solution [Zantac Oral Solution -] 150 mg PO BID #60 cup oxyCODONE HCL [Roxicodone -] 5 mg PO Q6H PRN tablet MDD 4 09/28/17
--- NOTE | 2017-09-28 16:19 | PN ---
Progress Note (short form) - Note Progress Note: PT seen this am and later today. Earlier she was tolerating a diet, having flatus. No bm since Thursday. She was complaining of pain at her lateral port sight. Vital Signs Period Temp Pulse Resp BP Sys/Ortiz Pulse Ox Last 24 Hr 98 F-98.6 F 60-77 20-20 110-144/60-89 98-98 GEN: A&0x3. NAD ABD: soft, non-distended, tender to touch in periumbilical region. All incisions c/d/i. No drainage noted. All incisions do have mild surrounding erythema. CBC, BMP 09/27/17 07:20 09/27/17 07:20 A/P: 47 yo female s/p lap vertical sleeve gastrectomy 09/17/2017 D/w Dr. Barrett, recommend ct scan without contrast to r/o hematoma/collection Incisions are clean, surrounding erythema appears to be more of a possible local reaction versus infections.
[2017-09-28] MEDS: CLINDAMYCIN HCL 150 MG CAPSULE (FP) PO SCH (20:35)
[2017-09-29] MEDS: CLINDAMYCIN HCL 150 MG CAPSULE (FP) PO SCH ×3 (01:17→11:44)
[2017-09-29 08:05] VITALS: BP 127/63; PULSE 57; TEMP 98.6
[2017-09-29] MEDS ORDERED: PT OWN MED DRAWER 7, Y5N ONE ×2 (10:29→11:42)
--- NOTE | 2017-09-29 10:33 | PN ---
Progress Note, Physician Chief Complaint: Abdominal pain Cellulitis History of Present Illness: NAD CT abd/pelvis negative Still having sharp stabbing pains even before hospitalizations, likely gas pains - Current Medication List Current Medications: Active Medications Acetaminophen (Tylenol Oral Solution -) 650 mg PO Q6H PRN PRN Reason: PAIN LEVEL 6-10 Bismuth Subsalicylate (Pepto-Bismol Liquid -) 30 ml PO ONCE ONE Stop: 09/29/17 10:18 Clindamycin HCl (Cleocin -) 450 mg PO Q6HPO [facility] Last Admin: 09/29/17 06:12 Dose: 450 mg Diphenhydramine HCl (Benadryl Oral Solution -) 25 mg PO Q6H PRN PRN Reason: ITCHING Last Admin: 09/27/17 10:19 Dose: 25 mg Diphenhydramine/Calamine/Camphor (Caladryl -) 1 applic TP BID [facility] Last Admin: 09/27/17 21:11 Dose: 1 applic Oxycodone HCl (Roxicodone -) 5 mg PO Q6H PRN PRN Reason: PAIN LEVEL 7 - 10 Last Admin: 09/28/17 13:51 Dose: 5 mg Ranitidine HCl (Zantac Oral Solution -) 150 mg PO BID [facility] Last Admin: 09/28/17 21:26 Dose: 150 mg - Objective Vital Signs: Vital Signs Temperature 98.6 F 09/29/17 07:30 Pulse Rate 57 L 09/29/17 07:30 Respiratory Rate 20 09/29/17 07:30 Blood Pressure 127/63 09/29/17 07:30 O2 Sat by Pulse Oximetry (%) 98 09/29/17 06:00 Constitutional: Yes: Well Nourished, No Distress, Calm Cardiovascular: Yes: Regular Rate and Rhythm Respiratory: Yes: Regular Gastrointestinal: Yes: Normal Bowel Sounds, Soft, Abdomen, Obese Musculoskeletal: Yes: WNL Extremities: Yes: WNL Edema: No Peripheral Pulses WNL: Yes Wound/Incision: Yes: Clean/Dry (with erythema around all 4 incisions) Neurological: Yes: Alert, Oriented Psychiatric: Yes: Alert, Oriented Labs: CBC, BMP 09/27/17 07:20 09/27/17 07:20 INR, PTT INR 1.20 (0.82-1.09) H 09/26/17 02:00 Problem List - Problems (1) Abdominal wall cellulitis Assessment/Plan: -discharge on Clindamycin 450 mg Q6H for 7 days -Caladryl lotion -Ice on the effected area -Follow up with Surgery outpatient- Dr Arnold Ferguson Code(s): L03.311 - CELLULITIS OF ABDOMINAL WALL (2) History of sleeve gastrectomy Code(s): Z90.3 - ACQUIRED ABSENCE OF STOMACH [PART OF] (3) Abdominal pain Assessment/Plan: -likely gas pains -Mylanta 30 ml Q6H PRN Code(s): R10.9 - UNSPECIFIED ABDOMINAL PAIN Qualifiers: Abdominal location: generalized Qualified Code(s): R10.84 - Generalized abdominal pain Assessment/Plan see problem list
[2017-09-29] MEDS: PRAMOXINE HCL/CALAMINE 177 ML LOTION TP SCH (11:36)
[2017-09-29] MEDS ORDERED: BISMUTH SUBSALICYLATE 262 MG/15 ML BTL PO ONE (11:45)
[2017-09-29] MEDS: RANITIDINE HCL 150 MG/10 ML UNIT-DOSE PO SCH (11:45)
--- NOTE | 2017-09-29 12:04 | PN ---
Progress Note (short form) - Note Progress Note: 47yo F s/p lap gastric sleeve with readmission for redness around port sites and abd pain. Pt currently afebrile and states itching and redness around port sites has improved. Continues to complain of intermitant abd pain. Pt had CT abd/pel yesterday that was unremarkable. Last Vital Signs Temp Pulse Resp BP Pulse Ox 98.6 F 57 L 20 127/63 98 09/29/17 07:30 09/29/17 07:30 09/29/17 07:30 09/29/17 07:30 09/29/17 06:00 CBC, BMP 09/27/17 07:20 09/27/17 07:20 PE: General: A&O x3, sitting comfortably Abd: redness noted around all port site, no tenderness or discharge. No reproducible abdominal tenderness. ExT: no edema. <Allan Trujillo - Last Filed: 09/29/17 11:59> - Note Progress Note: Agree Pain improved Abdominal erythema improved On PO antibiotics On diet CT A/P - no obstruction, no collections Gas X Warm compresses to wounds Will follow up on thursday10/02/17 Agrees <Marty Barrett - Last Filed: 09/29/17 21:52> Problem List - Problems (1) Abdominal wall cellulitis Assessment/Plan: 47yo F s/p lap gastric sleeve, with presumed port site cellulitis. -explained to pt that CT scan showed no signs of intraabdominal issues, and that port site irritation most likely allergic reaction, but will treat for cellulitis just in case. -unsure of intermitant nonreproducible abdominal pain, but do not feel it needs any surgical intervention. -pt cleared from surgical prespective for discharge home and will follow up in Dr. Grace clinic on Thursday as scheduled. Code(s): L03.311 - CELLULITIS OF ABDOMINAL WALL <Allan Trujillo - Last Filed: 09/29/17 11:59>
== END 2017-09-29 14:10 | disposition home or self-care (01) ==
LOC: JER 23:15 → JERBED 09-26 04:01 → INTOOBSV 09-26 04:01 → UNDOADMOB 09-26 04:01 → JERBED 09-26 05:31 → J6S 09-26 06:54 → JERBED 09-26 06:54 → J6S 09-26 06:54
PROVIDERS: ADMIT Internal Medicine; ATTEND Family Medicine
DX: L03.311 Cellulitis of abdominal wall (principal); L76.82 Other postprocedural complications of skin and subcutaneous tissue; T81.4XXA Infection following a procedure, initial encounter; K21.9 Gastro-esophageal reflux disease without esophagitis; J45.909 Unspecified asthma, uncomplicated; E66.01 Morbid (severe) obesity due to excess calories; Z68.43 Body mass index [BMI] 50.0-59.9, adult; Z96.653 Presence of artificial knee joint, bilateral; Z87.891 Personal history of nicotine dependence; Z88.0 Allergy status to penicillin; Z90.3 Acquired absence of stomach [part of]; Y83.8 Other surgical procedures as the cause of abnormal reaction of the patient, or of later complication, without mention of misadventure at the time of the procedure; Y92.9 Unspecified place or not applicable
CPT/HCPCS: 36415; 74176-TC; 76705; 80048; 80053; 83605; 83735; 84100; 84703; 85025; 85610; 85730; 87040; 96365; 96366; 96367; 96368; 99282-25; G0378

== ENCOUNTER 2017-12-03 09:51 | Emergency (ER) | payer OTHER ==
[2017-12-03 10:08] VITALS: BP 142/89; PULSE 71; TEMP 97.6; BMI 45.4
--- NOTE | 2017-12-03 10:25 | PDOC ---
History of Present Illness - General Chief Complaint: Ear Problem Stated Complaint: EAR PAIN Time Seen by Provider: 12/03/17 10:14 History Source: Patient Exam Limitations: No Limitations - History of Present Illness Initial Comments: CHIEF COMPLAINT: 47 y/o afebrile female with left ear pain. HISTORY OF PRESENT ILLNESS: Patient states she has been swimming a lot. She denies fever, headache, changes in hearing and all other symptoms. Vital signs on arrival are within normal limits. REVIEW OF SYSTEMS: GENERAL/CONSTITUTIONAL: No fever/chills. HEAD, EYES, EARS, NOSE AND THROAT: No change in vision. +left ear pain. No sore throat. MUSCULOSKELETAL: No joint or muscle swelling or pain. No neck or back pain. SKIN: No rash or easy bruising. NEUROLOGIC: No headache, vertigo, loss of consciousness, or loss of sensation. PHYSICAL EXAM: GENERAL: The patient is awake, alert, and fully oriented, in no acute distress. SHe is well appearing and ambulatory. HEAD: Normal with no signs of trauma. ENT: Pupils equal, round and reactive to light, extraocular movements intact, sclera anicteric, conjunctiva clear. Erythema and mild edema to left ear canal. TMs normal b/l. No mastoid tenderness left side. NEUROLOGICAL: Normal speech, normal gait. CN II-XII grossly intact. SKIN: Warm, dry, normal turgor, no rashes or lesions noted. Past History - Past Medical History Allergies/Adverse Reactions: Allergies Allergy/AdvReac Type Severity Reaction Status Date / Time Penicillins Allergy Mild Rash Verified 12/03/17 10:01 Home Medications: Ambulatory Orders Acetaminophen [Tylenol] 650 mg PO PRN 09/16/17 Ibuprofen [Motrin -] 800 mg PO PRN PRN 09/16/17 Famotidine [Pepcid] 20 mg PO BID #60 tablet 09/17/17 Oxycodone HCl/Acetaminophen [Percocet 5-325 mg Tablet] 1 - 2 tab PO Q6H #28 tab MDD 4 09/17/17 Clindamycin [Cleocin -] 450 mg PO Q6H #84 capsule 09/28/17 Diphenhydramine [Benadryl 12.5 MG/5 ML Oral Solution -] 25 mg PO Q6H PRN #200 ml 09/28/17 Pramoxine HCl/Calamine [Caladryl -] 1 applic TP BID #1 bottle 09/28/17 Ranitidine Oral Solution [Zantac Oral Solution -] 150 mg PO BID #60 cup oxyCODONE HCL [Roxicodone -] 5 mg PO Q6H PRN tablet MDD 4 09/28/17 Neomycin/Polymyxin B/Hydrocort [Peoowblg-Ycafoezqn-Hp Ear Soln] 4 drop OT TID # 120 drop 12/03/17 Anemia: No Asthma: Yes (no recent attack) Cancer: No Cardiac Disorders: No CVA: No COPD: No CHF: No Diabetes: No GI Disorders: Yes (ACID REFLUX) Disorders: No HTN: No Hypercholesterolemia: No Liver Disease: No Seizures: No Thyroid Disease: No - Surgical History Abdominal Surgery: Yes (TUBAL LIGATION) Cholecystectomy: Yes Orthopedic Surgery: Yes (L. Knee & rt. knee replacement, booker carpal tunnel surgery) - Family Disease History Family Disease History: Heart Disease: Mother - Immunization History Immunization Up to Date: Yes - Suicide/Smoking/Psychosocial Hx Smoking Status: Yes Smoking History: Former smoker Years of Tobacco Use: 10 Have you smoked in the past 12 months: Yes Number of Cigarettes Smoked Daily: 10 If you are a former smoker, when did you quit?: 04/26 Information on smoking cessation initiated: Yes 'Breaking Loose' booklet given: 12/03/17 Hx Alcohol Use: No Drug/Substance Use Hx: No Substance Use Type: None Hx Substance Use Treatment: No *Physical Exam - Vital Signs Last Vital Signs Temp Pulse Resp BP Pulse Ox 97.6 F 71 18 142/89 99 12/03/17 10:01 12/03/17 10:01 12/03/17 10:01 12/03/17 10:01 12/03/17 10:01 Medical Decision Making - Medical Decision Making A/P: 47 y/o female with left otitis externa. Will send ear drops. Instructed her to f/u with Dr. Chance if no improvement within 1 week and return to the eR with any worsening or concerning symptoms. The patient verbalizes understanding of all instructions, has no further questions and is awaiting discharge. *DC/Admit/Observation/Transfer Diagnosis at time of Disposition: Otitis externa Qualifiers: Otitis externa type: swimmer's ear Chronicity: acute Laterality: left Qualified Code(s): H60.332 - Swimmer's ear, left ear - Discharge Dispostion Disposition: HOME Condition at time of disposition: Good - Referrals Referrals: Rex Chance MD [Staff Physician] - 1 week - Patient Instructions Printed Discharge Instructions: DI for Otitis Externa Additional Instructions: Discharge Instructions: -You have swimmer's ear -A prescription for ear drops has been sent to your pharmacy -Please follow up with Dr. Chance within 1 week if no improvement with drops -Return to the ER with any worsening or concerning symptoms. - Post Discharge Activity
== END 2017-12-03 10:36 | disposition home or self-care (01) ==
LOC: JERFT 09:51
DX: H60.332 Swimmer's ear, left ear (principal); K21.9 Gastro-esophageal reflux disease without esophagitis; J45.909 Unspecified asthma, uncomplicated; Z96.653 Presence of artificial knee joint, bilateral
CPT/HCPCS: 99281-25

== ENCOUNTER 2018-02-09 07:47 | Emergency (ER) | payer OTHER ==
[2018-02-09 08:17] VITALS: BP 130/72; PULSE 59; TEMP 98.5; BMI 41.1
[2018-02-09] MEDS ORDERED: CYCLOBENZAPRINE HCL 10 MG TABLET (FP) PO ONE (08:41)
[2018-02-09] MEDS ORDERED: ACETAMINOPHEN 325 MG TABLET (FP) PO ONE (08:41)
[2018-02-09] MEDS ORDERED: ACETAMINOPHEN 325 MG TABLET (FP) ONE (08:45)
[2018-02-09] MEDS ORDERED: CYCLOBENZAPRINE HCL 10 MG TABLET (FP) ONE (08:46)
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
== END 2018-02-09 08:56 | disposition home or self-care (01) ==
LOC: JERFT 07:47
DX: S39.011A Strain of muscle, fascia and tendon of abdomen, initial encounter (principal); V48.0XXA Car driver injured in noncollision transport accident in nontraffic accident, initial encounter; Y92.414 Local residential or business street as the place of occurrence of the external cause; Y93.9 Activity, unspecified; Y99.9 Unspecified external cause status
CPT/HCPCS: 99281-25

== ENCOUNTER 2018-05-23 13:53 | Emergency (ER) | payer OTHER ==
[2018-05-23 14:04] VITALS: TEMP 98.7; BMI 38.9
--- NOTE | 2018-05-23 14:41 | PDOC ---
History of Present Illness - General History Source: Patient - History of Present Illness Timing/Duration: reports: other Quality: reports: severe, cramping Abdominal Pain Onset Location: reports: suprapubic <Jenn Foster - Last Filed: 05/23/18 18:26> <Shannen Abdullahi - Last Filed: 05/24/18 12:35> - General Chief Complaint: Vaginal Sxs Stated Complaint: VAGAINAL PAIN Time Seen by Provider: 05/23/18 14:28 Past History - Past Medical History Anemia: No Asthma: Yes (no recent attack) Cancer: No Cardiac Disorders: No CVA: No COPD: No CHF: No Diabetes: No GI Disorders: Yes (ACID REFLUX) Disorders: No HTN: No Hypercholesterolemia: No Liver Disease: No Seizures: No Thyroid Disease: No - Surgical History Abdominal Surgery: Yes (TUBAL LIGATION) Cholecystectomy: Yes Gastric Stapling: Yes (sleeve) Orthopedic Surgery: Yes (L. Knee & rt. knee replacement, booker carpal tunnel surgery) - Family Disease History Family Disease History: Heart Disease: Mother - Immunization History Immunization Up to Date: Yes - Suicide/Smoking/Psychosocial Hx Smoking Status: Yes Smoking History: Former smoker Years of Tobacco Use: 10 Have you smoked in the past 12 months: No Number of Cigarettes Smoked Daily: 10 If you are a former smoker, when did you quit?: 04/26 Information on smoking cessation initiated: No 'Breaking Loose' booklet given: 12/03/17 Hx Alcohol Use: No Drug/Substance Use Hx: No Substance Use Type: None Hx Substance Use Treatment: No <Jenn Foster - Last Filed: 05/23/18 18:26> <Shannen Abdullahi - Last Filed: 05/24/18 12:35> - Past Medical History Allergies/Adverse Reactions: Allergies Allergy/AdvReac Type Severity Reaction Status Date / Time Penicillins Allergy Mild Rash Verified 05/23/18 14:01 Home Medications: Ambulatory Orders Docusate Sodium [Colace] 100 mg PO DAILY #30 capsule 05/23/18 Doxycycline Hyclate 100 mg PO BID #28 tablet 05/23/18 Tramadol HCl 50 mg PO Q6H #6 tablet MDD 200mg 05/23/18 metroNIDAZOLE [Flagyl -] 500 mg PO BID #28 tablet 05/23/18 Review of Systems - Review of Systems Constitutional: No: Chills, Fever ABD/GI: Yes: Constipated, Nausea, Vomiting, Abdominal cramping. No: Blood Streaked Bowels, Diarrhea, Rectal Bleeding, Tarry Stools : Yes: Frequency. No: Burning, Dysuria, Discharge, Flank Pain, Hematuria, Lesions Musculoskeletal: No: Back Pain <Jenn Foster - Last Filed: 05/23/18 18:26> *Physical Exam - Vital Signs Last Vital Signs Temp Pulse Resp BP Pulse Ox 98.7 F 58 L 18 141/79 96 05/23/18 14:01 05/23/18 14:01 05/23/18 14:01 05/23/18 14:01 05/23/18 14:01 - Physical Exam General Appearance: Yes: Appropriately Dressed. No: Apparent Distress HEENT: positive: Normal Voice Neck: positive: Supple Respiratory/Chest: negative: Respiratory Distress Female Pelvic Exam: positive: adnexal tenderness (minimal on the R). negative: CMT, discharge, lesions, vaginal bleeding Gastrointestinal/Abdominal: positive: Tender (sig ttp to R and mid suprapubic area, NT to mcburneys) Musculoskeletal: negative: CVA Tenderness Integumentary: positive: Dry, Warm Neurologic: positive: Fully Oriented, Alert, Normal Mood/Affect <Jenn Foster - Last Filed: 05/23/18 18:26> - Vital Signs Last Vital Signs Temp Pulse Resp BP Pulse Ox 98.7 F 65 18 144/87 97 05/23/18 14:01 05/23/18 18:32 05/23/18 18:32 05/23/18 18:32 05/23/18 18:32 <Shannen Abdullahi - Last Filed: 05/24/18 12:35> Moderate Sedation - Procedure Monitoring Vital Signs: Procedure Monitoring Vital Signs Temperature 98.7 F 05/23/18 14:01 Pulse Rate 58 L 05/23/18 14:01 Respiratory Rate 18 05/23/18 14:01 Blood Pressure 141/79 05/23/18 14:01 O2 Sat by Pulse Oximetry (%) 96 05/23/18 14:01 <Jenn Foster - Last Filed: 05/23/18 18:26> - Procedure Monitoring Vital Signs: Procedure Monitoring Vital Signs Temperature 98.7 F 05/23/18 14:01 Pulse Rate 65 05/23/18 18:32 Respiratory Rate 18 05/23/18 18:32 Blood Pressure 144/87 05/23/18 18:32 O2 Sat by Pulse Oximetry (%) 97 05/23/18 18:32 <Shannen Abdullahi - Last Filed: 05/24/18 12:35> ED Treatment Course - LABORATORY CBC & Chemistry Diagram: 05/23/18 15:15 05/23/18 15:15 <Jenn Foster - Last Filed: 05/23/18 18:26> - LABORATORY CBC & Chemistry Diagram: 05/23/18 15:15 05/23/18 15:15 - ADDITIONAL ORDERS Additional order review: 05/23/18 15:15 RBC 4.39 MCV 91.7 MCHC 34.2 RDW 13.7 MPV 8.7 D Neutrophils % 68.7 D Lymphocytes % 20.9 D Monocytes % 6.0 Eosinophils % 3.6 Basophils % 0.8 - Medications Given in the ED: ED Medications Discontinued Medications Generic Name Dose Route Start Last Admin Trade Name Blane PRN Reason Stop Dose Admin Acetaminophen 650 mg 05/23/18 15:47 05/23/18 16:07 Tylenol - PO 05/23/18 15:48 650 mg ONCE ONE Administration Azithromycin 1,000 mg 05/23/18 18:09 05/23/18 18:32 Zithromax - PO 05/23/18 18:10 Not Given ONCE ONE Azithromycin 2,000 mg 05/23/18 18:14 05/23/18 18:32 Zithromax - PO 05/23/18 18:15 Not Given ONCE ONE Azithromycin 1,000 mg 05/23/18 18:18 05/23/18 18:31 Zithromax - PO 05/23/18 18:19 1,000 mg ONCE ONE Administration Ceftriaxone Sodium 250 mg 05/23/18 18:17 05/23/18 18:31 Rocephin - IM 05/23/18 18:18 250 mg ONCE ONE Administration Ketorolac Tromethamine 60 mg 05/23/18 15:08 05/23/18 15:54 Toradol Injection - IM 05/23/18 15:09 Not Given ONCE ONE Tramadol HCl 50 mg 05/23/18 17:27 05/23/18 18:14 Ultram - PO 05/23/18 17:28 50 mg ONCE ONE Administration <Shannen Abdullahi - Last Filed: 05/24/18 12:35> Medical Decision Making - Medical Decision Making 05/23/18 14:31 47 yo F, ovarian cysts, s/p tubal ligation, constipation, here with multiple complaints including severe pelvic painn that started 2 days ago, described as crampy and constant with possible dyspareunia. Denies vaginal discharge but reports "a different smell" to genitalia. + urinary frequency. No hematuria, flank pain, fever or chills. Does report constant nausea for 2 days with one episode of vomiting. Sexually active with only. +HPV in past. Last menstrual period 05/15/2018 was heavier than usual and states home test was negative. Reports that she is currently constipated, last bowel movement was 3 days ago. Taking enema with no relief. Has had multiple colonoscopy given family history of colon cancer and reports scopes have all been negative. No bright red blood per rectum See exam Pelvic pain R/o torsion vs PID vs UTI, less likely appy, neg home preg test -pain control -labs -US -?CT 05/23/18 17:59 Labs and US unremarkable w/ no findings to explain patient's symptoms. Pt does report some improvement w/ pain meds. Given severity of pain and dyspareunia, will treat empirically for PID pending GC/chlamydia results. Of note, patient reports hives with penicillin in he past, but no angioedema, resp sxs or hypotension. Per discussion with Dr. Gramajo, ok to give ceftriaxone as very low risk for cross-reactivity w/ 3rd gen cephalosporin. Will dc with doxycycline and flagyl given ?foul odor to genitalia. Regarding constipation, will dc with Colace. PMD f/u <Jenn Foster - Last Filed: 05/23/18 18:26> *DC/Admit/Observation/Transfer <Jenn Foster - Last Filed: 05/23/18 18:26> - Attestations Physician Attestion: I reviewed the case with the mid-level practitioner and agree with the mid- level practitioner's assessment, diagnosis and disposition. <Shannen Abdullahi - Last Filed: 05/24/18 12:35> Diagnosis at time of Disposition: Pelvic pain - Discharge Dispostion Disposition: HOME Condition at time of disposition: Improved - Prescriptions Prescriptions: Docusate Sodium [Colace] 100 mg PO DAILY #30 capsule Doxycycline Hyclate 100 mg PO BID #28 tablet metroNIDAZOLE [Flagyl -] 500 mg PO BID #28 tablet Tramadol HCl 50 mg PO Q6H #6 tablet MDD 200mg - Referrals Referrals: Elton Hair MD [Primary Care Provider] - - Patient Instructions Printed Discharge Instructions: Pelvic Inflammatory Disease Additional Instructions: Your labs and ultrasound did not show any findings to explain your symptoms. We have treated for possible pelvic inflammatory disorder and have started you on antibiotics to cover the usual organisms that can cause this, as was discussed with you in the ER. The medications you are going to take for the PID are 2 antibiotics call doxycycline and Flagyl. It is important that with Flagyl, you do not drink any alcohol and for 24 hours after taking the last dose as you can develop a bad reaction Use tramadol sparingly for severe pain as needed. We will call you for GC/chlamydia results in 2-3 days. You can also call us at [phone]. Return for to ER as for worsening of symptoms, otherwise follow-up with your doctor - Post Discharge Activity
[2018-05-23] MEDS ORDERED: KETOROLAC TROMETHAMINE 60 MG/2 ML VIAL IM ONE (15:08)
[2018-05-23 15:28] LABS: BASO % 0.8 % (0-2.0); EOS % 3.6 % (0-4.5); HEMATOCRIT 40.3 % (32.4-45.2); HEMOGLOBIN 13.8 GM/dL (10.7-15.3); LYMPH % 20.9 % (8-40); MCH 31.3 pg (25.7-33.7); MCHC 34.2 g/dl (32.0-36.0); MEAN CELL VOLUME 91.7 fl (80-96); MEAN PLT VOLUME 8.7 fl (7.5-11.1); NEUT % 68.7 % (42.8-82.8); PLATELET COUNT 272 K/MM3 (134-434); RBC 4.39 M/mm3 (3.60-5.2); RDW 13.7 % (11.6-15.6); WHITE BLOOD COUNT 9.5 K/mm3 (4.0-10.0)
[2018-05-23 15:36] LABS: ALBUMIN 3.8 g/dl (3.4-5.0); ALK PHOS 63 U/L (45-117); ANION GAP 7 MMOL/L (8-16); BILIRUBIN,TOTAL 0.5 mg/dL (0.2-1); BLOOD UREA NITROGEN 25 mg/dL (7-18); CALCIUM 8.9 mg/dL (8.5-10.1); CHLORIDE 108 mmol/L (98-107); CO2 25 mmol/L (21-32); CREATININE 0.6 mg/dL (0.55-1.3); GLUCOSE,RANDOM 90 mg/dL (74-106); LIPASE 154 U/L (73-393); SGOT/AST 9 U/L (15-37); SGPT/ALT 21 U/L (13-61); SODIUM 141 mmol/L (136-145); TOT PROT 6.6 g/dl (6.4-8.2)
[2018-05-23 15:43] LABS: URINE APPEARANCE CLEAR; URINE BILIRUBIN NEGATIVE (<2.0 mg/dL); URINE COLOR YELLOW; URINE GLUCOSE (UA) NEGATIVE (NEGATIVE); URINE KETONE NEGATIVE (NEGATIVE); URINE LEUK ESTERASE NEGATIVE (NEGATIVE); URINE NITRITE NEGATIVE (NEGATIVE); URINE PROTEIN NEGATIVE (NEGATIVE)
[2018-05-23] MEDS ORDERED: KETOROLAC TROMETHAMINE 60 MG/2 ML VIAL ONE (15:44)
[2018-05-23 15:46] LABS: HCG,QUALITATIVE URINE Negative
[2018-05-23] MEDS ORDERED: ACETAMINOPHEN 325 MG TABLET (FP) PO ONE (15:47)
[2018-05-23] MEDS ORDERED: ACETAMINOPHEN 325 MG TABLET (FP) ONE (16:03)
[2018-05-23] MEDS ORDERED: traMADol HCL 50 MG TABLET PO ONE (17:27)
[2018-05-23] MEDS ORDERED: traMADol HCL 50 MG TABLET ONE (17:53)
[2018-05-23] MEDS ORDERED: AZITHROMYCIN 250 MG TABLET PO ONE ×3 (18:09→18:18)
[2018-05-23] MEDS ORDERED: AZITHROMYCIN 250 MG TABLET ONE (18:21)
[2018-05-23] MEDS ORDERED: cefTRIAXone SODIUM 1 GM VIAL ONE (18:21)
[2018-05-23 18:33] VITALS: BP 144/87; PULSE 65
== END 2018-05-23 18:33 | disposition home or self-care (01) ==
LOC: JER 13:53
DX: N73.9 Female pelvic inflammatory disease, unspecified (principal); R10.2 Pelvic and perineal pain; J45.909 Unspecified asthma, uncomplicated; K21.9 Gastro-esophageal reflux disease without esophagitis; Z96.653 Presence of artificial knee joint, bilateral
CPT/HCPCS: 36415; 76830-TC; 76856-TC; 80053; 81003; 83690; 84703; 85025; 87491; 87591; 96372; 99283-25

== ENCOUNTER 2018-08-05 19:57 | Emergency (ER) | payer OTHER ==
[2018-08-05 20:03] VITALS: BP 149/92; PULSE 56; TEMP 97.6; BMI 37.8
[2018-08-05] MEDS ORDERED: ONDANSETRON 4 MG/2 ML VIAL IVPUSH ONE (20:17)
[2018-08-05] MEDS ORDERED: morphine CARPU-JECT 4 MG/1 ML DISP.SYRIN IVPUSH ONE ×2 (20:17→23:02)
[2018-08-05] MEDS ORDERED: SODIUM CHLORIDE 1,000 ML IV STA (20:17)
--- NOTE | 2018-08-05 20:29 | PDOC ---
History of Present Illness - General Chief Complaint: Pain Stated Complaint: STOMACH/PAIN Time Seen by Provider: 08/05/18 20:11 History Source: Patient Exam Limitations: No Limitations - History of Present Illness Travel History: No Initial Comments: 08/05/18 20:29 HISTORY OF PRESENT ILLNESS: This is a 48-year-old woman past medical history of asthma, upper scope cholecystectomy, bilateral knee replacement, rotator cuff repair bilaterally, gastric sleeve 08/26, tubal ligation and presents emergency department for evaluation of epigastric pain starting approximately 24 hours ago. Patient reports she felt a "gassy" sensation for which she took Tums, Maalox and Gas-X. Patient reported to taken the medicine she had multiple episodes of belching and flatus but the pain did not change. Patient pushes felt nauseous but has not vomited. Patient reports she does have daily bowel movements which she reports as hard to pass with the most recent bowel movement being at 2:30 this afternoon. She denies any dysuria, hematuria, rectal bleeding , vaginal discharge or vaginal bleeding. No recent travel or sick contacts. PAST MEDICAL HISTORY: Denies past medical history SURGICAL HISTORY: Denies ALLERGIES: PCN REVIEW OF SYSTEMS General/Constitutional: Denies fever or chills. Denies weakness, weight change. HEENT: Denies change in vision. Denies ear pain or discharge. Denies sore throat. Cardiovascular: Denies chest pain or shortness of breath. Respiratory: Denies cough, wheezing, or hemoptysis. Gastrointestinal: see HPI Genitourinary: Denies dysuria, frequency, or change in urination. Musculoskeletal: Denies joint or muscle swelling or pain. Denies neck or back pain. Skin and breasts: Denies rash or easy bruising. Neurologic: Denies headache, vertigo, loss of consciousness, or loss of sensation. Psychiatric: Denies depression or anxiety. Endocrine: Denies increased thirst. Denies abnormal weight change. Hematologic/Lymphatic: Denies anemia, easy bleeding, or history of blood clots. Allergic/Immunologic: Denies hives or skin allergy. Denies latex allergy. PHYSICAL EXAM General Appearance: Well-appearing, appropriately dressed. No apparent distress , no intoxication. HEENT: EOMI, PERRLA, normal ENT inspection, normal voice, TMs normal, pharynx normal. No conjunctival pallor. No photophobia, scleral icterus. Neck: Supple. Trachea midline. No tenderness, rigidity, carotid bruit, stridor , lymphadenopathy, or thyromegaly. Respiratory/Chest: Lungs CTAB. No shortness of breath, chest tenderness, respiratory distress, accessory muscle use. No crackles, rales, rhonchi, stridor , wheezing, dullness Cardiovascular: RRR. S1, S2. No JVD, murmur, bradycardia, tachycardia. Vascular Pulses: Dorsalis-Pedis (R): 2+, Dorsalis-Pedis (L): 2+ Gastrointestinal/Abdominal: Normoactive bowel sounds. Abdomen soft nondistended. Diffuse tenderness present. No guarding noted. No organomegaly or pulsatile masses present. No hernias present. Lymphatic: No adenopathy, tenderness. Musculoskeletal/Extremities: Normal inspection. FROM of all extremities, normal capillary refill. Pelvis Stable. No CVA tenderness. No tenderness to extremities, pedal edema, swelling, erythema or deformity. Integumentary: Appropriate color, dry, warm. 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 Fully oriented, alert. Appropriate mood/affect. Motor strength 5/5. No appreciable EOM palsy, facial droop or sensory deficit. 08/05/18 20:35 Past History - Past Medical History Allergies/Adverse Reactions: Allergies Allergy/AdvReac Type Severity Reaction Status Date / Time Penicillins Allergy Mild Rash Verified 08/05/18 20:03 Home Medications: Ambulatory Orders Docusate Sodium [Colace] 100 mg PO DAILY #30 capsule 05/23/18 Tramadol HCl 50 mg PO Q6H #6 tablet MDD 200mg 05/23/18 Anemia: No Asthma: Yes (no recent attack) Cancer: No Cardiac Disorders: No CVA: No COPD: No CHF: No Diabetes: No GI Disorders: Yes (ACID REFLUX) Disorders: No HTN: No Hypercholesterolemia: No Liver Disease: No Seizures: No Thyroid Disease: No - Surgical History Abdominal Surgery: Yes (TUBAL LIGATION) Cholecystectomy: Yes Gastric Stapling: Yes (sleeve) Orthopedic Surgery: Yes (L. Knee & rt. knee replacement, booker carpal tunnel surgery) - Family Disease History Family Disease History: Heart Disease: Mother - Reproductive History Polycystic Ovaries: Yes - Immunization History Immunization Up to Date: Yes - Suicide/Smoking/Psychosocial Hx Smoking Status: Yes Smoking History: Never smoked Years of Tobacco Use: 10 Have you smoked in the past 12 months: Yes Number of Cigarettes Smoked Daily: 10 If you are a former smoker, when did you quit?: 04/26 'Breaking Loose' booklet given: 12/03/17 Hx Alcohol Use: No Drug/Substance Use Hx: No Substance Use Type: None Hx Substance Use Treatment: No *Physical Exam - Vital Signs Last Vital Signs Temp Pulse Resp BP Pulse Ox 97.6 F 56 L 18 149/92 99 08/05/18 20:00 08/05/18 20:00 08/05/18 20:00 08/05/18 20:00 08/05/18 20:00 Heart Score/ECG Review - History History: Slightly suspicious - Electrocardiogram EKG: Normal - Age Age: 45-65 - Risk Factors Risk Factors Heart Score: Yes Hx Obesity Based on the list above the patient has:: 1-2 risk factors - Troponin Troponin: </= normal limit - Score Heart Score - Total: 2 - ECG Intrepretation Rhythm: Regular Rhythm - [place]: Normal - ECG Impressions Normal ECG: Yes ED Treatment Course - LABORATORY CBC & Chemistry Diagram: 08/05/18 20:34 08/05/18 20:34 Medical Decision Making - Medical Decision Making 08/05/18 20:32 A/P: 48-year-old woman with epigastric pain for one day Diffuse abdominal tenderness without guarding noted Differential diagnosis includes but not limited to pancreatitis, choledocholithiasis, GERD, ACS, over eating, obstruction, perforation, ischemia Labs with cardiac profile Urinalysis, urine culture, urine EKG CTAP with PO/IV Morphine 4 mg IV Zofran 4 mg IV Normal saline 1 L bolus Reassess 08/05/18 23:03 CT abdomen and pelvis as read by Dr. Corbin: Mild small and large bowel dilatation is noted to to fluid accumulation-? Recent diarrheal illness No definite evidence of bowel obstruction. In comparison to CT exams of 09/28/17 and 09/04/69 development of mild intrahepatic and extrahepatic biliary tract dilatation is noted. Is on prior studies the patient is status post cholecystectomy. Clinical/laboratory correlation suggested as well as MRI/MRCP evaluation nonemergent unless otherwise indicated. Status post sleeve gastrectomy as on prior exams. 2.5 cm left adnexal cyst. Laboratory testing notable for WBCs 10.4 with unremarkable urine or chemistries. EKG sinus bradycardia with rate of 52. Normal intervals. Normal axis. No ST elevations, ST depressions or T-wave inversions noted. Patient reports the pain has improved slightly after receiving morphine but now has moved slightly from epigastrium to the left upper quadrant. 08/05/18 23:42 Patient states she has an appointment with her bypass surgeon tomorrow morning. I will discharge the patient home to follow-up tomorrow morning with her doctor as previously scheduled. Patient is in agreement with this plan. I discussed the physical exam findings, ancillary test results and final diagnoses with the patient. I answered all of the patient's questions. The patient was satisfied with the care received and felt comfortable with the discharge plan and treatment plan. The patient will call their primary care physician within 24 hours to arrange follow-up and will return to the Emergency Department with any new, persistent or worsening symptoms. 08/06/18 00:13 *DC/Admit/Observation/Transfer Diagnosis at time of Disposition: Abdominal pain Qualifiers: Abdominal location: epigastric Qualified Code(s): R10.13 - Epigastric pain - Discharge Dispostion Disposition: HOME Condition at time of disposition: Fair Decision to Admit order: No - Referrals Referrals: Elton Hair MD [Primary Care Provider] - - Patient Instructions Additional Instructions: Keep well-hydrated. Well-balanced diet. Take Tylenol or Motrin as needed for pain. Follow residential assistant's instructions for appropriate dosage. Keep your appointment with Dr. Barrett tomorrow as previously scheduled. Return to emergency department for any new or worsening symptoms. Thank you very much for choosing us to provide your emergent health care needs. - Post Discharge Activity
[2018-08-05] MEDS ORDERED: ONDANSETRON 4 MG/2 ML VIAL ONE (20:39)
[2018-08-05] MEDS ORDERED: morphine SULFATE 4 MG/ML VIAL ONE ×2 (20:39→23:10)
[2018-08-05 20:48] LABS: BASO % 0.8 % (0-2.0); EOS % 7.7 % (0-4.5); HEMATOCRIT 43.9 % (32.4-45.2); HEMOGLOBIN 14.6 GM/dL (10.7-15.3); LYMPH % 31.5 % (8-40); MCHC 33.2 g/dl (32.0-36.0); MEAN CELL VOLUME 93.4 fl (80-96); MEAN PLT VOLUME 8.5 fl (7.5-11.1); MONO % 7.7 % (3.8-10.2); NEUT % 52.3 % (42.8-82.8); PLATELET COUNT 267 K/MM3 (134-434); RDW 14.5 % (11.6-15.6); WHITE BLOOD COUNT 10.4 K/mm3 (4.0-10.0)
[2018-08-05 21:00] LABS: URINE APPEARANCE CLEAR; URINE BILIRUBIN NEGATIVE (NEGATIVE); URINE COLOR DK YELLOW; URINE GLUCOSE (UA) NEGATIVE (NEGATIVE); URINE KETONE TRACE (NEGATIVE); URINE LEUK ESTERASE NEGATIVE (NEGATIVE); URINE NITRITE NEGATIVE (NEGATIVE); URINE PROTEIN NEGATIVE (NEGATIVE)
[2018-08-05 21:10] LABS: INR 1.1 (0.83-1.09)
[2018-08-05 21:30] LABS: ALBUMIN 3.9 g/dl (3.4-5.0); ALK PHOS 71 U/L (45-117); ANION GAP 9 MMOL/L (8-16); BILIRUBIN,TOTAL 0.3 mg/dL (0.2-1); BLOOD UREA NITROGEN 16 mg/dL (7-18); CALCIUM 9.2 mg/dL (8.5-10.1); CHLORIDE 108 mmol/L (98-107); CO2 24 mmol/L (21-32); CREATININE 0.6 mg/dL (0.55-1.3); GLUCOSE,RANDOM 89 mg/dL (74-106); LIPASE 150 U/L (73-393); POTASSIUM 4.2 mmol/L (3.5-5.1); SGOT/AST 14 U/L (15-37); SGPT/ALT 21 U/L (13-61); SODIUM 141 mmol/L (136-145); TOT PROT 7.3 g/dl (6.4-8.2)
--- NOTE | 2018-08-06 10:30 | EKG ---
Test Reason : Blood Pressure : / mmHG Vent. Rate : 052 BPM Atrial Rate : 052 BPM P-R Int : 144 ms QRS Dur : 092 ms QT Int : 462 ms P-R-T Axes : 054 058 022 degrees QTc Int : 429 ms SINUS BRADYCARDIA NONSPECIFIC ST ABNORMALITY Confirmed by LOVE MENDES MD ([id number]) on 08/06/2018 10:30:17 AM Referred By: Confirmed By:LOVE MENDES MD
== END 2018-08-05 23:55 | disposition home or self-care (01) ==
LOC: JER 19:57
PROC: 3E033NZ Introduction of Analgesics, Hypnotics, Sedatives into Peripheral Vein, Percutaneous Approach (ICD-10-PCS; principal; 2018-08-05)
PROC: 3E033GC Introduction of Other Therapeutic Substance into Peripheral Vein, Percutaneous Approach (ICD-10-PCS; 2018-08-05)
DX: R10.13 Epigastric pain (principal); Z96.653 Presence of artificial knee joint, bilateral; Z98.84 Bariatric surgery status; Z87.09 Personal history of other diseases of the respiratory system; Z88.0 Allergy status to penicillin
CPT/HCPCS: 36415; 74177-TC; 80053; 81003; 82550; 83690; 84484; 84703; 85025; 85610; 87086; 93005; 93010; 99283-25; J7030

== ENCOUNTER 2018-08-23 19:05 | Emergency (ER) | payer OTHER ==
--- NOTE | 2018-08-23 19:08 | PDOC ---
Rapid Medical Evaluation Time Seen by Provider: 08/23/18 19:06 Medical Evaluation: Allergies Allergy/AdvReac Type Severity Reaction Status Date / Time Penicillins Allergy Mild Rash Verified 08/05/18 20:03 08/23/18 19:07 I have performed a brief in-person evaluation of this patient. The patient presents with a chief complaint of: left shoulder pain s/p trip and fall Pertinent physical exam findings: decreased ROM. No sensory deficits. I have ordered the following: xray The patient will proceed to the ED for further evaluation. Discharge Disposition - Diagnosis Shoulder pain, left - Referrals - Patient Instructions - Post Discharge Activity
[2018-08-23 19:09] VITALS: BP 126/85; PULSE 93; TEMP 98.3; BMI 36.8
--- NOTE | 2018-08-23 20:32 | PDOC ---
History of Present Illness - General Chief Complaint: Pain, Acute Stated Complaint: LEFT ARM HURTING Time Seen by Provider: 08/23/18 19:06 - History of Present Illness Initial Comments: 08/23/18 20:30 48-year-old female without comorbidities presents for evaluation of left shoulder pain after fall. She states she tripped over her dog did not hit her head. When she fell her left elbow hit the ground first causing her left shoulder to sustain a impaction type injury she describes. Past History - Past Medical History Allergies/Adverse Reactions: Allergies Allergy/AdvReac Type Severity Reaction Status Date / Time Penicillins Allergy Mild Rash Verified 08/23/18 19:09 Home Medications: Ambulatory Orders Docusate Sodium [Colace] 100 mg PO DAILY #30 capsule 05/23/18 Tramadol HCl 50 mg PO Q6H #6 tablet MDD 200mg 05/23/18 Anemia: No Asthma: Yes (no recent attack) Cancer: No Cardiac Disorders: No CVA: No COPD: No CHF: No Diabetes: No GI Disorders: Yes (ACID REFLUX) Disorders: No HTN: No Hypercholesterolemia: No Liver Disease: No Seizures: No Thyroid Disease: No - Surgical History Abdominal Surgery: Yes (TUBAL LIGATION) Cholecystectomy: Yes Gastric Stapling: Yes (sleeve) Orthopedic Surgery: Yes (L. Knee & rt. knee replacement, booker carpal tunnel surgery) - Family Disease History Family Disease History: Heart Disease: Mother - Reproductive History Polycystic Ovaries: Yes Therapeutic (s) & number: No - Immunization History Immunization Up to Date: Yes - Suicide/Smoking/Psychosocial Hx Smoking Status: Yes Smoking History: Never smoked Years of Tobacco Use: 10 Have you smoked in the past 12 months: Yes Number of Cigarettes Smoked Daily: 10 If you are a former smoker, when did you quit?: 04/26 'Breaking Loose' booklet given: 12/03/17 Hx Alcohol Use: No Drug/Substance Use Hx: No Substance Use Type: None Hx Substance Use Treatment: No Review of Systems - Review of Systems Musculoskeletal: Yes: Joint Pain *Physical Exam - Vital Signs Last Vital Signs Temp Pulse Resp BP Pulse Ox 98.3 F 93 H 18 126/85 100 08/23/18 19:07 08/23/18 19:07 08/23/18 19:07 08/23/18 19:07 08/23/18 19:07 - Physical Exam Comments: 08/23/18 20:30 Left shoulder skin color and temperature are normal. She has full passive internal and external rotation without pain. She has minimal tenderness. She refuses to full flex or abduct her arm because of pain. She has no gross sensorimotor deficits she is neurovascularly intact. Her elbow wrist and forearm are nontender. She is again neurovascularly intact. Medical Decision Making - Medical Decision Making 08/23/18 20:31 X-rays of the left shoulder show postoperative changes. She had a prior rotator cuff repair. No acute fracture trauma or destructive process. *DC/Admit/Observation/Transfer Diagnosis at time of Disposition: Shoulder pain, left, Shoulder strain - Discharge Dispostion Disposition: HOME Condition at time of disposition: Stable Decision to Admit order: No - Referrals Referrals: Elton Hair MD [Primary Care Provider] - Nahun Veronica DO [Staff Physician] - - Patient Instructions Additional Instructions: Tylenol and Motrin as directed for pain. Return to the emergency room for worsening symptoms. Please follow-up with your orthopedic surgeon in one to 2 days for further evaluation and treatment options. Your x-rays were negative for fracture today your x-ray did show postoperative changes from a prior rotator cuff repair. - Post Discharge Activity
== END 2018-08-23 20:50 | disposition home or self-care (01) ==
LOC: JERFT 19:05
DX: S46.811A Strain of other muscles, fascia and tendons at shoulder and upper arm level, right arm, initial encounter (principal); W01.0XXA Fall on same level from slipping, tripping and stumbling without subsequent striking against object, initial encounter; Y93.89 Activity, other specified; Y92.038 Other place in apartment as the place of occurrence of the external cause; Y99.8 Other external cause status; Z87.19 Personal history of other diseases of the digestive system; Z87.09 Personal history of other diseases of the respiratory system; Z96.653 Presence of artificial knee joint, bilateral
CPT/HCPCS: 73030-TC-LT-FY; 99281-25

== ENCOUNTER 2019-02-15 17:15 | Emergency (ER) | payer OTHER ==
[2019-02-15 17:23] VITALS: BP 129/85; PULSE 65; TEMP 98.4; BMI 42.9
--- NOTE | 2019-02-15 17:24 | PDOC ---
Rapid Medical Evaluation Time Seen by Provider: 02/15/19 17:18 Medical Evaluation: Allergies Allergy/AdvReac Type Severity Reaction Status Date / Time Penicillins Allergy Mild Rash Verified 08/23/18 19:09 02/15/19 17:18 I performed a brief in-person evaluation of this patient. 48-year-old female, history of asthma, fell down 7 concrete steps, hit back on windowsill. No LOC. No AC use. Midline tenderness C5-6. I have ordered the following: Pgu CT cervical spine CT head given significant mechanism of injury Patient will proceed to the main ED for further evaluation. Discharge Disposition - Diagnosis Neck injury - Referrals - Patient Instructions - Post Discharge Activity
--- NOTE | 2019-02-15 19:18 | PDOC ---
History of Present Illness - General Chief Complaint: Injury Stated Complaint: BACK PAIN Time Seen by Provider: 02/15/19 17:18 History Source: Patient - History of Present Illness Initial Comments: 02/15/19 20:11 48 YEAR old female s/p trip and fall c/o lower back pain reports falling backwards and hitting the head on the window and back on the window sill. denies LOC, headache patient reports right hip pain to the right groin. patient reports some numbness to right leg. PMHX: back pain ( chronic back pain) Past History - Past Medical History Allergies/Adverse Reactions: Allergies Allergy/AdvReac Type Severity Reaction Status Date / Time Penicillins Allergy Mild Rash Verified 08/23/18 19:09 Home Medications: Ambulatory Orders Cyclobenzaprine HCl [Flexeril -] 10 mg PO TID PRN #10 tablet 02/15/19 Ibuprofen 800 mg PO QID PRN #20 tablet 02/15/19 Anemia: No Asthma: Yes (no recent attack) Cancer: No Cardiac Disorders: No CVA: No COPD: No CHF: No Diabetes: No GI Disorders: Yes (ACID REFLUX) Disorders: No HTN: No Hypercholesterolemia: No Liver Disease: No Seizures: No Thyroid Disease: No - Surgical History Abdominal Surgery: Yes (TUBAL LIGATION) Cholecystectomy: Yes Gastric Stapling: Yes (sleeve) Orthopedic Surgery: Yes (L. Knee & rt. knee replacement, booker carpal tunnel surgery) - Reproductive History Polycystic Ovaries: Yes Therapeutic (s) & number: No - Immunization History Immunization Up to Date: Yes - Psycho Social/Smoking Cessation Hx Smoking Status: Yes Smoking History: Unknown if ever smoked Years of Tobacco Use: 10 Have you smoked in the past 12 months: No Number of Cigarettes Smoked Daily: 10 If you are a former smoker, when did you quit?: 04/26 Information on smoking cessation initiated: No 'Breaking Loose' booklet given: 12/03/17 Hx Alcohol Use: No Drug/Substance Use Hx: No Substance Use Type: None Hx Substance Use Treatment: No Trauma Specific PMHX - Complaint Specific PMHX Back Injury: No Neck Injury: No Review of Systems - Review of Systems Able to Perform ROS?: Yes Is the patient limited Ukrainian proficient: No Musculoskeletal: Yes: Back Pain, Joint Pain, Joint Swelling, Neck Pain *Physical Exam - Vital Signs Last Vital Signs Temp Pulse Resp BP Pulse Ox 98.4 F 65 16 129/85 98 02/15/19 17:19 02/15/19 17:19 02/15/19 17:19 02/15/19 17:19 02/15/19 17:19 - Physical Exam General Appearance: Yes: Appropriately Dressed Respiratory/Chest: positive: Lungs Clear, Normal Breath Sounds Gastrointestinal/Abdominal: positive: Normal Bowel Sounds, Soft. 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 negative: Sensory Deficit ED Treatment Course - ADDITIONAL ORDERS Additional order review: Laboratory Results 02/15/19 17:30 Urine HCG, Qual Negative ED Progress Note - Progress Note Progress Note: 02/15/19 22:10 A: Neck pain, head injury, and right hip pain P: CT head neck some disc herniation noted. Recommends MRI. Patient has no motor dysfunction/sensation loss. Advised patient to follow-up with outpatient neurology. CT pelvis shows degenerative disease no acute fracture. Will send patient home with muscle relaxers and NSAIDs for pain control. XRAY: no acute fracture , subtle fracture cannot be excluded Discharge - Discharge Information Problems reviewed: Yes Clinical Impression/Diagnosis: Pain in right hip Neck injury Qualifiers: Encounter type: initial encounter Qualified Code(s): S19.9XXA - Unspecified injury of neck, initial encounter Head injury Qualifiers: Encounter type: initial encounter Qualified Code(s): S09.90XA - Unspecified injury of head, initial encounter Condition: Stable Disposition: HOME - Additional Discharge Information Prescriptions: Cyclobenzaprine HCl [Flexeril -] 10 mg PO TID PRN #10 tablet PRN Reason: Back Pain Ibuprofen 800 mg PO QID PRN #20 tablet PRN Reason: Back Pain - Follow up/Referral Referrals: Elton Hair MD [Primary Care Provider] - Oniel Lemus MD [Staff Physician] - Call tomorrow - Patient Discharge Instructions Patient Printed Discharge Instructions: DI for Closed Head Injury Additional Instructions: Rest and relax as much as possible. It is important that you follow-up with an orthopedic doctor for the disc herniation. Flexeril as prescribed. 1. Please return to the emergency department with any numbness, tingling, weakness, numbness or tingling to groin or legs, or loss of bowel or bladder function. 2. Use pain medication as ordered. 3. Please is to followup in the office of Dr. Lemus for evaluation within a week if no improvement. 4. Ice or heat 5. Refrain from lifting anything above 10 pounds, until pain resolved. - Post Discharge Activity Work/Back to School Note: Back to Work
--- NOTE | 2019-02-15 19:31 | PDOC ---
*Physical Exam - Vital Signs Last Vital Signs Temp Pulse Resp BP Pulse Ox 98.4 F 65 16 129/85 98 02/15/19 17:19 02/15/19 17:19 02/15/19 17:19 02/15/19 17:19 02/15/19 17:19 ED Treatment Course - ADDITIONAL ORDERS Additional order review: Laboratory Results 02/15/19 17:30 Urine HCG, Qual Negative Medical Decision Making - Medical Decision Making 02/15/19 19:31 Patient seen by the advanced practice provider under my direct supervision. Ancillary testing reviewed as necessary. I agree with plan as outlined by the advanced practice provider. Discharge - Discharge Information Problems reviewed: Yes Clinical Impression/Diagnosis: Neck injury Condition: Stable - Follow up/Referral Referrals: Elton Hair MD [Primary Care Provider] - - Patient Discharge Instructions - Post Discharge Activity
[2019-02-15] MEDS ORDERED: KETOROLAC TROMETHAMINE 30 MG/1 ML VIAL IM ONE ×2 (21:10→22:28)
[2019-02-15] MEDS ORDERED: KETOROLAC TROMETHAMINE 60 MG/2 ML VIAL ONE (22:23)
== END 2019-02-15 22:31 | disposition home or self-care (01) ==
LOC: JER 17:15
PROC: 3E0233Z Introduction of Anti-inflammatory into Muscle, Percutaneous Approach (ICD-10-PCS; principal; 2019-02-15)
PROC: 3E0233Z Introduction of Anti-inflammatory into Muscle, Percutaneous Approach (ICD-10-PCS; 2019-02-15)
DX: S19.80XA Other specified injuries of unspecified part of neck, initial encounter (principal); M54.2 Cervicalgia; M25.551 Pain in right hip; M54.5 Low back pain; W01.198A Fall on same level from slipping, tripping and stumbling with subsequent striking against other object, initial encounter; W10.8XXA Fall (on) (from) other stairs and steps, initial encounter; Y93.89 Activity, other specified; Y92.89 Other specified places as the place of occurrence of the external cause; Y99.8 Other external cause status; Z88.0 Allergy status to penicillin; K21.9 Gastro-esophageal reflux disease without esophagitis; Z87.19 Personal history of other diseases of the digestive system; Z96.653 Presence of artificial knee joint, bilateral; Z90.49 Acquired absence of other specified parts of digestive tract; Z98.84 Bariatric surgery status
CPT/HCPCS: 70450-TC; 72100-TC-FY; 72125-TC; 72192-TC; 73523-TC-FY; 73552-TC-RT-FY; 84703; 96372; 99281-25

== ENCOUNTER 2019-07-08 11:53 | Emergency (ER) | payer OTHER ==
[2019-07-08 12:06] VITALS: TEMP 98.4; BMI 36.0
--- NOTE | 2019-07-08 12:18 | PDOC ---
History of Present Illness - General History Source: Patient Exam Limitations: No Limitations <Jana Arias - Last Filed: 07/08/19 16:07> <Mir George - Last Filed: 07/08/19 17:11> - General Chief Complaint: Shortness of Breath Stated Complaint: SOB Time Seen by Provider: 07/08/19 12:16 Past History - Travel Traveled outside of the country in the last 30 days: No Close contact w/someone who was outside of country & ill: No - Past Medical History Anemia: No Asthma: Yes (no recent attack) Cancer: No Cardiac Disorders: No CVA: No COPD: No CHF: No Diabetes: No GI Disorders: Yes (ACID REFLUX) Disorders: No HTN: No Hypercholesterolemia: No Liver Disease: No Seizures: No Thyroid Disease: No - Surgical History Abdominal Surgery: Yes (TUBAL LIGATION) Cholecystectomy: Yes Gastric Stapling: Yes (sleeve) Orthopedic Surgery: Yes (L. Knee & rt. knee replacement, booker carpal tunnel surgery) - Reproductive History Polycystic Ovaries: Yes Therapeutic (s) & number: No - Immunization History Immunization Up to Date: Yes - Psycho Social/Smoking Cessation Hx Smoking Status: Yes Smoking History: Smoker current status UNK Years of Tobacco Use: 10 Have you smoked in the past 12 months: No Number of Cigarettes Smoked Daily: 10 If you are a former smoker, when did you quit?: 04/26 'Breaking Loose' booklet given: 12/03/17 Hx Alcohol Use: No Drug/Substance Use Hx: No Substance Use Type: None Hx Substance Use Treatment: No <Jana Arias - Last Filed: 07/08/19 16:07> <Mir George - Last Filed: 07/08/19 17:11> - Past Medical History Allergies/Adverse Reactions: Allergies Allergy/AdvReac Type Severity Reaction Status Date / Time Penicillins Allergy Mild Rash Verified 08/23/18 19:09 Home Medications: Ambulatory Orders Albuterol 0.083% Nebulizer Kellie [Ventolin 0.083% Nebulizer Soln -] 1 neb NEB Q4H #20 vial 07/08/19 Albuterol Sulfate Inhaler - [Ventolin HFA Inhaler -] 1 - 2 inh PO Q4H #1 inhaler 07/08/19 Albuterol Sulfate [Proair Respiclick] 90 mcg IH Q4H PRN 07/08/19 Methylprednisolone [Medrol -] 4 mg PO ASDIR #21 tablet 07/08/19 Nebulizer and Compressor [Easy Neb Compressor Nebulizer] 1 each ASDIR #1 each 07/08/19 Review of Systems - Review of Systems Able to Perform ROS?: Yes Comments:: 07/08/19 15:12 CONSTITUTIONAL: Absent: fever, chills, diaphoresis, generalized weakness, malaise, loss of appetite HEENT: Absent: rhinorrhea, nasal congestion, throat pain, throat swelling, difficulty swallowing, mouth swelling, ear pain, eye pain, visual Changes CARDIOVASCULAR: Absent: chest pain, loss of consciousness, palpitations, irregular heart rate, peripheral edema RESPIRATORY: Present: Cough, shortness of breath absent: cough, shortness of breath, dyspnea with exertion, orthopnea, wheezing, stridor, hemoptysis GASTROINTESTINAL: Absent: abdominal pain, abdominal distension, nausea, vomiting, diarrhea, constipation, melena, hematochezia GENITOURINARY: Absent: dysuria, frequency, urgency, hesitancy, hematuria, flank pain, genital pain MUSCULOSKELETAL: Absent: myalgia, arthralgia, joint swelling SKIN: Absent: rash, itching, pallor HEMATOLOGIC/IMMUNOLOGIC: Absent: easy bleeding, easy bruising, lymphadenopathy, frequent infections ENDOCRINE: Absent: unexplained weight gain, unexplained weight loss, heat intolerance, cold intolerance NEUROLOGIC: Absent: headache, focal weakness or paresthesias, dizziness, unsteady gait, seizure, mental status changes, bladder or bowel incontinence PSYCHIATRIC: Absent: anxiety, depression, suicidal or homicidal ideation, hallucinations. Is the patient limited Russian proficient: No <Jana Arias - Last Filed: 07/08/19 16:07> *Physical Exam - Vital Signs Last Vital Signs Temp Pulse Resp BP Pulse Ox 98.4 F 71 18 132/80 96 07/08/19 12:02 07/08/19 12:02 07/08/19 12:02 07/08/19 12:02 07/08/19 12:02 - Physical Exam 07/08/19 16:07 GENERAL: Well developed, well nourished. Awake and alert. No acute distress. HEENT: Normocephalic, atraumatic. PERRLA, EOMI. No conjunctival pallor. Sclera are non- icteric. Moist mucous membranes. Oropharynx is clear. NECK: Supple. Full ROM. No lymphadenopathy. CARDIOVASCULAR: Regular rate and rhythm. No murmurs, rubs, or gallops. Distal pulses are 2+ and symmetric. PULMONARY: No evidence of respiratory distress. Lungs clear to auscultation bilaterally with fair aeration to the bases. No wheezing, rales or rhonchi. ABDOMINAL: Soft. Non-tender. Non-distended. No rebound or guarding. No organomegaly. Normoactive bowel sounds. MUSCULOSKELETAL Normal range of motion at all joints. No bony deformities or tenderness. No CVA tenderness. EXTREMITIES: No cyanosis. No clubbing. No edema. No calf tenderness. SKIN: Warm and dry. Normal capillary refill. No rashes. No jaundice. NEUROLOGICAL: Alert, awake, appropriate. Cranial nerves 2-12 intact. No deficits to light touch and temperature in face, upper extremities and lower extremities. No motor deficits in the in face, upper extremities and lower extremities. Normoreflexic in the upper and lower extremities. Normal speech. Toes are down- going bilaterally. Gait is normal without ataxia. PSYCHIATRIC: Cooperative. Good eye contact. Appropriate mood and affect. <Jana Arias - Last Filed: 07/08/19 16:07> - Vital Signs Last Vital Signs Temp Pulse Resp BP Pulse Ox 98.4 F 73 17 126/75 99 07/08/19 12:02 07/08/19 15:20 07/08/19 15:20 07/08/19 15:20 07/08/19 15:20 <Mir George - Last Filed: 07/08/19 17:11> ED Treatment Course - LABORATORY CBC & Chemistry Diagram: 07/08/19 13:25 07/08/19 12:26 <Jana Arias - Last Filed: 07/08/19 16:07> - LABORATORY CBC & Chemistry Diagram: 07/08/19 13:25 07/08/19 12:26 - ADDITIONAL ORDERS Additional order review: Laboratory Results 07/08/19 07/08/19 13:25 12:26 PT with INR 12.50 INR 1.06 Sodium 141 Potassium 4.6 Chloride 108 H Carbon Dioxide 28 Anion Gap 5 L BUN 8.6 Creatinine 0.7 Est GFR (CKD-EPI)AfAm 120.43 Est GFR (CKD-EPI)NonAf 103.90 Random Glucose 90 Calcium 8.2 L Total Bilirubin 0.4 AST 11 L ALT 19 Alkaline Phosphatase 62 Creatine Kinase 58 Troponin I < 0.02 Total Protein 6.7 Albumin 3.3 L 07/08/19 13:25 RBC 4.08 MCV 92.8 MCHC 33.9 RDW 14.2 MPV 7.5 D Neutrophils % 46.4 Lymphocytes % 37.6 Monocytes % 8.4 Eosinophils % 7.5 H Basophils % 0.1 - Medications Given in the ED: ED Medications Discontinued Medications Generic Name Dose Route Start Last Admin Trade Name Freq PRN Reason Stop Dose Admin Albuterol/Ipratropium 1 amp 07/08/19 12:30 07/08/19 14:00 Duoneb - NEB 07/08/19 13:16 1 amp Q15M RAZIA Administration Dexamethasone 10 mg 07/08/19 12:27 07/08/19 13:25 Decadron Liquid - PO 07/08/19 12:28 10 mg ONCE ONE Administration <Mir George - Last Filed: 07/08/19 17:11> Medical Decision Making - Medical Decision Making 07/08/19 16:07 The patient is a 48-year-old female past medical history of asthma, presents to the emergency department today for chest tightness for 2 days. She states that she is been using her albuterol inhaler at home with little relief of her symptoms. She states that it hurts to take a deep breath and she has associated chest tightness. She also notes a cough with white sputum. Denies fevers, chills, sore throat, earache, dyspnea on exertion, nausea, vomiting , diarrhea, recent travel, history of blood clots and leg edema. She is never been intubated for her asthma. A/P: Asthma exacerbation On exam lungs are clear to auscultation bilateral without wheezes rales or rhonchi and fair aeration to the bases. Given chest tightness and history of asthma, DuoNeb's and steroids were given. Basic labs including troponin drawn. Patient PERC's out. Unlikely PE EKG: Rate 69 bpm, normal sinus rhythm. No acute ST-T wave changes, normal intervals and axis. Overall normal EKG. Lab work is unremarkable, troponin negative. Chest x-ray shows no acute pathology. Patient feels much better after medication. Likely asthma exacerbation Discharge home with supportive therapy and primary care follow-up. I discussed the physical exam findings, ancillary test results and final diagnoses with the patient. I answered all of the patient's questions. The patient was satisfied with the care received and felt comfortable with the discharge plan and treatment plan. The Patient agrees to follow up with the primary care physician/specialist within 24-72 hours. Return precautions were given. <Jana Arias - Last Filed: 07/08/19 16:07> - Medical Decision Making I reviewed the case of the mid-level practitioner and was available for consultation while in the emergency department 07/08/19 17:11 <Mir George - Last Filed: 07/08/19 17:11> Discharge - Discharge Information Problems reviewed: Yes - Admission No <Jana Arias - Last Filed: 07/08/19 16:07> <Mir George - Last Filed: 07/08/19 17:11> - Discharge Information Clinical Impression/Diagnosis: Asthma exacerbation Qualifiers: Asthma severity: mild Asthma persistence: intermittent Qualified Code(s): J45.21 - Mild intermittent asthma with (acute) exacerbation Condition: Stable Disposition: HOME - Additional Discharge Information Prescriptions: Albuterol 0.083% Nebulizer Kellie [Ventolin 0.083% Nebulizer Soln -] 1 neb NEB Q4H #20 vial Albuterol Sulfate Inhaler - [Ventolin HFA Inhaler -] 1 - 2 inh PO Q4H #1 inhaler Methylprednisolone [Medrol -] 4 mg PO ASDIR #21 tablet Nebulizer and Compressor [Easy Neb Compressor Nebulizer] 1 each MC ASDIR #1 each - Follow up/Referral Referrals: Elton Hair MD [Primary Care Provider] - - Patient Discharge Instructions Patient Printed Discharge Instructions: DI for Asthma -- Adult Additional Instructions: You were evaluated for your shortness of breath today. You most likely have an asthma exacerbation. Please take the albuterol every 4 hours as needed for wheezing. Take the steroid starting tomorrow. Your blood work was normal today. Follow-up with your primary care doctor this week. Return to the ER for shortness of breath, difficulty breathing or if you have any changes in your paperwork. - Post Discharge Activity Work/Back to School Note: Back to Work
[2019-07-08] MEDS ORDERED: DEXAMETHASONE LIQUID 0.5 MG/5 ML PO ONE (12:27)
[2019-07-08] MEDS ORDERED: ALBUTEROL SO4 2.5/IPRATROPIUM 0.5 INH SOL 3 ML VIAL.NEB. NEB ONE (13:07)
[2019-07-08] MEDS ORDERED: DEXAMETHASONE SOD PHOSPHATE 10 MG/1 ML VIAL ONE (13:11)
[2019-07-08] MEDS: ALBUTEROL SO4 2.5/IPRATROPIUM 0.5 INH SOL 3 ML VIAL.NEB. NEB SCH ×3 (13:25→14:00)
[2019-07-08 13:32] LABS: BASO % 0.1 % (0-2.0); EOS % 7.5 % (0-4.5); HEMATOCRIT 37.9 % (32.4-45.2); HEMOGLOBIN 12.8 GM/dL (10.7-15.3); LYMPH % 37.6 % (8-40); MCH 31.4 pg (25.7-33.7); MCHC 33.9 g/dl (32.0-36.0); MEAN CELL VOLUME 92.8 fl (80-96); MEAN PLT VOLUME 7.5 fl (7.5-11.1); MONO % 8.4 % (3.8-10.2); NEUT % 46.4 % (42.8-82.8); PLATELET COUNT 306 K/MM3 (134-434); RBC 4.08 M/mm3 (3.60-5.2); RDW 14.2 % (11.6-15.6); WHITE BLOOD COUNT 6.1 K/mm3 (4.0-10.0)
[2019-07-08 13:47] LABS: INR 1.06 (0.83-1.09); PROTHROMBIN TIME (PATIENT) 12.5 SEC (9.7-13.0)
[2019-07-08 14:00] LABS: ALBUMIN 3.3 g/dl (3.4-5.0); ALK PHOS 62 U/L (45-117); ANION GAP 5 MMOL/L (8-16); BILIRUBIN,TOTAL 0.4 mg/dL (0.2-1); BLOOD UREA NITROGEN 8.6 mg/dL (7-18); CALCIUM 8.2 mg/dL (8.5-10.1); CHLORIDE 108 mmol/L (98-107); CO2 28 mmol/L (21-32); CREATININE 0.7 mg/dL (0.55-1.3); GLUCOSE,RANDOM 90 mg/dL (74-106); POTASSIUM 4.6 mmol/L (3.5-5.1); SGOT/AST 11 U/L (15-37); SGPT/ALT 19 U/L (13-61); SODIUM 141 mmol/L (136-145); TOT PROT 6.7 g/dl (6.4-8.2)
[2019-07-08 16:22] VITALS: BP 126/75; PULSE 73
--- NOTE | 2019-07-09 13:36 | EKG ---
Test Reason : Blood Pressure : / mmHG Vent. Rate : 069 BPM Atrial Rate : 069 BPM P-R Int : 148 ms QRS Dur : 088 ms QT Int : 406 ms P-R-T Axes : 062 061 045 degrees QTc Int : 435 ms NORMAL SINUS RHYTHM NORMAL ECG WHEN COMPARED WITH ECG OF 05-AUG-2018 21:14, NO SIGNIFICANT CHANGE WAS FOUND Confirmed by LOVE MENDES MD ([id number]) on 07/09/2019 1:36:06 PM Referred By: Confirmed By:LOVE MENDES MD
== END 2019-07-08 15:30 | disposition home or self-care (01) ==
LOC: JER 11:53
PROC: 3E0F7GC Introduction of Other Therapeutic Substance into Respiratory Tract, Via Natural or Artificial Opening (ICD-10-PCS; principal; 2019-07-08)
DX: J45.21 Mild intermittent asthma with (acute) exacerbation (principal); Z88.0 Allergy status to penicillin
CPT/HCPCS: 36415; 71046-TC-FY; 80053; 82550; 84484; 85025; 85610; 93005; 93010; 99285-25

== ENCOUNTER 2020-07-19 17:07 | Emergency (ER) | payer OTHER ==
[2020-07-19 17:36] VITALS: BP 136/76; PULSE 70; BMI 32.5
[2020-07-19 17:55] VITALS: TEMP 98.2
== END 2020-07-19 18:11 | disposition home or self-care (01) ==
LOC: JER 17:07 → JERFT 17:07
PROC: 0HQFXZZ Repair Right Hand Skin, External Approach (ICD-10-PCS; principal; 2020-07-19)
DX: S61.210A Laceration without foreign body of right index finger without damage to nail, initial encounter (principal)
CPT/HCPCS: 99282-25

== ENCOUNTER 2020-09-15 18:24 | Emergency (ER) | payer OTHER ==
[2020-09-15 18:31] VITALS: BMI 32.5
[2020-09-15] MEDS ORDERED: morphine CARPU-JECT 4 MG/1 ML DISP.SYRIN IVPUSH ONE (19:09)
[2020-09-15] MEDS ORDERED: ONDANSETRON 4 MG/2 ML VIAL IVPUSH ONE (19:09)
[2020-09-15] MEDS ORDERED: morphine SULFATE 4 MG/ML VIAL ONE (19:19)
[2020-09-15] MEDS ORDERED: ONDANSETRON 4 MG/2 ML VIAL ONE (19:19)
[2020-09-15 19:52] LABS: BASO % 1.3 % (0-2.0); EOS % 4.8 % (0-4.5); HEMATOCRIT 44.1 % (32.4-45.2); HEMOGLOBIN 14.8 GM/dL (10.7-15.3); LYMPH % 22.2 % (8-40); MCH 30.9 pg (25.7-33.7); MCHC 33.4 g/dl (32.0-36.0); MEAN CELL VOLUME 92.4 fl (80-96); MEAN PLT VOLUME 8.1 fl (7.5-11.1); MONO % 7.5 % (3.8-10.2); NEUT % 64.2 % (42.8-82.8); PLATELET COUNT 284 K/MM3 (134-434); RBC 4.78 M/mm3 (3.60-5.2); RDW 13.7 % (11.6-15.6); WHITE BLOOD COUNT 9.5 K/mm3 (4.0-10.0)
[2020-09-15 19:53] LABS: PH,URINE 5.5 (5.0-8.0); URINE APPEARANCE CLEAR; URINE BILIRUBIN NEGATIVE (NEGATIVE); URINE COLOR DK YELLOW; URINE GLUCOSE (UA) NEGATIVE (NEGATIVE); URINE KETONE 2+ (NEGATIVE); URINE LEUK ESTERASE NEGATIVE (NEGATIVE); URINE NITRITE NEGATIVE (NEGATIVE); URINE PROTEIN NEGATIVE (NEGATIVE)
[2020-09-15 20:14] LABS: CALCIUM 8.9 mg/dL (8.5-10.1)
[2020-09-15 20:15] LABS: ALBUMIN 4.2 g/dl (3.4-5.0)
[2020-09-15 20:17] LABS: CREATININE 0.8 mg/dL (0.55-1.3)
[2020-09-15 20:19] LABS: BILIRUBIN,TOTAL 0.6 mg/dL (0.2-1); TOT PROT 7.7 g/dl (6.4-8.2)
[2020-09-15] MEDS ORDERED: LACTATED RINGERS SOLUTION 1,000 ML IV STA (20:53)
[2020-09-15] MEDS ORDERED: KETOROLAC TROMETHAMINE 15 MG/ML VIAL IVPUSH ONE (21:08)
[2020-09-15] MEDS ORDERED: KETOROLAC TROMETHAMINE 15 MG/ML VIAL ONE (21:09)
[2020-09-15] MEDS ORDERED: ACETAMINOPHEN 1000 MG/100 ML VIAL (NON FORMULARY) IVPB ONE (21:15)
[2020-09-15] MEDS ORDERED: ACETAMINOPHEN INJECTION 100 ML IVPB ONE (21:17)
[2020-09-15] MEDS ORDERED: LIDOCAINE 5% TOPICAL PATCH TP ONE (22:01)
[2020-09-15] MEDS ORDERED: LIDOCAINE 5% TOPICAL PATCH ONE (22:10)
[2020-09-15] MEDS ORDERED: oxyCODONE HCL 5 MG TABLET PO ONE (22:15)
[2020-09-15] MEDS ORDERED: oxyCODONE HCL 5 MG TABLET ONE (22:30)
[2020-09-15 22:39] VITALS: BP 155/77; PULSE 65; TEMP 98.2
== END 2020-09-15 22:39 | disposition home or self-care (01) ==
LOC: JER 18:24
PROC: 3E0333Z Introduction of Anti-inflammatory into Peripheral Vein, Percutaneous Approach (ICD-10-PCS; principal; 2020-09-15)
PROC: 3E033NZ Introduction of Analgesics, Hypnotics, Sedatives into Peripheral Vein, Percutaneous Approach (ICD-10-PCS; 2020-09-15)
PROC: 3E033GC Introduction of Other Therapeutic Substance into Peripheral Vein, Percutaneous Approach (ICD-10-PCS; 2020-09-15)
DX: M54.5 Low back pain (principal); R10.84 Generalized abdominal pain
CPT/HCPCS: 36415; 74176-TC; 76775-TC; 80053; 81003; 83690; 84703; 85025; 87086; 99284-25; J0131

== ENCOUNTER 2021-02-06 11:25 | Emergency (ER) | payer OTHER ==
[2021-02-06 11:36] VITALS: BP 129/83; PULSE 81; TEMP 98.2; BMI 34.3
[2021-02-06] MEDS ORDERED: SODIUM PHOSPHATE/NA BIPHOS 133 ML ENEMA PR ONE (12:58)
[2021-02-06] MEDS ORDERED: MINERAL OIL ENEMA 133 ML ENEMA PR ONE (13:02)
== END 2021-02-06 14:10 | disposition home or self-care (01) ==
LOC: JER 11:25
DX: K59.00 Constipation, unspecified (principal)
CPT/HCPCS: 74019-TC-FY; 99283-25

== ENCOUNTER 2021-09-07 02:05 | Emergency (ER) | payer OTHER ==
[2021-09-07] MEDS ORDERED: DEXAMETHASONE SOD PHOSPHATE 10 MG/1 ML VIAL IM ONE (02:13)
[2021-09-07] MEDS ORDERED: ALBUTEROL SO4 2.5/IPRATROPIUM 0.5 INH SOL 3 ML VIAL.NEB. NEB ONE ×2 (02:13→02:17)
[2021-09-07] MEDS ORDERED: DEXAMETHASONE SOD PHOSPHATE 10 MG/1 ML VIAL ONE (02:17)
[2021-09-07 02:38] VITALS: TEMP 98; BMI 34.3
[2021-09-07 03:12] VITALS: BP 138/77; PULSE 90
== END 2021-09-07 03:30 | disposition home or self-care (01) ==
LOC: JER 02:05
PROC: 3E0F7GC Introduction of Other Therapeutic Substance into Respiratory Tract, Via Natural or Artificial Opening (ICD-10-PCS; principal; 2021-09-07)
PROC: 3E033GC Introduction of Other Therapeutic Substance into Peripheral Vein, Percutaneous Approach (ICD-10-PCS; 2021-09-07)
DX: J45.901 Unspecified asthma with (acute) exacerbation (principal)
CPT/HCPCS: 93005; 93010; 99284-25; J1100

== ENCOUNTER 2021-09-16 12:45 | Emergency (ER) | payer OTHER ==
[2021-09-16 12:50] VITALS: BMI 33.1
[2021-09-16] MEDS ORDERED: ALBUTEROL SO4 2.5/IPRATROPIUM 0.5 INH SOL 3 ML VIAL.NEB. NEB ONE ×3 (13:59→17:08)
[2021-09-16] MEDS: ALBUTEROL SO4 2.5/IPRATROPIUM 0.5 INH SOL 3 ML VIAL.NEB. NEB SCH ×2 (14:05→16:30)
[2021-09-16 14:45] LABS: BASO % 0.9 % (0-2.0); EOS % 3.5 % (0-4.5); HEMATOCRIT 36.4 % (32.4-45.2); HEMOGLOBIN 11.4 GM/dL (10.7-15.3); LYMPH % 19.4 % (8-40); MCHC 31.3 g/dl (32.0-36.0); MEAN CELL VOLUME 89.4 fl (80-96); MONO % 6.3 % (3.8-10.2); NEUT % 69.9 % (42.8-82.8); PLATELET COUNT 405 10^3/uL (134-434); RBC 4.07 M/mm3 (3.60-5.2); RDW 14.4 % (11.6-15.6); WHITE BLOOD COUNT 8.5 K/mm3 (4.0-10.0)
[2021-09-16 14:55] LABS: INR 1.09 (0.83-1.09); PROTHROMBIN TIME (PATIENT) 12.5 SEC (9.7-13.0)
[2021-09-16 14:58] LABS: ACTIVATED PTT 32.2 SECONDS (25.2-36.5)
[2021-09-16 15:06] LABS: CALCIUM 9.4 mg/dL (8.5-10.1)
[2021-09-16 15:07] LABS: ALBUMIN 3.8 g/dl (3.4-5.0)
[2021-09-16 15:10] LABS: BLOOD UREA NITROGEN 9.6 mg/dL (7-18); CREATININE 0.8 mg/dL (0.55-1.3)
[2021-09-16 15:12] LABS: BILIRUBIN,TOTAL 0.7 mg/dL (0.2-1); TOT PROT 7.5 g/dl (6.4-8.2)
[2021-09-16 16:58] VITALS: TEMP 98.8
[2021-09-16 18:18] LABS: CALCIUM 9.4 mg/dL (8.5-10.1)
[2021-09-16 18:19] LABS: BLOOD UREA NITROGEN 9.1 mg/dL (7-18)
[2021-09-16 18:22] LABS: CREATININE 0.7 mg/dL (0.55-1.3)
[2021-09-16 18:57] VITALS: BP 122/88; PULSE 80
== END 2021-09-16 18:57 | disposition home or self-care (01) ==
LOC: JER 12:45
PROC: 3E0F7GC Introduction of Other Therapeutic Substance into Respiratory Tract, Via Natural or Artificial Opening (ICD-10-PCS; principal; 2021-09-16)
DX: R09.02 Hypoxemia (principal); R06.02 Shortness of breath
CPT/HCPCS: 0241U-QW; 36415; 71275-TC; 80048; 80053; 84484; 85025; 85610; 85730; 86850; 86900; 86901; 87807; 93005; 93010; 99285-25; C9803-CS; Q9967; U0003; U0005

== ENCOUNTER 2023-12-15 04:12 | Day surgery (SDC) | payer OTHER ==
[2023-12-11 18:44] VITALS: BMI 36.9
[2023-12-15 09:07] VITALS: RESP 18
[2023-12-15] MEDS ORDERED: MIDAZOLAM HCL 2 MG/2 ML SINGLE DOSE VIAL ONE (11:17)
[2023-12-15] MEDS ORDERED: KETOROLAC TROMETHAMINE 30 MG/1 ML VIAL ONE (11:18)
[2023-12-15] MEDS ORDERED: ONDANSETRON 4 MG/2 ML VIAL ONE (11:18)
[2023-12-15] MEDS ORDERED: DEXAMETHASONE SOD PHOSPHATE 4 MG/1 ML VIAL ONE (11:18)
[2023-12-15] MEDS ORDERED: ceFAZolin SODIUM 1 GM VIAL ONE (11:18)
[2023-12-15] MEDS ORDERED: PROPOFOL 20 ML ONE (11:18)
[2023-12-15] MEDS ORDERED: oxyCODONE HCL 5 MG TABLET PO PRN (12:44)
[2023-12-15] MEDS ORDERED: LACTATED RINGERS SOLUTION 1,000 ML IV SCH (12:45)
[2023-12-15 15:31] VITALS: BP 121/70; PULSE 60; TEMP 97.9
== END 2023-12-15 13:55 | disposition home or self-care (01) ==
LOC: JASU-SURG 04:12
PROVIDERS: ATTEND Obstetrics & Gynecology
PROC: 0UBC8ZZ Excision of Cervix, Via Natural or Artificial Opening Endoscopic (ICD-10-PCS; principal; 2023-12-15 11:00)
DX: N84.1 Polyp of cervix uteri (principal); N84.0 Polyp of corpus uteri
CPT/HCPCS: 81025; 88305-TC; 94760

== ENCOUNTER 2024-10-17 20:12 | Emergency (ER) | payer OTHER ==
[2024-10-17 20:18] VITALS: BP 119/65; PULSE 68; RESP 17; TEMP 98.4; BMI 37.7
== END 2024-10-17 21:01 | disposition home or self-care (01) ==
LOC: JER 20:12
DX: T81.49XA Infection following a procedure, other surgical site, initial encounter (principal); M25.551 Pain in right hip
CPT/HCPCS: 99283-25